=== PATIENT | male | born 1930 | race African-American/Black ===

== ENCOUNTER → 2017-07-30 | Outpatient (CLI) | payer MEDICARE ==
[2017-07-30 09:00] LABS: Basophils % (A) 0 %; Eosinophils # (A) 0.3 k/uL (0-0.7); Eosinophils % (A) 7 %; HCT 31.4 % (39.0-53.0); Lymphocytes # (A) 0.9 k/uL (1.0-4.8); Lymphocytes % (A) 24 %; MCHC 31.8 g/dL (31.0-37.0); MCV 84.8 fL (80.0-100.0); Mean Platelet Volume 7.8; Monocytes # (A) 0.4 k/uL (0-1.0); Monocytes % (A) 9 %; Neutrophils # (A) 2.1 k/uL (1.3-7.7); Neutrophils % (A) 56 %; Platelet Count 214 k/uL (150-450); RBC 3.71 m/uL (4.30-5.90); RDW 14.3 % (11.5-15.5); WBC 3.8 k/uL (3.8-10.6)
== END | disposition home or self-care (01) ==
LOC: LABWHC1 08:39
PROVIDERS: ATTEND Internal Medicine Gastroenterology
DX: D64.9 Anemia, unspecified (principal)
CPT/HCPCS: 36415; 82728; 83540; 83550; 85025

== ENCOUNTER → 2017-09-07 | Day surgery (SDC) | payer MEDICARE ==
[2017-09-06 12:42] VITALS: BMI 33.3
[~2017-09-07] MED LIST: SIMETHICONE 40 MG/0.6 ML DROPS 2,000 MG/30 ML BOTTLE PO ONE
== END ==
LOC: ORWHC2ENDO 06:49
PROVIDERS: ATTEND Internal Medicine Gastroenterology
DX: K63.5 Polyp of colon (principal); K29.70 Gastritis, unspecified, without bleeding; K31.7 Polyp of stomach and duodenum; D50.9 Iron deficiency anemia, unspecified; K92.1 Melena
CPT/HCPCS: 91110

== ENCOUNTER 2017-12-13 20:08 | Emergency (ER) | payer MEDICARE ==
--- NOTE | 2017-12-13 20:42 | ED ---
General Adult HPI - General Chief complaint: Urogenital Stated complaint: blood in urine Time Seen by Provider: 12/13/17 20:41 Source: patient Mode of arrival: wheelchair Limitations: no limitations - History of Present Illness Initial comments: Mr. Mcrae is an 87-year-old gentleman with a past medical history of prostate cancer prostate surgery few years ago. He presents to the emergency department today for evaluation of hematuria and inability urinate since this morning. Patient reports that he urinated this morning without difficulty. Since that time he notices had grossly bloody urine when he attempts to urinate and has not had the ability to void his bladder since this morning. - Related Data Home Medications Medication Instructions Recorded Confirmed Cholecalciferol [Vitamin D3] 2,000 units PO DAILY 08/28/15 12/13/17 Enalapril [Vasotec] 2.5 mg PO DAILY 08/28/15 12/13/17 Ferrous Sulfate [Feosol] 325 mg PO DAILY 08/28/15 12/13/17 Furosemide [Lasix] 20 mg PO DAILY 08/28/15 12/13/17 Glimepiride [Amaryl] 2 mg PO AC-BID 08/28/15 12/13/17 Potassium Chloride [Klor-Con 10] 10 meq PO DAILY 08/28/15 12/13/17 Aspirin 325 mg PO DAILY 09/06/17 12/13/17 Timolol 0.5% Ophth Soln [Timoptic 1 drop BOTH EYES DAILY 12/13/17 12/13/17 0.5% Ophth Soln] glipiZIDE [Glucotrol] 5 mg PO AC-TID 12/13/17 12/13/17 metFORMIN HCL [Glucophage] 500 mg PO BID 12/13/17 12/13/17 Previous Rx's Medication Instructions Recorded Cephalexin [Keflex] 500 mg PO Q6HR #28 cap 12/14/17 Allergies Allergy/AdvReac Type Severity Reaction Status Date / Time No Known Allergies Allergy Verified 12/13/17 20:13 Review of Systems ROS Statement: Those systems with pertinent positive or pertinent negative responses have been documented in the HPI. ROS Other: All systems not noted in ROS Statement are negative. 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 NIDDM type II. PVD. Anemia. BPH History of Any Multi-Drug Resistant Organisms: MRSA Date of last positivie culture/infection: 08/28/15 MDRO Source:: Left Leg Past Surgical History: Bowel Resection, Heart Catheterization Additional Past Surgical History / Comment(s): 2007 last colonoscopy with polypectomy/bx, craniotomy for unknown reason at [facility], R hemicolectomy 2004, cardiac cath tx medically 2013, bilateral cataract removal with lens, LASER MAGDA EYES. Past Anesthesia/Blood Transfusion Reactions: No Reported Reaction Additional Past Anesthesia/Blood Transfusion Reaction / Comment(s): Pt received blood in past without known reaction. Past Psychological History: No Psychological Hx Reported Smoking Status: Never smoker - Past Family History Father Family Medical History: No Reported History Additional Family Medical History / Comment(s): Pt believes his father was healthy. He at age 93 yrs. Mother Family Medical History: No Reported History Additional Family Medical History / Comment(s): Pt doesn't know of mother's medical hx but she did live to be 95 yrs old. General Exam - General Exam Comments Initial Comments: GENERAL: Patient is well-developed and well-nourished. Patient is nontoxic and well- hydrated and is in no distress. HENT: Normocephalic, Atraumatic. EYES: PERRL PULMONARY: Unlabored respirations. CARDIOVASCULAR: There is a regular rate and rhythm without any murmurs gallops or rubs. ABDOMEN: Soft and nontender with normal bowel sounds. Mild tenderness to palpation of suprapubic region SKIN: Skin is clear with no lesions or rashes and otherwise unremarkable. NEUROLOGIC: Patient is alert and oriented x3. Cranial nerves II through XII are grossly intact. Motor and sensory are also intact. Normal speech, volume and content. Symmetrical smile. MUSCULOSKELETAL: Normal extremities with adequate strength and full range of motion. No lower extremity swelling or edema. No calf tenderness. LYMPHATICS: No significant lymphadenopathy is noted PSYCHIATRIC: Normal psychiatric evaluation. Limitations: no limitations Limitations: no limitations Course Vital Signs 12/13/17 12/14/17 20:09 01:49 Temperature 98 F 99.1 F Pulse Rate 85 71 Respiratory 16 18 Rate Blood Pressure 177/90 156/68 O2 Sat by Pulse 98 100 Oximetry Medical Decision Making - Medical Decision Making Patient was seen and evaluated, history is obtained from the patient and review of medical record Patient attempted to provide urine sample for over one hour, but her skin revealed approximately 200 mL in the bladder however patient continued only produced dark blood, decision was made to place a Kapoor catheter Multiple output with Kapoor catheter placement, irrigation ordered Kapoor was irrigated, urine was sent for urinalysis. Was noted to be grossly hematuric with greater than 182 red and white blood cells. Culture was ordered and patient will be empirically treated for UTI. Patient is familiar with Kapoor catheter care as he has had one in the past. Patient discharged home with Kapoor catheter in place and plan to follow up with urology. - Lab Data Lab Results 12/14/17 Range/Units 00:48 Urine Color Red Urine Appearance [employer] Urine RBC >182 H (0-5) /hpf Urine WBC >182 H (0-5) /hpf Urine Bacteria Rare H (None) /hpf Disposition Clinical Impression: Hematuria Disposition: HOME SELF-CARE Instructions: Urinary Tract Infection in Men (ED) Prescriptions: Cephalexin [Keflex] 500 mg PO Q6HR #28 cap Is patient prescribed a controlled substance at d/c from ED?: No Referrals: Edmond Crespo MD [Primary Care Provider] - 1-2 days Lopez Murry MD [STAFF PHYSICIAN] - 1-2 days
[2017-12-13] MEDS ORDERED: SODIUM CHLORIDE 0.9% 1,000 ML IV STA (22:44)
[2017-12-14 01:13] LABS: Bacteria,Urine Rare /hpf
[2017-12-14] MEDS ORDERED: CEPHALEXIN 500MG STARTER PACK 4 CAP BTL PO STA (01:21)
[2017-12-14 01:31] LABS: Color,Urine Red
[2017-12-14 01:32] LABS: WBC,Urine >182 /hpf (0-5)
[2017-12-14 01:33] LABS: RBC,Urine >182 /hpf (0-5)
[2017-12-14 01:51] VITALS: BP 156/68; PULSE 71; RESP 18; TEMP 99.1
== END 2017-12-14 01:49 | disposition home or self-care (01) ==
LOC: EC 20:08
DX: R31.0 Gross hematuria (principal); R32 Unspecified urinary incontinence; I10 Essential (primary) hypertension; I25.10 Atherosclerotic heart disease of native coronary artery without angina pectoris; E11.51 Type 2 diabetes mellitus with diabetic peripheral angiopathy without gangrene; D64.9 Anemia, unspecified; Z79.82 Long term (current) use of aspirin; Z79.84 Long term (current) use of oral hypoglycemic drugs; Z79.899 Other long term (current) drug therapy; Z86.14 Personal history of Methicillin resistant Staphylococcus aureus infection; Z85.038 Personal history of other malignant neoplasm of large intestine; Z85.46 Personal history of malignant neoplasm of prostate; Z92.21 Personal history of antineoplastic chemotherapy; Z92.3 Personal history of irradiation; Z90.49 Acquired absence of other specified parts of digestive tract; Z95.9 Presence of cardiac and vascular implant and graft, unspecified; Z53.8 Procedure and treatment not carried out for other reasons
CPT/HCPCS: 51702; 81001; 87086; 99283

== ENCOUNTER 2017-12-15 11:16 | Emergency (ER) | payer MEDICARE ==
--- NOTE | 2017-12-15 11:42 | ED ---
General Adult HPI - General Chief complaint: Urogenital Stated complaint: catheter problem Source: patient Mode of arrival: wheelchair Limitations: no limitations - History of Present Illness Initial comments: Dictation was produced using [employer] dictation software. please excuse any grammatical, word or spelling errors. Chief Complaint: 87-year-old -[place]os[place] male with past medical history of colon carcinoma, anemia, chronic kidney disease, coronary artery disease, diabetes presents with Kapoor site pain. History of Present Illness: She was seen here in emergency department 2 days ago for urinary retention. Patient's past medical history of prostate cancer status post surgery a few years ago. Patient was seen yesterday for chief complaint of hematuria and urinary retention. Patient had gross hematuria. Patient was found to have urinary retention approximately 200 mL in the bladder. His found to be dark blood. Kapoor catheter was placed and he was instructed to follow-up with urology. Patient states that he presents today because of testicular pain that started after the Kapoor catheter placement. Patient denies any constitutional symptoms. The ROS documented in this emergency department record has been reviewed and confirmed by me. Those systems with pertinent positive or negative responses have been documented in the HPI. All other systems are other negative and/or noncontributory. - Related Data Home Medications Medication Instructions Recorded Confirmed Enalapril [Vasotec] 2.5 mg PO DAILY 08/28/15 12/15/17 Ferrous Sulfate [Feosol] 325 mg PO DAILY 08/28/15 12/15/17 Furosemide [Lasix] 20 mg PO DAILY 08/28/15 12/15/17 Potassium Chloride [Klor-Con 10] 10 meq PO DAILY 08/28/15 12/15/17 Aspirin 325 mg PO DAILY 09/06/17 12/15/17 Timolol 0.5% Ophth Soln [Timoptic 1 drop BOTH EYES DAILY 12/13/17 12/15/17 0.5% Ophth Soln] glipiZIDE [Glucotrol] 5 mg PO AC-TID 12/13/17 12/15/17 Artificial Tears-Hypromellose 1 drops BOTH EYES TID 12/15/17 12/15/17 [Artificial Tear Drops] Previous Rx's Medication Instructions Recorded Levofloxacin [Levaquin] 500 mg PO DAILY 10 Days #10 tab 12/15/17 Allergies Allergy/AdvReac Type Severity Reaction Status Date / Time No Known Allergies Allergy Verified 12/15/17 12:00 Review of Systems ROS Statement: Those systems with pertinent positive or pertinent negative responses have been documented in the HPI. ROS Other: All systems not noted in ROS Statement are negative. 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 NIDDM type II. PVD. Anemia. BPH History of Any Multi-Drug Resistant Organisms: MRSA Date of last positivie culture/infection: 08/28/15 MDRO Source:: Left Leg Past Surgical History: Bowel Resection, Heart Catheterization Additional Past Surgical History / Comment(s): 2007 last colonoscopy with polypectomy/bx, craniotomy for unknown reason at [facility], R hemicolectomy 2004, cardiac cath tx medically 2013, bilateral cataract removal with lens, LASER MAGDA EYES. Past Anesthesia/Blood Transfusion Reactions: No Reported Reaction Additional Past Anesthesia/Blood Transfusion Reaction / Comment(s): Pt received blood in past without known reaction. Past Psychological History: No Psychological Hx Reported Smoking Status: Never smoker Past Alcohol Use History: None Reported Past Drug Use History: None Reported - Past Family History Father Family Medical History: No Reported History Additional Family Medical History / Comment(s): Pt believes his father was healthy. He at age 93 yrs. Mother Family Medical History: No Reported History Additional Family Medical History / Comment(s): Pt doesn't know of mother's medical hx but she did live to be 95 yrs old. General Exam - General Exam Comments Initial Comments: PHYSICAL EXAM: General Impression: Alert and oriented x3, not in acute distress HEENT: Normocephalic atraumatic, extra-ocular movements intact, pupils equal and reactive to light bilaterally, mucous membranes moist. Cardiovascular: Heart regular rate and rhythm, S1&S2 audible, no murmurs, rubs or gallops Chest: Lungs clear to auscultation bilaterally, no rhonchi, no wheeze, no rales Abdomen: Bowel sounds present, abdomen soft, non-tender, non-distended, no organomegaly Musculoskeletal: Pulses present and equal in all extremities, no peripheral edema Motor: Power 5/5 bilaterally, no focal deficits noted Neurological: CN II-XII grossly intact, no focal motor or sensory deficits noted Skin: Intact with no visualized rashes Psych: Normal affect and mood Limitations: no limitations Course Vital Signs 12/15/17 11:19 Temperature 98.7 F Pulse Rate 60 Respiratory 20 Rate Blood Pressure 151/63 O2 Sat by Pulse 100 Oximetry Medical Decision Making - Medical Decision Making ED course: Patient is a 87-year-old -[place]os[place] male with multiple comorbidities presents with testicular pain. Patient has a history of orchiectomy. Vital signs upon arrival are within acceptable limits.Bladder scan was performed with 850 mL of retained urine. Patient is having some scrotal pain ultrasound of the scrotum was obtained showing findings to suggest right hydrocele with findings of epididymal normal orchitis. Patient told to discontinue Keflex. He was given Levaquin 10 days. Kapoor catheter was irrigated with saline by the nurse with approximately 100 mL removed. Patient be discharged. To follow-up with neurology. Disposition Clinical Impression: Epididymitis Disposition: HOME SELF-CARE Condition: Good Instructions: Urinary Tract Infection in Men (ED) Prescriptions: Levofloxacin [Levaquin] 500 mg PO DAILY 10 Days #10 tab Is patient prescribed a controlled substance at d/c from ED?: No Referrals: Edmond Crespo MD [Primary Care Provider] - 1-2 days Time of Disposition: 13:29
--- NOTE | 2017-12-15 13:08 | US ---
EXAMINATION TYPE: US scrotum with doppler. Grayscale and color Doppler Duplex imaging performed of obed scott scrotum. DATE OF EXAM: 12/15/2017 COMPARISON: NONE CLINICAL HISTORY: Pain. 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 There is no evidence of testicular torsion. Presence of hydroceles: large hydrocele = 6.8 x 5.1 x 4.1cm with few thin internal septations superi loida and low level mobile echoes seen inferiorly. Small right epididymal head cyst noted = 0.5 x 0.5 x 0.5cm; small epididymal appendix with internal c yst is noted on images #[id number], [id number]. Mildly heterogenous appearance noted to right testicle may be ten ma channels noted within gland. Mild hyperemia is seen to the testicle and epididymis. Bladder seen Transabdominal US with hyperechoic catheter wall echoes noted within and bladder volume measured = 887.9ml. IMPRESSION: 1. Minimally complex large right hydrocele. 2. Mildly hyperemic testicle and epididymis suggestive of epididymoorchitis. 3. Surgical absence of the left testicle. 4. Gross distention of the urinary bladder containing 887.9 cc.
[2017-12-15 13:39] VITALS: RESP 16
[2017-12-15 13:54] VITALS: BP 126/52; PULSE 88; TEMP 98
== END 2017-12-15 13:52 | disposition home or self-care (01) ==
LOC: EC 11:16
DX: N45.1 Epididymitis (principal); I12.9 Hypertensive chronic kidney disease with stage 1 through stage 4 chronic kidney disease, or unspecified chronic kidney disease; I10 Essential (primary) hypertension; I25.10 Atherosclerotic heart disease of native coronary artery without angina pectoris; E11.22 Type 2 diabetes mellitus with diabetic chronic kidney disease; E11.51 Type 2 diabetes mellitus with diabetic peripheral angiopathy without gangrene; D64.9 Anemia, unspecified; Z79.82 Long term (current) use of aspirin; Z79.84 Long term (current) use of oral hypoglycemic drugs; Z79.899 Other long term (current) drug therapy; Z86.14 Personal history of Methicillin resistant Staphylococcus aureus infection; Z85.46 Personal history of malignant neoplasm of prostate; Z85.038 Personal history of other malignant neoplasm of large intestine; Z92.21 Personal history of antineoplastic chemotherapy; Z92.3 Personal history of irradiation; Z90.49 Acquired absence of other specified parts of digestive tract; Z90.79 Acquired absence of other genital organ(s); Z95.9 Presence of cardiac and vascular implant and graft, unspecified
CPT/HCPCS: 76870; 93975; 99283

== ENCOUNTER 2017-12-16 17:32 | Emergency (ER) | payer MEDICARE ==
[2017-12-16 17:41] VITALS: BP 118/60; PULSE 65; RESP 18; TEMP 98.5
--- NOTE | 2017-12-16 18:37 | ED ---
General Adult HPI - General Chief complaint: Urogenital Stated complaint: unable to urinate Time Seen by Provider: 12/16/17 18:25 Source: patient, RN notes reviewed Mode of arrival: ambulatory Limitations: no limitations - History of Present Illness Initial comments: Patient 87-year-old male presenting to the emergency room today with a chief complaint of urinary retention. Patient does admit that he was seen here in emergency room a week ago had a full catheter placed. He states he was seen yesterday because full catheter was plugged. He states that since 1 PM he does not believe that the full catheter is been working again. She states there is some blood in the back. Patient does admit to some tenderness to lower abdomen and feeling need to void. Patient denies any other complaints or symptoms. Patient denies any recent fever, chills, shortness of breath, chest pain, back pain, nausea or vomiting, headaches or visual changes, or any other complaints. - Related Data Home Medications Medication Instructions Recorded Confirmed Enalapril [Vasotec] 2.5 mg PO DAILY 08/28/15 12/16/17 Ferrous Sulfate [Feosol] 325 mg PO DAILY 08/28/15 12/16/17 Furosemide [Lasix] 20 mg PO DAILY 08/28/15 12/16/17 Potassium Chloride [Klor-Con 10] 10 meq PO DAILY 08/28/15 12/16/17 Aspirin 325 mg PO DAILY 09/06/17 12/16/17 Timolol 0.5% Ophth Soln [Timoptic 1 drop BOTH EYES DAILY 12/13/17 12/16/17 0.5% Ophth Soln] glipiZIDE [Glucotrol] 5 mg PO AC-TID 12/13/17 12/16/17 Artificial Tears-Hypromellose 1 drops BOTH EYES TID 12/15/17 12/16/17 [Artificial Tear Drops] Ciprofloxacin HCl [Cipro] 500 mg PO BID 12/16/17 12/16/17 Previous Rx's Medication Instructions Recorded Levofloxacin [Levaquin] 500 mg PO DAILY 10 Days #10 tab 12/15/17 Allergies Allergy/AdvReac Type Severity Reaction Status Date / Time No Known Allergies Allergy Verified 12/16/17 17:57 Review of Systems ROS Statement: Those systems with pertinent positive or pertinent negative responses have been documented in the HPI. ROS Other: All systems not noted in ROS Statement are negative. 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 NIDDM type II. PVD. Anemia. BPH History of Any Multi-Drug Resistant Organisms: MRSA Date of last positivie culture/infection: 08/28/15 MDRO Source:: Left Leg Past Surgical History: Bowel Resection, Heart Catheterization Additional Past Surgical History / Comment(s): 2007 last colonoscopy with polypectomy/bx, craniotomy for unknown reason at [facility], R hemicolectomy 2004, cardiac cath tx medically 2013, bilateral cataract removal with lens, LASER MAGDA EYES. Past Anesthesia/Blood Transfusion Reactions: No Reported Reaction Additional Past Anesthesia/Blood Transfusion Reaction / Comment(s): Pt received blood in past without known reaction. Past Psychological History: No Psychological Hx Reported Smoking Status: Never smoker Past Alcohol Use History: None Reported Past Drug Use History: None Reported - Past Family History Father Family Medical History: No Reported History Additional Family Medical History / Comment(s): Pt believes his father was healthy. He at age 93 yrs. Mother Family Medical History: No Reported History Additional Family Medical History / Comment(s): Pt doesn't know of mother's medical hx but she did live to be 95 yrs old. General Exam - General Exam Comments Initial Comments: General: The patient is awake and alert, in no distress, and does not appear acutely ill. Eye: There is normal conjunctiva bilaterally. No signs of icterus. Ears, nose, mouth and throat: There are moist mucous membranes and no oral lesions. Neck: The neck is supple, there is no tenderness or JVD. Cardiovascular: There is a regular rate and rhythm. No murmur, rub or gallop is appreciated. Respiratory: Lungs are clear to auscultation, respirations are non-labored, breath sounds are equal. No wheezes, stridor, rales, or rhonchi. Gastrointestinal: Mild discomfort lower abdomen. No rebound, guarding or CVA tenderness. Musculoskeletal: Normal ROM, no tenderness. Sensation intact. Strength 5/5. Pulses equal bilaterally 2+. Neurological: A&O x 3. CN II-XII intact, There are no obvious motor or sensory deficits. Coordination appears grossly intact. Speech is normal. Skin: Skin is warm and dry and no rashes or lesions are noted. Psychiatric: Cooperative, appropriate mood & affect, normal judgment. Limitations: no limitations Course Vital Signs 12/16/17 17:40 Temperature 98.5 F Pulse Rate 65 Respiratory 18 Rate Blood Pressure 118/60 O2 Sat by Pulse 100 Oximetry Medical Decision Making - Medical Decision Making Patient reexamined at this time shows no signs of distress. Nursing staff did irrigate the Kapoor and it was unplugged. Patient fully has been draining well here. Patient will be discharged home. Urinalysis looking good no sign of infection at this time he will be continued on the antibiotic that was previously described. - Lab Data Lab Results 12/16/17 Range/Units 19:10 Urine Color Light Red Urine Appearance Cloudy (Clear) Urine pH 5.5 (5.0-8.0) Ur Specific [place] 1.008 (1.001-1.035) Urine Protein 1+ H (Negative) Urine Glucose (UA) 3+ H (Negative) Urine Ketones Negative (Negative) Urine Blood Large H (Negative) Urine Nitrite Negative (Negative) Urine Bilirubin Negative (Negative) Urine Urobilinogen <2.0 (<2.0) mg/dL Ur Leukocyte Esterase Negative (Negative) Urine RBC >182 H (0-5) /hpf Urine WBC 3 (0-5) /hpf Ur Squamous Epith Cells <1 (0-4) /hpf Urine Bacteria Rare H (None) /hpf Urine Mucus Rare H (None) /hpf Urine Yeast (Budding) Occasional H (None) /hpf Disposition Clinical Impression: Hematuria Disposition: HOME SELF-CARE Condition: Good Instructions: Urinary Tract Infection in Men (ED) Additional Instructions: Please follow-up with urologist over the next 2 days return here to the emergency room for any other concerns. Is patient prescribed a controlled substance at d/c from ED?: No Referrals: Edmond Crespo MD [Primary Care Provider] - 1-2 days Vasyl Santos MD [STAFF PHYSICIAN] - 1-2 days Time of Disposition: 19:44
[2017-12-16 19:20] LABS: Mucus,Urine Rare /hpf; RBC,Urine >182 /hpf (0-5)
[2017-12-16 19:27] LABS: Appearance,Urine Cloudy (Clear); Bacteria,Urine Rare /hpf; Bilirubin,Urine Negative (Negative); Blood,Urine Large (Negative); Budding Yeast,Urine Occasional /hpf; Color,Urine Light Red; Glucose,Urine (UA) 3+ (Negative); Ketones,Urine Negative (Negative); Leukocyte Esterase,Urine Negative (Negative); Nitrite,Urine Negative (Negative); PH, Urine 5.5 (5.0-8.0); Protein,Urine 1+ (Negative); Specific Gravity,Urine 1.008 (1.001-1.035); Squamous Epithelial Cell,Urine <1 /hpf (0-4); Urobilinogen,Urine <2.0 mg/dL (<2.0)
== END 2017-12-16 20:13 | disposition home or self-care (01) ==
LOC: EC 17:32
DX: R31.9 Hematuria, unspecified (principal); R33.9 Retention of urine, unspecified; I10 Essential (primary) hypertension; E11.51 Type 2 diabetes mellitus with diabetic peripheral angiopathy without gangrene; D64.9 Anemia, unspecified; Z79.82 Long term (current) use of aspirin; Z79.84 Long term (current) use of oral hypoglycemic drugs; Z79.899 Other long term (current) drug therapy; Z86.14 Personal history of Methicillin resistant Staphylococcus aureus infection; Z85.038 Personal history of other malignant neoplasm of large intestine; Z85.46 Personal history of malignant neoplasm of prostate; Z92.21 Personal history of antineoplastic chemotherapy; Z92.3 Personal history of irradiation; Z90.49 Acquired absence of other specified parts of digestive tract
CPT/HCPCS: 81001; 99283

== ENCOUNTER 2017-12-17 06:27 | Emergency (ER) | payer MEDICARE ==
[2017-12-17 06:35] VITALS: RESP 18
--- NOTE | 2017-12-17 07:42 | ED ---
General Adult HPI - General Chief complaint: Urogenital Stated complaint: Male Time Seen by Provider: 12/17/17 07:00 Source: patient, RN notes reviewed Mode of arrival: ambulatory Limitations: no limitations - History of Present Illness Initial comments: This is an 87-year-old male who presents emergency Department complaining of urinary retention. Patient states it started in the middle night some time. Patient states since then he's been unable to go. Patient states he has prostate problems and he has an appointment with urology next week. Patient's complaints of supra pubic fullness. Patient denies any dysuria hematuria. Patient states he thinks she might have urinary tract infection because as was happened in the past. Patient denies any fever chills. Patient denies any back pain. Patient denies any nausea vomiting diarrhea. - Related Data Home Medications Medication Instructions Recorded Confirmed Enalapril [Vasotec] 2.5 mg PO DAILY 08/28/15 12/17/17 Ferrous Sulfate [Feosol] 325 mg PO DAILY 08/28/15 12/17/17 Furosemide [Lasix] 20 mg PO DAILY 08/28/15 12/17/17 Potassium Chloride [Klor-Con 10] 10 meq PO DAILY 08/28/15 12/17/17 Aspirin 325 mg PO DAILY 09/06/17 12/17/17 Timolol 0.5% Ophth Soln [Timoptic 1 drop BOTH EYES DAILY 12/13/17 12/17/17 0.5% Ophth Soln] glipiZIDE [Glucotrol] 5 mg PO AC-TID 12/13/17 12/17/17 Artificial Tears-Hypromellose 1 drops BOTH EYES TID 12/15/17 12/17/17 [Artificial Tear Drops] Ciprofloxacin HCl [Cipro] 500 mg PO BID 12/16/17 12/17/17 Previous Rx's Medication Instructions Recorded Levofloxacin [Levaquin] 500 mg PO DAILY 10 Days #10 tab 12/15/17 Allergies Allergy/AdvReac Type Severity Reaction Status Date / Time No Known Allergies Allergy Verified 12/17/17 08:02 Review of Systems ROS Statement: Those systems with pertinent positive or pertinent negative responses have been documented in the HPI. ROS Other: All systems not noted in ROS Statement are negative. 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 NIDDM type II. PVD. Anemia. BPH History of Any Multi-Drug Resistant Organisms: MRSA Date of last positivie culture/infection: 08/28/15 MDRO Source:: Left Leg Past Surgical History: Bowel Resection, Heart Catheterization Additional Past Surgical History / Comment(s): 2007 last colonoscopy with polypectomy/bx, craniotomy for unknown reason at , R hemicolectomy 2004, cardiac cath tx medically 2013, bilateral cataract removal with lens, LASER MAGDA EYES. Past Anesthesia/Blood Transfusion Reactions: No Reported Reaction Additional Past Anesthesia/Blood Transfusion Reaction / Comment(s): Pt received blood in past without known reaction. Past Psychological History: No Psychological Hx Reported Smoking Status: Never smoker Past Alcohol Use History: None Reported Past Drug Use History: None Reported - Past Family History Father Family Medical History: No Reported History Additional Family Medical History / Comment(s): Pt believes his father was healthy. He at age 93 yrs. Mother Family Medical History: No Reported History Additional Family Medical History / Comment(s): Pt doesn't know of mother's medical hx but she did live to be 95 yrs old. General Exam - General Exam Comments Initial Comments: GENERAL: Patient is well-developed and well-nourished. Patient is nontoxic and well- hydrated and is in mild distress. ENT: Neck is soft and supple. No significant lymphadenopathy is noted. Oropharynx is clear. Moist mucous membranes. Neck has full range of motion without eliciting any pain. EYES: The sclera were anicteric and conjunctiva were pink and moist. Extraocular movements were intact and pupils were equal round and reactive to light. Eyelids were unremarkable. PULMONARY: Unlabored respirations. Good breath sounds bilaterally. No audible rales rhonchi or wheezing was noted. CARDIOVASCULAR: There is a regular rate and rhythm without any murmurs gallops or rubs. ABDOMEN: Patient is mildly distended abdomen SKIN: Skin is clear with no lesions or rashes and otherwise unremarkable. NEUROLOGIC: Patient is alert and oriented x3. Cranial nerves II through XII are grossly intact. Motor and sensory are also intact. Normal speech, volume and content. Symmetrical smile. MUSCULOSKELETAL: Normal extremities with adequate strength and full range of motion. No lower extremity swelling or edema. No calf tenderness. LYMPHATICS: No significant lymphadenopathy is noted PSYCHIATRIC: Normal psychiatric evaluation. Limitations: no limitations Course Vital Signs 12/17/17 06:32 Temperature 98.2 F Pulse Rate 64 Respiratory 18 Rate Blood Pressure 155/76 O2 Sat by Pulse 98 Oximetry Medical Decision Making - Lab Data Lab Results 12/17/17 Range/Units 07:35 Urine Color Light Red Urine Appearance Cloudy (Clear) Urine pH 6.0 (5.0-8.0) Ur Specific [place] 1.010 (1.001-1.035) Urine Protein 1+ H (Negative) Urine Glucose (UA) 2+ H (Negative) Urine Ketones Negative (Negative) Urine Blood Moderate H (Negative) Urine Nitrite Negative (Negative) Urine Bilirubin Negative (Negative) Urine Urobilinogen <2.0 (<2.0) mg/dL Ur Leukocyte Esterase Small H (Negative) Urine RBC >182 H (0-5) /hpf Urine WBC 24 H (0-5) /hpf Urine Bacteria Rare H (None) /hpf Urine Mucus Rare H (None) /hpf Disposition Clinical Impression: Urinary retention Disposition: HOME SELF-CARE Condition: Good Instructions: Urinary Retention in Men (ED) Referrals: Edmond Crespo MD [Primary Care Provider] - 1-2 days Vasyl Santos MD [STAFF PHYSICIAN] - 1-2 days Time of Disposition: 08:23
[2017-12-17 07:59] LABS: Appearance,Urine Cloudy (Clear); Bacteria,Urine Rare /hpf; Bilirubin,Urine Negative (Negative); Blood,Urine Moderate (Negative); Color,Urine Light Red; Glucose,Urine (UA) 2+ (Negative); Ketones,Urine Negative (Negative); Leukocyte Esterase,Urine Small (Negative); Mucus,Urine Rare /hpf; Nitrite,Urine Negative (Negative); Protein,Urine 1+ (Negative); RBC,Urine >182 /hpf (0-5); Urobilinogen,Urine <2.0 mg/dL (<2.0); WBC,Urine 24 /hpf (0-5)
[2017-12-17 08:46] VITALS: BP 145/79; PULSE 60; TEMP 97.8
== END 2017-12-17 08:46 | disposition home or self-care (01) ==
LOC: EC 06:27
DX: R33.9 Retention of urine, unspecified (principal); I25.119 Atherosclerotic heart disease of native coronary artery with unspecified angina pectoris; I10 Essential (primary) hypertension; E11.51 Type 2 diabetes mellitus with diabetic peripheral angiopathy without gangrene; Z79.82 Long term (current) use of aspirin; Z79.84 Long term (current) use of oral hypoglycemic drugs; Z79.899 Other long term (current) drug therapy; Z85.46 Personal history of malignant neoplasm of prostate; Z85.038 Personal history of other malignant neoplasm of large intestine; Z95.5 Presence of coronary angioplasty implant and graft
CPT/HCPCS: 81001; 99283

== ENCOUNTER 2017-12-17 19:21 | Emergency (ER) | payer MEDICARE ==
--- NOTE | 2017-12-17 20:17 | ED ---
General Adult HPI - General Chief complaint: Urogenital Stated complaint: Male Time Seen by Provider: 12/17/17 19:30 Source: patient, RN notes reviewed, old records reviewed Mode of arrival: ambulatory Limitations: no limitations - History of Present Illness Initial comments: 87-year-old male presents with decreased urine output in his indwelling Kapoor catheter. Patient has had urinary retention over the past one week. He's had multiple issues with catheter malfunction. He is presenting after being seen in the emergency department earlier today with an obstructed catheter. He is currently on antibiotics for urinary tract infection. No fever or chills. No significant abdominal pain just some lower abdominal discomfort. - Related Data Home Medications Medication Instructions Recorded Confirmed Enalapril [Vasotec] 2.5 mg PO DAILY 08/28/15 12/17/17 Ferrous Sulfate [Feosol] 325 mg PO DAILY 08/28/15 12/17/17 Furosemide [Lasix] 20 mg PO DAILY 08/28/15 12/17/17 Potassium Chloride [Klor-Con 10] 10 meq PO DAILY 08/28/15 12/17/17 Aspirin 325 mg PO DAILY 09/06/17 12/17/17 Timolol 0.5% Ophth Soln [Timoptic 1 drop BOTH EYES DAILY 12/13/17 12/17/17 0.5% Ophth Soln] glipiZIDE [Glucotrol] 5 mg PO AC-TID 12/13/17 12/17/17 Artificial Tears-Hypromellose 1 drops BOTH EYES TID 12/15/17 12/17/17 [Artificial Tear Drops] Ciprofloxacin HCl [Cipro] 500 mg PO BID 12/16/17 12/17/17 Previous Rx's Medication Instructions Recorded Levofloxacin [Levaquin] 500 mg PO DAILY 10 Days #10 tab 12/15/17 Allergies Allergy/AdvReac Type Severity Reaction Status Date / Time No Known Allergies Allergy Verified 12/17/17 19:43 Review of Systems ROS Statement: Those systems with pertinent positive or pertinent negative responses have been documented in the HPI. ROS Other: All systems not noted in ROS Statement are negative. 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 NIDDM type II. PVD. Anemia. BPH History of Any Multi-Drug Resistant Organisms: MRSA Date of last positivie culture/infection: 08/28/15 MDRO Source:: Left Leg Past Surgical History: Bowel Resection, Heart Catheterization Additional Past Surgical History / Comment(s): 2007 last colonoscopy with polypectomy/bx, craniotomy for unknown reason at [facility], R hemicolectomy 2004, cardiac cath tx medically 2013, bilateral cataract removal with lens, LASER MAGDA EYES. Past Anesthesia/Blood Transfusion Reactions: No Reported Reaction Additional Past Anesthesia/Blood Transfusion Reaction / Comment(s): Pt received blood in past without known reaction. Past Psychological History: No Psychological Hx Reported Smoking Status: Never smoker Past Alcohol Use History: None Reported Past Drug Use History: None Reported - Past Family History Father Family Medical History: No Reported History Additional Family Medical History / Comment(s): Pt believes his father was healthy. He at age 93 yrs. Mother Family Medical History: No Reported History Additional Family Medical History / Comment(s): Pt doesn't know of mother's medical hx but she did live to be 95 yrs old. General Exam Limitations: no limitations General appearance: alert, in no apparent distress Head exam: Present: atraumatic, normocephalic Eye exam: Present: normal appearance, PERRL ENT exam: Present: normal exam Neck exam: Present: normal inspection. Absent: tenderness, meningismus Respiratory exam: Present: normal lung sounds bilaterally. Absent: respiratory distress, wheezes Cardiovascular Exam: Present: regular rate, normal rhythm GI/Abdominal exam: Present: soft, tenderness (Mild suprapubic tenderness). Absent: distended exam: Present: other (Indwelling Kapoor catheter). Absent: urethral discharge , scrotal swelling Extremities exam: Present: normal inspection, normal capillary refill Course Vital Signs 12/17/17 19:24 Temperature 98.5 F Pulse Rate 96 Respiratory 16 Rate Blood Pressure 180/66 O2 Sat by Pulse 92 L Oximetry Medical Decision Making - Medical Decision Making 87-year-old male with urinary retention and suspected obstruction of indwelling Kapoor catheter, Kapoor catheter is exchanged in the emergency department after bedside ultrasound reveals large amount of urinary retention. There is a clot in the distal portion of the catheter. After reinsertion of new Kapoor catheter under sterile technique, patient has significant urinary output. Symptoms are resolved. Urine is flowing clear yellow. No additional clots obtained. Patient will be discharged home, he does have outpatient neurology follow-up. Disposition Clinical Impression: Urinary retention Disposition: HOME SELF-CARE Condition: Good Instructions: Urinary Retention in Men (ED), Kapoor Catheter Placement and Care (ED) Is patient prescribed a controlled substance at d/c from ED?: No Referrals: Edmond Crespo MD [Primary Care Provider] - 1-2 days Time of Disposition: 20:17
[2017-12-17 20:44] VITALS: BP 169/79; PULSE 88; RESP 20; TEMP 98.1
== END 2017-12-17 20:37 | disposition home or self-care (01) ==
LOC: EC 19:21
DX: R33.9 Retention of urine, unspecified (principal); R10.30 Lower abdominal pain, unspecified; I25.119 Atherosclerotic heart disease of native coronary artery with unspecified angina pectoris; I10 Essential (primary) hypertension; N40.0 Benign prostatic hyperplasia without lower urinary tract symptoms; D64.9 Anemia, unspecified; E11.9 Type 2 diabetes mellitus without complications; Z86.14 Personal history of Methicillin resistant Staphylococcus aureus infection; Z85.46 Personal history of malignant neoplasm of prostate; Z85.038 Personal history of other malignant neoplasm of large intestine; Z79.82 Long term (current) use of aspirin; Z79.84 Long term (current) use of oral hypoglycemic drugs; Z79.899 Other long term (current) drug therapy; Z95.818 Presence of other cardiac implants and grafts
CPT/HCPCS: 51702; 81001; 99283

== ENCOUNTER 2017-12-19 16:08 | Emergency (ER) | payer MEDICARE ==
[2017-12-19 16:49] VITALS: TEMP 98.6
--- NOTE | 2017-12-19 17:05 | ED ---
Male Urogenital HPI - General Chief complaint: Urogenital Stated complaint: unable to urinate Time Seen by Provider: 12/19/17 16:47 Source: patient Mode of arrival: wheelchair Limitations: no limitations - History of Present Illness Initial comments: Patient is a 87-year-old male presenting for Kapoor catheter malfunction. The patient states that he was seen her multiple occasions because he was retaining urine. Earlier today, he stated that the catheter stop flowing urine. He denies any abdominal pain as well as testicular pain or nausea/vomiting/ diarrhea or fevers/chills. - Related Data Home Medications Medication Instructions Recorded Confirmed Enalapril [Vasotec] 2.5 mg PO DAILY 08/28/15 12/19/17 Ferrous Sulfate [Feosol] 325 mg PO DAILY 08/28/15 12/19/17 Furosemide [Lasix] 20 mg PO DAILY 08/28/15 12/19/17 Potassium Chloride [Klor-Con 10] 10 meq PO DAILY 08/28/15 12/19/17 Aspirin 325 mg PO DAILY 09/06/17 12/19/17 Timolol 0.5% Ophth Soln [Timoptic 1 drop BOTH EYES DAILY 12/13/17 12/19/17 0.5% Ophth Soln] glipiZIDE [Glucotrol] 5 mg PO AC-TID 12/13/17 12/19/17 Artificial Tears-Hypromellose 1 drops BOTH EYES TID 12/15/17 12/19/17 [Artificial Tear Drops] Ciprofloxacin HCl [Cipro] 500 mg PO BID 12/16/17 12/19/17 Previous Rx's Medication Instructions Recorded Levofloxacin [Levaquin] 500 mg PO DAILY 10 Days #10 tab 12/15/17 Allergies Allergy/AdvReac Type Severity Reaction Status Date / Time No Known Allergies Allergy Verified 12/19/17 16:50 Review of Systems ROS Statement: Those systems with pertinent positive or pertinent negative responses have been documented in the HPI. Constitutional: Negative for chills, fatigue and fever. HENT: Negative for congestion. Respiratory: Negative for chest tightness, shortness of breath and wheezing. Negative for cough Cardiovascular: Negative for chest pain and palpitations. Gastrointestinal: Negative for abdominal pain. Negative for abdominal distention , diarrhea, nausea and vomiting. Genitourinary: Negative for dysuria. Positive for Kapoor catheter malfunction Musculoskeletal: Negative for back pain, neck pain and neck stiffness. Skin: Negative for color change. Neurological: Negative for dizziness, speech difficulty, weakness and light- headedness. Psychiatric/Behavioral: Negative for agitation and confusion. Negative for anxiety ROS Other: All systems not noted in ROS Statement are negative. 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 NIDDM type II. PVD. Anemia. BPH History of Any Multi-Drug Resistant Organisms: MRSA Date of last positivie culture/infection: 08/28/15 MDRO Source:: Left Leg Past Surgical History: Bowel Resection, Heart Catheterization Additional Past Surgical History / Comment(s): 2007 last colonoscopy with polypectomy/bx, craniotomy for unknown reason at [facility], R hemicolectomy 2004, cardiac cath tx medically 2013, bilateral cataract removal with lens, LASER MAGDA EYES. Past Anesthesia/Blood Transfusion Reactions: No Reported Reaction Additional Past Anesthesia/Blood Transfusion Reaction / Comment(s): Pt received blood in past without known reaction. Past Psychological History: No Psychological Hx Reported Smoking Status: Never smoker Past Alcohol Use History: None Reported Past Drug Use History: None Reported - Past Family History Father Family Medical History: No Reported History Additional Family Medical History / Comment(s): Pt believes his father was healthy. He at age 93 yrs. Mother Family Medical History: No Reported History Additional Family Medical History / Comment(s): Pt doesn't know of mother's medical hx but she did live to be 95 yrs old. General Exam - General Exam Comments Initial Comments: Constitutional: Pt is oriented to person, place, and time. Pt appears well- developed and well-nourished. No distress. HENT: Head: Normocephalic and atraumatic. Eyes: EOM are normal. Neck: Normal range of motion. Neck supple. Cardiovascular: Normal rate, regular rhythm, S1 normal, S2 normal and normal heart sounds. Exam reveals no gallop and no friction rub. No murmur heard. Pulmonary/Chest: Effort normal and breath sounds normal. No tachypnea and no bradypnea. No respiratory distress. No wheezes or rales noted. Abdominal: Soft. Bowel sounds are normal. Pt exhibits no shifting dullness, no distension, no pulsatile liver, no fluid wave, no abdominal bruit and no ascites. There is no tenderness. There is no rigidity, no rebound, no guarding, no tenderness at McBurney's point and negative Valentin's sign. Musculoskeletal: Normal range of motion. Neurological: Pt is alert and oriented to person, place, and time. No cranial nerve deficit. Skin: Skin is warm and dry. No rash noted. Pt is not diaphoretic. No erythema. No pallor. Psychiatric: Pt has a normal mood and affect. Pt behavior is normal. Thought content normal. Limitations: no limitations Course Vital Signs 12/19/17 12/19/17 16:46 20:27 Temperature 98.6 F Pulse Rate 59 L 62 Respiratory 18 16 Rate Blood Pressure 143/80 137/78 O2 Sat by Pulse 97 98 Oximetry Medical Decision Making - Medical Decision Making Laboratory studies showed that hemoglobin was stable at 10.9 and electrolytes were relatively within normal limits. There is also no evidence of acute kidney injury and urinalysis showed no evidence of bacterial infection. The Kapoor catheter was changed out and bladder scan revealed that the patient was retaining 600 mL of urine. Kapoor change occurred without any significant issues and patient was advised to follow-up with urology which he already had instructions for. Patient was agreeable to plan. - Lab Data Result diagrams: 12/19/17 17:20 12/19/17 17:20 Lab Results 12/19/17 12/19/17 12/19/17 Range/Units 17:20 17:20 18:30 WBC 7.6 (3.8-10.6) k/uL RBC 4.27 L (4.30-5.90) m/uL Hgb 10.9 L (13.0-17.5) gm/dL Hct 34.1 L (39.0-53.0) % MCV 80.0 D (80.0-100.0) fL MCH 25.6 (25.0-35.0) pg MCHC 32.0 (31.0-37.0) g/dL RDW 12.9 (11.5-15.5) % Plt Count 303 (150-450) k/uL Neutrophils % 75 % Lymphocytes % 13 % Monocytes % 6 % Eosinophils % 4 % Basophils % 1 % Neutrophils # 5.7 (1.3-7.7) k/uL Lymphocytes # 1.0 (1.0-4.8) k/uL Monocytes # 0.5 (0-1.0) k/uL Eosinophils # 0.3 (0-0.7) k/uL Basophils # 0.0 (0-0.2) k/uL Sodium 138 (137-145) mmol/L Potassium 4.6 (3.5-5.1) mmol/L Chloride 108 H (98-107) mmol/L Carbon Dioxide 23 (22-30) mmol/L Anion Gap 7 mmol/L BUN 26 H (9-20) mg/dL Creatinine 1.56 H (0.66-1.25) mg/dL Est GFR (CKD-EPI)AfAm 46 (>60 ml/min/1.73 sqM) Est GFR (CKD-EPI)NonAf 40 (>60 ml/min/1.73 sqM) Glucose 164 H (74-99) mg/dL Calcium 8.7 (8.4-10.2) mg/dL Urine Color Light Yellow Urine Appearance Clear (Clear) Urine pH 5.0 (5.0-8.0) Ur Specific [place] 1.008 (1.001-1.035) Urine Protein Trace H (Negative) Urine Glucose (UA) 4+ H (Negative) Urine Ketones Negative (Negative) Urine Blood Moderate H (Negative) Urine Nitrite Negative (Negative) Urine Bilirubin Negative (Negative) Urine Urobilinogen <2.0 (<2.0) mg/dL Ur Leukocyte Esterase Trace H (Negative) Urine RBC 95 H (0-5) /hpf Urine WBC 5 (0-5) /hpf Urine Mucus Rare H (None) /hpf Urine Yeast (Budding) Many H (None) /hpf Disposition Clinical Impression: Urinary retention Disposition: HOME SELF-CARE Condition: Good Instructions: Urinary Retention in Men (ED) Is patient prescribed a controlled substance at d/c from ED?: No Referrals: Edmond Crespo MD [Primary Care Provider] - 1-2 days Time of Disposition: 19:49
[2017-12-19 18:06] LABS: Basophils % (A) 1 %; Eosinophils # (A) 0.3 k/uL (0-0.7); Eosinophils % (A) 4 %; HCT 34.1 % (39.0-53.0); HGB 10.9 gm/dL (13.0-17.5); Lymphocytes % (A) 13 %; MCH 25.6 pg (25.0-35.0); Mean Platelet Volume 7.1; Monocytes # (A) 0.5 k/uL (0-1.0); Monocytes % (A) 6 %; Neutrophils # (A) 5.7 k/uL (1.3-7.7); Neutrophils % (A) 75 %; Platelet Count 303 k/uL (150-450); RBC 4.27 m/uL (4.30-5.90); RDW 12.9 % (11.5-15.5); WBC 7.6 k/uL (3.8-10.6)
[2017-12-19 18:08] LABS: Calcium 8.7 mg/dL (8.4-10.2); Potassium 4.6 mmol/L (3.5-5.1)
[2017-12-19 19:13] LABS: Appearance,Urine Clear (Clear); Bilirubin,Urine Negative (Negative); Blood,Urine Moderate (Negative); Budding Yeast,Urine Many /hpf; Color,Urine Light Yellow; Glucose,Urine (UA) 4+ (Negative); Ketones,Urine Negative (Negative); Leukocyte Esterase,Urine Trace (Negative); Mucus,Urine Rare /hpf; Nitrite,Urine Negative (Negative); Protein,Urine Trace (Negative); RBC,Urine 95 /hpf (0-5); Specific Gravity,Urine 1.008 (1.001-1.035); Urobilinogen,Urine <2.0 mg/dL (<2.0)
[2017-12-19 20:28] VITALS: BP 137/78; PULSE 62; RESP 16
== END 2017-12-19 20:15 | disposition home or self-care (01) ==
LOC: EC 16:08
DX: R33.9 Retention of urine, unspecified (principal); I25.10 Atherosclerotic heart disease of native coronary artery without angina pectoris; E11.9 Type 2 diabetes mellitus without complications; I10 Essential (primary) hypertension; I73.9 Peripheral vascular disease, unspecified; Z85.46 Personal history of malignant neoplasm of prostate; Z85.038 Personal history of other malignant neoplasm of large intestine; Z98.890 Other specified postprocedural states; Z86.14 Personal history of Methicillin resistant Staphylococcus aureus infection; Z79.82 Long term (current) use of aspirin; Z79.84 Long term (current) use of oral hypoglycemic drugs; Z79.899 Other long term (current) drug therapy
CPT/HCPCS: 36415; 51702; 80048; 81001; 85025; 87086; 99284

== ENCOUNTER 2017-12-20 20:25 | Emergency (ER) | payer MEDICARE ==
--- NOTE | 2017-12-20 21:40 | ED ---
Male Urogenital HPI - General Chief complaint: Urogenital Stated complaint: catheter problems-revisit Time Seen by Provider: 12/20/17 21:13 Source: patient, RN notes reviewed Mode of arrival: wheelchair Limitations: physical limitation - History of Present Illness Initial comments: This is an 87-year-old male who presents to the emergency department with chief complaint of Kapoor catheter issue. Patient states that on December 09 he saw his family physician, Dr. Crespo and was diagnosed with a urinary tract infection. He states that he was placed on antibiotics. The following Wednesday, patient began having urinary retention. He came to the emergency department and a Kapoor catheter was placed. Patient states that since that time his catheter has been draining successfully for approximately 12 hours each day and then stop straining. He states that he has been seen here 7 times since the catheter was placed to have the catheter either flushed or changed to a new one. He has been unable to follow up with urology but does have an upcoming appointment this . Patient denies any fevers or chills, chest pain or shortness of breath, nausea or vomiting. He does report abdominal pressure when the catheter stops draining. - Related Data Home Medications Medication Instructions Recorded Confirmed Enalapril [Vasotec] 2.5 mg PO DAILY 08/28/15 12/20/17 Ferrous Sulfate [Feosol] 325 mg PO DAILY 08/28/15 12/20/17 Furosemide [Lasix] 20 mg PO DAILY 08/28/15 12/20/17 Potassium Chloride [Klor-Con 10] 10 meq PO DAILY 08/28/15 12/20/17 Aspirin 325 mg PO DAILY 09/06/17 12/20/17 Timolol 0.5% Ophth Soln [Timoptic 1 drop BOTH EYES DAILY 12/13/17 12/20/17 0.5% Ophth Soln] glipiZIDE [Glucotrol] 5 mg PO AC-TID 12/13/17 12/20/17 Artificial Tears-Hypromellose 1 drops BOTH EYES TID 12/15/17 12/20/17 [Artificial Tear Drops] Allergies Allergy/AdvReac Type Severity Reaction Status Date / Time No Known Allergies Allergy Verified 12/20/17 21:06 Review of Systems ROS Statement: Those systems with pertinent positive or pertinent negative responses have been documented in the HPI. ROS Other: All systems not noted in ROS Statement are negative. 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 NIDDM type II. PVD. Anemia. BPH- retention, History of Any Multi-Drug Resistant Organisms: MRSA Date of last positivie culture/infection: 08/28/15 MDRO Source:: Left Leg Past Surgical History: Bowel Resection, Heart Catheterization Additional Past Surgical History / Comment(s): 2007 last colonoscopy with polypectomy/bx, craniotomy for unknown reason at [facility], R hemicolectomy 2004, cardiac cath tx medically 2013, bilateral cataract removal with lens, LASER MAGDA EYES, Past Anesthesia/Blood Transfusion Reactions: No Reported Reaction Additional Past Anesthesia/Blood Transfusion Reaction / Comment(s): Pt received blood in past without known reaction. Past Psychological History: No Psychological Hx Reported Smoking Status: Never smoker Past Alcohol Use History: None Reported Past Drug Use History: None Reported - Past Family History Father Family Medical History: No Reported History Additional Family Medical History / Comment(s): Pt believes his father was healthy. He at age 93 yrs. Mother Family Medical History: No Reported History Additional Family Medical History / Comment(s): Pt doesn't know of mother's medical hx but she did live to be 95 yrs old. General Exam - General Exam Comments Initial Comments: General: Awake and alert, well-developed; in no apparent distress. Patient is lying completely on ED stretcher. HEENT: Head atraumatic, normocephalic. Pupils are equal, round and reactive to light. Extraocular movements intact. Oropharynx moist without erythema or exudate. Neck: Supple. Normal ROM. Cardiovascular: Regular rate and rhythm. No murmurs, rubs or gallops. Chest symmetrical. Respiratory: Lungs clear to auscultation bilaterally. No wheezes, rales or rhonchi. Normal respiratory effort with no use of accessory muscles. Abdomen: Soft, non-tender, non-distended. No rigidity, rebound or guarding. Normal bowel sounds in all 4 quadrants. Skin: [place], warm and dry. Bilateral lower extremity edema. Neurological: Alert and oriented x3. CN II-XII grossly intact. Speech is fluent and answers are appropriate. No focal neuro deficits. Psychiatric: Normal mood and affect. No overt signs of depression or anxiety noted. Limitations: physical limitation Course Vital Signs 12/20/17 20:29 Temperature 99.0 F Pulse Rate 67 Respiratory 17 Rate Blood Pressure 112/58 O2 Sat by Pulse 95 Oximetry Medical Decision Making - Medical Decision Making This is an 87-year-old male who presents to the emergency department with chief complaint of Kapoor catheter issue. Patient's indwelling Kapoor catheter is not actively draining. Patient has been having problems since initiation last week. He has been seen here 7 times since initial Kapoor placement. On examination, patient's Kapoor catheter is not actively draining. A new catheter was initiated. It is actively draining reddish urine with small blood clots noted. UA was sent which does reveal evidence for blood and red blood cells. No evidence for infection. Patient does have an upcoming appointment on with a urologist. Patient is in no acute distress and will be discharged home at this time. He is in agreement with plan and voices understanding. All questions were answered. - Lab Data Lab Results 12/20/17 Range/Units 23:47 Urine Color Red Urine Appearance Cloudy (Clear) Urine pH 5.5 (5.0-8.0) Ur Specific [place] 1.012 (1.001-1.035) Urine Protein 2+ H (Negative) Urine Glucose (UA) Trace H (Negative) Urine Ketones Negative (Negative) Urine Blood Moderate H (Negative) Urine Nitrite Negative (Negative) Urine Bilirubin Negative (Negative) Urine Urobilinogen <2.0 (<2.0) mg/dL Ur Leukocyte Esterase Negative (Negative) Urine RBC >182 H (0-5) /hpf Urine WBC 27 H (0-5) /hpf Disposition Clinical Impression: Kapoor catheter problem, Urinary retention, Hematuria Disposition: HOME SELF-CARE Condition: Good Instructions: Kapoor Catheter Placement and Care (ED) Additional Instructions: As discussed, please follow up with urologist as scheduled. Please follow up with primary care provider within 1-2 days. Return to emergency department if symptoms should worsen or any concerns arise. Is patient prescribed a controlled substance at d/c from ED?: No Referrals: Edmond Crespo MD [Primary Care Provider] - 1-2 days Time of Disposition: 00:21
[2017-12-21 00:13] LABS: Appearance,Urine Cloudy (Clear); Bilirubin,Urine Negative (Negative); Blood,Urine Moderate (Negative); Color,Urine Red; Glucose,Urine (UA) Trace (Negative); Ketones,Urine Negative (Negative); Leukocyte Esterase,Urine Negative (Negative); Nitrite,Urine Negative (Negative); PH, Urine 5.5 (5.0-8.0); Protein,Urine 2+ (Negative); RBC,Urine >182 /hpf (0-5); Specific Gravity,Urine 1.012 (1.001-1.035); Urobilinogen,Urine <2.0 mg/dL (<2.0); WBC,Urine 27 /hpf (0-5)
[2017-12-21 00:56] VITALS: BP 118/65; PULSE 65; RESP 18; TEMP 98.7
== END 2017-12-21 00:55 | disposition home or self-care (01) ==
LOC: EC 20:25
DX: T83.83XA Hemorrhage due to genitourinary prosthetic devices, implants and grafts, initial encounter (principal); R33.9 Retention of urine, unspecified; E11.9 Type 2 diabetes mellitus without complications; I25.10 Atherosclerotic heart disease of native coronary artery without angina pectoris; I10 Essential (primary) hypertension; Z87.438 Personal history of other diseases of male genital organs; Z85.038 Personal history of other malignant neoplasm of large intestine; Z92.21 Personal history of antineoplastic chemotherapy; Z85.46 Personal history of malignant neoplasm of prostate; Z95.818 Presence of other cardiac implants and grafts; Z86.14 Personal history of Methicillin resistant Staphylococcus aureus infection; Z79.82 Long term (current) use of aspirin; Z79.84 Long term (current) use of oral hypoglycemic drugs; Z79.899 Other long term (current) drug therapy; Y84.6 Urinary catheterization as the cause of abnormal reaction of the patient, or of later complication, without mention of misadventure at the time of the procedure
CPT/HCPCS: 51702; 81001; 99283

== ENCOUNTER 2017-12-22 23:00 | Emergency (ER) | payer MEDICARE ==
[2017-12-22 23:26] VITALS: BP 127/65; PULSE 85; TEMP 99.1
--- NOTE | 2017-12-22 23:40 | ED ---
General Adult HPI - General Chief complaint: Urogenital Stated complaint: Urine Retention Time Seen by Provider: 12/22/17 23:20 Source: patient, RN notes reviewed Mode of arrival: wheelchair Limitations: no limitations - History of Present Illness Initial comments: This is an 87-year-old male who is been to the emergency department multiple times for urinary retention. Patient has had a Kapoor catheter placed with a leg bag. Patient's been in multiple times since that was placed for clotting off of the Kapoor catheter. Patient states she has an appointment at 8 AM in the morning to see urology. Patient states she's been trying to get in for over a week. Patient denies any fever chills. Patient denies any back pain. - Related Data Home Medications Medication Instructions Recorded Confirmed Enalapril [Vasotec] 2.5 mg PO DAILY 08/28/15 12/22/17 Ferrous Sulfate [Feosol] 325 mg PO DAILY 08/28/15 12/22/17 Furosemide [Lasix] 20 mg PO DAILY 08/28/15 12/22/17 Potassium Chloride [Klor-Con 10] 10 meq PO DAILY 08/28/15 12/22/17 Aspirin 325 mg PO DAILY 09/06/17 12/22/17 Timolol 0.5% Ophth Soln [Timoptic 1 drop BOTH EYES DAILY 12/13/17 12/22/17 0.5% Ophth Soln] glipiZIDE [Glucotrol] 5 mg PO AC-TID 12/13/17 12/22/17 Artificial Tears-Hypromellose 1 drops BOTH EYES TID 12/15/17 12/22/17 [Artificial Tear Drops] Allergies Allergy/AdvReac Type Severity Reaction Status Date / Time No Known Allergies Allergy Verified 12/22/17 23:38 Review of Systems ROS Statement: Those systems with pertinent positive or pertinent negative responses have been documented in the HPI. ROS Other: All systems not noted in ROS Statement are negative. 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 NIDDM type II. PVD. Anemia. BPH- retention, History of Any Multi-Drug Resistant Organisms: MRSA Date of last positivie culture/infection: 6/22/16 MDRO Source:: Left Leg Past Surgical History: Bowel Resection, Heart Catheterization Additional Past Surgical History / Comment(s): 2007 last colonoscopy with polypectomy/bx, craniotomy for unknown reason at [facility], R hemicolectomy 2004, cardiac cath tx medically 2014, bilateral cataract removal with lens, LASER MAGDA EYES, Past Anesthesia/Blood Transfusion Reactions: No Reported Reaction Additional Past Anesthesia/Blood Transfusion Reaction / Comment(s): Pt received blood in past without known reaction. Past Psychological History: No Psychological Hx Reported Smoking Status: Never smoker Past Alcohol Use History: None Reported Past Drug Use History: None Reported - Past Family History Father Family Medical History: No Reported History Additional Family Medical History / Comment(s): Pt believes his father was healthy. He at age 93 yrs. Mother Family Medical History: No Reported History Additional Family Medical History / Comment(s): Pt doesn't know of mother's medical hx but she did live to be 95 yrs old. General Exam - General Exam Comments Initial Comments: GENERAL: Patient is well-developed and well-nourished. Patient is nontoxic and well- hydrated and is in mild distress. ENT: Neck is soft and supple. No significant lymphadenopathy is noted. Oropharynx is clear. Moist mucous membranes. EYES: The sclera were anicteric and conjunctiva were pink and moist. Extraocular movements were intact and pupils were equal round and reactive to light. Eyelids were unremarkable. PULMONARY: Unlabored respirations. Good breath sounds bilaterally. No audible rales rhonchi or wheezing was noted. CARDIOVASCULAR: There is a regular rate and rhythm without any murmurs gallops or rubs. ABDOMEN: Distended suprapubic region. SKIN: Skin is clear with no lesions or rashes and otherwise unremarkable. NEUROLOGIC: Patient is alert and oriented x3. Cranial nerves II through XII are grossly intact. Motor and sensory are also intact. Normal speech, volume and content. Symmetrical smile. MUSCULOSKELETAL: Normal extremities with adequate strength and full range of motion. LYMPHATICS: No significant lymphadenopathy is noted PSYCHIATRIC: Normal psychiatric evaluation. Limitations: no limitations Course Vital Signs 12/22/17 23:22 Temperature 99.1 F Pulse Rate 85 Respiratory 16 Rate Blood Pressure 127/65 O2 Sat by Pulse 100 Oximetry Medical Decision Making - Medical Decision Making the catheter was irrigated by nursing and had good flow so the patient was discharged home to be followed up in the morning with urology Disposition Clinical Impression: Urinary retention, Kapoor catheter problem Disposition: HOME SELF-CARE Is patient prescribed a controlled substance at d/c from ED?: No Referrals: Edmond Crespo MD [Primary Care Provider] - 1-2 days Time of Disposition: 00:09
[2017-12-23 00:29] VITALS: RESP 19
== END 2017-12-23 00:19 | disposition home or self-care (01) ==
LOC: EC 23:00
DX: R33.9 Retention of urine, unspecified (principal); T83.9XXA Unspecified complication of genitourinary prosthetic device, implant and graft, initial encounter; I25.119 Atherosclerotic heart disease of native coronary artery with unspecified angina pectoris; I10 Essential (primary) hypertension; E11.9 Type 2 diabetes mellitus without complications; Z85.46 Personal history of malignant neoplasm of prostate; Z85.038 Personal history of other malignant neoplasm of large intestine; Z79.82 Long term (current) use of aspirin; Z79.899 Other long term (current) drug therapy; Z95.5 Presence of coronary angioplasty implant and graft
CPT/HCPCS: 99283

== ENCOUNTER 2017-12-25 04:49 | Emergency (ER) | payer MEDICARE ==
[2017-12-25 05:02] VITALS: BP 144/65; PULSE 85; RESP 18; TEMP 97.3
--- NOTE | 2017-12-25 05:22 | ED ---
General Adult HPI - General Chief complaint: Urogenital Stated complaint: Male Time Seen by Provider: 12/25/17 04:50 Source: patient Mode of arrival: wheelchair Limitations: no limitations - History of Present Illness Initial comments: Mr. Mcrae is a 87-year-old male well known to the emergency department for frequent evaluations of Kapoor catheter obstruction. Patient was seen by urology on , had his catheter irrigated and changed for a larger catheter, he reports that he produce urine throughout the day on and Wednesday but has been unable to produce any urine since Wednesday afternoon. Notes dark clots in his Kapoor catheter tube. The patient denies any pain or discomfort but states that he has not made any urine in over 12 hours so he decided to come the ER before he became uncomfortable. - Related Data Home Medications Medication Instructions Recorded Confirmed Enalapril [Vasotec] 2.5 mg PO DAILY 08/28/15 12/22/17 Ferrous Sulfate [Feosol] 325 mg PO DAILY 08/28/15 12/22/17 Furosemide [Lasix] 20 mg PO DAILY 08/28/15 12/22/17 Potassium Chloride [Klor-Con 10] 10 meq PO DAILY 08/28/15 12/22/17 Aspirin 325 mg PO DAILY 09/06/17 12/22/17 Timolol 0.5% Ophth Soln [Timoptic 1 drop BOTH EYES DAILY 12/13/17 12/22/17 0.5% Ophth Soln] glipiZIDE [Glucotrol] 5 mg PO AC-TID 12/13/17 12/22/17 Artificial Tears-Hypromellose 1 drops BOTH EYES TID 12/15/17 12/22/17 [Artificial Tear Drops] Allergies Allergy/AdvReac Type Severity Reaction Status Date / Time No Known Allergies Allergy Verified 12/22/17 23:38 Review of Systems ROS Statement: Those systems with pertinent positive or pertinent negative responses have been documented in the HPI. ROS Other: All systems not noted in ROS Statement are negative. 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 NIDDM type II. PVD. Anemia. BPH- retention, History of Any Multi-Drug Resistant Organisms: MRSA Date of last positivie culture/infection: 08/28/15 MDRO Source:: Left Leg Past Surgical History: Bowel Resection, Heart Catheterization Additional Past Surgical History / Comment(s): 2007 last colonoscopy with polypectomy/bx, craniotomy for unknown reason at [facility], R hemicolectomy 2004, cardiac cath tx medically 2014, bilateral cataract removal with lens, LASER MAGDA EYES, Past Anesthesia/Blood Transfusion Reactions: No Reported Reaction Additional Past Anesthesia/Blood Transfusion Reaction / Comment(s): Pt received blood in past without known reaction. Past Psychological History: No Psychological Hx Reported Smoking Status: Never smoker Past Alcohol Use History: None Reported Past Drug Use History: None Reported - Past Family History Father Family Medical History: No Reported History Additional Family Medical History / Comment(s): Pt believes his father was healthy. He at age 93 yrs. Mother Family Medical History: No Reported History Additional Family Medical History / Comment(s): Pt doesn't know of mother's medical hx but she did live to be 95 yrs old. General Exam Limitations: no limitations Course Vital Signs 12/25/17 04:58 Temperature 97.3 F L Pulse Rate 85 Respiratory 18 Rate Blood Pressure 144/65 O2 Sat by Pulse 97 Oximetry Medical Decision Making - Medical Decision Making Bladder scan reveals greater than 1 L in the bladder fully catheter was successfully irrigated, multiple clots were removed and the catheter began to drain slightly blood-tinged urine Patient remained comfortable throughout procedure Patient discharged home in stable condition. Disposition Clinical Impression: Hematuria, Kapoor catheter problem Disposition: HOME SELF-CARE Instructions: Kapoor Catheter Placement and Care (ED) Is patient prescribed a controlled substance at d/c from ED?: No Referrals: Edmond Crespo MD [Primary Care Provider] - 1-2 days
== END 2017-12-25 06:10 | disposition home or self-care (01) ==
LOC: EC 04:49
DX: T83.098A Other mechanical complication of other urinary catheter, initial encounter (principal); R31.9 Hematuria, unspecified; I25.119 Atherosclerotic heart disease of native coronary artery with unspecified angina pectoris; E11.51 Type 2 diabetes mellitus with diabetic peripheral angiopathy without gangrene; I10 Essential (primary) hypertension; Z79.82 Long term (current) use of aspirin; Z79.899 Other long term (current) drug therapy; Z79.84 Long term (current) use of oral hypoglycemic drugs; Z85.038 Personal history of other malignant neoplasm of large intestine; Z85.46 Personal history of malignant neoplasm of prostate
CPT/HCPCS: 99283

== ENCOUNTER 2018-09-16 08:41 | Inpatient (IN) | payer MEDICARE ==
--- NOTE | 2018-09-16 09:01 | ED ---
General Adult HPI - General Source: patient, RN notes reviewed Mode of arrival: ambulatory Limitations: no limitations <Barrington Michaels - Last Filed: 09/16/18 10:27> <Aren Silva - Last Filed: 09/16/18 10:33> - General Chief complaint: Wound/Laceration Stated complaint: foot infection Time Seen by Provider: 09/16/18 08:50 - History of Present Illness Initial comments: 88-year-old male with a past medical history of NIDDM, PVD, coronary artery disease, hypertension presents to the emergency department for a chief complaint of infection of right foot 3 days. Patient states he noticed his foot was read 3 days ago. States it has spread up to his lower leg. Patient states that his right third toe appears somewhat blackened. He is denying any fevers or chills. States he otherwise feels fine. 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 Patient has no other complaints at this time including shortness of breath, chest pain, abdominal pain, nausea or vomiting, headache, or visual changes. (Barrington Michaels) - Related Data Home Medications Medication Instructions Recorded Confirmed Enalapril [Vasotec] 2.5 mg PO DAILY 08/28/15 09/16/18 Ferrous Sulfate [Feosol] 325 mg PO DAILY 08/28/15 09/16/18 Furosemide [Lasix] 20 mg PO DAILY 08/28/15 09/16/18 Potassium Chloride [Klor-Con 10] 10 meq PO DAILY 08/28/15 09/16/18 Aspirin 325 mg PO DAILY 09/06/17 09/16/18 Timolol 0.5% Ophth Soln [Timoptic 1 drop BOTH EYES DAILY 12/13/17 09/16/18 0.5% Ophth Soln] glipiZIDE [Glucotrol] 5 mg PO AC-TID 12/13/17 09/16/18 Artificial Tears-Hypromellose 1 drops BOTH EYES TID 12/15/17 09/16/18 [Artificial Tear Drops] Cholecalciferol (Vitamin D3) 2,000 unit PO DAILY 09/16/18 09/16/18 [Vitamin D3] Tamsulosin [Flomax] 0.4 mg PO DAILY 09/16/18 09/16/18 Allergies Allergy/AdvReac Type Severity Reaction Status Date / Time No Known Allergies Allergy Verified 09/16/18 09:10 Review of Systems ROS Other: All systems not noted in ROS Statement are negative. <Barrington Michaels - Last Filed: 09/16/18 10:27> ROS Other: All systems not noted in ROS Statement are negative. <Aren Silva - Last Filed: 09/16/18 10:33> ROS Statement: Those systems with pertinent positive or pertinent negative responses have been documented in the HPI. 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 NIDDM type II. PVD. Anemia. BPH- retention, History of Any Multi-Drug Resistant Organisms: MRSA Date of last positivie culture/infection: 08/28/15 MDRO Source:: Left Leg Past Surgical History: Bowel Resection, Heart Catheterization Additional Past Surgical History / Comment(s): 2007 last colonoscopy with polypectomy/bx, craniotomy for unknown reason at , R hemicolectomy 2004, cardiac cath tx medically 2014, bilateral cataract removal with lens, LASER MAGDA EYES, Past Anesthesia/Blood Transfusion Reactions: No Reported Reaction Additional Past Anesthesia/Blood Transfusion Reaction / Comment(s): Pt received blood in past without known reaction. Past Psychological History: No Psychological Hx Reported Smoking Status: Never smoker Past Alcohol Use History: None Reported Past Drug Use History: None Reported - Past Family History Father Family Medical History: No Reported History Additional Family Medical History / Comment(s): Pt believes his father was healthy. He at age 93 yrs. Mother Family Medical History: No Reported History Additional Family Medical History / Comment(s): Pt doesn't know of mother's medical hx but she did live to be 95 yrs old. <Barrington Michaels - Last Filed: 09/16/18 10:27> General Exam Limitations: no limitations General appearance: alert, in no apparent distress Head exam: Present: atraumatic, normocephalic, normal inspection Eye exam: Present: normal appearance, PERRL, EOMI. Absent: scleral icterus, conjunctival injection, periorbital swelling ENT exam: Present: normal exam, mucous membranes moist Neck exam: Present: normal inspection, full ROM. Absent: tenderness, meningismus, lymphadenopathy Respiratory exam: Present: normal lung sounds bilaterally. Absent: respiratory distress, wheezes, rales, rhonchi, stridor Cardiovascular Exam: Present: regular rate, normal rhythm, normal heart sounds. Absent: systolic murmur, diastolic murmur, rubs, gallop, clicks Extremities exam: Present: full ROM (Full range of motion of the right lower extremity.), normal capillary refill (Capillary refill less than 2 seconds noted of the right lower extremity and equal bilaterally.), other (There is erythema noted of the right foot as well as the distal right lower extremity extending up to the mid tib-fib. There is also slight edema noted. It is warm to touch and consistent with cellulitis. The third toe on the right foot appears necrotic distally.) Neurological exam: Present: alert, oriented X3, CN II-XII intact Psychiatric exam: Present: normal affect, normal mood <Barrington Michaels - Last Filed: 09/16/18 10:27> Course <Aren Silva - Last Filed: 09/16/18 10:33> Vital Signs 09/16/18 09/16/18 09/16/18 08:46 09:30 10:00 Temperature 98.6 F Pulse Rate 60 55 L 58 L Respiratory 16 16 Rate Blood Pressure 137/72 127/61 129/68 O2 Sat by Pulse 98 100 100 Oximetry - Reevaluation(s) Reevaluation #1: 09/16/18 10:32 Patient supervision: I proceeded [id number] evaluation the patient and did evaluate his right lower extremity which is demonstrated evidence of infectious process. There is drainage. Eschar is noted. No soft tissue gas however seen on x-ray with no definitive evidence of osteomyelitis. The extremity is warm. The exam is consistent with a cellulitis. I did discuss case with Dr. Crespo. I do agree with assessment and plan. Dr. Morales will be consulted. (Aren Silva) Medical Decision Making - Lab Data Result diagrams: 09/16/18 09:03 09/16/18 09:03 <Barrington Michaels - Last Filed: 09/16/18 10:27> - Lab Data Result diagrams: 09/16/18 09:03 09/16/18 09:03 <Aren Silva - Last Filed: 09/16/18 10:33> - Medical Decision Making 88-year-old male with a past medical history of NIDDM, PVD, CAD, hypertension for a chief complaint of right foot infection. States he is only seen this for a few days. On exam patient has erythema and edema noted of the right foot and lower leg and right third toe appears to have a wound on distal 3rd toe with necrotic distally. DP Pulses evident on Doppler, capillary refill less than 2 seconds. Patient was started on Rocephin and blood cultures pending. White count 8.5. Hemoglobin 10.7 which is chronic. CMP shows a creatinine of 1.67 which also appears chronic. X-ray of the right foot shows diffuse soft tissue swelling neck can be related to infection. Underlying osteomyelitis is not radiographically apparent. Patient reevaluated, feeling well at this time. Patient will be admitted for IV antibiotics. Patient also started on vanco given history of MRSA in right leg. (Barrington Michaels) - Lab Data Lab Results 09/16/18 09/16/18 09/16/18 Range/Units 09:03 09:03 09:03 WBC 8.5 (3.8-10.6) k/uL RBC 4.11 L (4.30-5.90) m/uL Hgb 10.7 L (13.0-17.5) gm/dL Hct 33.8 L (39.0-53.0) % MCV 82.2 (80.0-100.0) fL MCH 26.0 (25.0-35.0) pg MCHC 31.7 (31.0-37.0) g/dL RDW 13.2 (11.5-15.5) % Plt Count 292 (150-450) k/uL Neutrophils % 80 % Lymphocytes % 8 % Monocytes % 8 % Eosinophils % 1 % Basophils % 0 % Neutrophils # 6.8 (1.3-7.7) k/uL Lymphocytes # 0.7 L (1.0-4.8) k/uL Monocytes # 0.7 (0-1.0) k/uL Eosinophils # 0.1 (0-0.7) k/uL Basophils # 0.0 (0-0.2) k/uL PT (9.0-12.0) sec INR (<1.2) APTT (22.0-30.0) sec Sodium 142 (137-145) mmol/L Potassium 4.1 (3.5-5.1) mmol/L Chloride 110 H (98-107) mmol/L Carbon Dioxide 24 (22-30) mmol/L Anion Gap 8 mmol/L BUN 21 H (9-20) mg/dL Creatinine 1.67 H (0.66-1.25) mg/dL Est GFR (CKD-EPI)AfAm 42 (>60 ml/min/1.73 sqM) Est GFR (CKD-EPI)NonAf 37 (>60 ml/min/1.73 sqM) Glucose 163 H (74-99) mg/dL Plasma Lactic Acid Jose 0.9 (0.7-2.0) mmol/L Calcium 8.5 (8.4-10.2) mg/dL Total Bilirubin 1.0 (0.2-1.3) mg/dL AST 34 (17-59) U/L ALT 49 (21-72) U/L Alkaline Phosphatase 122 (38-126) U/L Total Protein 6.0 L (6.3-8.2) g/dL Albumin 2.8 L (3.5-5.0) g/dL 09/16/18 Range/Units 09:03 WBC (3.8-10.6) k/uL RBC (4.30-5.90) m/uL Hgb (13.0-17.5) gm/dL Hct (39.0-53.0) % MCV (80.0-100.0) fL MCH (25.0-35.0) pg MCHC (31.0-37.0) g/dL RDW (11.5-15.5) % Plt Count (150-450) k/uL Neutrophils % % Lymphocytes % % Monocytes % % Eosinophils % % Basophils % % Neutrophils # (1.3-7.7) k/uL Lymphocytes # (1.0-4.8) k/uL Monocytes # (0-1.0) k/uL Eosinophils # (0-0.7) k/uL Basophils # (0-0.2) k/uL PT 11.6 (9.0-12.0) sec INR 1.1 (<1.2) APTT 27.1 (22.0-30.0) sec Sodium (137-145) mmol/L Potassium (3.5-5.1) mmol/L Chloride (98-107) mmol/L Carbon Dioxide (22-30) mmol/L Anion Gap mmol/L BUN (9-20) mg/dL Creatinine (0.66-1.25) mg/dL Est GFR (CKD-EPI)AfAm (>60 ml/min/1.73 sqM) Est GFR (CKD-EPI)NonAf (>60 ml/min/1.73 sqM) Glucose (74-99) mg/dL Plasma Lactic Acid Jose (0.7-2.0) mmol/L Calcium (8.4-10.2) mg/dL Total Bilirubin (0.2-1.3) mg/dL AST (17-59) U/L ALT (21-72) U/L Alkaline Phosphatase (38-126) U/L Total Protein (6.3-8.2) g/dL Albumin (3.5-5.0) g/dL Disposition Is patient prescribed a controlled substance at d/c from ED?: No Time of Disposition: 10:28 <Barrington Michaels - Last Filed: 09/16/18 10:27> <Aren Silva - Last Filed: 09/16/18 10:33> Clinical Impression: Cellulitis, PVD (peripheral vascular disease) Disposition: HOME SELF-CARE Condition: Good Referrals: Edmond Crespo MD [Primary Care Provider] - 1-2 days
[2018-09-16] MEDS: SODIUM CHLORIDE 0.9% 500 ML 500 ML IV SCH ×2 (09:12→09:13)
[2018-09-16 09:23] LABS: Basophils % (A) 0 %; Eosinophils # (A) 0.1 k/uL (0-0.7); Eosinophils % (A) 1 %; HCT 33.8 % (39.0-53.0); HGB 10.7 gm/dL (13.0-17.5); Lymphocytes # (A) 0.7 k/uL (1.0-4.8); Lymphocytes % (A) 8 %; MCHC 31.7 g/dL (31.0-37.0); MCV 82.2 fL (80.0-100.0); Mean Platelet Volume 6.8; Monocytes # (A) 0.7 k/uL (0-1.0); Monocytes % (A) 8 %; Neutrophils # (A) 6.8 k/uL (1.3-7.7); Neutrophils % (A) 80 %; Platelet Count 292 k/uL (150-450); RBC 4.11 m/uL (4.30-5.90); RDW 13.2 % (11.5-15.5); WBC 8.5 k/uL (3.8-10.6)
[2018-09-16 09:29] LABS: INR 1.1 (<1.2); Partial Thromboplastin Time 27.1 sec (22.0-30.0); Prothrombin Time 11.6 sec (9.0-12.0)
[2018-09-16 09:31] LABS: Albumin 2.8 g/dL (3.5-5.0); Calcium 8.5 mg/dL (8.4-10.2); Potassium 4.1 mmol/L (3.5-5.1)
--- NOTE | 2018-09-16 09:41 | XR ---
EXAMINATION TYPE: XR foot complete RT DATE OF EXAM: 09/16/2018 COMPARISON: None HISTORY: Pain, swelling right toe TECHNIQUE: Three-view right foot FINDINGS: There is some soft tissue swelling over the great toe. Soft tissue swelling of the second t hrough fourth digits is also present. Underlying osseous structures appear intact. No acute fractures are evident. No cortical erosion is i dentified. Plantar calcaneal heel spur is present. Hammertoes are evident. There is soft tissue swell ing over the dorsum of the foot. IMPRESSION: 1. Diffuse soft tissue swelling can be related to reported infection. 2. Underlying osteomyelitis is not radiographically apparent.
[2018-09-16] MEDS ORDERED: NALOXONE 0.4 MG/ML 1 ML VIAL IV PRN (10:24)
[2018-09-16] MEDS ORDERED: traMADol 50 MG TAB PO PRN (10:24)
[2018-09-16] MEDS ORDERED: VANCOMYCIN IV PER PHARMACY 1 EACH MISC MISCELLANE PRN (10:29)
[2018-09-16] MEDS: SODIUM CHLORIDE 0.9% 1,000 ML IV SCH ×2 (10:56→23:38)
[2018-09-16] MEDS ORDERED: VANCOMYCIN 1,750 MG in SODIUM CHLORIDE 0.9% 500 ML 500 ML IVPB ONE (11:15)
--- NOTE | 2018-09-16 13:33 | P.HPIM ---
History of Present Illness H&P Date: 09/16/18 Chief Complaint: Right foot swelling and infection This is a 88-year-old -[place] male with a known past medical history of diabetes, peripheral vascular disease, hypertension, chronic kidney disease, and iron deficiency anemia and anemia of chronic kidney disease, colon cancer with radiation and chemo treatment and surgical resection, prostate cancer status post radiation treatment. Per chart patient has previous MRSA infection in the left leg. Patient presents to the hospital due to a right foot infection that started about 3 days ago. He denies any injury or any sores on the foot. The right foot third toe is black foul odor and there is skin that is sloughing off. There is no pain with palpation of the toe. His foot is also swollen and red and increasing up into the leg. Patient denies any fevers, chills or sweats. Denies a nausea vomiting, bowel movement changes or urinary symptoms. Denies any chest pain or shortness of breath. He has been afebrile white count is normal at 8.5. Admitting vitals 98.6 temp pulse 60 respiratory rate 16 blood pressure 137/72 on room air at 98%. X-ray of the foot shows soft tissue swelling can be related to reported infection. Underlying osteomyelitis is not evident on x-ray. Consult has been placed for infectious disease and vascular surgery. Patient started on Rocephin and vancomycin. Hemoglobin 10.7 no active signs of bleeding creatinine 1.67 albumin 2.8. Review of Systems Please refer to HPI otherwise unremarkable Past Medical History Past Medical History: Blood Disorder, Coronary Artery Disease (CAD), Cancer, Chest Pain / Angina, Diabetes Mellitus, Eye Disorder, GI Bleed, Hypertension, Prostate Disorder, Renal Disease, Vascular Disorder Additional Past Medical History / Comment(s): NIDDM type II, CKD stage III, PVD, past lower extremity cellulitis, past L lower leg ulcer, 2004 colon cancer with surgery/chemo and radiation, prostate cancer with radiation tx, anemia, lower GI bleed, gastric/colon polyps/melanosis coli, bilateral glaucoma History of Any Multi-Drug Resistant Organisms: MRSA Date of last positivie culture/infection: 08/28/15 MDRO Source:: Left Leg Past Surgical History: Bowel Resection, Heart Catheterization Additional Past Surgical History / Comment(s): EGD, colonoscopies with polypectomy/bx, benign brain tumor removed at [facility], R hemicolectomy 2005, cardiac cath tx medically 2014, bilateral cataract removal with lens, LASER MAGDA EYES, Past Anesthesia/Blood Transfusion Reactions: No Reported Reaction Additional Past Anesthesia/Blood Transfusion Reaction / Comment(s): Pt received blood in past without known reaction. Past Psychological History: No Psychological Hx Reported Additional Psychological History / Comment(s): Pt resides by himself. He is independent. He drives. He sometimes goes to the [facility] on [facility] for meals. He uses a cane if walking a distance. Smoking Status: Never smoker Past Alcohol Use History: None Reported Past Drug Use History: None Reported - Past Family History Father Family Medical History: No Reported History Additional Family Medical History / Comment(s): Pt believes his father was healthy. He at age 93 yrs. Mother Family Medical History: No Reported History Additional Family Medical History / Comment(s): Pt doesn't know of mother's medical hx but she did live to be 95 yrs old. Medications and Allergies Home Medications Medication Instructions Recorded Confirmed Type Enalapril [Vasotec] 2.5 mg PO DAILY 08/28/15 09/16/18 History Ferrous Sulfate [Feosol] 325 mg PO DAILY 08/28/15 09/16/18 History Furosemide [Lasix] 20 mg PO DAILY 08/28/15 09/16/18 History Potassium Chloride [Klor-Con 10] 10 meq PO DAILY 08/28/15 09/16/18 History Aspirin 325 mg PO DAILY 09/06/17 09/16/18 History Timolol 0.5% Ophth Soln [Timoptic 1 drop BOTH EYES DAILY 12/13/17 09/16/18 History 0.5% Ophth Soln] glipiZIDE [Glucotrol] 5 mg PO AC-TID 12/13/17 09/16/18 History Artificial Tears-Hypromellose 1 drops BOTH EYES TID 12/15/17 09/16/18 History [Artificial Tear Drops] Cholecalciferol (Vitamin D3) 2,000 unit PO DAILY 09/16/18 09/16/18 History [Vitamin D3] Tamsulosin [Flomax] 0.4 mg PO DAILY 09/16/18 09/16/18 History Allergies Allergy/AdvReac Type Severity Reaction Status Date / Time No Known Allergies Allergy Verified 09/16/18 09:10 Physical Exam Vitals: Vital Signs Temp Pulse Pulse Resp BP BP Pulse Ox 09/16/18 12:56 99.0 F 76 16 174/87 100 09/16/18 11:30 58 L 136/73 100 09/16/18 11:00 56 L 133/62 100 09/16/18 10:00 58 L 16 129/68 100 09/16/18 09:30 55 L 127/61 100 09/16/18 08:46 98.6 F 60 16 137/72 98 Intake and Output 09/15/18 09/16/18 09/16/18 22:59 06:59 14:59 Other: Weight 110.223 kg Head normocephalic Neck supple Lungs clear to auscultation bilaterally no wheezing or crackles Heart regular rate and rhythm S1-S2, no rub or gallop Abdomen is soft nontender nondistended positive bowel sounds no hepatosplenomegaly Extremities right foot is swollen and red. Swelling and erythema increases up into the tibial area below the knee. The third toe distal portion is black n ontender with foul odor. Neuro alert and orientated to 3 Results CBC & Chem 7: 09/16/18 09:03 09/16/18 09:03 Labs: Abnormal Lab Results - Last 24 Hours (Table) 09/16/18 09/16/18 Range/Units 09:03 09:03 RBC 4.11 L (4.30-5.90) m/uL Hgb 10.7 L (13.0-17.5) gm/dL Hct 33.8 L (39.0-53.0) % Lymphocytes # 0.7 L (1.0-4.8) k/uL Chloride 110 H (98-107) mmol/L BUN 21 H (9-20) mg/dL Creatinine 1.67 H (0.66-1.25) mg/dL Glucose 163 H (74-99) mg/dL Total Protein 6.0 L (6.3-8.2) g/dL Albumin 2.8 L (3.5-5.0) g/dL Thrombosis Risk Factor Assmnt - Choose All That Apply Any of the Below Risk Factors Present?: Yes Each Factor Represents 1 point: Obesity (BMI >25), Swollen legs (current) Other Risk Factors: Yes Each Risk Factor Represents 2 Points: Malignancy Each Risk Factor Represents 3 Points: Age 75 years or older Other congenital or acquired thrombophilia - If yes, enter type in comment: No Thrombosis Risk Factor Assessment Total Risk Factor Score: 7 Thrombosis Risk Factor Assessment Level: High Risk Assessment and Plan Assessment: 1. Right foot third toe with gangrene and cellulitis changes of the right foot and right lower leg.: Patient has history of MRSA. Patient start on IV vancomycin and Rocephin in the emergency room. X-ray shows soft tissue swelling of the infected area. And no evidence of osteomyelitis. Consulted been placed for ID and vascular surgery. Check venous Doppler to rule out DVT of the right leg 2. Chronic kidney disease stage III: Creatinine near baseline. Continue to monitor closely. We'll continue with his home dose of Lasix. 3. Anemia of iron deficiency and chronic kidney disease. Hemoglobin 10.7. No active signs of bleeding. Continue iron supplement. Check iron studies. 4. Severe protein calorie malnutrition: Add glucerna shakes 5. Diabetes mellitus type 2: Resume glipizide. Add sliding scale coverage. Check hemoglobin A1c 6. History of peripheral vascular disease 7. Essential hypertension 8. History of colon cancer in 2004 status post radiation, chemo and surgery 9. History of coronary artery disease 10. History of prostate cancer in 2011 status post radiation GI prophylaxis Pepcid and DVT prophylaxis subcu heparin Time with Patient: Greater than 30 (Greater than 50% of the total time spent in counseling and coordination of care.I performed an examination of the patient and discussed their management with the physician Director Of Speech Pathology. I have reviewed the Physician Director Of Speech Pathology's notes and agree with the documented findings and plan of care)
--- NOTE | 2018-09-16 15:24 | US ---
EXAMINATION TYPE: US venous doppler duplex LE RT DATE OF EXAM: 09/16/2018 3:07 PM COMPARISON: 08/28/2015 CLINICAL HISTORY: right leg swelling. SIDE PERFORMED: Right TECHNIQUE: The lower extremity deep venous system is examined utilizing real time linear array sonog beth with graded compression, doppler sonography and color-flow sonography. VESSELS IMAGED: External Iliac Vein (EIV) Common Femoral Vein Deep Femoral Vein Greater Saphenous Vein * Femoral Vein Popliteal Vein Small Saphenous Vein * Proximal Calf Veins (* superficial vessels) Right Leg: Negative for DVT Incidental note is made of 4.9 x 1.9 cm node in groin, fluid collection in pop fossa measures 4.9 x 1 .5 x 1.2 cm. Extensive edema noted in lower leg. IMPRESSION: 1. Right lower extremity ultrasound negative for deep venous process. 2. Markedly enlarged lymph node in the right groin measuring 5 x 2 cm. 3. Popliteal cyst
[2018-09-16 16:05] VITALS: BMI 32.9
--- NOTE | 2018-09-16 16:50 | P.GSCN ---
History of Present Illness History of present illness: 88-year-old -[place] male patient came with the infected gangrene right foot third toe foul order smell noted with some M a she's a and some pus drainage noted from the right foot third toe and and gangrene changes patient hasof trauma or insect bite. Patient has a history of diabetes, hypertension, history of colon cancer post radiation, history of prostate cancer, history of c oronary artery disease, Neck examination neck is supple no bruit appreciated Chest clear first and second sound normal Abdomen soft nontender vascular examination femorals are 1+ posterior tibial d orsal pedis by the Doppler patient has a right foot third toe wet gangrene with foul order smell Plan is ray amputation of the right foot third toe continue with IV antibiotic risk and complication discussed thank you Past Medical History Past Medical History: Blood Disorder, Coronary Artery Disease (CAD), Cancer, Chest Pain / Angina, Diabetes Mellitus, Eye Disorder, GI Bleed, Hypertension, Prostate Disorder, Renal Disease, Vascular Disorder Additional Past Medical History / Comment(s): NIDDM type II, CKD stage III, PVD, past lower extremity cellulitis, past L lower leg ulcer, 2004 colon cancer with surgery/chemo and radiation, prostate cancer with radiation tx, anemia, lower GI bleed, gastric/colon polyps/melanosis coli, 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 Past Psychological History: No Psychological Hx Reported Additional Psychological History / Comment(s): Pt resides by himself. He is independent. He drives. He sometimes goes to the [employer] [place] [address] for meals. He uses a cane if walking a distance. Smoking Status: Never smoker Past Alcohol Use History: None Reported Past Drug Use History: None Reported - Past Family History Father Family Medical History: No Reported History Additional Family Medical History / Comment(s): Pt believes his father was healthy. He at age 93 yrs. Mother Family Medical History: No Reported History Additional Family Medical History / Comment(s): Pt doesn't know of mother's medical hx but she did live to be 95 yrs old. Medications and Allergies Home Medications Medication Instructions Recorded Confirmed Type Enalapril [Vasotec] 2.5 mg PO DAILY 08/28/15 09/16/18 History Ferrous Sulfate [Feosol] 325 mg PO DAILY 08/28/15 09/16/18 History Furosemide [Lasix] 20 mg PO DAILY 08/28/15 09/16/18 History Potassium Chloride [Klor-Con 10] 10 meq PO DAILY 08/28/15 09/16/18 History Aspirin 325 mg PO DAILY 09/06/17 09/16/18 History Timolol 0.5% Ophth Soln [Timoptic 1 drop BOTH EYES DAILY 12/13/17 09/16/18 History 0.5% Ophth Soln] glipiZIDE [Glucotrol] 5 mg PO AC-TID 12/13/17 09/16/18 History Artificial Tears-Hypromellose 1 drops BOTH EYES TID 12/15/17 09/16/18 History [Artificial Tear Drops] Cholecalciferol (Vitamin D3) 2,000 unit PO DAILY 09/16/18 09/16/18 History [Vitamin D3] Tamsulosin [Flomax] 0.4 mg PO DAILY 09/16/18 09/16/18 History Allergies Allergy/AdvReac Type Severity Reaction Status Date / Time No Known Allergies Allergy Verified 09/16/18 09:10 Surgical - Exam Vital Signs Temp Pulse Resp BP Pulse Ox 98.6 F 60 16 137/72 98 09/16/18 08:46 09/16/18 08:46 09/16/18 08:46 09/16/18 08:46 09/16/18 08:46 Results - Labs 09/16/18 09:03 09/16/18 09:03 Abnormal Lab Results - Last 24 Hours (Table) 09/16/18 09/16/18 Range/Units 09:03 09:03 RBC 4.11 L (4.30-5.90) m/uL Hgb 10.7 L (13.0-17.5) gm/dL Hct 33.8 L (39.0-53.0) % Lymphocytes # 0.7 L (1.0-4.8) k/uL Chloride 110 H (98-107) mmol/L BUN 21 H (9-20) mg/dL Creatinine 1.67 H (0.66-1.25) mg/dL Glucose 163 H (74-99) mg/dL Total Protein 6.0 L (6.3-8.2) g/dL Albumin 2.8 L (3.5-5.0) g/dL Diabetes panel 09/16/18 Range/Units 09:03 Sodium 142 (137-145) mmol/L Potassium 4.1 (3.5-5.1) mmol/L Chloride 110 H (98-107) mmol/L Carbon Dioxide 24 (22-30) mmol/L BUN 21 H (9-20) mg/dL Creatinine 1.67 H (0.66-1.25) mg/dL Glucose 163 H (74-99) mg/dL Calcium 8.5 (8.4-10.2) mg/dL AST 34 (17-59) U/L ALT 49 (21-72) U/L Alkaline Phosphatase 122 (38-126) U/L Total Protein 6.0 L (6.3-8.2) g/dL Albumin 2.8 L (3.5-5.0) g/dL Calcium panel 09/16/18 Range/Units 09:03 Calcium 8.5 (8.4-10.2) mg/dL Albumin 2.8 L (3.5-5.0) g/dL Pituitary panel 09/16/18 Range/Units 09:03 Sodium 142 (137-145) mmol/L Potassium 4.1 (3.5-5.1) mmol/L Chloride 110 H (98-107) mmol/L Carbon Dioxide 24 (22-30) mmol/L BUN 21 H (9-20) mg/dL Creatinine 1.67 H (0.66-1.25) mg/dL Glucose 163 H (74-99) mg/dL Calcium 8.5 (8.4-10.2) mg/dL Adrenal panel 09/16/18 Range/Units 09:03 Sodium 142 (137-145) mmol/L Potassium 4.1 (3.5-5.1) mmol/L Chloride 110 H (98-107) mmol/L Carbon Dioxide 24 (22-30) mmol/L BUN 21 H (9-20) mg/dL Creatinine 1.67 H (0.66-1.25) mg/dL Glucose 163 H (74-99) mg/dL Calcium 8.5 (8.4-10.2) mg/dL Total Bilirubin 1.0 (0.2-1.3) mg/dL AST 34 (17-59) U/L ALT 49 (21-72) U/L Alkaline Phosphatase 122 (38-126) U/L Total Protein 6.0 L (6.3-8.2) g/dL Albumin 2.8 L (3.5-5.0) g/dL
[2018-09-16 16:51] LABS: Glucose,Whole Blood 206 mg/dL (75-99)
[2018-09-16] MEDS: INSULIN ASPART (NovoLOG) 100 UNIT/ML VIAL SQ SCH ×2 (17:45→20:37)
[2018-09-16] MEDS: glipiZIDE 5 MG TAB PO SCH (17:46)
[2018-09-16 19:20] LABS: Iron Saturation 7.93 (15.00-50.00)
[2018-09-16] MEDS: ARTIFICIAL TEARS-HYPROMELLOSE DROPS 15 ML BTL BOTH EYES SCH ×2 (19:21→20:38)
[2018-09-16 20:24] LABS: Hemoglobin A1C 8.3 % (4.0-6.0)
[2018-09-16 20:34] LABS: Glucose,Whole Blood 479 mg/dL (75-99)
[2018-09-16] MEDS: HEPARIN SODIUM,PORCINE 5,000 UNIT/ML 1 ML VIAL SQ SCH (20:38)
[2018-09-16 22:00] LABS: Glucose,Whole Blood 183 mg/dL (75-99)
--- NOTE | 2018-09-16 23:14 | P.CONS ---
History of Present Illness - Reason for Consult Consult date: 09/16/18 - Chief Complaint Gangrene of foot - History of Present Illness Pleasant 88-year-old male with a long-standing history of multiple medical troubles that includes peripheral vascular disease chronic kidney disease and diabetes mellitus type 2 has developed the significant change to his right foot with a gangrenous changes of his third toe. It is foul in nature with copious purulent foul drainage. The patient relates that he was having troubles him because it is markedly worsened and became malodorous he sought care at her facility. He has been seen by vascular surgery with plans for a surgical debridement. He at this time does not have high-grade fevers chills rigors or sweats but does feel poorly. Review of Systems Patient relates that he has some fatigue and has developed extensive drainage to the right foot third toe HEENT:Denies headache or acute visual change. Denies sinus or mouth discomforts. Denies neck stiffness or pain. Denies significant oral cavity pain. Denies difficulty on swallowing. Lungs: Denies significant shortness of breath, cough, sputum production, or hemoptysis. Cardiovascular: Denies significant shortness of breath, chest pain, chest wall pain, orthopnea, dyspnea on exertion, syncope Gastrointestinal:Denies nausea, vomiting, diarrhea, constipation, hematemesis, melena, hematochezia. No no significant change of bowel habit noticed. Musculoskeletal: denies significant myalgias or arthralgias. No new joint swel ling. Denies new back pain. Skin: Ulceration with drainage right foot third toe. Neuro: Denies headache or visual change. Denies any new onset weakness or difficulty with ambulation. Denies falls or seizures. Psychiatric:Denies anxiety or depression. Endocrine: Denies significant fatigue, denies significant weight loss or weight gain. 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 Past Psychological History: No Psychological Hx Reported Additional Psychological History / Comment(s): Pt resides by himself. He is independent. He drives. He sometimes goes to the [employer] [facility] [address] for meals. He uses a cane if walking a distance. Retired from [employer] in 1953 never remarried but had many lady friends throughout the years. No animals in the home. No recent travels Smoking Status: Never smoker Past Alcohol Use History: None Reported Past Drug Use History: None Reported - Past Family History Father Family Medical History: No Reported History Additional Family Medical History / Comment(s): Pt believes his father was healthy. He at age 93 yrs. Mother Family Medical History: No Reported History Additional Family Medical History / Comment(s): Pt doesn't know of mother's medical hx but she did live to be 95 yrs old. Medications and Allergies Home Medications and Allergies Comment(s): Current Medications Acetaminophen (Tylenol Tab) 650 mg PO Q6HR PRN PRN Reason: Mild Pain or Fever > 100.5 Artificial Tears (Artificial Tear Drops) 1 drops BOTH EYES TID [facility] Last Admin: 09/16/18 20:38 Dose: 1 drops Documented by: Aspirin (Aspirin) 325 mg PO DAILY [facility] Cholecalciferol (Vitamin D3 (25 Mcg = 1000 Iu)) 2,000 unit PO DAILY [facility] Famotidine (Pepcid) 20 mg PO DAILY [facility] Ferrous Sulfate (Feosol) 325 mg PO DAILY [facility] Furosemide (Lasix) 20 mg PO DAILY [facility] Glipizide (Glucotrol) 5 mg PO AC-TID [facility] Last Admin: 09/16/18 17:46 Dose: 5 mg Documented by: Heparin Sodium (Porcine) (Heparin) 5,000 unit SQ Q12HR [facility] Last Admin: 09/16/18 20:38 Dose: 5,000 unit Documented by: Sodium Chloride (Saline 0.9%) 1,000 mls @ 75 mls/hr IV .[id number] [facility] Last Admin: 09/16/18 10:56 Dose: 75 mls/hr Documented by: Vancomycin HCl 1,750 mg/ (Sodium Chloride) 500 mls @ 167 mls/hr IVPB Q36H [facility] Ceftriaxone Sodium 1 gm/ (Sodium Chloride) 50 mls @ 100 mls/hr IVPB Q24HR [facility] Insulin Aspart (Novolog) 0 unit SQ ACHS [facility]; Protocol Last Admin: 09/16/18 20:37 Dose: 12 unit Documented by: Lisinopril (Zestril) 5 mg PO DAILY [facility] Naloxone HCl (Narcan) 0.2 mg IV Q2M PRN PRN Reason: Opioid Reversal Potassium Chloride (K-Dur 10) 10 meq PO DAILY [facility] Tamsulosin HCl (Flomax) 0.4 mg PO DAILY [facility] Timolol Maleate (Timoptic) 1 drops BOTH EYES DAILY [facility] Tramadol HCl (Ultram) 50 mg PO Q6H PRN PRN Reason: Moderate Pain Home Medications Medication Instructions Recorded Confirmed Type Enalapril [Vasotec] 2.5 mg PO DAILY 08/28/15 09/16/18 History Ferrous Sulfate [Feosol] 325 mg PO DAILY 08/28/15 09/16/18 History Furosemide [Lasix] 20 mg PO DAILY 08/28/15 09/16/18 History Potassium Chloride [Klor-Con 10] 10 meq PO DAILY 08/28/15 09/16/18 History Aspirin 325 mg PO DAILY 09/06/17 09/16/18 History Timolol 0.5% Ophth Soln [Timoptic 1 drop BOTH EYES DAILY 12/13/17 09/16/18 History 0.5% Ophth Soln] glipiZIDE [Glucotrol] 5 mg PO AC-TID 12/13/17 09/16/18 History Artificial Tears-Hypromellose 1 drops BOTH EYES TID 12/15/17 09/16/18 History [Artificial Tear Drops] Cholecalciferol (Vitamin D3) 2,000 unit PO DAILY 09/16/18 09/16/18 History [Vitamin D3] Tamsulosin [Flomax] 0.4 mg PO DAILY 09/16/18 09/16/18 History Allergies Allergy/AdvReac Type Severity Reaction Status Date / Time No Known Allergies Allergy Verified 09/16/18 09:10 Physical Exam Vitals: Vital Signs Temp Pulse Pulse Resp BP BP Pulse Ox 09/16/18 19:05 98.4 F 68 18 149/64 100 09/16/18 12:56 99.0 F 76 16 174/87 100 09/16/18 11:30 58 L 136/73 100 09/16/18 11:00 56 L 133/62 100 09/16/18 10:00 58 L 16 129/68 100 09/16/18 09:30 55 L 127/61 100 09/16/18 08:46 98.6 F 60 16 137/72 98 Intake and Output 09/16/18 09/16/18 09/16/18 06:59 14:59 22:59 Other: Weight 110.223 kg 110.223 kg 88-year-old -[place] male in no acute distress HEENT: Anicteric conjunctiva are pink and moist nasal mucosa grossly intact without significant lesions, there is no thrush. Is hard of hearing Neck: The neck is supple without significant lymphadenopathy or thyromegaly. Lungs: Good bilateral air entry without significant crackles or wheezing. There is no significant bronchial sounds. There is no egophony or dullness. Heart: Regular rate and rhythm with an audible S1-S2, no S3 no S4. There is no significant murmur click or rub, PMI was nondisplaced. Abdomen: Positive bowel sounds soft and nontender without palpable masses or organomegaly. There was no guarding or rebound. Extremities: The upper extremities have excellent pulses they are symmetric, no significant petechiae or telangiectasia. No splinter hemorrhages were noted. Left leg and foot without acute difficulties except for some edema. Right leg showing some edema and swelling to the foot it is warm and is erythematous is not very tender presented to the davy gangrenous changes to the second toe there is also ulcerations on the fourth and fifth toes. Neuro: Awake alert oriented to person place and time. There are no acute new gross focal sensory motor deficits. Results CBC & Chem 7: 09/16/18 09:03 09/16/18 09:03 Labs: Abnormal Lab Results - Last 24 Hours (Table) 09/16/18 09/16/18 09/16/18 Range/Units 09:03 09:03 09:03 RBC 4.11 L (4.30-5.90) m/uL Hgb 10.7 L (13.0-17.5) gm/dL Hct 33.8 L (39.0-53.0) % Lymphocytes # 0.7 L (1.0-4.8) k/uL Chloride 110 H (98-107) mmol/L BUN 21 H (9-20) mg/dL Creatinine 1.67 H (0.66-1.25) mg/dL Glucose 163 H (74-99) mg/dL POC Glucose (mg/dL) (75-99) mg/dL Hemoglobin A1c (4.0-6.0) % Iron 18 L (65-175) ug/dL TIBC 227 L (228-460) ug/dL Iron Saturation 7.93 L (15.00-50.00) Ferritin 481.4 H (22.0-322.0) ng/mL Total Protein 6.0 L (6.3-8.2) g/dL Albumin 2.8 L (3.5-5.0) g/dL 09/16/18 09/16/18 09/16/18 Range/Units 09:03 16:49 20:33 RBC (4.30-5.90) m/uL Hgb (13.0-17.5) gm/dL Hct (39.0-53.0) % Lymphocytes # (1.0-4.8) k/uL Chloride (98-107) mmol/L BUN (9-20) mg/dL Creatinine (0.66-1.25) mg/dL Glucose (74-99) mg/dL POC Glucose (mg/dL) 206 H 479 H (75-99) mg/dL Hemoglobin A1c 8.3 H (4.0-6.0) % Iron (65-175) ug/dL TIBC (228-460) ug/dL Iron Saturation (15.00-50.00) Ferritin (22.0-322.0) ng/mL Total Protein (6.3-8.2) g/dL Albumin (3.5-5.0) g/dL 09/16/18 Range/Units 21:59 RBC (4.30-5.90) m/uL Hgb (13.0-17.5) gm/dL Hct (39.0-53.0) % Lymphocytes # (1.0-4.8) k/uL Chloride (98-107) mmol/L BUN (9-20) mg/dL Creatinine (0.66-1.25) mg/dL Glucose (74-99) mg/dL POC Glucose (mg/dL) 183 H (75-99) mg/dL Hemoglobin A1c (4.0-6.0) % Iron (65-175) ug/dL TIBC (228-460) ug/dL Iron Saturation (15.00-50.00) Ferritin (22.0-322.0) ng/mL Total Protein (6.3-8.2) g/dL Albumin (3.5-5.0) g/dL Laboratory Results WBC 8.5 k/uL (3.8-10.6) 09/16/18 09:03 RBC 4.11 m/uL (4.30-5.90) L 09/16/18 09:03 Hgb 10.7 gm/dL (13.0-17.5) L 09/16/18 09:03 Hct 33.8 % (39.0-53.0) L 09/16/18 09:03 MCV 82.2 fL (80.0-100.0) 09/16/18 09:03 MCH 26.0 pg (25.0-35.0) 09/16/18 09:03 MCHC 31.7 g/dL (31.0-37.0) 09/16/18 09:03 RDW 13.2 % (11.5-15.5) 09/16/18 09:03 Plt Count 292 k/uL (150-450) 09/16/18 09:03 Neutrophils % 80 % 09/16/18 09:03 Lymphocytes % 8 % 09/16/18 09:03 Monocytes % 8 % 09/16/18 09:03 Eosinophils % 1 % 09/16/18 09:03 Basophils % 0 % 09/16/18 09:03 Neutrophils # 6.8 k/uL (1.3-7.7) 09/16/18 09:03 Lymphocytes # 0.7 k/uL (1.0-4.8) L 09/16/18 09:03 Monocytes # 0.7 k/uL (0-1.0) 09/16/18 09:03 Eosinophils # 0.1 k/uL (0-0.7) 09/16/18 09:03 Basophils # 0.0 k/uL (0-0.2) 09/16/18 09:03 PT 11.6 sec (9.0-12.0) 09/16/18 09:03 INR 1.1 (<1.2) 09/16/18 09:03 APTT 27.1 sec (22.0-30.0) 09/16/18 09:03 Sodium 142 mmol/L (137-145) 09/16/18 09:03 Potassium 4.1 mmol/L (3.5-5.1) 09/16/18 09:03 Chloride 110 mmol/L (98-107) H 09/16/18 09:03 Carbon Dioxide 24 mmol/L (22-30) 09/16/18 09:03 Anion Gap 8 mmol/L 09/16/18 09:03 BUN 21 mg/dL (9-20) H 09/16/18 09:03 Creatinine 1.67 mg/dL (0.66-1.25) H 09/16/18 09:03 Est GFR (CKD-EPI)AfAm 42 (>60 ml/min/1.73 sqM) 09/16/18 09:03 Est GFR (CKD-EPI)NonAf 37 (>60 ml/min/1.73 sqM) 09/16/18 09:03 Glucose 163 mg/dL (74-99) H 09/16/18 09:03 POC Glucose (mg/dL) 183 mg/dL (75-99) H 09/16/18 21:59 POC Glu Electrical Superintendent ID Abbie Romero 09/16/18 21:[address] Glu mg/dL 192 09/16/18 09:03 Hemoglobin A1c 8.3 % (4.0-6.0) H 09/16/18 09:03 Plasma Lactic Acid Jose 0.9 mmol/L (0.7-2.0) 09/16/18 09:03 Calcium 8.5 mg/dL (8.4-10.2) 09/16/18 09:03 Iron 18 ug/dL (65-175) L 09/16/18 09:03 TIBC 227 ug/dL (228-460) L 09/16/18 09:03 Iron Saturation 7.93 (15.00-50.00) L 09/16/18 09:03 Ferritin 481.4 ng/mL (22.0-322.0) H 09/16/18 09:03 Total Bilirubin 1.0 mg/dL (0.2-1.3) 09/16/18 09:03 AST 34 U/L (17-59) 09/16/18 09:03 ALT 49 U/L (21-72) 09/16/18 09:03 Alkaline Phosphatase 122 U/L (38-126) 09/16/18 09:03 Total Protein 6.0 g/dL (6.3-8.2) L 09/16/18 09:03 Albumin 2.8 g/dL (3.5-5.0) L 09/16/18 09:03 Assessment and Plan (1) PVD (peripheral vascular disease) Current Visit: Yes Status: Acute Code(s): I73.9 - PERIPHERAL VASCULAR DISEASE, UNSPECIFIED SNOMED Code(s): 606530362 (2) Type 2 diabetes mellitus with foot ulcer and gangrene Narrative/Plan: 88-year-old male who has a long-standing history of multiple medical troubles including prior colon cancer as well as prostate cancer status post chemotherapy and radiation the past has known peripheral vascular disease and diabetes mellitus type 2 somewhat poorly controlled with hemoglobin A1c of 8.3. Patient now presents with the progressive changes to the right foot at the third toe where there is evidence of the gangrenous change. The patient has been seen by vascular surgery and there are plans for being taken to the operating room for the ray amputation of the third toe and further evaluation will be done intraoperatively. Apparently evaluation of his vascular status I believe is in process. Prior wound cultures are reviewed showing evidence of MRSA and Enterobacter that is quite resistant and constantly antibiotic therapy is transitioned to vancomycin with Zosyn pending further results. Dry dressing for now. Nothing by mouth after midnight for surgery in the morning. Current Visit: Yes Status: Acute Code(s): E11.621 - TYPE 2 DIABETES MELLITUS WITH FOOT ULCER; E11.52 - TYPE 2 DIABETES W DIABETIC PERIPHERAL ANGIOPATHY W GANGRENE; L97.509 - NON-PRESSURE CHRONIC ULCER OTH PRT UNSP FOOT W UNSP SEVERITY SNOMED Code(s): 846966547
[2018-09-16] MEDS: PIPERACILLIN-TAZOBACTAM 3.375 GM in SODIUM CHLORIDE 0.9% 100 ML IVPB SCH (23:38)
[2018-09-17] MEDS: ACETAMINOPHEN TAB 325 MG TAB PO PRN ×2 (01:23→17:17)
[2018-09-17 06:53] LABS: Glucose,Whole Blood 90 mg/dL (75-99)
[2018-09-17] MEDS: INSULIN ASPART (NovoLOG) 100 UNIT/ML VIAL SQ SCH ×4 (07:04→20:12)
[2018-09-17] MEDS ORDERED: PROPOFOL 10 MG/ML 20 ML VIAL IV ONE (07:13)
[2018-09-17 07:19] LABS: Basophils % (A) 0 %; Eosinophils # (A) 0.2 k/uL (0-0.7); Eosinophils % (A) 2 %; HCT 31.7 % (39.0-53.0); HGB 9.8 gm/dL (13.0-17.5); Lymphocytes # (A) 0.9 k/uL (1.0-4.8); Lymphocytes % (A) 10 %; MCH 25.6 pg (25.0-35.0); MCHC 30.8 g/dL (31.0-37.0); Mean Platelet Volume 6.8; Monocytes # (A) 0.7 k/uL (0-1.0); Monocytes % (A) 7 %; Neutrophils # (A) 7.1 k/uL (1.3-7.7); Neutrophils % (A) 79 %; Platelet Count 279 k/uL (150-450); RBC 3.82 m/uL (4.30-5.90); RDW 13.3 % (11.5-15.5); WBC 9.1 k/uL (3.8-10.6)
[2018-09-17] MEDS ORDERED: SODIUM CHLORIDE 0.9% 500 ML 500 ML IV ONE (07:26)
[2018-09-17] MEDS ORDERED: LIDOCAINE 1% INJ 10MG/ML (20 ML MDV) SQ ONE ×2 (07:26)
[2018-09-17 07:42] LABS: Albumin 2.2 g/dL (3.5-5.0); Calcium 8.1 mg/dL (8.4-10.2); Potassium 3.9 mmol/L (3.5-5.1); Total Bilirubin 0.6 mg/dL (0.2-1.3); Total Protein 5.1 g/dL (6.3-8.2)
[2018-09-17 08:20] LABS: Glucose,Whole Blood 89 mg/dL (75-99)
[2018-09-17] MEDS: PIPERACILLIN-TAZOBACTAM 3.375 GM in SODIUM CHLORIDE 0.9% 100 ML IVPB SCH ×2 (09:18→17:03)
[2018-09-17] MEDS: glipiZIDE 5 MG TAB PO SCH ×3 (09:19→17:03)
[2018-09-17] MEDS: HEPARIN SODIUM,PORCINE 5,000 UNIT/ML 1 ML VIAL SQ SCH ×2 (09:19→20:12)
[2018-09-17] MEDS: CHOLECALCIFEROL 1,000 UNIT TAB PO SCH (09:20)
[2018-09-17] MEDS: FUROSEMIDE 20 MG TAB PO SCH (09:20)
[2018-09-17] MEDS: LISINOPRIL 5 MG TAB PO SCH (09:20)
[2018-09-17] MEDS: POTASSIUM CHLORIDE ER 10 MEQ TAB.ER.PRT PO SCH (09:20)
[2018-09-17] MEDS: TAMSULOSIN 0.4 MG CAP.ER.24H PO SCH (09:20)
[2018-09-17] MEDS: FERROUS SULFATE 325 MG TAB PO SCH (09:20)
[2018-09-17] MEDS: ASPIRIN 325 MG TAB PO SCH (09:20)
[2018-09-17] MEDS: FAMOTIDINE 20 MG TAB PO SCH (09:20)
[2018-09-17] MEDS: ARTIFICIAL TEARS-HYPROMELLOSE DROPS 15 ML BTL BOTH EYES SCH ×3 (09:31→20:15)
[2018-09-17] MEDS: TIMOLOL 0.5% OPHTH DROPS 5 ML BTL BOTH EYES SCH (09:31)
[2018-09-17 11:53] LABS: Glucose,Whole Blood 156 mg/dL (75-99)
[2018-09-17] MEDS: hydrALAZINE HCL 25 MG TAB PO SCH ×2 (12:13→20:12)
--- NOTE | 2018-09-17 12:28 | P.PN ---
Subjective Progress Note Date: 09/17/18 This is a 88-year-old -[place] male with a known past medical history of diabetes, peripheral vascular disease, hypertension, chronic kidney disease, and iron deficiency anemia and anemia of chronic kidney disease, colon cancer with radiation and chemo treatment and surgical resection, prostate cancer status post radiation treatment. Per chart patient has previous MRSA infection in the left leg. Patient presents to the hospital due to a right foot infection that started about 3 days ago. He denies any injury or any sores on the foot. The right foot third toe is black foul odor and there is skin that is sloughing off. There is no pain with palpation of the toe. His foot is also swollen and red and increasing up into the leg. Patient denies any fevers, chills or sweats. Denies a nausea vomiting, bowel movement changes or urinary symptoms. Denies any chest pain or shortness of breath. He has been afebrile white count is normal at 8.5. Admitting vitals 98.6 temp pulse 60 respiratory rate 16 blood pressure 137/72 on room air at 98%. X-ray of the foot shows soft tissue swelli ng can be related to reported infection. Underlying osteomyelitis is not evident on x-ray. Consult has been placed for infectious disease and vascular surgery. Patient started on Rocephin and vancomycin. Hemoglobin 10.7 no active signs of bleeding creatinine 1.67 albumin 2.8. On 09/17/2018 patient's alert and oriented 3. Patient is currently status post amputation of right toe. Patient remains on IV antibiotics per ID. Wound cultures obtained. Patient having elevated blood pressure hydralazine added. At this time patient denies chest pain or shortness of breath. Patient denies nausea vomiting or diarrhea. Patient denies any urinary burning or frequency. Objective - Vital Signs Vital signs: Vital Signs Temp 98.2 F 09/17/18 08:24 Pulse 64 09/17/18 10:09 Resp 15 09/17/18 08:24 BP 182/82 09/17/18 10:09 Pulse Ox 100 09/17/18 08:24 Intake & Output 09/16/18 09/17/18 09/17/18 18:59 06:59 18:59 Intake Total 1250 250 Output Total 210 Balance 1250 40 Weight 110.223 kg Intake: IV 250 Intake, IV Titration 750 Amount Sodium Chloride 0.9% 1, 750 000 ml @ 75 mls/hr IV . [id number] [facility] Rx#:[id number] Oral 500 Output: Urine 200 Estimated Blood Loss 10 Other: Voiding Method Toilet Urinal # Voids 3 - Exam Head normocephalic Neck supple Lungs clear to auscultation bilaterally no wheezing or crackles Heart regular rate and rhythm S1-S2, no rub or gallop Abdomen is soft nontender nondistended positive bowel sounds no hepatosplenome nohemy Extremities right foot is swollen and red. Swelling and erythema increases up into the tibial area below the knee. Amputation of third toe on right foot. Dressing is clean dry and intact Neuro alert and orientated to 3 - Labs CBC & Chem 7: 09/17/18 06:28 09/17/18 06:28 Labs: Abnormal Lab Results - Last 24 Hours (Table) 09/16/18 09/16/18 09/16/18 Range/Units 09:03 09:03 16:49 RBC (4.30-5.90) m/uL Hgb (13.0-17.5) gm/dL Hct (39.0-53.0) % MCHC (31.0-37.0) g/dL Lymphocytes # (1.0-4.8) k/uL Chloride (98-107) mmol/L Creatinine (0.66-1.25) mg/dL POC Glucose (mg/dL) 206 H (75-99) mg/dL Hemoglobin A1c 8.3 H (4.0-6.0) % Calcium (8.4-10.2) mg/dL Iron 18 L (65-175) ug/dL TIBC 227 L (228-460) ug/dL Iron Saturation 7.93 L (15.00-50.00) Ferritin 481.4 H (22.0-322.0) ng/mL Total Protein (6.3-8.2) g/dL Albumin (3.5-5.0) g/dL 09/16/18 09/16/18 09/17/18 Range/Units 20:33 21:59 06:28 RBC 3.82 L (4.30-5.90) m/uL Hgb 9.8 L (13.0-17.5) gm/dL Hct 31.7 L (39.0-53.0) % MCHC 30.8 L (31.0-37.0) g/dL Lymphocytes # 0.9 L (1.0-4.8) k/uL Chloride (98-107) mmol/L Creatinine (0.66-1.25) mg/dL POC Glucose (mg/dL) 479 H 183 H (75-99) mg/dL Hemoglobin A1c (4.0-6.0) % Calcium (8.4-10.2) mg/dL Iron (65-175) ug/dL TIBC (228-460) ug/dL Iron Saturation (15.00-50.00) Ferritin (22.0-322.0) ng/mL Total Protein (6.3-8.2) g/dL Albumin (3.5-5.0) g/dL 09/17/18 09/17/18 Range/Units 06:28 11:51 RBC (4.30-5.90) m/uL Hgb (13.0-17.5) gm/dL Hct (39.0-53.0) % MCHC (31.0-37.0) g/dL Lymphocytes # (1.0-4.8) k/uL Chloride 112 H (98-107) mmol/L Creatinine 1.55 H (0.66-1.25) mg/dL POC Glucose (mg/dL) 156 H (75-99) mg/dL Hemoglobin A1c (4.0-6.0) % Calcium 8.1 L (8.4-10.2) mg/dL Iron (65-175) ug/dL TIBC (228-460) ug/dL Iron Saturation (15.00-50.00) Ferritin (22.0-322.0) ng/mL Total Protein 5.1 L (6.3-8.2) g/dL Albumin 2.2 L (3.5-5.0) g/dL Microbiology - Last 24 Hours (Table) 09/16/18 09:03 Blood Culture - Preliminary Blood No Growth after 24 hours Assessment and Plan Assessment: 1. 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 Patient start on IV vancomycin and Rocephin in the emergency room. X- ray shows soft tissue swelling of the infected area. And no evidence of osteomyelitis. Consulted been placed for ID and vascular surgery. Venous Doppler completed showing right lower extremity ultrasound negative for deep vein process. Marked enlarged lymph node in the right groin measuring 5 x 2 cm popliteal cyst. Patient remains on Zosyn and vancomycin per infectious disease cultures pending 2. Chronic kidney disease stage III: Creatinine near baseline. Continue to monitor closely. We'll continue with his home dose of Lasix. 3. Anemia of iron deficiency and chronic kidney disease. Hemoglobin 10.7. No active signs of bleeding. Continue iron supplement. Check iron studies. 4. Severe protein calorie malnutrition: Add glucerna shakes 5. Diabetes mellitus type 2: Resume glipizide. Add sliding scale coverage. Check hemoglobin A1c 6. History of peripheral vascular disease 7. Essential hypertension. Blood pressures remain elevated hydralazine has been added 8. History of colon cancer in 2004 status post radiation, chemo and surgery 9. History of coronary artery disease 10. History of prostate cancer in 2011 status post radiation DVT prophylaxis heparin. GI prophylaxis Pepcid I performed an examination of the patient and discussed their management with the Nurse Practitioner. I have reviewed the Nurse Practitioner's notes and agree with the documented findings and plan of care
--- NOTE | 2018-09-17 13:15 | OP ---
OPERATIVE REPORT PREOP DIAGNOSIS: Wet gangrene of the right foot 3rd toe. OPERATION PERFORMED: Ray amputation of the right foot 3rd toe at metatarsophalangeal joint. This patient had infected gangrene of the right foot. DESCRIPTION OF PROCEDURE: The patient was brought to the operating room under local IV sedation. Right foot was prepped and drapes applied in a sterile manner. Incision was made on the dorsal aspect of the foot, went circumferentially around the 3rd toe until we reached the plantar aspect deepened through skin fat and fascia. Tendons on the plantar and dorsal aspect were divided. The patient has some devitalized tissue which was excised with sharp knife. After that, we reached the metatarsal pharyngeal joint and the 3rd toe was removed. There was some bleeding which was controlled and the wound was copiously irrigated with Hydrogen peroxide and saline. We took some deep culture and subcu tissue was approximated with 3-0 Vicryl. We kept the skin open because of infection. We will continue with Aquacel silver and IV antibiotic. MMODL / IJN: [id number] /
[2018-09-17] MEDS: VANCOMYCIN 1,750 MG in SODIUM CHLORIDE 0.9% 500 ML 500 ML IVPB SCH (13:40)
[2018-09-17 16:48] LABS: Glucose,Whole Blood 189 mg/dL (75-99)
[2018-09-17] MEDS: SODIUM CHLORIDE 0.9% 1,000 ML IV SCH (18:48)
[2018-09-17 20:09] LABS: Glucose,Whole Blood 229 mg/dL (75-99)
[2018-09-18] MEDS: PIPERACILLIN-TAZOBACTAM 3.375 GM in SODIUM CHLORIDE 0.9% 100 ML IVPB SCH ×3 (00:29→16:39)
[2018-09-18] MEDS: SODIUM CHLORIDE 0.9% 1,000 ML IV SCH ×2 (00:29→18:59)
[2018-09-18 06:56] LABS: Glucose,Whole Blood 104 mg/dL (75-99)
[2018-09-18] MEDS: INSULIN ASPART (NovoLOG) 100 UNIT/ML VIAL SQ SCH ×4 (07:12→20:22)
[2018-09-18 07:57] LABS: Albumin 2.3 g/dL (3.5-5.0); Calcium 8.1 mg/dL (8.4-10.2); Potassium 4.2 mmol/L (3.5-5.1); Total Bilirubin 0.5 mg/dL (0.2-1.3); Total Protein 5.1 g/dL (6.3-8.2)
[2018-09-18 07:58] LABS: Basophils % (A) 0 %; Eosinophils # (A) 0.2 k/uL (0-0.7); Eosinophils % (A) 2 %; HCT 31.8 % (39.0-53.0); HGB 9.9 gm/dL (13.0-17.5); Hypochromasia Slight; Lymphocytes # (A) 0.9 k/uL (1.0-4.8); Lymphocytes % (A) 10 %; MCH 25.5 pg (25.0-35.0); MCHC 31.2 g/dL (31.0-37.0); MCV 81.8 fL (80.0-100.0); Mean Platelet Volume 7.3; Monocytes # (A) 0.5 k/uL (0-1.0); Monocytes % (A) 6 %; Neutrophils # (A) 7.1 k/uL (1.3-7.7); Neutrophils % (A) 80 %; Platelet Count 289 k/uL (150-450); RBC 3.88 m/uL (4.30-5.90); RDW 13.1 % (11.5-15.5)
[2018-09-18] MEDS: ARTIFICIAL TEARS-HYPROMELLOSE DROPS 15 ML BTL BOTH EYES SCH ×3 (08:20→20:22)
[2018-09-18] MEDS: TIMOLOL 0.5% OPHTH DROPS 5 ML BTL BOTH EYES SCH (08:20)
[2018-09-18] MEDS: HEPARIN SODIUM,PORCINE 5,000 UNIT/ML 1 ML VIAL SQ SCH ×2 (08:21→20:22)
[2018-09-18] MEDS: glipiZIDE 5 MG TAB PO SCH ×3 (08:21→17:27)
[2018-09-18] MEDS: CHOLECALCIFEROL 1,000 UNIT TAB PO SCH (08:21)
[2018-09-18] MEDS: POTASSIUM CHLORIDE ER 10 MEQ TAB.ER.PRT PO SCH (08:21)
[2018-09-18] MEDS: hydrALAZINE HCL 25 MG TAB PO SCH ×2 (08:21→20:22)
[2018-09-18] MEDS: FERROUS SULFATE 325 MG TAB PO SCH (08:21)
[2018-09-18] MEDS: TAMSULOSIN 0.4 MG CAP.ER.24H PO SCH (08:21)
[2018-09-18] MEDS: LISINOPRIL 5 MG TAB PO SCH (08:21)
[2018-09-18] MEDS: FAMOTIDINE 20 MG TAB PO SCH (08:21)
[2018-09-18] MEDS: ASPIRIN 325 MG TAB PO SCH (08:22)
[2018-09-18] MEDS: FUROSEMIDE 20 MG TAB PO SCH (08:25)
--- NOTE | 2018-09-18 11:28 | P.PN ---
Subjective Progress Note Date: 09/18/18 This is a 88-year-old -[place] male with a known past medical history of diabetes, peripheral vascular disease, hypertension, chronic kidney disease, and iron deficiency anemia and anemia of chronic kidney disease, colon cancer with radiation and chemo treatment and surgical resection, prostate cancer status post radiation treatment. Per chart patient has previous MRSA infection in the left leg. Patient presents to the hospital due to a right foot infection that started about 3 days ago. He denies any injury or any sores on the foot. The right foot third toe is black foul odor and there is skin that is sloughing off. There is no pain with palpation of the toe. His foot is also swollen and red and increasing up into the leg. Patient denies any fevers, chills or sweats. Denies a nausea vomiting, bowel movement changes or urinary symptoms. Denies any chest pain or shortness of breath. He has been afebrile white count is normal at 8.5. Admitting vitals 98.6 temp pulse 60 respiratory rate 16 blood pressure 137/72 on room air at 98%. X-ray of the foot shows soft tissue swelli ng can be related to reported infection. Underlying osteomyelitis is not evident on x-ray. Consult has been placed for infectious disease and vascular surgery. Patient started on Rocephin and vancomycin. Hemoglobin 10.7 no active signs of bleeding creatinine 1.67 albumin 2.8. On 09/17/2018 patient's alert and oriented 3. Patient is currently status post amputation of right toe. Patient remains on IV antibiotics per ID. Wound cultures obtained. Patient having elevated blood pressure hydralazine added. At this time patient denies chest pain or shortness of breath. Patient denies nausea vomiting or diarrhea. Patient denies any urinary burning or frequency. On 09/18/2016 patient is alert and oriented in no distress he denies any symptoms at this time there is no fever or chills no headache or dizziness no chest pain no shortness of breath no cough no nausea or vomiting no abdominal pain no diarrhea no burning was urination no frequency or urgency no hematuria Objective - Vital Signs Vital signs: Vital Signs Temp 99.1 F 09/18/18 06:51 Pulse 57 L 09/18/18 08:25 Resp 16 09/18/18 08:25 BP 122/66 09/18/18 06:51 Pulse Ox 98 09/18/18 06:51 Intake & Output 09/17/18 09/18/18 09/18/18 18:59 06:59 18:59 Intake Total 770 1250 180 Output Total 310 Balance 460 1250 180 Intake: IV 250 Intake, IV Titration 100 750 Amount Piperacillin-Tazobactam 3 100 .375 gm In Sodium Chloride 0.9% 100 ml @ 25 mls/hr IVPB Q8HR [facility] Rx# :[id number] Sodium Chloride 0.9% 1, 750 000 ml @ 75 mls/hr IV . [id number] [facility] Rx#:[id number] Oral 420 500 180 Output: Urine 300 Estimated Blood Loss 10 Other: Voiding Method Toilet Toilet Urinal Urinal # Voids 2 - Exam Head normocephalic and atraumatic Neck supple, no JVD Lungs clear to auscultation bilaterally no wheezing or crackles Heart regular rate and rhythm S1-S2, no rub or gallop Abdomen is soft nontender nondistended positive bowel sounds no hepatosplenomegaly Extremities right foot is swollen and red. Swelling and erythema increases up into the tibial area below the knee. Amputation of third toe on right foot. Dressing is clean dry and intact Neuro alert and orientated to 3 - Labs CBC & Chem 7: 09/18/18 06:43 09/18/18 06:43 Labs: Abnormal Lab Results - Last 24 Hours (Table) 09/17/18 09/17/18 09/17/18 Range/Units 11:51 16:47 20:08 RBC (4.30-5.90) m/uL Hgb (13.0-17.5) gm/dL Hct (39.0-53.0) % Lymphocytes # (1.0-4.8) k/uL Chloride (98-107) mmol/L BUN (9-20) mg/dL Creatinine (0.66-1.25) mg/dL POC Glucose (mg/dL) 156 H 189 H 229 H (75-99) mg/dL Calcium (8.4-10.2) mg/dL Total Protein (6.3-8.2) g/dL Albumin (3.5-5.0) g/dL 09/18/18 09/18/18 09/18/18 Range/Units 06:43 06:43 06:53 RBC 3.88 L (4.30-5.90) m/uL Hgb 9.9 L (13.0-17.5) gm/dL Hct 31.8 L (39.0-53.0) % Lymphocytes # 0.9 L (1.0-4.8) k/uL Chloride 112 H (98-107) mmol/L BUN 23 H (9-20) mg/dL Creatinine 1.59 H (0.66-1.25) mg/dL POC Glucose (mg/dL) 104 H (75-99) mg/dL Calcium 8.1 L (8.4-10.2) mg/dL Total Protein 5.1 L (6.3-8.2) g/dL Albumin 2.3 L (3.5-5.0) g/dL Microbiology - Last 24 Hours (Table) 09/17/18 07:49 Gram Stain - Preliminary Toe - Right Third Wound Culture - Preliminary Gram Neg Bacilli Group D Enterococcus 09/17/18 07:49 Anaerobic Culture - Preliminary Toe - Right Third 09/16/18 09:03 Blood Culture - Preliminary Blood No Growth after 24 hours Assessment and Plan Plan: 1. 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 Patient start on IV vancomycin and Rocephin in the emergency room. X- ray shows soft tissue swelling of the infected area. And no evidence of osteomyelitis. Consulted been placed for ID and vascular surgery. Venous Doppl er completed showing right lower extremity ultrasound negative for deep vein process. Marked enlarged lymph node in the right groin measuring 5 x 2 cm popliteal cyst. Patient remains on Zosyn and vancomycin per infectious disease cultures pending 2. Chronic kidney disease stage III: Creatinine near baseline. Continue to monitor closely. We'll continue with his home dose of Lasix. 3. Anemia of iron deficiency and chronic kidney disease. Hemoglobin 10.7. No active signs of bleeding. Continue iron supplement. Check iron studies. 4. Severe protein calorie malnutrition: Add glucerna shakes 5. Diabetes mellitus type 2: Resume glipizide. Add sliding scale coverage. Check hemoglobin A1c 6. History of peripheral vascular disease 7. Essential hypertension. Blood pressures remain elevated hydralazine has been added 8. History of colon cancer in 2004 status post radiation, chemo and surgery 9. History of coronary artery disease 10. History of prostate cancer in 2011 status post radiation DVT prophylaxis heparin. GI prophylaxis Pepcid
[2018-09-18 11:50] LABS: Glucose,Whole Blood 202 mg/dL (75-99)
[2018-09-18] MEDS ORDERED: ONDANSETRON 4 MG/2 ML VIAL IVP PRN (16:31)
[2018-09-18 17:06] LABS: Glucose,Whole Blood 173 mg/dL (75-99)
[2018-09-18 20:16] LABS: Glucose,Whole Blood 182 mg/dL (75-99)
[2018-09-19] MEDS: PIPERACILLIN-TAZOBACTAM 3.375 GM in SODIUM CHLORIDE 0.9% 100 ML IVPB SCH ×4 (01:21→23:11)
[2018-09-19] MEDS: VANCOMYCIN 1,750 MG in SODIUM CHLORIDE 0.9% 500 ML 500 ML IVPB SCH (01:21)
[2018-09-19] MEDS: SODIUM CHLORIDE 0.9% 1,000 ML IV SCH ×2 (05:04→21:01)
[2018-09-19 07:09] LABS: Glucose,Whole Blood 121 mg/dL (75-99)
[2018-09-19] MEDS: INSULIN ASPART (NovoLOG) 100 UNIT/ML VIAL SQ SCH ×4 (07:55→21:06)
[2018-09-19] MEDS: ASPIRIN 325 MG TAB PO SCH (07:57)
[2018-09-19] MEDS: POTASSIUM CHLORIDE ER 10 MEQ TAB.ER.PRT PO SCH (07:57)
[2018-09-19] MEDS: FERROUS SULFATE 325 MG TAB PO SCH (07:57)
[2018-09-19] MEDS: CHOLECALCIFEROL 1,000 UNIT TAB PO SCH (07:57)
[2018-09-19] MEDS: TAMSULOSIN 0.4 MG CAP.ER.24H PO SCH (07:58)
[2018-09-19] MEDS: LISINOPRIL 5 MG TAB PO SCH (07:58)
[2018-09-19] MEDS: FAMOTIDINE 20 MG TAB PO SCH (07:58)
[2018-09-19] MEDS: FUROSEMIDE 20 MG TAB PO SCH (07:58)
[2018-09-19] MEDS: ARTIFICIAL TEARS-HYPROMELLOSE DROPS 15 ML BTL BOTH EYES SCH ×3 (07:59→21:06)
[2018-09-19] MEDS: glipiZIDE 5 MG TAB PO SCH ×3 (07:59→17:05)
[2018-09-19] MEDS: TIMOLOL 0.5% OPHTH DROPS 5 ML BTL BOTH EYES SCH (07:59)
[2018-09-19] MEDS: HEPARIN SODIUM,PORCINE 5,000 UNIT/ML 1 ML VIAL SQ SCH ×2 (08:18→21:03)
[2018-09-19] MEDS: hydrALAZINE HCL 25 MG TAB PO SCH ×2 (08:18→21:29)
[2018-09-19 08:22] LABS: Basophils % (A) 0 %; Eosinophils # (A) 0.3 k/uL (0-0.7); Eosinophils % (A) 3 %; HCT 33.9 % (39.0-53.0); HGB 10.3 gm/dL (13.0-17.5); Hypochromasia Slight; Lymphocytes # (A) 1.1 k/uL (1.0-4.8); Lymphocytes % (A) 12 %; MCH 25.7 pg (25.0-35.0); MCHC 30.4 g/dL (31.0-37.0); MCV 84.6 fL (80.0-100.0); Monocytes # (A) 0.5 k/uL (0-1.0); Monocytes % (A) 6 %; Neutrophils # (A) 7.1 k/uL (1.3-7.7); Neutrophils % (A) 76 %; Platelet Count 326 k/uL (150-450); RBC 4.01 m/uL (4.30-5.90); RDW 13.5 % (11.5-15.5); WBC 9.4 k/uL (3.8-10.6)
[2018-09-19 08:40] LABS: Albumin 2.6 g/dL (3.5-5.0); Calcium 8.5 mg/dL (8.4-10.2); Potassium 4.5 mmol/L (3.5-5.1); Total Bilirubin 0.6 mg/dL (0.2-1.3); Total Protein 5.7 g/dL (6.3-8.2)
--- NOTE | 2018-09-19 09:32 | PN ---
PROGRESS NOTE This is an 88-year-old gentleman for the third toe ray amputation for wet gangrene of the toe. Patient's culture came back Enterococcus. Patient is on Zosyn. PLAN: We will use Aqua Silver to the wound and will discuss with the Infectious Disease if the patient can go home on p.o. antibiotic and I will follow in the [facility] on Wednesday. The patient will need home care for change of dressing a few times a week. MMODL / IJN: [id number] /
--- NOTE | 2018-09-19 11:25 | P.PN ---
Subjective Progress Note Date: 09/19/18 This is a 88-year-old -[place] male with a known past medical history of diabetes, peripheral vascular disease, hypertension, chronic kidney disease, and iron deficiency anemia and anemia of chronic kidney disease, colon cancer with radiation and chemo treatment and surgical resection, prostate cancer status post radiation treatment. Per chart patient has previous MRSA infection in the left leg. Patient presents to the hospital due to a right foot infection that started about 3 days ago. He denies any injury or any sores on the foot. The right foot third toe is black foul odor and there is skin that is sloughing off. There is no pain with palpation of the toe. His foot is also swollen and red and increasing up into the leg. Patient denies any fevers, chills or sweats. Denies a nausea vomiting, bowel movement changes or urinary symptoms. Denies any chest pain or shortness of breath. He has been afebrile white count is normal at 8.5. Admitting vitals 98.6 temp pulse 60 respiratory rate 16 blood pressure 137/72 on room air at 98%. X-ray of the foot shows soft tissue swelli ng can be related to reported infection. Underlying osteomyelitis is not evident on x-ray. Consult has been placed for infectious disease and vascular surgery. Patient started on Rocephin and vancomycin. Hemoglobin 10.7 no active signs of bleeding creatinine 1.67 albumin 2.8. On 09/17/2018 patient's alert and oriented 3. Patient is currently status post amputation of right toe. Patient remains on IV antibiotics per ID. Wound cultures obtained. Patient having elevated blood pressure hydralazine added. At this time patient denies chest pain or shortness of breath. Patient denies nausea vomiting or diarrhea. Patient denies any urinary burning or frequency. On 09/18/2018 patient is alert and oriented in no distress he denies any symptoms at this time there is no fever or chills no headache or dizziness no chest pain no shortness of breath no cough no nausea or vomiting no abdominal pain no diarrhea no burning was urination no frequency or urgency no hematuria 09/19/2018 patient sitting at bedside chair. He does still some swelling in the right leg. Per nursing Dr. Borden did change the dressing on patient's right foot. Patient denies any chest pain or shortness of breath. Denies any nausea or vomiting. Denies any bowel movement changes or urinary symptoms. Blood pressure is 170/71 prior to medications. Will have nursing staff repeat blood pressure. Wound cultures preliminary growing gram-negative bacilli and group D enterococcus. Patient is currently on Zosyn and vancomycin. Vascular surgery has cleared patient for discharge oh follow-up with him in the wound care center. Objective - Vital Signs Vital signs: Vital Signs Temp 98.1 F 09/19/18 07:30 Pulse 77 09/19/18 07:30 Resp 16 09/19/18 07:30 BP 170/71 09/19/18 07:30 Pulse Ox 100 09/19/18 07:30 Intake & Output 09/18/18 09/19/18 09/19/18 18:59 06:59 18:59 Intake Total 1165 1250 660 Output Total 400 Balance 765 1250 660 Intake: Intake, IV Titration 625 750 Amount Piperacillin-Tazobactam 3 100 .375 gm In Sodium Chloride 0.9% 100 ml @ 25 mls/hr IVPB Q8HR [facility] Rx# :[id number] Sodium Chloride 0.9% 1, 525 750 000 ml @ 75 mls/hr IV . [id number] [facility] Rx#:[id number] Oral 540 500 660 Output: Urine 400 Other: Voiding Method Toilet Urinal # Voids 2 # Bowel Movements 1 - Exam Head normocephalic Neck supple Lungs clear to auscultation bilaterally no wheezing or crackles Heart regular rate and rhythm S1-S2, no rub or gallop Abdomen is soft nontender nondistended positive bowel sounds no hepatosplenomegaly Extremities swelling noted in the right leg. Decrease in erythema. Dressings on right foot Neuro alert and orientated to 3 - Labs CBC & Chem 7: 09/19/18 07:13 09/19/18 07:13 Labs: Abnormal Lab Results - Last 24 Hours (Table) 09/18/18 09/18/18 09/18/18 Range/Units 11:49 16:55 20:15 RBC (4.30-5.90) m/uL Hgb (13.0-17.5) gm/dL Hct (39.0-53.0) % MCHC (31.0-37.0) g/dL Chloride (98-107) mmol/L Creatinine (0.66-1.25) mg/dL Glucose (74-99) mg/dL POC Glucose (mg/dL) 202 H 173 H 182 H (75-99) mg/dL Total Protein (6.3-8.2) g/dL Albumin (3.5-5.0) g/dL 09/19/18 09/19/18 09/19/18 Range/Units 06:57 07:13 07:13 RBC 4.01 L (4.30-5.90) m/uL Hgb 10.3 L (13.0-17.5) gm/dL Hct 33.9 L (39.0-53.0) % MCHC 30.4 L (31.0-37.0) g/dL Chloride 113 H (98-107) mmol/L Creatinine 1.52 H (0.66-1.25) mg/dL Glucose 112 H (74-99) mg/dL POC Glucose (mg/dL) 121 H (75-99) mg/dL Total Protein 5.7 L (6.3-8.2) g/dL Albumin 2.6 L (3.5-5.0) g/dL Microbiology - Last 24 Hours (Table) 09/16/18 09:03 Blood Culture - Preliminary Blood No Growth after 72 hours 09/17/18 07:49 Gram Stain - Preliminary Toe - Right Third Wound Culture - Preliminary Gram Neg Bacilli Group D Enterococcus Assessment and Plan Assessment: 1. 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 Surgery completed on 09/17/[address] Borden. Patient currently on vancomycin and Zosyn. Awaiting further antibiotic recommendations per ID. Wound culture growing gram-negative bacilli and group D enterococcus. Venous Doppler completed showing right lower extremity ultrasound negative for deep vein process. Marked enlarged lymph node in the right groin measuring 5 x 2 cm popliteal cyst. Patient follow-up with Dr. Borden at wound care center on Wednesday 2. Chronic kidney disease stage III: Creatinine near baseline. Continue to monitor closely. We'll continue with his home dose of Lasix. 3. Anemia of iron deficiency and chronic kidney disease. Hemoglobin 10.7. No active signs of bleeding. Continue iron supplement. Iron low at 18 4. Severe protein calorie malnutrition: Add glucerna shakes 5. Diabetes mellitus type 2: Resume glipizide. Add sliding scale coverage. Check hemoglobin A1c 6. History of peripheral vascular disease 7. Essential hypertension: Blood pressure elevated this morning 170/[address] affed repeat blood pressure 8. History of colon cancer in 2004 status post radiation, chemo and surgery 9. History of coronary artery disease 10. History of prostate cancer in 2011 status post radiation GI prophylaxis Pepcid and DVT prophylaxis subcu heparin Anticipate discharge tomorrow or this afternoon if cleared by infectious disease I performed an examination of the patient and discussed their management with the physician Bindery Assistant. I have reviewed the Physician Bindery Assistant's notes and agree with the documented findings and plan of care
[2018-09-19 11:42] LABS: Glucose,Whole Blood 169 mg/dL (75-99)
[2018-09-19 16:56] LABS: Glucose,Whole Blood 238 mg/dL (75-99)
[2018-09-19 21:05] LABS: Glucose,Whole Blood 238 mg/dL (75-99)
--- NOTE | 2018-09-19 23:45 | P.PN ---
Subjective Progress Note Date: 09/19/18 Pleasant 88-year-old male with a long-standing history of multiple medical troubles that includes peripheral vascular disease chronic kidney disease and diabetes mellitus type 2 has developed the significant change to his right foot with a gangrenous changes of his third toe. It is foul in nature with copious purulent foul drainage. The patient relates that he was having troubles him because it is markedly worsened and became malodorous he sought care at her facility. He has been seen by vascular surgery with plans for a surgical debridement. He at this time does not have high-grade fevers chills rigors or sweats but does feel poorly. 09/19/2018 status post debridement but hasn't as of the extensive foot infection requiring further antibiotic therapy. IV access has been requested Objective - Vital Signs Vital signs: Vital Signs Temp 98.2 F 09/19/18 19:15 Pulse 56 L 09/19/18 21:27 Resp 18 09/19/18 19:15 BP 148/64 09/19/18 21:27 Pulse Ox 99 09/19/18 19:15 Intake & Output 09/19/18 09/19/18 09/20/18 06:59 18:59 06:59 Intake Total 1250 1140 125 Output Total 375 Balance 1250 765 125 Intake: Intake, IV Titration 750 75 Amount Sodium Chloride 0.9% 1, 750 75 000 ml @ 75 mls/hr IV . [id number] [facility] Rx#:[id number] Oral 500 1140 50 Output: Urine 375 Other: Voiding Method Urinal # Voids 2 1 # Bowel Movements 1 - Exam 88-year-old -Emirati male in no acute distress HEENT: Anicteric conjunctiva are pink and moist nasal mucosa grossly intact without significant lesions, there is no thrush. Is hard of hearing Neck: The neck is supple without significant lymphadenopathy or thyromegaly. Lungs: Good bilateral air entry without significant crackles or wheezing. There is no significant bronchial sounds. There is no egophony or dullness. Heart: Regular rate and rhythm with an audible S1-S2, no S3 no S4. There is no significant murmur click or rub, PMI was nondisplaced. Abdomen: Positive bowel sounds soft and nontender without palpable masses or organomegaly. There was no guarding or rebound. Extremities: The upper extremities have excellent pulses they are symmetric, no significant petechiae or telangiectasia. No splinter hemorrhages were noted. Left leg and foot without acute difficulties except for some edema. Right leg showing some edema and swelling to the foot it is warm and is erythematous is not very tender now has the toe amputaiton and site is open Neuro: Awake alert oriented to person place and time. - Labs CBC & Chem 7: 09/19/18 07:13 09/19/18 07:13 Labs: Abnormal Lab Results - Last 24 Hours (Table) 09/19/18 09/19/18 09/19/18 Range/Units 06:57 07:13 07:13 RBC 4.01 L (4.30-5.90) m/uL Hgb 10.3 L (13.0-17.5) gm/dL Hct 33.9 L (39.0-53.0) % MCHC 30.4 L (31.0-37.0) g/dL Chloride 113 H (98-107) mmol/L Creatinine 1.52 H (0.66-1.25) mg/dL Glucose 112 H (74-99) mg/dL POC Glucose (mg/dL) 121 H (75-99) mg/dL Total Protein 5.7 L (6.3-8.2) g/dL Albumin 2.6 L (3.5-5.0) g/dL 09/19/18 09/19/18 09/19/18 Range/Units 11:41 16:54 21:04 RBC (4.30-5.90) m/uL Hgb (13.0-17.5) gm/dL Hct (39.0-53.0) % MCHC (31.0-37.0) g/dL Chloride (98-107) mmol/L Creatinine (0.66-1.25) mg/dL Glucose (74-99) mg/dL POC Glucose (mg/dL) 169 H 238 H 238 H (75-99) mg/dL Total Protein (6.3-8.2) g/dL Albumin (3.5-5.0) g/dL Microbiology - Last 24 Hours (Table) 09/17/18 07:49 Gram Stain - Final Toe - Right Third Wound Culture - Final Klebsiella oxytoca Enterococcus faecalis 09/16/18 09:03 Blood Culture - Preliminary Blood No Growth after 72 hours Laboratory Results WBC 9.4 k/uL (3.8-10.6) 09/19/18 07:13 RBC 4.01 m/uL (4.30-5.90) L 09/19/18 07:13 Hgb 10.3 gm/dL (13.0-17.5) L 09/19/18 07:13 Hct 33.9 % (39.0-53.0) L 09/19/18 07:13 MCV 84.6 fL (80.0-100.0) 09/19/18 07:13 MCH 25.7 pg (25.0-35.0) 09/19/18 07:13 MCHC 30.4 g/dL (31.0-37.0) L 09/19/18 07:13 RDW 13.5 % (11.5-15.5) 09/19/18 07:13 Plt Count 326 k/uL (150-450) 09/19/18 07:13 Neutrophils % 76 % 09/19/18 07:13 Lymphocytes % 12 % 09/19/18 07:13 Monocytes % 6 % 09/19/18 07:13 Eosinophils % 3 % 09/19/18 07:13 Basophils % 0 % 09/19/18 07:13 Neutrophils # 7.1 k/uL (1.3-7.7) 09/19/18 07:13 Lymphocytes # 1.1 k/uL (1.0-4.8) 09/19/18 07:13 Monocytes # 0.5 k/uL (0-1.0) 09/19/18 07:13 Eosinophils # 0.3 k/uL (0-0.7) 09/19/18 07:13 Basophils # 0.0 k/uL (0-0.2) 09/19/18 07:13 Hypochromasia Slight 09/19/18 07:13 PT 11.6 sec (9.0-12.0) 09/16/18 09:03 INR 1.1 (<1.2) 09/16/18 09:03 APTT 27.1 sec (22.0-30.0) 09/16/18 09:03 Sodium 143 mmol/L (137-145) 09/19/18 07:13 Potassium 4.5 mmol/L (3.5-5.1) 09/19/18 07:13 Chloride 113 mmol/L (98-107) H 09/19/18 07:13 Carbon Dioxide 22 mmol/L (22-30) 09/19/18 07:13 Anion Gap 8 mmol/L 09/19/18 07:13 BUN 20 mg/dL (9-20) 09/19/18 07:13 Creatinine 1.52 mg/dL (0.66-1.25) H 09/19/18 07:13 Est GFR (CKD-EPI)AfAm 48 (>60 ml/min/1.73 sqM) 09/19/18 07:13 Est GFR (CKD-EPI)NonAf 41 (>60 ml/min/1.73 sqM) 09/19/18 07:13 Glucose 112 mg/dL (74-99) H 09/19/18 07:13 POC Glucose (mg/dL) 238 mg/dL (75-99) H 09/19/18 21:04 POC Glu Business Operations Analyst ID Nette Holder 09/19/18 21:[address] Glu mg/dL 192 09/16/18 09:03 Hemoglobin A1c 8.3 % (4.0-6.0) H 09/16/18 09:03 Plasma Lactic Acid Jose 0.9 mmol/L (0.7-2.0) 09/16/18 09:03 Calcium 8.5 mg/dL (8.4-10.2) 09/19/18 07:13 Iron 18 ug/dL (65-175) L 09/16/18 09:03 TIBC 227 ug/dL (228-460) L 09/16/18 09:03 Iron Saturation 7.93 (15.00-50.00) L 09/16/18 09:03 Ferritin 481.4 ng/mL (22.0-322.0) H 09/16/18 09:03 Total Bilirubin 0.6 mg/dL (0.2-1.3) 09/19/18 07:13 AST 36 U/L (17-59) 09/19/18 07:13 ALT 42 U/L (21-72) 09/19/18 07:13 Alkaline Phosphatase 115 U/L (38-126) 09/19/18 07:13 Total Protein 5.7 g/dL (6.3-8.2) L 09/19/18 07:13 Albumin 2.6 g/dL (3.5-5.0) L 09/19/18 07:13 Microbiology 09/17/18 07:49 Toe - Right Third Gram Stain - Final 09/17/18 07:49 Toe - Right Third Wound Culture - Final Klebsiella oxytoca Enterococcus faecalis 09/16/18 09:03 Blood Blood Culture - Preliminary No Growth after 72 hours 09/17/18 07:49 Toe - Right Third Anaerobic Culture - Preliminary Assessment and Plan (1) PVD (peripheral vascular disease) Current Visit: Yes Status: Acute Code(s): I73.9 - PERIPHERAL VASCULAR DISEASE, UNSPECIFIED SNOMED Code(s): 650395027 (2) Type 2 diabetes mellitus with foot ulcer and gangrene Narrative/Plan: 88-year-old male who has a long-standing history of multiple medical troubles including prior colon cancer as well as prostate cancer status post chemotherapy and radiation the past has known peripheral vascular disease and diabetes mellitus type 2 somewhat poorly controlled with hemoglobin A1c of 8.3. Patient now presents with the progressive changes to the right foot at the third toe where there is evidence of the gangrenous change. The patient has been seen by vascular surgery and there are plans for being taken to the operating room for the ray amputation of the third toe and further evaluation will be done intraoperatively. Apparently evaluation of his vascular status I believe is in process. Prior wound cultures are reviewed showing evidence of MRSA and Enterobacter that is quite resistant and constantly antibiotic therapy is transitioned to vancomycin with Zosyn pending further results. Dry dressing for now. Nothing by mouth after midnight for surgery in the morning. 09/19/2018 the patient has noted amputation to the gangrenous toe, the site has been left open is being packed with the silver alginate. We'll continue with local wound care at discharge. The patient wants to go home indurations are being made for outpatient intravenous antibiotic therapy. Invanz 1 g daily would be the choice at this point in time. He was, as right-sided pathogens on a diabetic foot infection. He will need improved glucose control and some type of foot care to help offload this diabetic foot wound. Should follow in the [facility].pICC line has been requested Current Visit: Yes Status: Acute Code(s): E11.621 - TYPE 2 DIABETES MELLITUS WITH FOOT ULCER; E11.52 - TYPE 2 DIABETES W DIABETIC PERIPHERAL ANGIOPATHY W GANGRENE; L97.509 - NON-PRESSURE CHRONIC ULCER OTH PRT UNSP FOOT W UNSP SEVERITY SNOMED Code(s): 336198103
[2018-09-20 07:37] LABS: Glucose,Whole Blood 139 mg/dL (75-99)
[2018-09-20] MEDS: ASPIRIN 325 MG TAB PO SCH (07:40)
[2018-09-20] MEDS: glipiZIDE 5 MG TAB PO SCH ×2 (07:40→12:23)
[2018-09-20] MEDS: FERROUS SULFATE 325 MG TAB PO SCH (07:40)
[2018-09-20] MEDS: INSULIN ASPART (NovoLOG) 100 UNIT/ML VIAL SQ SCH ×2 (07:40→12:22)
[2018-09-20] MEDS: TIMOLOL 0.5% OPHTH DROPS 5 ML BTL BOTH EYES SCH (07:41)
[2018-09-20] MEDS: POTASSIUM CHLORIDE ER 10 MEQ TAB.ER.PRT PO SCH (07:41)
[2018-09-20] MEDS: FUROSEMIDE 20 MG TAB PO SCH (07:41)
[2018-09-20] MEDS: ARTIFICIAL TEARS-HYPROMELLOSE DROPS 15 ML BTL BOTH EYES SCH (07:41)
[2018-09-20] MEDS: FAMOTIDINE 20 MG TAB PO SCH (07:41)
[2018-09-20] MEDS: CHOLECALCIFEROL 1,000 UNIT TAB PO SCH (07:42)
[2018-09-20] MEDS: LISINOPRIL 5 MG TAB PO SCH (07:42)
[2018-09-20] MEDS: TAMSULOSIN 0.4 MG CAP.ER.24H PO SCH (07:42)
[2018-09-20] MEDS: hydrALAZINE HCL 25 MG TAB PO SCH (07:42)
[2018-09-20] MEDS: HEPARIN SODIUM,PORCINE 5,000 UNIT/ML 1 ML VIAL SQ SCH (07:43)
[2018-09-20 07:48] VITALS: PULSE 62; RESP 16
[2018-09-20] MEDS ORDERED: LIDOCAINE 1% INJ 10MG/ML (20 ML MDV) ONE (09:12)
[2018-09-20] MEDS ORDERED: LIDOCAINE 1% INJ 10MG/ML (20 ML MDV) SQ ONE (09:23)
[2018-09-20] MEDS: PIPERACILLIN-TAZOBACTAM 3.375 GM in SODIUM CHLORIDE 0.9% 100 ML IVPB SCH (10:47)
--- NOTE | 2018-09-20 10:55 | P.DS ---
Providers Date of admission: 09/17/18 10:33 Expected date of discharge: 09/20/18 Attending physician: Edmond Crespo Consults: 09/16/18 10:31 Consult Physician Routine Consulting Provider: Pranav Morales Consult Reason/Comments: Cellulitis, third toe wound with necrosis Do you want consulting provider notified?: Yes 09/16/18 13:11 Consult Physician Routine Consulting Provider: Silvestre Borden Consult Reason/Comments: black 3rd toe on right foot Do you want consulting provider notified?: Yes 09/19/18 13:46 Consult Physician Routine Consulting Provider: Gene Sanches Consult Reason/Comments: nephrology clearance for piccline placement Do you want consulting provider notified?: Yes Primary care physician: Edmond Crespo [facility] Course: Discharge diagnosis 1. 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 Surgery completed on 09/17/[address] Borden. Per infectious disease patient will be discharged with Invanz 1 g daily for 42 days. Venous Doppler completed showing right lower extremity ultrasound negative for deep vein process. Marked enlarged lymph node in the right groin measuring 5 x 2 cm popliteal cyst. Patient follow-up with Dr. Borden at wound care center on Wednesday. Patient to follow-up with Dr. Morales in the office daily for IV an tibiotic administration 2. Chronic kidney disease stage III: Creatinine near baseline. 3. Anemia of iron deficiency and chronic kidney disease. Hemoglobin 10.7. No active signs of bleeding. Continue iron supplement. Iron low at 18 4. Severe protein calorie malnutrition: Add glucerna shakes 5. Diabetes mellitus type 2: Resume glipizide. Add sliding scale coverage. A1c 8.3 6. History of peripheral vascular disease 7. Essential hypertension: Blood pressures were elevated during this admission hydralazine was added. Blood pressures have shown improvement. 8. History of colon cancer in 2004 status post radiation, chemo and surgery 9. History of coronary artery disease 10. History of prostate cancer in 2011 status post radiation Hospital course This is a 88-year-old -[place] male with a known past medical history of diabetes, peripheral vascular disease, hypertension, chronic kidney disease, and iron deficiency anemia and anemia of chronic kidney disease, colon cancer with radiation and chemo treatment and surgical resection, prostate cancer status post radiation treatment. Per chart patient has previous MRSA infection in the left leg. Patient presents to the hospital due to a right foot infection that started about 3 days ago. He denies any injury or any sores on the foot. The right foot third toe is black foul odor and there is skin that is sloughing off. There is no pain with palpation of the toe. His foot is also swollen and red and increasing up into the leg. Patient denies any fevers, chills or sweats. Denies a nausea vomiting, bowel movement changes or urinary symptoms. Denies any chest pain or shortness of breath. He has been afebrile white count is normal at 8.5. Admitting vitals 98.6 temp pulse 60 respiratory rate 16 blood pressure 137/72 on room air at 98%. X-ray of the foot shows soft tissue swelling can be related to reported infection. Underlying osteomyelitis is not evident on x-ray. Consult has been placed for infectious disease and vascular surgery. Patient started on Rocephin and vancomycin. Hemoglobin 10.7 no active signs of bleeding creatinine 1.67 albumin 2.8. On 09/17/2018 patient's alert and oriented 3. Patient is currently status post amputation of right toe. Patient remains on IV antibiotics per ID. Wound cultures obtained. Patient having elevated blood pressure hydralazine added. At this time patient denies chest pain or shortness of breath. Patient denies nausea vomiting or diarrhea. Patient denies any urinary burning or frequency. On 09/18/2018 patient is alert and oriented in no distress he denies any symptoms at this time there is no fever or chills no headache or dizziness no chest pain no shortness of breath no cough no nausea or vomiting no abdominal pain no diarrhea no burning was urination no frequency or urgency no hematuria 09/19/2018 patient sitting at bedside chair. He does still some swelling in the right leg. Per nursing Dr. Borden did change the dressing on patient's right foot. Patient denies any chest pain or shortness of breath. Denies any nausea or vomiting. Denies any bowel movement changes or urinary symptoms. Blood pressure is 170/71 prior to medications. Will have nursing staff repeat blood pressure. Wound cultures preliminary growing gram-negative bacilli and group D enterococcus. Patient is currently on Zosyn and vancomycin. Vascular surgery has cleared patient for discharge oh follow-up with him in the wound care center. 09/20/2018 patient is medically stable for discharge. During this hospitalization he had a patient of the right third toe due to wet gangrene. He will be following up with a Dr. Borden on Wednesday. Patient is to continue with wound care as instructed per Dr. Borden. Also infectious diseases recommending Invanz 1 g daily for discharge. Patient will be fungal up with Dr. Morales in the hospital for IV antibiotic administration. Culture results had shown Klebsiella oxytoca and enterococcus faecalis. Patient denies any pain or discomfort. We'll have him follow up with Dr. Crespo in 1 week. I performed an examination of the patient and discussed their management with the physician [employer] Inspector. I have reviewed the Physician [employer] Inspector's notes and agree with the documented findings and plan of care Patient Condition at Discharge: Stable Plan - Discharge Summary Discharge Rx Participant: No New Discharge Prescriptions: New Ertapenem [INVanz] 1 gm IVPB Q24H #42 bag hydrALAZINE HCL [Apresoline] 25 mg PO BID #60 tab Continue Furosemide [Lasix] 20 mg PO DAILY Ferrous Sulfate [Feosol] 325 mg PO DAILY Enalapril [Vasotec] 2.5 mg PO DAILY Potassium Chloride [Klor-Con 10] 10 meq PO DAILY Aspirin 325 mg PO DAILY glipiZIDE [Glucotrol] 5 mg PO AC-TID Timolol 0.5% Ophth Soln [Timoptic 0.5% Ophth Soln] 1 drop BOTH EYES DAILY Artificial Tears-Hypromellose [Artificial Tear Drops] 1 drops BOTH EYES TID Tamsulosin [Flomax] 0.4 mg PO DAILY Cholecalciferol (Vitamin D3) [Vitamin D3] 2,000 unit PO DAILY Discharge Medication List Enalapril [Vasotec] 2.5 mg PO DAILY 08/28/15 [History] Ferrous Sulfate [Feosol] 325 mg PO DAILY 08/28/15 [History] Furosemide [Lasix] 20 mg PO DAILY 08/28/15 [History] Potassium Chloride [Klor-Con 10] 10 meq PO DAILY 08/28/15 [History] Aspirin 325 mg PO DAILY 09/06/17 [History] Timolol 0.5% Ophth Soln [Timoptic 0.5% Ophth Soln] 1 drop BOTH EYES DAILY 12/13/17 [History] glipiZIDE [Glucotrol] 5 mg PO AC-TID 12/13/17 [History] Artificial Tears-Hypromellose [Artificial Tear Drops] 1 drops BOTH EYES TID 12/15/17 [History] Cholecalciferol (Vitamin D3) [Vitamin D3] 2,000 unit PO DAILY 09/16/18 [History] Tamsulosin [Flomax] 0.4 mg PO DAILY 09/16/18 [History] Ertapenem [INVanz] 1 gm IVPB Q24H #42 bag 09/19/18 [Rx] hydrALAZINE HCL [Apresoline] 25 mg PO BID #60 tab 09/20/18 [Rx] Follow up Appointment(s)/Referral(s): [facility], [NON-STAFF] - Edmond Crespo MD [Primary Care Provider] - 1 Week Silvestre Borden MD [STAFF PHYSICIAN] - 09/26/18 Activity/Diet/Wound Care/Special Instructions: wound care; bandage change daily. Opticell silver to surgical area,covered by a 4x4 gauze, and curlex wrap. Follow up at Dr. Morales office daily for IV antibiotics Diet: cardiac, diabetic Activity: as tolerated Discharge Disposition: HOME WITH HOME HEALTH SERVICES
[2018-09-20] MEDS ORDERED: VANCOMYCIN TROUGH DUE 1 EACH MISC MISCELLANE ONE (11:00)
[2018-09-20 11:45] LABS: Glucose,Whole Blood 192 mg/dL (75-99)
[2018-09-20 11:46] LABS: Basophils % (A) 1 %; Eosinophils # (A) 0.3 k/uL (0-0.7); Eosinophils % (A) 4 %; HCT 31.4 % (39.0-53.0); HGB 9.8 gm/dL (13.0-17.5); Hypochromasia Moderate; Lymphocytes # (A) 0.7 k/uL (1.0-4.8); Lymphocytes % (A) 8 %; MCH 25.9 pg (25.0-35.0); MCHC 31.2 g/dL (31.0-37.0); Mean Platelet Volume 7.2; Monocytes # (A) 0.4 k/uL (0-1.0); Monocytes % (A) 5 %; Neutrophils # (A) 6.3 k/uL (1.3-7.7); Neutrophils % (A) 80 %; Platelet Count 314 k/uL (150-450); RBC 3.78 m/uL (4.30-5.90); RDW 13.2 % (11.5-15.5); WBC 7.9 k/uL (3.8-10.6)
[2018-09-20 12:03] LABS: Albumin 2.4 g/dL (3.5-5.0); Calcium 8.1 mg/dL (8.4-10.2); Potassium 4.7 mmol/L (3.5-5.1); Total Bilirubin 0.3 mg/dL (0.2-1.3); Total Protein 5.4 g/dL (6.3-8.2)
[2018-09-20] MEDS: SODIUM CHLORIDE 0.9% 1,000 ML IV SCH (12:04)
--- NOTE | 2018-09-20 12:35 | IR ---
PICC LINE PLACEMENT: HISTORY: Infection requiring long-term antibiotic therapy PROCEDURE: Ultrasound and fluoroscopic guidance of PICC line placement. COMPLICATIONS: None ANESTHESIA: 1. 1% Lidocaine locally. FINDINGS/TECHNIQUE: The procedure was explained to the patient. The risks, complications, benefits and alternatives were discussed and any questions were answered. Informed consent was obtained. The patient was placed supine on the fluoroscopic table and prepped and draped in the usual sterile fash ion. Utilizing a 21 gauge needle and sonographic and fluoroscopic guidance, access in the right bra chial vein was achieved and there is placement of a 0.018 guidewire. The vein is patent. A 4-F perez th was placed over the guidewire. The guidewire and dilator were removed and a 4-F. PICC line was pl aced through the sheath with the tip at the level of the SVC. The sheath was removed, the catheter w as flushed and sutured into position. The patient was stable throughout the procedure and remained s table upon discharge from the Department of Radiology. The vein puncture was patent under ultrasound. A koo scale image was obtained to document patency of the vein punctured. All elements of the maximal barrier technique were utilized. FLUOROSCOPY TIME: 0.2 minutes and one image submitted IMPRESSION: Successful PICC line placement under ultrasound and fluoroscopic guidance.
[2018-09-20] MEDS ORDERED: VANCOMYCIN 1,750 MG in SODIUM CHLORIDE 0.9% 500 ML 500 ML IVPB SCH (13:00)
--- NOTE | 2018-09-20 13:44 | P.NPCON ---
History of Present Illness - Reason for Consult acute renal failure, chronic renal failure - History of Present Illness Reason for consultation: Acute kidney injury on chronic kidney disease History of present illness: Patient is a 88-year-old male seen in renal consultation for acute kidney injury on chronic kidney disease. Patient has chronic kidney disease stage III likely secondary to underlying diabetic kidney disease. Patient states he's been a diabetic for several years. Patient presented to the hospital with right foot infection and underwent right third toe amputation. Wound cultures positive for Klebsiella and enterococcus. He is maintained on IV antibiotics. Patient had a PICC line placed yesterday. He admits to good urine output. No hematuria or dysuria. No vomiting or diarrhea. Oral intake is good. Hemodynamically stable. Renal function has also improved. Creatinine was 1.67 on admission and is down to 1.43 today. Vital signs are stable. General: The patient appeared well nourished and normally developed. HEENT: Head exam is unremarkable. Neck is without jugular venous distension. LUNGS: Lungs are clear to auscultation and percussion. Breath sounds decreased. HEART: Rate and Rhythm are regular. First and second heart sounds normal. No murmurs, rubs or gallops. ABDOMEN: Abdominal exam reveals normal bowel sounds. Non-tender and non- distended. No evidence of peritonitis. EXTREMITITES: 1+ edema. Past Medical History Past Medical History: Blood Disorder, Coronary Artery Disease (CAD), Cancer, Chest Pain / Angina, Diabetes Mellitus, Eye Disorder, GI Bleed, Hypertension, Prostate Disorder, Renal Disease, Vascular Disorder Additional Past Medical History / Comment(s): NIDDM type II, CKD stage III, PVD, past lower extremity cellulitis, past L lower leg ulcer, 2004 colon cancer with surgery/chemo and radiation, prostate cancer with radiation tx, anemia, lower GI bleed, gastric/colon polyps/melanosis coli, bilateral glaucoma History of Any Multi-Drug Resistant Organisms: MRSA Date of last positivie culture/infection: 08/28/15 MDRO Source:: Left Leg Past Surgical History: Bowel Resection, Heart Catheterization Additional Past Surgical History / Comment(s): EGD, colonoscopies with polypectomy/bx, benign brain tumor removed at [facility], R hemicolectomy 2004, cardiac cath tx medically 2013, bilateral cataract removal with lens, LASER MAGDA EYES, Past Anesthesia/Blood Transfusion Reactions: No Reported Reaction Additional Past Anesthesia/Blood Transfusion Reaction / Comment(s): Pt received blood in past without known reaction. Past Psychological History: No Psychological Hx Reported Additional Psychological History / Comment(s): Pt resides by himself. He is independent. He drives. He sometimes goes to the [employer] on [address] for meals. He uses a cane if walking a distance. Retired from [employer]. in 4 never remarried but had many lady friends throughout the years. No animals in the home. No recent travels Smoking Status: Never smoker Past Alcohol Use History: None Reported Past Drug Use History: None Reported - Past Family History Father Family Medical History: No Reported History Additional Family Medical History / Comment(s): Pt believes his father was healthy. He at age 93 yrs. Mother Family Medical History: No Reported History Additional Family Medical History / Comment(s): Pt doesn't know of mother's medical hx but she did live to be 95 yrs old. Medications and Allergies Home Medications Medication Instructions Recorded Confirmed Type Enalapril [Vasotec] 2.5 mg PO DAILY 08/28/15 09/16/18 History Ferrous Sulfate [Feosol] 325 mg PO DAILY 08/28/15 09/16/18 History Furosemide [Lasix] 20 mg PO DAILY 08/28/15 09/16/18 History Potassium Chloride [Klor-Con 10] 10 meq PO DAILY 08/28/15 09/16/18 History Aspirin 325 mg PO DAILY 09/06/17 09/16/18 History Timolol 0.5% Ophth Soln [Timoptic 1 drop BOTH EYES DAILY 12/13/17 09/16/18 His tory 0.5% Ophth Soln] glipiZIDE [Glucotrol] 5 mg PO AC-TID 12/13/17 09/16/18 History Artificial Tears-Hypromellose 1 drops BOTH EYES TID 12/15/17 09/16/18 History [Artificial Tear Drops] Cholecalciferol (Vitamin D3) 2,000 unit PO DAILY 09/16/18 09/16/18 History [Vitamin D3] Tamsulosin [Flomax] 0.4 mg PO DAILY 09/16/18 09/16/18 History Ertapenem [INVanz] 1 gm IVPB Q24H #42 bag 09/19/18 Rx hydrALAZINE HCL [Apresoline] 25 mg PO BID #60 tab 09/20/18 Rx Allergies Allergy/AdvReac Type Severity Reaction Status Date / Time No Known Allergies Allergy Verified 09/16/18 09:10 Physical Exam Vitals: Vital Signs Temp Pulse Resp BP BP Pulse Ox 09/20/18 07:05 99.5 F 62 16 131/70 97 09/20/18 03:20 17 09/20/18 01:13 98.2 F 61 18 144/73 98 09/20/18 00:10 16 09/19/18 21:27 56 L 148/64 09/19/18 19:15 98.2 F 56 L 18 148/64 99 09/19/18 16:00 16 09/19/18 14:25 98.5 F 62 16 160/64 99 Intake and Output 09/19/18 09/20/18 09/20/18 22:59 06:59 14:59 Intake Total 365 675 840 Output Total 950 Balance 365 -275 840 Intake: Intake, IV Titration 75 675 Amount Sodium Chloride 0.9% 1, 75 675 000 ml @ 75 mls/hr IV . [id number] [facility] Rx#:[id number] Oral 290 840 Output: Urine 950 Other: Voiding Method Urinal # Voids 1 # Bowel Movements 1 Results - Lab Results Most recent lab results Calcium 8.1 mg/dL (8.4-10.2) L 09/20/18 11:26 09/20/18 11:26 09/20/18 11:26 Assessment and Plan Plan: Assessment: 1. Acute kidney injury mostly prerenal secondary to infection. Improved. Creatinine peaked at 1.67 this admission and is 1.43 today. 2. Chronic kidney disease stage III. Baseline creatinine near 1.5 secondary to diabetic kidney disease. 3. Right foot infection status post third toe amputation. Wound culture positive for Klebsiella and enterococcus maintained on IV antibiotics. 4. Hypertension with chronic kidney disease. Controlled. 5. Volume overload. 6. Diabetes mellitus. Plan: Hep-Lock IV fluids. Maintain Lasix 20 mg orally once daily. Check urinalysis and renal ultrasound. Avoid nephrotoxins. Repeat electrolytes in the morning. Anticipate discharge soon. Follow up outpatient in the next 1-2 weeks. Thank you for the consultation. I will continue to follow the patient with you during his hospital stay.
[2018-09-20 15:09] VITALS: BP 165/71; TEMP 98.8
--- NOTE | 2018-09-20 15:42 | US ---
EXAMINATION TYPE: US kidneys/renal and bladder DATE OF EXAM: 09/20/2018 COMPARISON: US CLINICAL HISTORY: noe. NOE EXAM MEASUREMENTS: Right Kidney: 10.3 x 5.6 x 5.0 cm Left Kidney: 11.6 x 6.1 x 5.1 cm Right Kidney: No evidence of hydro, fluid visualized mid/inferior ?within Jones's pouch Left Kidney: Cyst upper pole= 2.3 x 1.7 x 1.7 cm appear simple/ Possible scant amount of fluid at low er pole Bladder: wnl Bilateral Jets seen: No Incidental finding gallstones and sludge There is no evidence for hydronephrosis at this point in time. No nephrolithiasis is seen. No yevgeniy s are identified. The urinary bladder is anechoic. Bilateral ureteral jets are seen. Cortical medullary differentiation maintained within the kidneys. Question some increased cortical ec hogenicity. IMPRESSION: Renal sizes as described. Increased cortical echogenicity is questioned and may be due to medical brendon al disease.
--- NOTE | 2018-09-20 22:27 | P.PN ---
Subjective Progress Note Date: 09/20/18 Pleasant 88-year-old male with a long-standing history of multiple medical troubles that includes peripheral vascular disease chronic kidney disease and diabetes mellitus type 2 has developed the significant change to his right foot with a gangrenous changes of his third toe. It is foul in nature with copious purulent foul drainage. The patient relates that he was having troubles him because it is markedly worsened and became malodorous he sought care at her facility. He has been seen by vascular surgery with plans for a surgical debridement. He at this time does not have high-grade fevers chills rigors or sweats but does feel poorly. 09/19/2018 status post debridement but hasn't as of the extensive foot infection requiring further antibiotic therapy. IV access has been requested 09/20/2018 patient is doing well after the toe amputation, site is being packed with silver alginate. He is not complaining of pain. Doing well with current antibiotic therapy. Arrangements are being made for his IV access and discharged home. Objective - Vital Signs Vital signs: Vital Signs Temp 98.8 F 09/20/18 14:43 Pulse 62 09/20/18 14:43 Resp 16 09/20/18 14:43 BP 165/71 09/20/18 14:43 Pulse Ox 100 09/20/18 14:43 Intake & Output 09/20/18 09/20/18 09/21/18 06:59 18:59 06:59 Intake Total 800 840 Output Total 950 Balance -150 840 Intake: Intake, IV Titration 750 Amount Sodium Chloride 0.9% 1, 750 000 ml @ 75 mls/hr IV . [id number] [facility] Rx#:[id number] Oral 50 840 Output: Urine 950 Other: Voiding Method Urinal # Voids 1 # Bowel Movements 1 - Exam 88-year-old -[place] male in no acute distress HEENT: Anicteric conjunctiva are pink and moist nasal mucosa grossly intact wi thout significant lesions, there is no thrush. Is hard of hearing Neck: The neck is supple without significant lymphadenopathy or thyromegaly. Lungs: Good bilateral air entry without significant crackles or wheezing. There is no significant bronchial sounds. There is no egophony or dullness. Heart: Regular rate and rhythm with an audible S1-S2, no S3 no S4. There is no significant murmur click or rub, PMI was nondisplaced. Abdomen: Positive bowel sounds soft and nontender without palpable masses or organomegaly. There was no guarding or rebound. Extremities: The upper extremities have excellent pulses they are symmetric, no significant petechiae or telangiectasia. No splinter hemorrhages were noted. Left leg and foot without acute difficulties except for some edema. Right leg showing some edema and swelling to the foot it is warm and is erythematous is not very tender now has the toe amputaiton and site is open Neuro: Awake alert oriented to person place and time. - Labs CBC & Chem 7: 09/20/18 11:26 09/20/18 11:26 Labs: Abnormal Lab Results - Last 24 Hours (Table) 09/20/18 09/20/18 09/20/18 Range/Units 07:25 11:26 11:26 RBC 3.78 L (4.30-5.90) m/uL Hgb 9.8 L (13.0-17.5) gm/dL Hct 31.4 L (39.0-53.0) % Lymphocytes # 0.7 L (1.0-4.8) k/uL Chloride 110 H (98-107) mmol/L BUN 21 H (9-20) mg/dL Creatinine 1.43 H (0.66-1.25) mg/dL Glucose 205 H (74-99) mg/dL POC Glucose (mg/dL) 139 H (75-99) mg/dL Calcium 8.1 L (8.4-10.2) mg/dL Total Protein 5.4 L (6.3-8.2) g/dL Albumin 2.4 L (3.5-5.0) g/dL 09/20/18 Range/Units 11:33 RBC (4.30-5.90) m/uL Hgb (13.0-17.5) gm/dL Hct (39.0-53.0) % Lymphocytes # (1.0-4.8) k/uL Chloride (98-107) mmol/L BUN (9-20) mg/dL Creatinine (0.66-1.25) mg/dL Glucose (74-99) mg/dL POC Glucose (mg/dL) 192 H (75-99) mg/dL Calcium (8.4-10.2) mg/dL Total Protein (6.3-8.2) g/dL Albumin (3.5-5.0) g/dL Microbiology - Last 24 Hours (Table) 09/17/18 07:49 Anaerobic Culture - Preliminary Toe - Right Third Anaerobic Gm Negative Bacilli Anaerobic Gm Positive Bacill 09/16/18 09:03 Blood Culture - Preliminary Blood No Growth after 96 hours Laboratory Results WBC 7.9 k/uL (3.8-10.6) 09/20/18 11:26 RBC 3.78 m/uL (4.30-5.90) L 09/20/18 11:26 Hgb 9.8 gm/dL (13.0-17.5) L 09/20/18 11:26 Hct 31.4 % (39.0-53.0) L 09/20/18 11:26 MCV 83.0 fL (80.0-100.0) 09/20/18 11:26 MCH 25.9 pg (25.0-35.0) 09/20/18 11:26 MCHC 31.2 g/dL (31.0-37.0) 09/20/18 11:26 RDW 13.2 % (11.5-15.5) 09/20/18 11:26 Plt Count 314 k/uL (150-450) 09/20/18 11:26 Neutrophils % 80 % 09/20/18 11:26 Lymphocytes % 8 % 09/20/18 11:26 Monocytes % 5 % 09/20/18 11:26 Eosinophils % 4 % 09/20/18 11:26 Basophils % 1 % 09/20/18 11:26 Neutrophils # 6.3 k/uL (1.3-7.7) 09/20/18 11:26 Lymphocytes # 0.7 k/uL (1.0-4.8) L 09/20/18 11:26 Monocytes # 0.4 k/uL (0-1.0) 09/20/18 11:26 Eosinophils # 0.3 k/uL (0-0.7) 09/20/18 11:26 Basophils # 0.0 k/uL (0-0.2) 09/20/18 11:26 Hypochromasia Moderate 09/20/18 11:26 PT 11.6 sec (9.0-12.0) 09/16/18 09:03 INR 1.1 (<1.2) 09/16/18 09:03 APTT 27.1 sec (22.0-30.0) 09/16/18 09:03 Sodium 140 mmol/L (137-145) 09/20/18 11:26 Potassium 4.7 mmol/L (3.5-5.1) 09/20/18 11:26 Chloride 110 mmol/L (98-107) H 09/20/18 11:26 Carbon Dioxide 24 mmol/L (22-30) 09/20/18 11:26 Anion Gap 6 mmol/L 09/20/18 11:26 BUN 21 mg/dL (9-20) H 09/20/18 11:26 Creatinine 1.43 mg/dL (0.66-1.25) H 09/20/18 11:26 Est GFR (CKD-EPI)AfAm 51 (>60 ml/min/1.73 sqM) 09/20/18 11:26 Est GFR (CKD-EPI)NonAf 44 (>60 ml/min/1.73 sqM) 09/20/18 11:26 Glucose 205 mg/dL (74-99) H 09/20/18 11:26 POC Glucose (mg/dL) 192 mg/dL (75-99) H 09/20/18 11:33 POC Glu Health Service Coordinator ID Swathi Miller 09/20/18 11:[address] Glu mg/dL 192 09/16/18 09:03 Hemoglobin A1c 8.3 % (4.0-6.0) H 09/16/18 09:03 Plasma Lactic Acid Jose 0.9 mmol/L (0.7-2.0) 09/16/18 09:03 Calcium 8.1 mg/dL (8.4-10.2) L 09/20/18 11:26 Iron 18 ug/dL (65-175) L 09/16/18 09:03 TIBC 227 ug/dL (228-460) L 09/16/18 09:03 Iron Saturation 7.93 (15.00-50.00) L 09/16/18 09:03 Ferritin 481.4 ng/mL (22.0-322.0) H 09/16/18 09:03 Total Bilirubin 0.3 mg/dL (0.2-1.3) 09/20/18 11:26 AST 31 U/L (17-59) 09/20/18 11:26 ALT 41 U/L (21-72) 09/20/18 11:26 Alkaline Phosphatase 113 U/L (38-126) 09/20/18 11:26 Total Protein 5.4 g/dL (6.3-8.2) L 09/20/18 11:26 Albumin 2.4 g/dL (3.5-5.0) L 09/20/18 11:26 Vancomycin Trough 7.8 ug/mL 09/20/18 11:26 Microbiology 09/17/18 07:49 Toe - Right Third Anaerobic Culture - Preliminary Anaerobic Gm Negative Bacilli Anaerobic Gm Positive Bacill 09/16/18 09:03 Blood Blood Culture - Preliminary No Growth after 96 hours 09/17/18 07:49 Toe - Right Third Gram Stain - Final 09/17/18 07:49 Toe - Right Third Wound Culture - Final Klebsiella oxytoca Enterococcus faecalis Assessment and Plan (1) PVD (peripheral vascular disease) Status: Acute Code(s): I73.9 - PERIPHERAL VASCULAR DISEASE, UNSPECIFIED SNOMED Code(s): 664084849 (2) Type 2 diabetes mellitus with foot ulcer and gangrene Narrative/Plan: 88-year-old male who has a long-standing history of multiple medical troubles including prior colon cancer as well as prostate cancer status post chemotherapy and radiation the past has known peripheral vascular disease and diabetes mellitus type 2 somewhat poorly controlled with hemoglobin A1c of 8.3. Patient now presents with the progressive changes to the right foot at the third toe where there is evidence of the gangrenous change. The patient has been seen by vascular surgery and there are plans for being taken to the operating room for the ray amputation of the third toe and further evaluation will be done intraoperatively. Apparently evaluation of his vascular status I believe is in process. Prior wound cultures are reviewed showing evidence of MRSA and Enterobacter that is quite resistant and constantly antibiotic therapy is transitioned to vancomycin with Zosyn pending further results. Dry dressing for now. Nothing by mouth after midnight for surgery in the morning. 09/19/2018 the patient has noted amputation to the gangrenous toe, the site has been left open is being packed with the silver alginate. We'll continue with local wound care at discharge. The patient wants to go home indurations are being made for outpatient intravenous antibiotic therapy. Invanz 1 g daily would be the choice at this point in time. He was, as right-sided pathogens on a diabetic foot infection. He will need improved glucose control and some type of foot care to help offload this diabetic foot wound. Should follow in the wound healing Center. pICC line has been requested 09/20/2018 patient is feeling better. PICC line has been placed. Arrangements are made for him to be discharged home. He will follow-up in the outpatient clinic for his outpatient intravenous antibiotic therapy. Culture does show evidence of the polymicrobial infection and consequently ertapenem 1 g IV piggyback daily as requested Status: Acute Code(s): E11.621 - TYPE 2 DIABETES MELLITUS WITH FOOT ULCER; E11.52 - TYPE 2 DIABETES W DIABETIC PERIPHERAL ANGIOPATHY W GANGRENE; L97.509 - NON-PRESSURE CHRONIC ULCER OTH PRT UNSP FOOT W UNSP SEVERITY SNOMED Code(s): 208952822
== END 2018-09-20 15:30 | disposition home health service (06) | DRG 239 ==
LOC: EC 08:41 → 4SSUR 10:32 → OBSVTOIN 09-17 10:33
PROVIDERS: ADMIT Internal Medicine; ATTEND Internal Medicine
PROC: 0Y6M0Z6 Detachment at Right Foot, Complete 3rd Ray, Open Approach (ICD-10-PCS; principal; 2018-09-17 07:00)
PROC: 02HV33Z Insertion of Infusion Device into Superior Vena Cava, Percutaneous Approach (ICD-10-PCS; 2018-09-20)
DX: E11.52 Type 2 diabetes mellitus with diabetic peripheral angiopathy with gangrene (principal); E43 Unspecified severe protein-calorie malnutrition; L03.115 Cellulitis of right lower limb; N17.9 Acute kidney failure, unspecified; E11.22 Type 2 diabetes mellitus with diabetic chronic kidney disease; E11.621 Type 2 diabetes mellitus with foot ulcer; E11.628 Type 2 diabetes mellitus with other skin complications; E87.70 Fluid overload, unspecified; H40.9 Unspecified glaucoma; I12.9 Hypertensive chronic kidney disease with stage 1 through stage 4 chronic kidney disease, or unspecified chronic kidney disease; B95.2 Enterococcus as the cause of diseases classified elsewhere; B96.1 Klebsiella pneumoniae [K. pneumoniae] as the cause of diseases classified elsewhere; D50.9 Iron deficiency anemia, unspecified; D63.1 Anemia in chronic kidney disease; I25.10 Atherosclerotic heart disease of native coronary artery without angina pectoris; R59.0 Localized enlarged lymph nodes; N18.3 Chronic kidney disease, stage 3 (moderate); N40.0 Benign prostatic hyperplasia without lower urinary tract symptoms; Z79.82 Long term (current) use of aspirin; Z79.84 Long term (current) use of oral hypoglycemic drugs; Z79.899 Other long term (current) drug therapy; Z85.038 Personal history of other malignant neoplasm of large intestine; Z85.46 Personal history of malignant neoplasm of prostate; Z86.010 Personal history of colon polyps; Z86.011 Personal history of benign neoplasm of the brain; Z86.14 Personal history of Methicillin resistant Staphylococcus aureus infection; Z90.49 Acquired absence of other specified parts of digestive tract; Z92.21 Personal history of antineoplastic chemotherapy; Z92.3 Personal history of irradiation; Z98.42 Cataract extraction status, left eye; Z98.41 Cataract extraction status, right eye; Z96.1 Presence of intraocular lens; Z60.2 Problems related to living alone; Z87.19 Personal history of other diseases of the digestive system; Z68.33 Body mass index [BMI] 33.0-33.9, adult
CPT/HCPCS: 36415; 36573; 76770; 80053; 80202; 82728; 83036; 83540; 83550; 83605; 85025; 85610; 85730; 87040; 87070; 87075; 87077; 87186; 87205; 88305; 88311; 96361; 96365; 96366; 96367; 99284

== ENCOUNTER 2018-11-22 11:27 | Inpatient (IN) | payer MEDICARE ==
[2018-11-22] MEDS ORDERED: ONDANSETRON 4 MG/2 ML VIAL IVP PRN (14:54)
[2018-11-22] MEDS ORDERED: ACETAMINOPHEN TAB 325 MG TAB PO PRN (14:54)
--- NOTE | 2018-11-22 15:06 | P.HPIM ---
History of Present Illness H&P Date: 11/22/18 Chief Complaint: Increased right lower extremity edema This is an 88-year-old male patient presented as a direct admit from his PCP. Patient presented with complaints of increased swelling to right lower extremity. Patient has a past medical history of gangrenous infection of the right foot third toe with recent amputation in September [address] Borden. Patient has been following and wound care clinic in which she has wound VAC in place and follows with Dr. Morales patient was discharged on IV antibiotics at that time. Patient reports he noticed increased swelling to right lower extremity on Wednesday. Patient denies any pain. Patient denies fevers. Additional medical history includes coronary artery disease, chest pain, diabetes mellitus, GI bleed, hypertension, prostate disorder, chronic disease stage III, peripheral vascular disease, recurrent lower leg cellulitis, colon cancer in 2004 with surgery and chemo and MRSA in left leg in 2015. At this time will consult infectious disease and vascular surgery. Venous Doppler will be ordered to rule out DVT. Routine labs ordered. Patient denies any chest pain or shortness of breath. Patient denies nausea vomiting or diarrhea. Patient denies any urinary burning or frequency. Review of Systems Please refer to HPI otherwise unremarkable Past Medical History Past Medical History: Blood Disorder, Coronary Artery Disease (CAD), Cancer, Chest Pain / Angina, Diabetes Mellitus, Eye Disorder, GI Bleed, Hypertension, Prostate Disorder, Vascular Disorder Additional Past Medical History / Comment(s): uti, NIDDM type II, CKD stage III, PVD, past lower extremity cellulitis, past L lower leg ulcer, 2004 colon cancer with surgery/chemo and radiation, prostate cancer with radiation tx, anemia, lower GI bleed, gastric/colon polyps/melanosis coli, bilateral glaucoma History of Any Multi-Drug Resistant Organisms: MRSA Date of last positivie culture/infection: 08/28/15 MDRO Source:: Left Leg Past Surgical History: Bowel Resection, Heart Catheterization Additional Past Surgical History / Comment(s): EGD, colonoscopies with polypectomy/bx, benign brain tumor removed at [facility], R hemicolectomy 2004, cardiac cath tx medically 2013, bilateral cataract removal with lens, LASER MAGDA EYES, Past Anesthesia/Blood Transfusion Reactions: No Reported Reaction Additional Past Anesthesia/Blood Transfusion Reaction / Comment(s): Pt received blood in past without known reaction. Past Psychological History: No Psychological Hx Reported Additional Psychological History / Comment(s): Pt resides by himself. He is independent. He drives. He sometimes goes to the [employer] on [address] for meals. He uses a walker if walking a distance. Retired from [employer] in 1953 never remarried but had many lady friends throughout the years. No animals in the home. No recent travels Smoking Status: Never smoker Past Alcohol Use History: None Reported Past Drug Use History: None Reported - Past Family History Father Family Medical History: No Reported History Additional Family Medical History / Comment(s): Pt believes his father was healthy. He at age 93 yrs. Mother Family Medical History: No Reported History Additional Family Medical History / Comment(s): Pt doesn't know of mother's medical hx but she did live to be 95 yrs old. Medications and Allergies Home Medications Medication Instructions Recorded Confirmed Type Enalapril [Vasotec] 2.5 mg PO DAILY 08/28/15 11/22/18 History Ferrous Sulfate [Feosol] 325 mg PO DAILY 08/28/15 11/22/18 History Furosemide [Lasix] 20 mg PO DAILY 08/28/15 11/22/18 History Potassium Chloride [Klor-Con 10] 10 meq PO DAILY 08/28/15 11/22/18 History Timolol 0.5% Ophth Soln [Timoptic 1 drop BOTH EYES DAILY 12/13/17 11/22/18 History 0.5% Ophth Soln] glipiZIDE [Glucotrol] 5 mg PO AC-TID 12/13/17 11/22/18 History Artificial Tears-Hypromellose 1 drops BOTH EYES TID 12/15/17 11/22/18 History [Artificial Tear Drops] Cholecalciferol (Vitamin D3) 2,000 unit PO DAILY 09/16/18 11/22/18 History [Vitamin D3] Tamsulosin [Flomax] 0.4 mg PO DAILY 09/16/18 11/22/18 History Allergies Allergy/AdvReac Type Severity Reaction Status Date / Time No Known Allergies Allergy Verified 11/22/18 14:03 Physical Exam Vitals: Vital Signs Temp Pulse Resp BP Pulse Ox 11/22/18 13:53 98.4 F 66 16 161/74 92 L Intake and Output 11/21/18 11/22/1811/22/19 22:59 06:59 14:59 Other: # Voids 0 Weight 108.182 kg Head normocephalic Neck supple Lungs clear to auscultation bilaterally no wheezing or crackles Heart regular rate and rhythm S1-S2, no rub or gallop Abdomen is soft nontender nondistended positive bowel sounds no hepatosplenomegaly Extremities +3 right lower extremity nonpitting edema right third greater toe amputation with drainage noted from site. Neuro alert and orientated to 3 Thrombosis Risk Factor Assmnt - Choose All That Apply Each Factor Represents 1 point: Swollen legs (current) Each Risk Factor Represents 3 Points: Age 75 years or older Thrombosis Risk Factor Assessment Total Risk Factor Score: 4 Thrombosis Risk Factor Assessment Level: Moderate Risk Assessment and Plan Assessment: 1. Increased right lower extremity edema. Will order venous Doppler to rule out DVT. Vascular and infectious disease has been consulted 2. 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 Patient currently follows a wound care clinic has wound VAC at bedside. Patient completed IV antibiotics per ID recommendation. At this time ID and vascular surgery has been consulted. 3. Chronic kidney disease stage III 4. Anemia iron deficiency and chronic kidney disease 5. Diabetes mellitus type 2. Patient maintained on glipizide will add sliding scale coverage 6. Essential hypertension 7. History of colon cancer in 2004 status post radiation chemo and surgery 8. History of coronary artery disease 9. History of prostate cancer in 2011 status post radiation DVT prophylaxis Lovenox. GI prophylaxis Protonix Time with Patient: Greater than 30 (Greater than 60% of the total time spent in counseling and coordination of care. I performed an examination of the patient and discussed their management with the Nurse Practitioner. I have reviewed the Nurse Practitioner's notes and agree with the documented findings and plan of care)
--- NOTE | 2018-11-22 16:04 | US ---
EXAMINATION TYPE: US venous doppler duplex LE RT DATE OF EXAM: 11/22/2018 3:56 PM COMPARISON: Prior right lower extremity venous ultrasound September 16, 2018 CLINICAL HISTORY: increased lower extremity edema. SIDE PERFORMED: Right TECHNIQUE: The lower extremity deep venous system is examined utilizing real time linear array sonog beth with graded compression, doppler sonography and color-flow sonography. VESSELS IMAGED: External Iliac Vein (EIV) Common Femoral Vein Deep Femoral Vein Greater Saphenous Vein * Femoral Vein Popliteal Vein Small Saphenous Vein * Proximal Calf Veins (* superficial vessels) Right Leg: Negative for DVT Probable Bonilla's cyst measuring 5.3 x 1.6 x 3.0cm Grayscale, color doppler, spectral doppler imaging performed of the deep veins of the right lower e xtremity. There is normal flow, compressibility, vascular waveforms. IMPRESSION: Persistent mild subcutaneous edema is slightly improved from prior. No ultrasound evidenc e for acute DVT on the current study. Redemonstration of popliteal cyst.
[2018-11-22 17:05] LABS: Basophils # (A) 0.1 k/uL (0-0.2); Basophils % (A) 2 %; Eosinophils # (A) 0.3 k/uL (0-0.7); Eosinophils % (A) 5 %; HCT 33.9 % (39.0-53.0); HGB 10.1 gm/dL (13.0-17.5); Lymphocytes % (A) 19 %; MCH 23.8 pg (25.0-35.0); MCHC 29.9 g/dL (31.0-37.0); MCV 79.8 fL (80.0-100.0); Mean Platelet Volume 6.9; Monocytes # (A) 0.4 k/uL (0-1.0); Monocytes % (A) 7 %; Neutrophils # (A) 3.4 k/uL (1.3-7.7); Neutrophils % (A) 65 %; Platelet Count 206 k/uL (150-450); RBC 4.25 m/uL (4.30-5.90); RDW 14.1 % (11.5-15.5); WBC 5.3 k/uL (3.8-10.6)
[2018-11-22 17:08] LABS: Albumin 2.8 g/dL (3.5-5.0); Calcium 8.2 mg/dL (8.4-10.2); Potassium 4.5 mmol/L (3.5-5.1); Total Bilirubin 0.8 mg/dL (0.2-1.3); Total Protein 6.3 g/dL (6.3-8.2)
[2018-11-22 17:17] LABS: Glucose,Whole Blood 180 mg/dL (75-99)
[2018-11-22 17:31] LABS: Rouleaux Present
[2018-11-22] MEDS ORDERED: ceFAZolin 1,000 MG VIAL (IM USE) IM STA (17:38)
[2018-11-22] MEDS: INSULIN ASPART (NovoLOG) 100 UNIT/ML VIAL SQ SCH ×2 (17:58→22:39)
[2018-11-22] MEDS: glipiZIDE 5 MG TAB PO SCH (17:58)
[2018-11-22] MEDS: ARTIFICIAL TEARS-HYPROMELLOSE DROPS 15 ML BTL BOTH EYES SCH ×2 (18:09→22:41)
--- NOTE | 2018-11-22 20:42 | CONS ---
DATE OF CONSULTATION: 11/22/2018 Mr. Mcrae is well known to me. The patient had a 3rd toe amputation by me and he has been in the wound care center for local wound care. The patient came to see Dr. Crespo today. He has some swelling of the right lower extremity. We are planning to do the venous ultrasound to rule out DVT. MEDICAL HISTORY: History of diabetes, obesity, peripheral vascular disease. PAST SURGERY HISTORY: Patient had a 3rd toe amputation done in the past. PHYSICAL EXAMINATION: Patient was seen in his room. His vital signs are stable. NECK: Supple. Trachea central. CHEST: Clear. ABDOMEN: Soft. Femorals are 1+. The patient had a 3rd toe amputation. Stump site is granulating. Because it was infected green, we did not close the wound. We will continue with the Aquacel silver. Patient is scheduled to have ultrasound. If it is negative, then the patient will follow in the wound clinic on Wednesday. We will use Aquacel Silver for the wound. MMODL / IJN: [id number] / HANH
[2018-11-22 20:59] LABS: Glucose,Whole Blood 184 mg/dL (75-99)
[2018-11-23] MEDS ORDERED: ceFAZolin 1,000 MG VIAL (IM USE) IM ONE (01:00)
[2018-11-23 07:01] LABS: Glucose,Whole Blood 121 mg/dL (75-99)
[2018-11-23 08:37] LABS: Basophils # (A) 0.1 k/uL (0-0.2); Basophils % (A) 1 %; Eosinophils # (A) 0.2 k/uL (0-0.7); Eosinophils % (A) 5 %; HCT 32.5 % (39.0-53.0); HGB 10.3 gm/dL (13.0-17.5); Hypochromasia Slight; Lymphocytes # (A) 0.9 k/uL (1.0-4.8); Lymphocytes % (A) 19 %; MCH 25.8 pg (25.0-35.0); MCHC 31.8 g/dL (31.0-37.0); MCV 81.2 fL (80.0-100.0); Monocytes # (A) 0.3 k/uL (0-1.0); Monocytes % (A) 7 %; Neutrophils # (A) 3.1 k/uL (1.3-7.7); Neutrophils % (A) 65 %; Platelet Count 246 k/uL (150-450); RDW 14.9 % (11.5-15.5); WBC 4.7 k/uL (3.8-10.6)
[2018-11-23] MEDS: INSULIN ASPART (NovoLOG) 100 UNIT/ML VIAL SQ SCH ×4 (08:47→22:28)
[2018-11-23] MEDS: PANTOPRAZOLE 40 MG TABLET PO SCH (08:50)
[2018-11-23] MEDS: FERROUS SULFATE 325 MG TAB PO SCH (08:50)
[2018-11-23] MEDS: glipiZIDE 5 MG TAB PO SCH ×3 (08:50→17:29)
[2018-11-23] MEDS: FUROSEMIDE 20 MG TAB PO SCH (08:50)
[2018-11-23] MEDS: TAMSULOSIN 0.4 MG CAP.ER.24H PO SCH (08:50)
[2018-11-23] MEDS: ENOXAPARIN 40 MG/0.4 ML SYRINGE SQ SCH (08:51)
[2018-11-23] MEDS: ARTIFICIAL TEARS-HYPROMELLOSE DROPS 15 ML BTL BOTH EYES SCH ×3 (08:51→23:55)
[2018-11-23] MEDS: CHOLECALCIFEROL 1,000 UNIT TAB PO SCH (08:51)
[2018-11-23 08:59] LABS: Albumin 2.7 g/dL (3.5-5.0); Calcium 8.5 mg/dL (8.4-10.2); Potassium 4.3 mmol/L (3.5-5.1); Total Bilirubin 0.6 mg/dL (0.2-1.3); Total Protein 6.1 g/dL (6.3-8.2)
[2018-11-23] MEDS: LISINOPRIL 5 MG TAB PO SCH (09:12)
--- NOTE | 2018-11-23 09:48 | P.CONS ---
History of Present Illness - Reason for Consult Consult date: 11/23/18 Cellulitis - History of Present Illness This is an 88-year-old F, [place]er male with past medical history significant for peripheral vascular disease, chronic kidney disease, diabetes mellitus type 2. Patient was recently hospitalized September 16 through September 20 for gangrene of the right foot third toe and underwent ray amputation by Dr. Borden. Patient was discharged on Invanz for 42 day course. Patient states he completed all his antibiotics and his PICC line was removed. Patient is following in the wound healing center with Dr. Borden and his last visit there was on November 14, wound vac in place with plan for follow up on November 28. Patient states that his home care nurse was concerned about his wound and he went in to see Dr. Quinonez incessantly instructed to come into the hospital for evaluation. Patient has been seen by Dr. Borden and the wound care nurse. Right lower extremity ultrasound negative for DVT. White count 5.3, BUN 21, creatinine 1.38, albumin 2.8. Patient states his blood sugars have been improved at home. His last hemoglobin A1c in September was 8.3. Patient has been started on Kefzol which he has been receiving I am and midline is to be placed this morning. He was not on an tibiotics prior to admission. Patient denies having any fever or chills. Patient denies any new injury to his right leg. No recent falls. Review of Systems Constitutional: Denies chills, Denies fatigue, Denies fever, Denies poor appetite, Denies weight loss Ears, nose, mouth and throat: Denies dental pain, Denies mouth pain, Denies nasal congestion, Denies nasal discharge, Denies vertigo Cardiovascular: Denies chest pain, Denies decreased exercise tolerance, Denies dyspnea on exertion, Denies lightheadedness, Denies syncope Respiratory: Denies congestion, Denies cough, Denies cough with sputum, Denies dyspnea, Denies hemoptysis, Denies home oxygen, Denies wheezing Gastrointestinal: Denies abdominal pain, Denies diarrhea, Denies loss of appetite, Denies nausea, Denies vomiting Genitourinary: Denies dysuria, Denies urinary retention Musculoskeletal: Reports muscle weakness, Denies frequent falls, Denies myalgias Integumentary: Reports wounds, Denies pruritus, Denies rash Neurological: Denies change in mentation, Denies confusion, Denies numbness, Denies weakness Psychiatric: Denies anxiety, Denies depression Endocrine: Denies fatigue, Denies weight change Past Medical History Past Medical History: Blood Disorder, Coronary Artery Disease (CAD), Cancer, Chest Pain / Angina, Diabetes Mellitus, Eye Disorder, GI Bleed, Hypertension, Prostate Disorder, Vascular Disorder Additional Past Medical History / Comment(s): uti, NIDDM type II, CKD stage III, PVD, past lower extremity cellulitis, past L lower leg ulcer, 2004 colon cancer with surgery/chemo and radiation, prostate cancer with radiation tx, anemia, lower GI bleed, gastric/colon polyps/melanosis coli, 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 Past Psychological History: No Psychological Hx Reported Additional Psychological History / Comment(s): Pt resides by himself. He is ind ependent. He drives. He sometimes goes to the [facility] for meals. He uses a walker if walking a distance. Retired from [employer] in 1953 never remarried but had many lady friends throughout the years. No animals in the home. No recent travels Smoking Status: Never smoker Past Alcohol Use History: None Reported Past Drug Use History: None Reported - Past Family History Father Family Medical History: No Reported History Additional Family Medical History / Comment(s): Pt believes his father was healthy. He at age 93 yrs. Mother Family Medical History: No Reported History Additional Family Medical History / Comment(s): Pt doesn't know of mother's me dical hx but she did live to be 95 yrs old. Medications and Allergies Home Medications Medication Instructions Recorded Confirmed Type Enalapril [Vasotec] 2.5 mg PO DAILY 08/28/15 11/22/18 History Ferrous Sulfate [Feosol] 325 mg PO DAILY 08/28/15 11/22/18 History Furosemide [Lasix] 20 mg PO DAILY 08/28/15 11/22/18 History Potassium Chloride [Klor-Con 10] 10 meq PO DAILY 08/28/15 11/22/18 History Timolol 0.5% Ophth Soln [Timoptic 1 drop BOTH EYES DAILY 12/13/17 11/22/18 History 0.5% Ophth Soln] glipiZIDE [Glucotrol] 5 mg PO AC-TID 12/13/17 11/22/18 History Artificial Tears-Hypromellose 1 drops BOTH EYES TID 12/15/17 11/22/18 History [Artificial Tear Drops] Cholecalciferol (Vitamin D3) 2,000 unit PO DAILY 09/16/18 11/22/18 History [Vitamin D3] Tamsulosin [Flomax] 0.4 mg PO DAILY 09/16/18 11/22/18 History Allergies Allergy/AdvReac Type Severity Reaction Status Date / Time No Known Allergies Allergy Verified 11/22/18 14:03 Physical Exam Vitals: Vital Signs Temp Pulse Pulse Resp BP Pulse Ox 11/23/18 06:56 98.5 F 56 L 18 129/58 99 11/22/18 23:18 98.8 F 48 L 16 134/63 98 11/22/18 13:53 98.4 F 66 16 161/74 92 L Intake and Output 11/22/18 11/23/18 11/23/18 22:59 06:59 14:59 Intake Total 250 Output Total 200 Balance 50 Intake: Oral 250 Output: Urine 200 Other: Voiding Method Toilet Toilet Urinal Urinal Urinal # Voids 0 350 Gen: This is an 88-year-old F can [place] male. He is sitting up in bed and appears to be comfortable. No acute distress noted. HEENT: Head is atraumatic, normocephalic. Pupils equal, round. Sclerae is anicteric. Conjunctiva pink. Mucous members of the mouth are moist. Patient is edentulous. Patient is hard of hearing. NECK: Supple. No JVD. No lymphadenopathy. No thyromegaly. LUNGS: Clear to auscultation. No wheezes or rhonchi. No intercostal retractions. HEART: Regular rate and rhythm. No murmur. ABDOMEN: Soft. Bowel sounds are present. No masses. No tenderness. EXTREMITIES: Third toe amputation wound. Serosanguineous drainage at the site. No foul order. NEUROLOGICAL: Patient is awake, alert and oriented x3. Cranial nerves 2 through 12 are grossly intact. Results Results: Laboratory Results WBC 4.7 k/uL (3.8-10.6) 11/23/18 08:25 RBC 4.00 m/uL (4.30-5.90) L 11/23/18 08:25 Hgb 10.3 gm/dL (13.0-17.5) L 11/23/18 08:25 Hct 32.5 % (39.0-53.0) L 11/23/18 08:25 MCV 81.2 fL (80.0-100.0) 11/23/18 08:25 MCH 25.8 pg (25.0-35.0) 11/23/18 08:25 MCHC 31.8 g/dL (31.0-37.0) 11/23/18 08:25 RDW 14.9 % (11.5-15.5) 11/23/18 08:25 Plt Count 246 k/uL (150-450) 11/23/18 08:25 Neutrophils % 65 % 11/23/18 08:25 Lymphocytes % 19 % 11/23/18 08:25 Monocytes % 7 % 11/23/18 08:25 Eosinophils % 5 % 11/23/18 08:25 Basophils % 1 % 11/23/18 08:25 Neutrophils # 3.1 k/uL (1.3-7.7) 11/23/18 08:25 Lymphocytes # 0.9 k/uL (1.0-4.8) L 11/23/18 08:25 Monocytes # 0.3 k/uL (0-1.0) 11/23/18 08:25 Eosinophils # 0.2 k/uL (0-0.7) 11/23/18 08:25 Basophils # 0.1 k/uL (0-0.2) 11/23/18 08:25 Manual Slide Review Performed 11/22/18 16:41 Hypochromasia Slight 11/23/18 08:25 Rouleaux Present 11/22/18 16:41 Sodium 144 mmol/L (137-145) 11/23/18 08:25 Potassium 4.3 mmol/L (3.5-5.1) 11/23/18 08:25 Chloride 112 mmol/L (98-107) H 11/23/18 08:25 Carbon Dioxide 24 mmol/L (22-30) 11/23/18 08:25 Anion Gap 8 mmol/L 11/23/18 08:25 BUN 21 mg/dL (9-20) H 11/23/18 08:25 Creatinine 1.51 mg/dL (0.66-1.25) H 11/23/18 08:25 Est GFR (CKD-EPI)AfAm 48 (>60 ml/min/1.73 sqM) 11/23/18 08:25 Est GFR (CKD-EPI)NonAf 41 (>60 ml/min/1.73 sqM) 11/23/18 08:25 Glucose 139 mg/dL (74-99) H 11/23/18 08:25 POC Glucose (mg/dL) 121 mg/dL (75-99) H 11/23/18 06:54 POC Glu [employer] ID Marimar Soriano 11/23/18 06:54 Calcium 8.5 mg/dL (8.4-10.2) 11/23/18 08:25 Total Bilirubin 0.6 mg/dL (0.2-1.3) 11/23/18 08:25 AST 17 U/L (17-59) 11/23/18 08:25 ALT 17 U/L (21-72) L 11/23/18 08:25 Alkaline Phosphatase 84 U/L (38-126) 11/23/18 08:25 Total Protein 6.1 g/dL (6.3-8.2) L 11/23/18 08:25 Albumin 2.7 g/dL (3.5-5.0) L 11/23/18 08:25 CBC & Chem 7: 11/23/18 08:25 11/23/18 08:25 Labs: Abnormal Lab Results - Last 24 Hours (Table) 11/22/18 11/22/18 11/22/18 Range/Units 16:41 16:41 17:11 RBC 4.25 L (4.30-5.90) m/uL Hgb 10.1 L (13.0-17.5) gm/dL Hct 33.9 L (39.0-53.0) % MCV 79.8 L (80.0-100.0) fL MCH 23.8 L (25.0-35.0) pg MCHC 29.9 L (31.0-37.0) g/dL Lymphocytes # (1.0-4.8) k/uL Chloride 112 H (98-107) mmol/L Carbon Dioxide 21 L (22-30) mmol/L BUN 21 H (9-20) mg/dL Creatinine 1.38 H (0.66-1.25) mg/dL Glucose 157 H (74-99) mg/dL POC Glucose (mg/dL) 180 H (75-99) mg/dL Calcium 8.2 L (8.4-10.2) mg/dL ALT 14 L (21-72) U/L Total Protein (6.3-8.2) g/dL Albumin 2.8 L (3.5-5.0) g/dL 11/22/18 11/23/18 11/23/18 Range/Units 20:55 06:54 08:25 RBC 4.00 L (4.30-5.90) m/uL Hgb 10.3 L (13.0-17.5) gm/dL Hct 32.5 L (39.0-53.0) % MCV (80.0-100.0) fL MCH (25.0-35.0) pg MCHC (31.0-37.0) g/dL Lymphocytes # 0.9 L (1.0-4.8) k/uL Chloride (98-107) mmol/L Carbon Dioxide (22-30) mmol/L BUN (9-20) mg/dL Creatinine (0.66-1.25) mg/dL Glucose (74-99) mg/dL POC Glucose (mg/dL) 184 H 121 H (75-99) mg/dL Calcium (8.4-10.2) mg/dL ALT (21-72) U/L Total Protein (6.3-8.2) g/dL Albumin (3.5-5.0) g/dL 11/23/18 Range/Units 08:25 RBC (4.30-5.90) m/uL Hgb (13.0-17.5) gm/dL Hct (39.0-53.0) % MCV (80.0-100.0) fL MCH (25.0-35.0) pg MCHC (31.0-37.0) g/dL Lymphocytes # (1.0-4.8) k/uL Chloride 112 H (98-107) mmol/L Carbon Dioxide (22-30) mmol/L BUN 21 H (9-20) mg/dL Creatinine 1.51 H (0.66-1.25) mg/dL Glucose 139 H (74-99) mg/dL POC Glucose (mg/dL) (75-99) mg/dL Calcium (8.4-10.2) mg/dL ALT 17 L (21-72) U/L Total Protein 6.1 L (6.3-8.2) g/dL Albumin 2.7 L (3.5-5.0) g/dL Assessment and Plan Plan: This is an 88-year-old male patient well known to ID service as he was recently seen for gangrene status post amputation done by Dr. Borden. Patient completed a six-week course of IV Invanz. He now presents with a wound at the amputation site. Ultrasound of the right lower extremity was negative for DVT. He is currently on Kefzol and IV access will be obtained today. Hemoglobin A1c will be checked. Patient will need tight glucose control for healing. Multivitamin will be added. Local wound care has been addressed. Continue supportive care. Further recommendations as patient progresses. The above dictated assessment and findings were discussed with Dr. Morales. The impression and plan of care have been directed as dictated. Sandra Zhu nurse practitioner acting as scribe for Dr. Morales.
[2018-11-23] MEDS: TIMOLOL 0.5% OPHTH DROPS 5 ML BTL BOTH EYES SCH (10:29)
--- NOTE | 2018-11-23 11:52 | P.PN ---
Subjective Progress Note Date: 11/23/18 This is an 88-year-old male patient presented as a direct admit from his PCP. Patient presented with complaints of increased swelling to right lower extremity. Patient has a past medical history of gangrenous infection of the right foot third toe with recent amputation in September [address] Borden. Ragini garza has been following and wound care clinic in which she has wound VAC in place and follows with Dr. Morales patient was discharged on IV antibiotics at that time. Patient reports he noticed increased swelling to right lower extremity on Wednesday. Patient denies any pain. Patient denies fevers. A dditional medical history includes coronary artery disease, chest pain, diabetes mellitus, GI bleed, hypertension, prostate disorder, chronic disease stage III, peripheral vascular disease, recurrent lower leg cellulitis, colon cancer in 2004 with surgery and chemo and MRSA in left leg in 2015. At this time will consult infectious disease and vascular surgery. Venous Doppler will be ordered to rule out DVT. Routine labs ordered. Patient denies any chest pain or shortness of breath. Patient denies nausea vomiting or diarrhea. Patient denies any urinary burning or frequency. On 11/23/2018 patient is alert and going 3. Venous Doppler completed showing no evidence for DVT. Patient remains on IV kefzol. Pain patient follow-up in wound care clinic. ID following. At this time patient denies chest pain or shortness of breath. Patient denies nausea vomiting or diarrhea. Patient de nies any urinary burning or frequency Objective - Vital Signs Vital signs: Vital Signs Temp 98.5 F 11/23/18 06:56 Pulse 56 L 11/23/18 06:56 Resp 18 11/23/18 06:56 BP 129/58 11/23/18 06:56 Pulse Ox 99 11/23/18 06:56 Intake & Output 11/22/18 11/23/18 11/23/18 18:59 06:59 18:59 Intake Total 250 Output Total 200 Balance 250 -200 Weight 108.182 kg Intake: Oral 250 Output: Urine 200 Other: Voiding Method Toilet Toilet Urinal Urinal Urinal # Voids 0 350 - Exam Head normocephalic Neck supple Lungs clear to auscultation bilaterally no wheezing or crackles Heart regular rate and rhythm S1-S2, no rub or gallop Abdomen is soft nontender nondistended positive bowel sounds no hepatosplenomegaly Extremities +3 right lower extremity nonpitting edema right third greater toe amputation with drainage noted from site. Neuro alert and orientated to 3 - Labs CBC & Chem 7: 11/23/18 08:25 11/23/18 08:25 Labs: Abnormal Lab Results - Last 24 Hours (Table) 11/22/18 11/22/18 11/22/18 Range/Units 16:41 16:41 17:11 RBC 4.25 L (4.30-5.90) m/uL Hgb 10.1 L (13.0-17.5) gm/dL Hct 33.9 L (39.0-53.0) % MCV 79.8 L (80.0-100.0) fL MCH 23.8 L (25.0-35.0) pg MCHC 29.9 L (31.0-37.0) g/dL Lymphocytes # (1.0-4.8) k/uL Chloride 112 H (98-107) mmol/L Carbon Dioxide 21 L (22-30) mmol/L BUN 21 H (9-20) mg/dL Creatinine 1.38 H (0.66-1.25) mg/dL Glucose 157 H (74-99) mg/dL POC Glucose (mg/dL) 180 H (75-99) mg/dL Calcium 8.2 L (8.4-10.2) mg/dL ALT 14 L (21-72) U/L Total Protein (6.3-8.2) g/dL Albumin 2.8 L (3.5-5.0) g/dL 11/22/18 11/23/18 11/23/18 Range/Units 20:55 06:54 08:25 RBC 4.00 L (4.30-5.90) m/uL Hgb 10.3 L (13.0-17.5) gm/dL Hct 32.5 L (39.0-53.0) % MCV (80.0-100.0) fL MCH (25.0-35.0) pg MCHC (31.0-37.0) g/dL Lymphocytes # 0.9 L (1.0-4.8) k/uL Chloride (98-107) mmol/L Carbon Dioxide (22-30) mmol/L BUN (9-20) mg/dL Creatinine (0.66-1.25) mg/dL Glucose (74-99) mg/dL POC Glucose (mg/dL) 184 H 121 H (75-99) mg/dL Calcium (8.4-10.2) mg/dL ALT (21-72) U/L Total Protein (6.3-8.2) g/dL Albumin (3.5-5.0) g/dL 11/23/18 Range/Units 08:25 RBC (4.30-5.90) m/uL Hgb (13.0-17.5) gm/dL Hct (39.0-53.0) % MCV (80.0-100.0) fL MCH (25.0-35.0) pg MCHC (31.0-37.0) g/dL Lymphocytes # (1.0-4.8) k/uL Chloride 112 H (98-107) mmol/L Carbon Dioxide (22-30) mmol/L BUN 21 H (9-20) mg/dL Creatinine 1.51 H (0.66-1.25) mg/dL Glucose 139 H (74-99) mg/dL POC Glucose (mg/dL) (75-99) mg/dL Calcium (8.4-10.2) mg/dL ALT 17 L (21-72) U/L Total Protein 6.1 L (6.3-8.2) g/dL Albumin 2.7 L (3.5-5.0) g/dL Assessment and Plan Assessment: 1. Increased right lower extremity edema. Venous Doppler completed showing no evidence for DVT. Vascular and infectious disease has been consulted. Per Dr. Borden patient to follow-up outpatient in wound care clinic 2. 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 Patient currently follows a wound care clinic has wound VAC at bedside. Patient completed IV antibiotics per ID recommendation. At this time ID and vascular surgery has been consulted. 3. Chronic kidney disease stage III. Creatinine slightly increased to 1.51 this does appear near patient's baseline. We'll continue to monitor 4. Anemia iron deficiency and chronic kidney disease 5. Diabetes mellitus type 2. Patient maintained on glipizide will add sliding scale coverage 6. Essential hypertension 7. History of colon cancer in 2005 status post radiation chemo and surgery 8. History of coronary artery disease 9. History of prostate cancer in 2012 status post radiation 10. Severe calorie malnutrition. Albumin low at 2.7 ensure shakes will be ordered DVT prophylaxis Lovenox. GI prophylaxis Protonix I performed an examination of the patient and discussed their management with the Nurse Practitioner. I have reviewed the Nurse Practitioner's notes and agree with the documented findings and plan of care
[2018-11-23 12:09] LABS: Glucose,Whole Blood 159 mg/dL (75-99)
[2018-11-23] MEDS: MULTIVITAMINS, THERA 1 EACH TAB PO SCH (12:32)
[2018-11-23 17:03] LABS: Glucose,Whole Blood 81 mg/dL (75-99)
[2018-11-23 19:20] LABS: Hemoglobin A1C 6.4 % (4.0-6.0)
[2018-11-23 20:17] VITALS: PULSE 51
[2018-11-23 20:57] LABS: Glucose,Whole Blood 238 mg/dL (75-99)
--- NOTE | 2018-11-23 21:20 | P.CON ---
Consult Note - . Consult date: 11/23/18 Assessment/Plan:: This is an 88-year-old male with past medical history significant for peripheral vascular disease, chronic kidney disease, diabetes mellitus type 2. Patient was recently hospitalized September 16 through September 20 for gangrene of the right foot third toe and underwent ray amputation by Dr. Borden. Patient was discharged on Invanz for 42 day course. Patient states he completed all his antibiotics and his PICC line was removed. Patient is following in the wound healing center with Dr. Borden and his last visit there was on November 14, wound vac in place with plan for follow up on November 28. Patient states that his home care nu rse was concerned about his wound and he went in to see Dr. Quinonez incessantly instructed to come into the hospital for evaluation. Patient has been seen by Dr. Borden and the wound care nurse. Right lower extremity ultrasound negative for DVT. White count 5.3, BUN 21, creatinine 1.38, albumin 2.8. Patient states his blood sugars have been improved at home. His last hemoglobin A1c in September s 8.3. Patient has been started on Kefzol which he has been receiving I am and midline is to be placed this morning. He was not on antibiotics prior to admission. Patient denies having any fever or chills. Patient denies any new injury to his right leg. No recent falls. Please see the consult note as dictated by nurse practitioner Sandra Langesourav. This pleasant gentleman has a known history of the toe amputation and has a nonhealing ulceration related to that amputation. He was evaluated in the wound healing Center. There was concerns that had worsened and consequently he is admitted and is now receiving further local wound care and antibiotic therapy. We'll continue with the Aquacel Silver. Most recent wound cultures had evidence of Klebsiella, enterococcus in some gram-negative anaerobic bacteria and consequently the ceftezole and will be transitioned to Unasyn until further culture results are available. The foot should be elevated. Unclear if there will be further surgical interventions. There was evidence of significant swelling and discomfort in the leg and consequently he was brought into hospital and duplex was requested. It does not appear there is an acute deep venous thrombosis at this time. Once he is more stable he will be discharged following the wound healing Center and likely will be on oral antibiotic therapy with some Augmentin with further follow-up in the wound healing Center. I agree with evaluation, assessment and plan as dictated by nurse practitioner Mrs. Sandra Zhu.
[2018-11-24] MEDS: AMPICILLIN-SULBACTAM 3 GM in SODIUM CHLORIDE 0.9% 100 ML IVPB SCH ×3 (01:30→11:07)
[2018-11-24 07:00] VITALS: BP 132/73; RESP 14; TEMP 97.9
[2018-11-24 07:16] LABS: Glucose,Whole Blood 101 mg/dL (75-99)
[2018-11-24] MEDS: TAMSULOSIN 0.4 MG CAP.ER.24H PO SCH (08:30)
[2018-11-24] MEDS: glipiZIDE 5 MG TAB PO SCH ×2 (08:30→13:02)
[2018-11-24] MEDS: FUROSEMIDE 20 MG TAB PO SCH (08:30)
[2018-11-24] MEDS: FERROUS SULFATE 325 MG TAB PO SCH (08:31)
[2018-11-24] MEDS: PANTOPRAZOLE 40 MG TABLET PO SCH (08:31)
[2018-11-24] MEDS: ENOXAPARIN 40 MG/0.4 ML SYRINGE SQ SCH (08:31)
[2018-11-24] MEDS: MULTIVITAMINS, THERA 1 EACH TAB PO SCH (08:31)
[2018-11-24] MEDS: LISINOPRIL 5 MG TAB PO SCH (08:31)
[2018-11-24] MEDS: CHOLECALCIFEROL 1,000 UNIT TAB PO SCH (08:31)
[2018-11-24] MEDS: ARTIFICIAL TEARS-HYPROMELLOSE DROPS 15 ML BTL BOTH EYES SCH (08:32)
[2018-11-24] MEDS: TIMOLOL 0.5% OPHTH DROPS 5 ML BTL BOTH EYES SCH (08:32)
[2018-11-24] MEDS: INSULIN ASPART (NovoLOG) 100 UNIT/ML VIAL SQ SCH ×2 (08:32→13:02)
[2018-11-24 09:02] LABS: Basophils % (A) 1 %; Eosinophils # (A) 0.3 k/uL (0-0.7); Eosinophils % (A) 5 %; HCT 31.7 % (39.0-53.0); HGB 10.2 gm/dL (13.0-17.5); Lymphocytes # (A) 1.1 k/uL (1.0-4.8); Lymphocytes % (A) 21 %; MCH 25.8 pg (25.0-35.0); MCHC 32.1 g/dL (31.0-37.0); MCV 80.2 fL (80.0-100.0); Mean Platelet Volume 7.3; Monocytes # (A) 0.3 k/uL (0-1.0); Monocytes % (A) 6 %; Neutrophils # (A) 3.2 k/uL (1.3-7.7); Neutrophils % (A) 65 %; Platelet Count 230 k/uL (150-450); RBC 3.95 m/uL (4.30-5.90)
[2018-11-24 09:09] LABS: Albumin 2.5 g/dL (3.5-5.0); Calcium 8.3 mg/dL (8.4-10.2); Potassium 4.3 mmol/L (3.5-5.1); Total Bilirubin 0.4 mg/dL (0.2-1.3); Total Protein 5.9 g/dL (6.3-8.2)
[2018-11-24 11:57] LABS: Glucose,Whole Blood 168 mg/dL (75-99)
[2018-11-24 13:12] VITALS: BMI 32.3
--- NOTE | 2018-11-24 13:50 | P.DS ---
Providers Date of admission: 11/22/18 13:21 Expected date of discharge: 11/24/18 Attending physician: Edmond Crespo Consults: 11/22/18 14:17 Consult Physician Routine Consulting Provider: Pranav Morales Consult Reason/Comments: cellulitis Do you want consulting provider notified?: Yes Consult Physician Routine Consulting Provider: Silvestre Borden Consult Reason/Comments: cellulitis previous patient, recent amputation Do you want consulting provider notified?: Yes Primary care physician: Edmond Crespo [facility] Course: Discharge diagnosis 1. Increased right lower extremity edema. Venous Doppler completed showing no evidence for DVT. Vascular and infectious disease has been consulted. Per Dr. Borden patient to follow-up outpatient in wound care clinic. Discussed case with infectious disease patient may be discharged home on Augmentin. No need for IV antibiotics at this time patient to follow-up with Dr. Morales outpatient 2. 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 Patient currently follows a wound care clinic has wound VAC at bedside. Patient completed IV antibiotics per ID recommendation. At this time ID and vascular surgery has been consulted. 3. Chronic kidney disease stage III. Creatinine slightly increased to 1.51 this does appear near patient's baseline. We'll continue to monitor 4. Anemia iron deficiency and chronic kidney disease 5. Diabetes mellitus type 2. Patient maintained on glipizide will add sliding scale coverage 6. Essential hypertension 7. History of colon cancer in 2004 status post radiation chemo and surgery 8. History of coronary artery disease 9. History of prostate cancer in 2011 status post radiation 10. Severe calorie malnutrition. Albumin low at 2.7 ensure shakes will be ordered Hospital course This is an 88-year-old male patient presented as a direct admit from his PCP. Patient presented with complaints of increased swelling to right lower extremity. Patient has a past medical history of gangrenous infection of the right foot third toe with recent amputation in September [address] Borden. Patient has been following and wound care clinic in which she has wound VAC in place and follows with Dr. Morales patient was discharged on IV antibiotics at that time. Patient reports he noticed increased swelling to right lower extremity on Wednesday. Patient denies any pain. Patient denies fevers. Additional medical history includes coronary artery disease, chest pain, diabetes mellitus, GI bleed, hypertension, prostate disorder, chronic disease stage III, peripheral vascular disease, recurrent lower leg cellulitis, colon cancer in 2005 with surgery and chemo and MRSA in left leg in 2016. At this time will consult infectious disease and vascular surgery. Venous Doppler will be ordered to rule out DVT. Routine labs ordered. Patient denies any chest pain or shortness of breath. Patient denies nausea vomiting or diarrhea. Patient denies any urinary burning or frequency. On 11/23/2018 patient is alert and going 3. Venous Doppler completed showing no evidence for DVT. Patient remains on IV kefzol. Pain patient follow-up in wound care clinic. ID following. At this time patient denies chest pain or shortness of breath. Patient denies nausea vomiting or diarrhea. Patient denies any urinary burning or frequency On 11/24/2018 patient's alert and oriented 3. Patient is eager to go home. Discussed case with infectious disease nurse practitioner patient has been cleared for discharge patient to go home on Augmentin prescription sent per ID. At this time patient denies chest pain or shortness of breath. Patient denies nausea vomiting or diarrhea. Patient denies any urinary burning or frequency. Patient has limited mobility. Prescription for cane signed I performed an examination of the patient and discussed their management with the Nurse Practitioner. I have reviewed the Nurse Practitioner's notes and agree with the documented findings and plan of care Patient Condition at Discharge: Stable Plan - Discharge Summary Discharge Rx Participant: No New Discharge Prescriptions: New Amoxicillin/Potassium Clav [Augmentin 875-125 Tablet] 1 tab PO BID 14 Days #28 tab Continue Furosemide [Lasix] 20 mg PO DAILY Ferrous Sulfate [Feosol] 325 mg PO DAILY Enalapril [Vasotec] 2.5 mg PO DAILY Potassium Chloride [Klor-Con 10] 10 meq PO DAILY glipiZIDE [Glucotrol] 5 mg PO AC-TID Timolol 0.5% Ophth Soln [Timoptic 0.5% Ophth Soln] 1 drop BOTH EYES DAILY Artificial Tears-Hypromellose [Artificial Tear Drops] 1 drops BOTH EYES TID Tamsulosin [Flomax] 0.4 mg PO DAILY Cholecalciferol (Vitamin D3) [Vitamin D3] 2,000 unit PO DAILY Discharge Medication List Enalapril [Vasotec] 2.5 mg PO DAILY 08/28/15 [History] Ferrous Sulfate [Feosol] 325 mg PO DAILY 08/28/15 [History] Furosemide [Lasix] 20 mg PO DAILY 08/28/15 [History] Potassium Chloride [Klor-Con 10] 10 meq PO DAILY 08/28/15 [History] Timolol 0.5% Ophth Soln [Timoptic 0.5% Ophth Soln] 1 drop BOTH EYES DAILY 12/13/17 [History] glipiZIDE [Glucotrol] 5 mg PO AC-TID 12/13/17 [History] Artificial Tears-Hypromellose [Artificial Tear Drops] 1 drops BOTH EYES TID 12/15/17 [History] Cholecalciferol (Vitamin D3) [Vitamin D3] 2,000 unit PO DAILY 09/16/18 [History] Tamsulosin [Flomax] 0.4 mg PO DAILY 09/16/18 [History] Amoxicillin/Potassium Clav [Augmentin 875-125 Tablet] 1 tab PO BID 14 Days #28 tab 11/24/18 [Rx] Follow up Appointment(s)/Referral(s): [facility], [NON-STAFF] - Edmond Crespo MD [Primary Care Provider] - 1 Week Silvestre Borden MD [STAFF PHYSICIAN] - 1 Week (in [facility]aling [facility]) Patient Instructions/Handouts: Wound Infection (DC) Activity/Diet/Wound Care/Special Instructions: activity as tolerated consistent carb diet as tolerated aquacel AG to right toe wound, MWF, last changed 11/24/18 follow up in Wound Center Discharge Disposition: HOME WITH HOME HEALTH SERVICES
--- NOTE | 2018-11-28 09:42 | CDI ---
Documentation Clarification Form Date: 11/28/18 From: Carisa Monique Phone: If you have a question regarding this query, please contact Mackenzie Carver at [phone] between 8am and 5pm. Admit Date: 11/22/2018 1:21:00 PM Patient Name: Dylan Mcrae Visit Number: [id number] Discharge Date: 11/24/2018 3:04:00 PM ATTENTION: The Clinical Documentation Specialists (CDI) and [facility] Coding Staff appreciate your assistance in clarifying documentation. Please respond to the clarification below the line at the bottom and electronically sign. The CDI & [facility] Coding staff will review the response and follow-up if needed. Please note: Queries are made part of the Legal Health Record. If you have any questions, please contact the author of this message via ITS. Dr. Edmond Crespo The patients principal diagnosis has not been clearly identified and requires clarification. He/She presented with increased right lower extremity edema. Dr. Morales documented that the patient has a nonhealing ulceration related to the amputation and the reason for consult is cellulitis. Cellulitis is documented in the admit order. History/Risk factors: History of gangrenous cellulitis of the 3rd toe on the right foot requiring amputation in September 2018 and diabetes. Has wound vac and follows at wound care clinic. Clinical Indicators: Increased right lower extremity edema. Lab findings: Glucose 157, Chloride 112, BUN21, creatinine 1.38, calcium 8.2, ALT 14 Albumin 2.8, hgb 10.1, hct 33.9 rbc 4.25 Radiology findings: Venous doppler: persistent mild subcutaneous edema is slightly improved from prior. No ultrasound evidence for acute DVT on the current study. Redemonstration of popliteal cyst. Vital Signs: T. 98.4, P. 66, R. 16, BP 161/74 Treatment: IV and IM Cefazolin In your professional opinion, can you please clarify which diagnosis, after study, accounted for the patients presenting symptoms and was the reason chiefly responsible for the admission? Ulcer of right foot Associated with Diabetes No associated with Diabetes Cellulitis of right foot Associated with Diabetes Not associated with Diabetes Other (Please specify) Unable to Determine celllultis of right foot not associated with diabetes MTDD
== END 2018-11-24 15:04 | disposition home health service (06) | DRG 602 ==
LOC: 4MS4W 13:21
PROVIDERS: ADMIT Internal Medicine; ATTEND Internal Medicine
DX: L03.115 Cellulitis of right lower limb (principal); E43 Unspecified severe protein-calorie malnutrition; R60.0 Localized edema; E11.22 Type 2 diabetes mellitus with diabetic chronic kidney disease; E11.51 Type 2 diabetes mellitus with diabetic peripheral angiopathy without gangrene; E11.621 Type 2 diabetes mellitus with foot ulcer; L97.519 Non-pressure chronic ulcer of other part of right foot with unspecified severity; D63.1 Anemia in chronic kidney disease; N18.3 Chronic kidney disease, stage 3 (moderate); H40.9 Unspecified glaucoma; I12.9 Hypertensive chronic kidney disease with stage 1 through stage 4 chronic kidney disease, or unspecified chronic kidney disease; I25.10 Atherosclerotic heart disease of native coronary artery without angina pectoris; E66.9 Obesity, unspecified; Z79.84 Long term (current) use of oral hypoglycemic drugs; Z79.899 Other long term (current) drug therapy; Z85.038 Personal history of other malignant neoplasm of large intestine; Z85.46 Personal history of malignant neoplasm of prostate; Z86.010 Personal history of colon polyps; Z86.011 Personal history of benign neoplasm of the brain; Z90.49 Acquired absence of other specified parts of digestive tract; Z86.14 Personal history of Methicillin resistant Staphylococcus aureus infection; Z89.421 Acquired absence of other right toe(s); Z98.42 Cataract extraction status, left eye; Z98.41 Cataract extraction status, right eye; Z96.1 Presence of intraocular lens; Z92.21 Personal history of antineoplastic chemotherapy; Z92.3 Personal history of irradiation; Z68.32 Body mass index [BMI] 32.0-32.9, adult
CPT/HCPCS: 80053; 83036; 85025

== ENCOUNTER 2019-05-05 10:52 | Inpatient (IN) | payer MEDICARE ==
[2019-05-05] MEDS ORDERED: VANCOMYCIN IV PER PHARMACY 1 EACH MISC MISCELLANE PRN (11:09)
[2019-05-05] MEDS ORDERED: PIPERACILLIN-TAZOBACTAM 3.375 GM in SODIUM CHLORIDE 0.9% 100 ML IVPB STA (11:09)
[2019-05-05] MEDS ORDERED: VANCOMYCIN 1,750 MG in SODIUM CHLORIDE 0.9% 500 ML 500 ML IVPB STA (11:13)
[2019-05-05] MEDS ORDERED: ACETAMINOPHEN TAB 325 MG TAB PO STA (11:24)
[2019-05-05] MEDS: SODIUM CHLORIDE 0.9% 500 ML 500 ML IV SCH ×2 (11:36→11:37)
[2019-05-05 11:46] LABS: Basophils % (A) 0 %; Eosinophils # (A) 0.2 k/uL (0-0.7); Eosinophils % (A) 2 %; HCT 36.9 % (39.0-53.0); HGB 11.7 gm/dL (13.0-17.5); Lymphocytes # (A) 0.6 k/uL (1.0-4.8); Lymphocytes % (A) 9 %; MCH 26.6 pg (25.0-35.0); MCHC 31.7 g/dL (31.0-37.0); MCV 83.7 fL (80.0-100.0); Mean Platelet Volume 7.8; Monocytes # (A) 0.5 k/uL (0-1.0); Monocytes % (A) 8 %; Neutrophils # (A) 5.1 k/uL (1.3-7.7); Neutrophils % (A) 78 %; Platelet Count 198 k/uL (150-450); RDW 12.8 % (11.5-15.5); WBC 6.5 k/uL (3.8-10.6)
[2019-05-05 11:55] LABS: Albumin 2.8 g/dL (3.5-5.0); Calcium 8.3 mg/dL (8.4-10.2); INR 1.1 (<1.2); Partial Thromboplastin Time 28.6 sec (22.0-30.0); Potassium 4.5 mmol/L (3.5-5.1); Prothrombin Time 11.7 sec (9.0-12.0); Total Bilirubin 1.4 mg/dL (0.2-1.3)
--- NOTE | 2019-05-05 12:09 | XR ---
EXAMINATION TYPE: XR foot complete RT DATE OF EXAM: 05/05/2019 CLINICAL HISTORY: Gangrenous right great toe with extensive cellulitis TECHNIQUE: Frontal, lateral, and oblique images of the right foot are obtained. COMPARISON: 09/16/2018 FINDINGS: There is amputation of the third phalanx and erosion of the distal third metatarsal head. S ome subtle erosion of the distal tuft of the first phalanx. There is diffuse soft tissue swelling of the right foot. New osseous erosion of the lateral aspect of the base of the second proximal phalanx is seen in comparison the prior. No subcutaneous emphysema identified. Small plantar spur. IMPRESSION: Radiographic sequela of osteomyelitis of the third distal metatarsal head, second proxima l phalanx, and distal tuft of the first distal phalanx with diffuse subcutaneous edema.
[2019-05-05] MEDS ORDERED: NALOXONE 0.4 MG/ML 1 ML VIAL IV PRN (12:38)
[2019-05-05] MEDS ORDERED: SODIUM CHLORIDE 0.9% 1,000 ML IV ONE (12:40)
--- NOTE | 2019-05-05 12:41 | ED ---
Extremity Problem HPI - General Chief complaint: Extremity Problem,Nontraumatic Stated complaint: rt foot diabetic wound Time Seen by Provider: 05/05/19 11:09 Source: patient Mode of arrival: ambulatory Limitations: no limitations - History of Present Illness Initial comments: 89-year-old male with history of significant vascular disease, diabetic Locati ons including amputation of the right third digit presenting to the emergency department today for chief complaint of right great toe ulcer. Patient states he believes his infection the right great toe 2 days ago he noticed it was straining and discolored. He states that he did not have pain as he is peripheral neuropathy. Patient states he has had chills. He states that he is also noted that his right leg is swelling and is red. Patient states has been warm to touch. Patient was unable to shot himself out of his home and presented to the ER therefore waited to presents for evaluation. Upon arrival patient is febrile he is in no acute distress he was ambulatory, patient had placed a b andage on the right great toe. Patient denied any other complaints he denied any coolness or pallor of the extremity he denies any chest pain shortness of breath abdominal pain nausea, vomiting or other areas of redness. - Related Data Home Medications Medication Instructions Recorded Confirmed Enalapril [Vasotec] 2.5 mg PO DAILY 08/28/15 05/05/19 Ferrous Sulfate [Feosol] 325 mg PO DAILY 08/28/15 05/05/19 Furosemide [Lasix] 20 mg PO DAILY 08/28/15 05/05/19 Potassium Chloride [Klor-Con 10] 10 meq PO DAILY 08/28/15 05/05/19 Timolol 0.5% Ophth Soln [Timoptic 1 drop BOTH EYES BID 12/13/17 05/05/19 0.5% Ophth Soln] glipiZIDE [Glucotrol] 5 mg PO AC-BID 12/13/17 05/05/19 Cholecalciferol (Vitamin D3) 2,000 unit PO DAILY 09/16/18 05/05/19 [Vitamin D3] Tamsulosin [Flomax] 0.4 mg PO BID 09/16/18 05/05/19 Allergies Allergy/AdvReac Type Severity Reaction Status Date / Time No Known Allergies Allergy Verified 05/05/19 13:06 Review of Systems ROS Statement: Those systems with pertinent positive or pertinent negative responses have been documented in the HPI. ROS Other: All systems not noted in ROS Statement are negative. Past Medical History Past Medical History: Blood Disorder, Coronary Artery Disease (CAD), Cancer, Chest Pain / Angina, Diabetes Mellitus, Eye Disorder, GI Bleed, Hypertension, Prostate Disorder, Vascular Disorder, Vascular Disorder Additional Past Medical History / Comment(s): uti, NIDDM type II, CKD stage III, PVD, past lower extremity cellulitis, past L lower leg ulcer, 2004 colon cancer with surgery/chemo and radiation, prostate cancer with radiation tx, anemia, lower GI bleed, gastric/colon polyps/melanosis coli, bilateral glaucoma History of Any Multi-Drug Resistant Organisms: MRSA Date of last positivie culture/infection: 08/28/15 MDRO Source:: Left Leg Past Surgical History: Bowel Resection, Heart Catheterization Additional Past Surgical History / Comment(s): EGD, colonoscopies with polypectomy/bx, benign brain tumor removed at [facility], R hemicolectomy 2004, cardiac cath tx medically 2013, bilateral cataract removal with lens, LASER MAGDA EYES, Past Anesthesia/Blood Transfusion Reactions: No Reported Reaction Additional Past Anesthesia/Blood Transfusion Reaction / Comment(s): Pt received blood in past without known reaction. Past Psychological History: No Psychological Hx Reported Smoking Status: Never smoker Past Alcohol Use History: None Reported Past Drug Use History: None Reported - Past Family History Father Family Medical History: No Reported History Additional Family Medical History / Comment(s): Pt believes his father was healthy. He at age 93 yrs. Mother Family Medical History: No Reported History Additional Family Medical History / Comment(s): Pt doesn't know of mother's medical hx but she did live to be 95 yrs old. General Exam - General Exam Comments Initial Comments: General: The patient is awake and alert, in no distress Eye: Pupils are equal, round and reactive to light, extra-ocular movements are intact. No nystagmus. There is normal conjunctiva bilaterally. No signs of icterus. Ears, nose, mouth and throat: There are moist mucous membranes and no oral lesions. Neck: The neck is supple, there is no tenderness or JVD. Cardiovascular: There is a regular rate and rhythm. No murmur, rub or gallop is appreciated. Respiratory: Lungs are clear to auscultation, respirations are non-labored, breath sounds are equal. No wheezes, stridor, rales, or rhonchi. Gastrointestinal: Soft, non-distended, non-tender abdomen without masses or o rganomegaly noted. There is no rebound or guarding present. Musculoskeletal: Normal ROM, no tenderness. Strength 5/5. Sensation intact. Radial pulses equal bilaterally 2+. Neurological: A&O x 3. CN II-XII intact grossly, There are no obvious motor or sensory deficits. Coordination appears grossly intact. Speech is normal. Skin: Skin is warm and dry and no rashes, yellow, foul odorous right great toe, there is some eschar noted, no pain to touch, foot erythematous as well as circumferential right leg, no blistering or crepitus. Psychiatric: Cooperative, appropriate mood & affect, normal judgment. Limitations: no limitations Course Vital Signs 05/05/19 05/05/19 10:58 12:00 Temperature 100.7 F H Pulse Rate 61 60 Respiratory 20 18 Rate Blood Pressure 157/64 118/59 O2 Sat by Pulse 99 98 Oximetry Medical Decision Making - Medical Decision Making 89-year-old diabetic male presenting for foot ulcer. Previous amputation of the right third toe evidence of congestive of possible gangrene on physical examination. There is evidence of osteomyelitis on x-ray. Patient was started on Zosyn as well as vancomycin. Patient blood culture pending. Patient has no gas in the tissue there is edema. Patient Has no leukocytosis, no lactic aci dosis, no tachycardia or hypotension. Does not appears acutely septic at this time. patient will be admitted for IV abx and ID consultation. Patient is agreeable to admission and was evaluated by Dr. Álvarez who is agreeable to care plan and admission at this time. - Lab Data Result diagrams: 05/05/19 11:25 05/05/19 11:25 Lab Results 05/05/19 05/05/19 05/05/19 Range/Units 11:25 11:25 11:25 WBC 6.5 (3.8-10.6) k/uL RBC 4.40 (4.30-5.90) m/uL Hgb 11.7 L (13.0-17.5) gm/dL Hct 36.9 L (39.0-53.0) % MCV 83.7 (80.0-100.0) fL MCH 26.6 (25.0-35.0) pg MCHC 31.7 (31.0-37.0) g/dL RDW 12.8 (11.5-15.5) % Plt Count 198 (150-450) k/uL Neutrophils % 78 % Lymphocytes % 9 % Monocytes % 8 % Eosinophils % 2 % Basophils % 0 % Neutrophils # 5.1 (1.3-7.7) k/uL Lymphocytes # 0.6 L (1.0-4.8) k/uL Monocytes # 0.5 (0-1.0) k/uL Eosinophils # 0.2 (0-0.7) k/uL Basophils # 0.0 (0-0.2) k/uL PT 11.7 (9.0-12.0) sec INR 1.1 (<1.2) APTT 28.6 (22.0-30.0) sec Sodium 137 (137-145) mmol/L Potassium 4.5 (3.5-5.1) mmol/L Chloride 107 (98-107) mmol/L Carbon Dioxide 23 (22-30) mmol/L Anion Gap 7 mmol/L BUN 31 H (9-20) mg/dL Creatinine 1.73 H (0.66-1.25) mg/dL Est GFR (CKD-EPI)AfAm 40 (>60 ml/min/1.73 sqM) Est GFR (CKD-EPI)NonAf 35 (>60 ml/min/1.73 sqM) Glucose 218 H (74-99) mg/dL Plasma Lactic Acid Jose (0.7-2.0) mmol/L Calcium 8.3 L (8.4-10.2) mg/dL Total Bilirubin 1.4 H (0.2-1.3) mg/dL AST 42 (17-59) U/L ALT 33 (4-49) U/L Alkaline Phosphatase 92 (38-126) U/L Total Protein 6.0 L (6.3-8.2) g/dL Albumin 2.8 L (3.5-5.0) g/dL 05/05/19 Range/Units 11:25 WBC (3.8-10.6) k/uL RBC (4.30-5.90) m/uL Hgb (13.0-17.5) gm/dL Hct (39.0-53.0) % MCV (80.0-100.0) fL MCH (25.0-35.0) pg MCHC (31.0-37.0) g/dL RDW (11.5-15.5) % Plt Count (150-450) k/uL Neutrophils % % Lymphocytes % % Monocytes % % Eosinophils % % Basophils % % Neutrophils # (1.3-7.7) k/uL Lymphocytes # (1.0-4.8) k/uL Monocytes # (0-1.0) k/uL Eosinophils # (0-0.7) k/uL Basophils # (0-0.2) k/uL PT (9.0-12.0) sec INR (<1.2) APTT (22.0-30.0) sec Sodium (137-145) mmol/L Potassium (3.5-5.1) mmol/L Chloride (98-107) mmol/L Carbon Dioxide (22-30) mmol/L Anion Gap mmol/L BUN (9-20) mg/dL Creatinine (0.66-1.25) mg/dL Est GFR (CKD-EPI)AfAm (>60 ml/min/1.73 sqM) Est GFR (CKD-EPI)NonAf (>60 ml/min/1.73 sqM) Glucose (74-99) mg/dL Plasma Lactic Acid Jose 0.9 (0.7-2.0) mmol/L Calcium (8.4-10.2) mg/dL Total Bilirubin (0.2-1.3) mg/dL AST (17-59) U/L ALT (4-49) U/L Alkaline Phosphatase (38-126) U/L Total Protein (6.3-8.2) g/dL Albumin (3.5-5.0) g/dL - EKG Data EKG Comments: Ventricular rate 62 bpm, MT interval 232 ms, QRS ration 80 ms, QT/QTC 428/434 ms. This is sinus rhythm with a sinus arrhythmia there is noted a first-degree AV block and occasional PVC. Otherwise there is no ST elevation or depression no acute ischemic process noted at this time. Disposition Clinical Impression: Osteomyelitis of right foot, Fever, Cellulitis of right leg Disposition: ADMITTED IP TO THIS HOSP Condition: Serious Is patient prescribed a controlled substance at d/c from ED?: No Time of Disposition: 12:41 Decision to Admit Reason: Admit from EC Decision Date: 05/05/19 Decision Time: 12:41
[2019-05-05] MEDS: SODIUM CHLORIDE 0.9% 1,000 ML IV SCH (12:49)
--- NOTE | 2019-05-05 13:19 | P.HPIM ---
History of Present Illness H&P Date: 05/05/19 This is an 89-year-old male patient who presented to ER with complaints of nonhealing right foot ulcer. Patient has past medical history of diabetes with recurring right foot diabetic wounds. Patient reports that over the past few days he's had increased swelling to right foot with redness. Patient denies any pain. Patient did have elevated temperature arrival 100.7. Lactic acid 0.9. Foot x-ray completed showing radiographic sequela of osteomyelitis of the third distal metatarsal head, second proximal phalanx and distal tuft of the first distal phalanx with diffuse subcutaneous edema. patient does have a past medical history of previous gangrenous cellulitis of the third toe on the right foot requiring amputation in September 2018. Patient does follow in wound care clinic. Additional medical history includes chronic kidney disease with baseline creatinine around 1.51. Patient does have slightly increased creatinine 1.73. Diabetes mellitus type 2, anemia, essential hypertension, colon cancer in 2004 status post radiation chemo and surgery, coronary artery diseas and prostate cancer in 2011. Venous Doppler will be ordered to rule out DVT. Wound and blood cultures ordered. Infectious disease consulted. Patient given vancomycin and Zosyn per ER. Patient started on normal saline at 100 for acute kidney injury. At this time patient is resting comfortably in bed. Patient denies any significant pain. Patient denies chest pain or shortness of breath. Patient denies nausea vomiting or diarrhea. Patient denies any urinary burning or frequency. Review of Systems Please refer to HPI otherwise unremarkable Past Medical History Past Medical History: Blood Disorder, Coronary Artery Disease (CAD), Cancer, Chest Pain / Angina, Diabetes Mellitus, Eye Disorder, GI Bleed, Hypertension, Prostate Disorder, Vascular Disorder, Vascular Disorder Additional Past Medical History / Comment(s): uti, NIDDM type II, CKD stage III, PVD, past lower extremity cellulitis, past L lower leg ulcer, 2004 colon cancer with surgery/chemo and radiation, prostate cancer with radiation tx, anemia, lo wer GI bleed, gastric/colon polyps/melanosis coli, bilateral glaucoma History of Any Multi-Drug Resistant Organisms: MRSA Date of last positivie culture/infection: 08/28/15 MDRO Source:: Left Leg Past Surgical History: Bowel Resection, Heart Catheterization Additional Past Surgical History / Comment(s): EGD, colonoscopies with polypectomy/bx, benign brain tumor removed at [facility], R hemicolectomy 2004, cardiac cath tx medically 2014, bilateral cataract removal with lens, LASER MAGDA EYES, Past Anesthesia/Blood Transfusion Reactions: No Reported Reaction Additional Past Anesthesia/Blood Transfusion Reaction / Comment(s): Pt received blood in past without known reaction. Past Psychological History: No Psychological Hx Reported Smoking Status: Never smoker Past Alcohol Use History: None Reported Past Drug Use History: None Reported - Past Family History Father Family Medical History: No Reported History Additional Family Medical History / Comment(s): Pt believes his father was healthy. He at age 93 yrs. Mother Family Medical History: No Reported History Additional Family Medical History / Comment(s): Pt doesn't know of mother's medical hx but she did live to be 95 yrs old. Medications and Allergies Home Medications Medication Instructions Recorded Confirmed Type Enalapril [Vasotec] 2.5 mg PO DAILY 08/28/15 11/22/18 History Ferrous Sulfate [Feosol] 325 mg PO DAILY 08/28/15 11/22/18 History Furosemide [Lasix] 20 mg PO DAILY 08/28/15 11/22/18 History Potassium Chloride [Klor-Con 10] 10 meq PO DAILY 08/28/15 11/22/18 History Timolol 0.5% Ophth Soln [Timoptic 1 drop BOTH EYES DAILY 12/13/17 11/22/18 History 0.5% Ophth Soln] glipiZIDE [Glucotrol] 5 mg PO AC-TID 12/13/17 11/22/18 History Artificial Tears-Hypromellose 1 drops BOTH EYES TID 12/15/17 11/22/18 History [Artificial Tear Drops] Cholecalciferol (Vitamin D3) 2,000 unit PO DAILY 09/16/18 11/22/18 History [Vitamin D3] Tamsulosin [Flomax] 0.4 mg PO DAILY 09/16/18 11/22/18 History Amoxicillin/Potassium Clav 1 tab PO BID 14 Days #28 tab 11/24/18 Rx [Augmentin 875-125 Tablet] Allergies Allergy/AdvReac Type Severity Reaction Status Date / Time No Known Allergies Allergy Verified 05/05/19 11:02 Physical Exam Vitals: Vital Signs Temp Pulse Resp BP Pulse Ox 05/05/19 12:00 60 18 118/59 98 05/05/19 10:58 100.7 F H 61 20 157/64 99 Intake and Output 05/04/19 05/05/19 05/05/19 22:59 06:59 14:59 Other: Weight 108.862 kg Head normocephalic Neck supple Lungs clear to auscultation bilaterally no wheezing or crackles Heart regular rate and rhythm S1-S2, no rub or gallop Abdomen is soft nontender nondistended positive bowel sounds no hepatosplenomegaly Extremities right lower extremity +3 edema erythema noted. right greater toe ulcer. Left lower extremity +1 edema Neuro alert and orientated to 3 Results CBC & Chem 7: 05/05/19 11:25 05/05/19 11:25 Labs: Abnormal Lab Results - Last 24 Hours (Table) 05/05/19 05/05/19 Range/Units 11:25 11:25 Hgb 11.7 L (13.0-17.5) gm/dL Hct 36.9 L (39.0-53.0) % Lymphocytes # 0.6 L (1.0-4.8) k/uL BUN 31 H (9-20) mg/dL Creatinine 1.73 H (0.66-1.25) mg/dL Glucose 218 H (74-99) mg/dL Calcium 8.3 L (8.4-10.2) mg/dL Total Bilirubin 1.4 H (0.2-1.3) mg/dL Total Protein 6.0 L (6.3-8.2) g/dL Albumin 2.8 L (3.5-5.0) g/dL Assessment and Plan Assessment: 1. Osteomyelitis and cellulitis of right lower extremity. Right foot x-ray completed showing radiographic sequela of osteomyelitis of the third distal metatarsal head, second proximal phalanx, and distal tuft of the first distal phalanx with diffuse subcutaneous edema. Lactic acid 0.9. Patient did have elevated temperature 100.7. Infectious disease has been consulted. Patient has been given vancomycin and Zosyn . Blood and wound cultures were ordered. 2. Acute on chronic kidney disease stage III. Baseline creatinine around 1.51. Patient does have elevated creatinine 1.73 bun 31. Continue normal saline at 100. Patient's home medication of Vasotec currently on hold 3. History of gangrenous cellulitis of the third toe on the right foot in September 2018 requiring amputation. 4. Anemia deficiency chronic kidney disease 5. Diabetes mellitus type 2. Metastases to be resumed sliding scale coverage will be added. Hemoglobin A1c ordered 6. History of Essential hypertension 7. History of coronary artery disease 8. History of prostate cancer 2012 status post radiation DVT prophylaxis heparin. GI prophylaxis Pepcid Venous Doppler will be ordered to rule out DVT Infectious disease consulted Blood cultures ordered Continue IV antibiotics Time with Patient: Greater than 30 (Greater than 60% of the total time spent in counseling and coordination of care. I performed an examination of the patient and discussed their management with the Nurse Practitioner. I have reviewed the Nurse Practitioner's notes and agree with the documented findings and plan of care)
[2019-05-05 15:57] LABS: Appearance,Urine Clear (Clear); Bacteria,Urine Rare /hpf; Bilirubin,Urine Negative (Negative); Blood,Urine Moderate (Negative); Color,Urine Yellow; Glucose,Urine (UA) 3+ (Negative); Ketones,Urine Negative (Negative); Leukocyte Esterase,Urine Negative (Negative); Mucus,Urine Rare /hpf; Nitrite,Urine Negative (Negative); Protein,Urine Trace (Negative); RBC,Urine 8 /hpf (0-5); Specific Gravity,Urine 1.013 (1.001-1.035); Urobilinogen,Urine <2.0 mg/dL (<2.0); WBC,Urine 2 /hpf (0-5)
--- NOTE | 2019-05-05 16:32 | US ---
EXAMINATION TYPE: US venous doppler duplex LE BI DATE OF EXAM: 05/05/2019 4:05 PM COMPARISON: Prior right lower extremity venous ultrasound November 22, 2018 CLINICAL HISTORY: lower extremity edema, r/o DVT. Poor historian SIDE PERFORMED: Bilateral TECHNIQUE: The lower extremity deep venous system is examined utilizing real time linear array sonog beth with graded compression, doppler sonography and color-flow sonography. VESSELS IMAGED: External Iliac Vein (EIV) Common Femoral Vein Deep Femoral Vein Greater Saphenous Vein * Femoral Vein Popliteal Vein Small Saphenous Vein * Proximal Calf Veins (* superficial vessels) Right Leg: Negative for DVT. Multiple lymph node appearing lesions seen in right groin, largest = 4 .3 x 2.0 x 1.2 cm. Posterior knee complex fluid collection visualized= 6.0 x 3.4 x 1.4 cm. Left Leg: Negative for DVT Grayscale, color doppler, spectral doppler imaging performed of the deep veins of the bilateral lower extremities. There is normal flow, compressibility, vascular waveforms. IMPRESSION: No acute DVT in either lower extremity. Abnormal appearing enlarged right groin lymph node may warrant further clinical workup eccentric cortical thickening.
[2019-05-05 17:10] LABS: Glucose,Whole Blood 218 mg/dL (75-99)
[2019-05-05] MEDS: INSULIN ASPART (NovoLOG) 100 UNIT/ML VIAL SQ SCH ×2 (17:19→20:37)
[2019-05-05] MEDS: glipiZIDE 5 MG TAB PO SCH (17:19)
--- NOTE | 2019-05-05 17:54 | OP ---
OPERATIVE REPORT This is an 89-year-old gentleman, well known to me from the past. The patient came with fever and right foot big toe wet gangrene changes involving the dorsal and plantar aspect of the big toe. The patient also noticed some redness going toward the right lower extremity compared to the left leg. The patient has had these gangrene changes for the last few days. MEDICAL HISTORY: History of diabetes mellitus, history of hypertension, history of cancer in 2004, status post radiation and chemotherapy. The patient also has a history of prostate cancer in 2011. Venous ultrasound showed no DVT. PHYSICAL EXAMINATION: Patient was seen in his room. NECK: Supple. Trachea central. CHEST: Clear. Femorals are 2+. Right foot: Big toe has wet gangrene with drainage of the fluid and there is there is blister formation noted on the lateral aspect of the big toe and also there are gangrene changes of the skin on the plantar aspect with marked tenderness. The patient was seen by Infectious Disease. Patient was started on IV antibiotic. IMPRESSION: Right foot big toe wet gangrene. PLAN: I have discussed this with the patient. Patient will be needing right big toe amputation with deep culture. The right big toe is not salvageable at this point. Patient understands and we will proceed tomorrow. MMODL / IJN: [id number] /
[2019-05-05 20:16] LABS: Hemoglobin A1C 6.8 % (4.0-6.0)
[2019-05-05 20:32] LABS: Glucose,Whole Blood 187 mg/dL (75-99)
[2019-05-05] MEDS: TIMOLOL 0.5% OPHTH DROPS 5 ML BTL BOTH EYES SCH (20:36)
[2019-05-05] MEDS: TAMSULOSIN 0.4 MG CAP.ER.24H PO SCH (20:37)
[2019-05-05] MEDS: HEPARIN SODIUM,PORCINE 5,000 UNIT/ML 1 ML VIAL SQ SCH (20:37)
--- NOTE | 2019-05-05 23:19 | P.CONS ---
History of Present Illness - Reason for Consult Consult date: 05/05/19 right big toe infection Requesting physician: Edmond Crespo - Chief Complaint right big toe swelling and discoloration x 2 days - History of Present Illness Patient is a 89-year-old -[place] male presenting to the ER at [facility] for evaluation of his right great toe patient to have underlying diabetes mellitus and diabetic neuropathy with no sensation in his feet noticed swelling and discoloration of his right big toe about 2 days ago that has progressively get worse over the last 2 days becoming more swollen right and did have some purulent drainage drainage the patient denies pain because of underlying neuropathy he did have some chills but denies high-grade fever with the symptoms the patient was evaluated by the ER physician on arrival to the ER patient did have a fever 100.7 patient white count was normal creatinine was slightly elevated to 1.73 urine has been negative and the patient did have a x-rays of the foot which shows osteomyelitis of the third distal metatarsal head and the distal tuft of the first digit with diffuse subcutaneous edema patient received a dose of vancomycin and Zosyn has been admitted to hospital infectious disease was consulted for further recommendation regarding antibiotic therapy. Review of Systems Positive point has been mentioned in HPI rest of the systems are negative. Past Medical History Past Medical History: Coronary Artery Disease (CAD), Cancer, Chest Pain / Angina, Diabetes Mellitus, Eye Disorder, GI Bleed, Hypertension, Prostate Disorder, Renal Disease, Skin Disorder, Vascular Disorder, Vascular Disorder Additional Past Medical History / Comment(s): 2004 Colon cancer with surgery/ chemo/radiation, 2011 prostate cancer with radiation, BPH, NIDDM type II, PVD, past cellulitis/wounds bilateral lower legs/feet/current R foot wounds, CKD stage III, anemia, bilateral glaucoma, lower GI bleed, gastric/colon polyps, UTIs. History of Any Multi-Drug Resistant Organisms: MRSA Year Discovered:: 08/28/15 MDRO Source:: Left Leg Past Surgical History: Bowel Resection, Heart Catheterization Additional Past Surgical History / Comment(s): EGD, colonoscopies with canelo ypectomy/bx, benign brain tumor removed at [facility], R hemicolectomy 2004, cardiac cath tx medically 2013, R foot 3rd toe amputation d/t wound/ wound vac, bilateral cataract removal with lens, LASER AMGDA EYES, Past Anesthesia/Blood Transfusion Reactions: No Reported Reaction Additional Past Anesthesia/Blood Transfusion Reaction / Comm: Pt received blood in past without known reaction. Smoking Status: Never smoker - Past Family History Father Family Medical History: No Reported History Additional Family Medical History / Comment(s): Pt believes his father was healthy. He at age 93 yrs. Mother Family Medical History: No Reported History Additional Family Medical History / Comment(s): Pt doesn't know of mother's medical hx but she did live to be 95 yrs old. Medications and Allergies Home Medications Medication Instructions Recorded Confirmed Type Enalapril [Vasotec] 2.5 mg PO DAILY 08/28/15 05/05/19 History Ferrous Sulfate [Feosol] 325 mg PO DAILY 08/28/15 05/05/19 History Furosemide [Lasix] 20 mg PO DAILY 08/28/15 05/05/19 History Potassium Chloride [Klor-Con 10] 10 meq PO DAILY 08/28/15 05/05/19 History Timolol 0.5% Ophth Soln [Timoptic 1 drop BOTH EYES BID 12/13/17 05/05/19 History 0.5% Ophth Soln] glipiZIDE [Glucotrol] 5 mg PO AC-BID 12/13/17 05/05/19 History Cholecalciferol (Vitamin D3) 2,000 unit PO DAILY 09/16/18 05/05/19 History [Vitamin D3] Tamsulosin [Flomax] 0.4 mg PO BID 09/16/18 05/05/19 History Allergies Allergy/AdvReac Type Severity Reaction Status Date / Time No Known Allergies Allergy Verified 05/05/19 13:06 Physical Exam Vitals: Vital Signs Temp Pulse Resp BP Pulse Ox 05/05/19 13:50 18 05/05/19 13:07 57 L 18 122/67 98 05/05/19 12:00 60 18 118/59 98 05/05/19 10:58 100.7 F H 61 20 157/64 99 Intake and Output 05/04/19 05/05/19 05/05/19 22:59 06:59 14:59 Other: Weight 108.862 kg GENERAL DESCRIPTION: Elderly ddle-aged male lying in bed, no distress. No tachypnea or accessory muscle of respiration use. HEENT: Shows Pallor , no scleral icterus. Oral mucous membrane is dry. NECK: Trachea central, no thyromegaly. LUNGS: Unlabored breathing. Clear to auscultation anteriorly. No wheeze or crac kle. HEART: S1, S2, regular rate and rhythm. ABDOMEN: Soft, no tenderness , guarding or rigidity EXTREMITIES: Right big toe significantly swollen red macerated with secondary cellulitis spreading to the right leg. SKIN: No rash, no masses palpable. NEUROLOGICAL: The patient is awake, alert, oriented x3, mood and affect normal. Results CBC & Chem 7: 05/05/19 11:25 05/05/19 11:25 Labs: Abnormal Lab Results - Last 24 Hours (Table) 05/05/19 05/05/19 Range/Units 11:25 11:25 Hgb 11.7 L (13.0-17.5) gm/dL Hct 36.9 L (39.0-53.0) % Lymphocytes # 0.6 L (1.0-4.8) k/uL BUN 31 H (9-20) mg/dL Creatinine 1.73 H (0.66-1.25) mg/dL Glucose 218 H (74-99) mg/dL Calcium 8.3 L (8.4-10.2) mg/dL Total Bilirubin 1.4 H (0.2-1.3) mg/dL Total Protein 6.0 L (6.3-8.2) g/dL Albumin 2.8 L (3.5-5.0) g/dL Assessment and Plan Assessment: Patient presented to the hospital with swelling redness and discoloration of his right1-big toe in this patient who did have underlying diabetes mellitus and now with evidence of wet gangrene will need to cover for both resistant gram- positive as well as gram-negative pathogen responsible for this infection. 2-patient with borderline kidney function and high risk of nephrotoxicity that will need to be monitored closely (1) Wet gangrene Current Visit: Yes Status: Acute Code(s): I96 - GANGRENE, NOT ELSEWHERE CLASSIFIED SNOMED Code(s): 999991178 (2) Diabetic foot infection Current Visit: Yes Status: Acute Code(s): E11.628 - TYPE 2 DIABETES MELLITUS WITH OTHER SKIN COMPLICATIONS; L08.9 - LOCAL INFECTION OF THE SKIN AND SUBCUTANEOUS TISSUE, UNSP SNOMED Code(s): 473731788 (3) Cellulitis of right lower extremity Current Visit: Yes Status: Acute Code(s): L03.115 - CELLULITIS OF RIGHT LOWER LIMB SNOMED Code(s): 114177394 Plan: 1-We will obtain vascular surgery evaluation for surgical debridement of this right big toe and deep cultures, case was discussed with the surgeon on the phone who will be evaluating the patient soon 2-vancomycin pharmacy to dose her with a target trough of 15 while watching her kidney function and Vanco trough closely. 3-Unasyn 3 g every 8 hour We will follow on clinical condition and cultures to further adjust medication if needed Thank you for this consultation we will follow the patient along with you Time with Patient: Greater than 30
[2019-05-06] MEDS: SODIUM CHLORIDE 0.9% 1,000 ML IV SCH ×3 (00:05→20:48)
[2019-05-06] MEDS: AMPICILLIN-SULBACTAM 3 GM in SODIUM CHLORIDE 0.9% 100 ML IVPB SCH ×3 (00:10→17:24)
[2019-05-06 06:40] LABS: Albumin 2.3 g/dL (3.5-5.0); Calcium 7.8 mg/dL (8.4-10.2); Potassium 4.5 mmol/L (3.5-5.1); Total Bilirubin 0.4 mg/dL (0.2-1.3); Total Protein 5.1 g/dL (6.3-8.2)
[2019-05-06 06:44] LABS: Basophils % (A) 0 %; Eosinophils # (A) 0.2 k/uL (0-0.7); Eosinophils % (A) 3 %; HCT 32.6 % (39.0-53.0); HGB 10.2 gm/dL (13.0-17.5); Lymphocytes # (A) 0.8 k/uL (1.0-4.8); Lymphocytes % (A) 14 %; MCH 26.1 pg (25.0-35.0); MCHC 31.2 g/dL (31.0-37.0); MCV 83.6 fL (80.0-100.0); Mean Platelet Volume 8.1; Monocytes # (A) 0.6 k/uL (0-1.0); Monocytes % (A) 11 %; Neutrophils # (A) 3.8 k/uL (1.3-7.7); Neutrophils % (A) 68 %; Platelet Count 196 k/uL (150-450); RDW 13.3 % (11.5-15.5); WBC 5.6 k/uL (3.8-10.6)
[2019-05-06 06:56] LABS: Glucose,Whole Blood 129 mg/dL (75-99)
[2019-05-06] MEDS: INSULIN ASPART (NovoLOG) 100 UNIT/ML VIAL SQ SCH ×4 (08:41→20:49)
[2019-05-06] MEDS: glipiZIDE 5 MG TAB PO SCH ×3 (08:41→17:24)
[2019-05-06] MEDS ORDERED: SODIUM CHLORIDE 0.9% 1,000 ML IV ONE (09:48)
[2019-05-06] MEDS ORDERED: fentaNYL (PF) 50 MCG/ML 2 ML AMP ONE (09:48)
[2019-05-06] MEDS ORDERED: PROPOFOL 10 MG/ML 20 ML VIAL IV ONE (09:48)
[2019-05-06] MEDS ORDERED: LIDOCAINE 1% INJ 10MG/ML (20 ML MDV) SQ ONE (10:02)
[2019-05-06 11:06] LABS: Glucose,Whole Blood 132 mg/dL (75-99)
--- NOTE | 2019-05-06 11:19 | OP ---
OPERATIVE REPORT PREOPERATIVE DIAGNOSIS: Wet gangrene right foot. POSTOPERATIVE DIAGNOSIS: OPERATION: Amputation of right foot, big toe. DESCRIPTION OF PROCEDURE: This patient has history of diabetes. He had 3-day history of draining pus from the right foot big toe with marked redness and swelling and excoriation of the skin and gangrene changes. The patient was brought to the operating room under local IV sedation. Incision was made on the dorsal aspect of the foot, elliptical incision, which was deepened through skin, fat, and fascia. Then this incision was extended circumferentially around the plantar aspect of the foot. Deepened through skin, fat and fascia, tendons were divided. There was some small excoriation noted of the second toe. After that, we used periosteum elevator from the head of the metatarsal bone and using hand saw we divided the head of the metatarsal bone and specimen was removed. We took the deep culture and sent the big toe for culture and sensitivity of the deep tissue. Hemostasis was well controlled. Wound was copiously irrigated with hydrogen peroxide and saline. The subcutaneous tissue and fascia were approximated with 4-0 Vicryl with interrupted suture and skin was closed with 5-0 nylon interrupted suture. Dressing applied. Patient tolerated the procedure well. Blood loss was 10 mL. MMODL / IJN: [id number] /
[2019-05-06 11:42] LABS: Glucose,Whole Blood 136 mg/dL (75-99)
[2019-05-06] MEDS: FUROSEMIDE 20 MG TAB PO SCH (12:09)
[2019-05-06] MEDS: CHOLECALCIFEROL 1,000 UNIT TAB PO SCH (12:09)
[2019-05-06] MEDS: POTASSIUM CHLORIDE ER 10 MEQ TAB.ER.PRT PO SCH (12:10)
[2019-05-06] MEDS: FERROUS SULFATE 325 MG TAB PO SCH (12:10)
[2019-05-06] MEDS: TAMSULOSIN 0.4 MG CAP.ER.24H PO SCH ×2 (12:10→20:49)
[2019-05-06] MEDS: FAMOTIDINE 20 MG TAB PO SCH (12:10)
[2019-05-06] MEDS: HEPARIN SODIUM,PORCINE 5,000 UNIT/ML 1 ML VIAL SQ SCH ×2 (12:10→20:17)
[2019-05-06] MEDS: VANCOMYCIN 1,750 MG in SODIUM CHLORIDE 0.9% 500 ML 500 ML IVPB SCH (12:11)
[2019-05-06] MEDS: TIMOLOL 0.5% OPHTH DROPS 5 ML BTL BOTH EYES SCH ×2 (13:52→20:49)
--- NOTE | 2019-05-06 14:48 | P.PN ---
Subjective Progress Note Date: 05/06/19 This is an 89-year-old male patient who presented to ER with complaints of nonhealing right foot ulcer. Patient has past medical history of diabetes with recurring right foot diabetic wounds. Patient reports that over the past few days he's had increased swelling to right foot with redness. Patient denies any pain. Patient did have elevated temperature arrival 100.7. Lactic acid 0.9. Foot x-ray completed showing radiographic sequela of osteomyelitis of the third distal metatarsal head, second proximal phalanx and distal tuft of the first distal phalanx with diffuse subcutaneous edema. patient does have a past medical history of previous gangrenous cellulitis of the third toe on the right foot requiring amputation in September 2018. Patient does follow in wound care clinic. Additional medical history includes chronic kidney disease with baseline creatinine around 1.51. Patient does have slightly increased creatinine 1.73. Diabetes mellitus type 2, anemia, essential hypertension, colon cancer in 2004 status post radiation chemo and surgery, coronary artery diseas and prostate cancer in 2011. Venous Doppler will be ordered to rule out DVT. Wound and blood cultures ordered. Infectious disease consulted. Patient given vancomycin and Zosyn per ER. Patient started on normal saline at 100 for acute kidney injury. At this time patient is resting comfortably in bed. Patient denies any significant pain. Patient denies chest pain or shortness of breath. Patient denies nausea vomiting or diarrhea. Patient denies any urinary burning or frequency. On 05/06/2019 patient was seen and examined on the medical floor he is alert and oriented 3 in no apparent distress there is no fever or chills no headache or dizziness no chest pain no shortness of breath no cough no nausea or vomiting no abdominal pain no diarrhea no burning with urination no frequency or urgency no hematuria, wound culture is positive for presumptive MRSA blood culture was positive for Staphylococcus aureus currently patient is maintained on IV vancomycin Objective - Vital Signs Vital signs: Vital Signs Temp 98.6 F 05/06/19 11:40 Pulse 53 L 05/06/19 14:21 Resp 18 05/06/19 11:40 BP 127/71 05/06/19 14:21 Pulse Ox 99 05/06/19 14:21 Intake & Output 05/05/19 05/06/19 05/06/19 18:59 06:59 18:59 Intake Total 850 300 425 Output Total 1020 1225 10 Balance -170 -925 415 Weight 108.862 kg 108.862 kg Intake: IV 425 Intake, IV Titration 500 300 Amount Sodium Chloride 0.9% 1, 300 000 ml @ 100 mls/hr IV . Q10H CLAUDIA Rx#:[id number] Vancomycin 1,750 mg In 500 Sodium Chloride 0.9% 500 ml 500 ml @ 167 mls/hr IVPB DAILY CLAUDIA Rx#: [id number] Oral 350 Output: Urine 1020 1225 Estimated Blood Loss 10 Other: Voiding Method Urinal Urinal Urinal # Voids 1 1 - Exam Head normocephalic Neck supple Lungs clear to auscultation bilaterally no wheezing or crackles Heart regular rate and rhythm S1-S2, no rub or gallop Abdomen is soft nontender nondistended positive bowel sounds no hepatosplenomegaly Extremities right lower extremity +3 edema erythema noted. right greater toe ulcer. Left lower extremity +1 edema Neuro alert and orientated to 3 - Labs CBC & Chem 7: 05/06/19 05:42 05/06/19 05:42 Labs: Abnormal Lab Results - Last 24 Hours (Table) 05/05/19 05/05/19 05/05/19 Range/Units 11:25 17:06 20:30 RBC (4.30-5.90) m/uL Hgb (13.0-17.5) gm/dL Hct (39.0-53.0) % Lymphocytes # (1.0-4.8) k/uL Chloride (98-107) mmol/L BUN (9-20) mg/dL Creatinine (0.66-1.25) mg/dL Glucose (74-99) mg/dL POC Glucose (mg/dL) 218 H 187 H (75-99) mg/dL Hemoglobin A1c 6.8 H (4.0-6.0) % Calcium (8.4-10.2) mg/dL Total Protein (6.3-8.2) g/dL Albumin (3.5-5.0) g/dL Urine Protein (Negative) Urine Glucose (UA) (Negative) Urine Blood (Negative) Urine RBC (0-5) /hpf Urine Bacteria (None) /hpf Urine Mucus (None) /hpf 05/05/19 05/06/19 05/06/19 Range/Units Unknown 05:42 05:42 RBC 3.90 L (4.30-5.90) m/uL Hgb 10.2 L (13.0-17.5) gm/dL Hct 32.6 L (39.0-53.0) % Lymphocytes # 0.8 L (1.0-4.8) k/uL Chloride 110 H (98-107) mmol/L BUN 26 H (9-20) mg/dL Creatinine 1.58 H (0.66-1.25) mg/dL Glucose 114 H (74-99) mg/dL POC Glucose (mg/dL) (75-99) mg/dL Hemoglobin A1c (4.0-6.0) % Calcium 7.8 L (8.4-10.2) mg/dL Total Protein 5.1 L (6.3-8.2) g/dL Albumin 2.3 L (3.5-5.0) g/dL Urine Protein Trace H (Negative) Urine Glucose (UA) 3+ H (Negative) Urine Blood Moderate H (Negative) Urine RBC 8 H (0-5) /hpf Urine Bacteria Rare H (None) /hpf Urine Mucus Rare H (None) /hpf 05/06/19 05/06/19 05/06/19 Range/Units 06:54 11:04 11:40 RBC (4.30-5.90) m/uL Hgb (13.0-17.5) gm/dL Hct (39.0-53.0) % Lymphocytes # (1.0-4.8) k/uL Chloride (98-107) mmol/L BUN (9-20) mg/dL Creatinine (0.66-1.25) mg/dL Glucose (74-99) mg/dL POC Glucose (mg/dL) 129 H 132 H 136 H (75-99) mg/dL Hemoglobin A1c (4.0-6.0) % Calcium (8.4-10.2) mg/dL Total Protein (6.3-8.2) g/dL Albumin (3.5-5.0) g/dL Urine Protein (Negative) Urine Glucose (UA) (Negative) Urine Blood (Negative) Urine RBC (0-5) /hpf Urine Bacteria (None) /hpf Urine Mucus (None) /hpf Microbiology - Last 24 Hours (Table) 05/05/19 11:25 Blood Culture Gram Stain - Preliminary Blood Blood Culture - Preliminary Staphylococcus aureus 05/05/19 11:25 Gram Stain - Preliminary Toe - Right First Wound Culture - Preliminary Presumptive MRSA Gram Neg Bacilli 05/05/19 11:25 Blood Culture - Final Blood Assessment and Plan Plan: 1. Osteomyelitis and cellulitis of right lower extremity. Right foot x-ray completed showing radiographic sequela of osteomyelitis of the third distal metatarsal head, second proximal phalanx, and distal tuft of the first distal phalanx with diffuse subcutaneous edema. Lactic acid 0.9. Patient did have elevated temperature 100.7. Infectious disease has been consulted. Patient has been given vancomycin and Zosyn . Blood and wound cultures were ordered. 2. Acute on chronic kidney disease stage III. Baseline creatinine around 1.51. Patient does have elevated creatinine 1.73 bun 31. Continue normal saline at 100. Patient's home medication of Vasotec currently on hold 3. History of gangrenous cellulitis of the third toe on the right foot in September 2018 requiring amputation. 4. Anemia deficiency chronic kidney disease 5. Diabetes mellitus type 2. Metastases to be resumed sliding scale coverage will be added. Hemoglobin A1c ordered 6. History of Essential hypertension 7. History of coronary artery disease 8. History of prostate cancer 2012 status post radiation DVT prophylaxis heparin. GI prophylaxis Pepcid Venous Doppler will be ordered to rule out DVT Infectious disease consulted Blood cultures ordered Continue IV antibiotics
--- NOTE | 2019-05-06 14:49 | PN ---
PROGRESS NOTE DATE OF SERVICE: 05/06/2019 REASON FOR FOLLOWUP: Right big toe wet gangrene. INTERVAL HISTORY: The patient is currently afebrile, has been breathing comfortably. The patient was taken to the OR this morning. This patient who is status post amputation right big toe because of the wet gangrene. The patient blood cultures remain positive with Staph aureus. Local wound culture showing positive Staph aureus and Gram-negative bacilli. The patient denies having any chest pain, shortness of breath or cough. No abdominal pain or diarrhea. PHYSICAL EXAMINATION: Blood pressure 135/63 with a pulse of 57, temperature 98.9. He is 94% on room air. General description is an elderly male in bed in no distress. RESPIRATORY SYSTEM: Unlabored breathing, clear to auscultation anteriorly. HEART: S1, S2. Regular rate and rhythm. ABDOMEN: Soft, no tenderness. Right foot is currently dressed up. No obvious drainage on the dressing. LABS: Hemoglobin is 10.2, white count 5.6, BUN of 26, creatinine 1.58. DIAGNOSTIC IMPRESSION AND PLAN: Patient with right big toe gangrene, diabetic foot infection. This patient did have evidence of Staphylococcus aureus bacteremia with culture presumptive methicillin- resistant Staphylococcus aureus in the local wound. The patient is covered with Unasyn and vancomycin to continue. Blood culture will be repeated to document clearance of bacteremia. Monitor clinical course closely. MMODL / IJN: [id number] /
[2019-05-06 16:54] LABS: Glucose,Whole Blood 169 mg/dL (75-99)
[2019-05-06 20:19] LABS: Glucose,Whole Blood 151 mg/dL (75-99)
[2019-05-07] MEDS: AMPICILLIN-SULBACTAM 3 GM in SODIUM CHLORIDE 0.9% 100 ML IVPB SCH ×3 (00:11→17:32)
[2019-05-07] MEDS: SODIUM CHLORIDE 0.9% 1,000 ML IV SCH ×2 (05:55→17:28)
[2019-05-07 06:13] LABS: Basophils % (A) 0 %; Eosinophils # (A) 0.2 k/uL (0-0.7); Eosinophils % (A) 4 %; HCT 32.2 % (39.0-53.0); HGB 10.3 gm/dL (13.0-17.5); Hypochromasia Slight; Lymphocytes # (A) 0.9 k/uL (1.0-4.8); Lymphocytes % (A) 15 %; MCH 27.1 pg (25.0-35.0); MCV 84.6 fL (80.0-100.0); Mean Platelet Volume 7.4; Monocytes # (A) 0.6 k/uL (0-1.0); Monocytes % (A) 10 %; Neutrophils # (A) 3.8 k/uL (1.3-7.7); Neutrophils % (A) 67 %; Platelet Count 249 k/uL (150-450); RBC 3.81 m/uL (4.30-5.90); WBC 5.8 k/uL (3.8-10.6)
[2019-05-07 06:28] LABS: Albumin 2.2 g/dL (3.5-5.0); Calcium 7.8 mg/dL (8.4-10.2); Potassium 4.3 mmol/L (3.5-5.1); Total Bilirubin 0.4 mg/dL (0.2-1.3); Total Protein 5.1 g/dL (6.3-8.2)
[2019-05-07 07:05] LABS: Glucose,Whole Blood 110 mg/dL (75-99)
[2019-05-07] MEDS: TAMSULOSIN 0.4 MG CAP.ER.24H PO SCH ×2 (07:54→20:50)
[2019-05-07] MEDS: FERROUS SULFATE 325 MG TAB PO SCH (07:54)
[2019-05-07] MEDS: CHOLECALCIFEROL 1,000 UNIT TAB PO SCH (07:54)
[2019-05-07] MEDS: glipiZIDE 5 MG TAB PO SCH ×2 (07:54→17:32)
[2019-05-07] MEDS: POTASSIUM CHLORIDE ER 10 MEQ TAB.ER.PRT PO SCH (07:54)
[2019-05-07] MEDS: FUROSEMIDE 20 MG TAB PO SCH (07:54)
[2019-05-07] MEDS: FAMOTIDINE 20 MG TAB PO SCH (07:54)
[2019-05-07] MEDS: INSULIN ASPART (NovoLOG) 100 UNIT/ML VIAL SQ SCH ×4 (07:55→20:50)
[2019-05-07] MEDS: HEPARIN SODIUM,PORCINE 5,000 UNIT/ML 1 ML VIAL SQ SCH ×2 (07:55→20:49)
[2019-05-07] MEDS: VANCOMYCIN 1,750 MG in SODIUM CHLORIDE 0.9% 500 ML 500 ML IVPB SCH (07:55)
[2019-05-07] MEDS: TIMOLOL 0.5% OPHTH DROPS 5 ML BTL BOTH EYES SCH ×2 (08:16→20:50)
[2019-05-07 11:46] LABS: Glucose,Whole Blood 150 mg/dL (75-99)
--- NOTE | 2019-05-07 15:33 | P.PN ---
Subjective Progress Note Date: 05/07/19 This is an 89-year-old male patient who presented to ER with complaints of nonhealing right foot ulcer. Patient has past medical history of diabetes with recurring right foot diabetic wounds. Patient reports that over the past few days he's had increased swelling to right foot with redness. Patient denies any pain. Patient did have elevated temperature arrival 100.7. Lactic acid 0.9. Foot x-ray completed showing radiographic sequela of osteomyelitis of the third distal metatarsal head, second proximal phalanx and distal tuft of the first distal phalanx with diffuse subcutaneous edema. patient does have a past medical history of previous gangrenous cellulitis of the third toe on the right foot requiring amputation in September 2018. Patient does follow in wound care clinic. Additional medical history includes chronic kidney disease with baseline creatinine around 1.51. Patient does have slightly increased creatinine 1.73. Diabetes mellitus type 2, anemia, essential hypertension, colon cancer in 2004 status post radiation chemo and surgery, coronary artery diseas and prostate cancer in 2011. Venous Doppler will be ordered to rule out DVT. Wound and blood cultures ordered. Infectious disease consulted. Patient given vancomycin and Zosyn per ER. Patient started on normal saline at 100 for acute kidney injury. At this time patient is resting comfortably in bed. Patient denies any significant pain. Patient denies chest pain or shortness of breath. Patient denies nausea vomiting or diarrhea. Patient denies any urinary burning or frequency. On 05/06/2019 patient was seen and examined on the medical floor he is alert and oriented 3 in no apparent distress there is no fever or chills no headache or dizziness no chest pain no shortness of breath no cough no nausea or vomiting no abdominal pain no diarrhea no burning with urination no frequency or urgency no hematuria, wound culture is positive for presumptive MRSA blood culture was positive for Staphylococcus aureus currently patient is maintained on IV vancomycin On 05/07/2019 patient was seen and examined on the medical floor he is doing well he denies any pain in his lower extremity there is no fever or chills no headache or dizziness no chest pain no shortness of breath no cough no nausea or vomiting no abdominal pain no diarrhea and no urinary symptoms Objective - Vital Signs Vital signs: Vital Signs Temp 98.5 F 05/07/19 07:00 Pulse 57 L 05/07/19 08:00 Resp 16 05/07/19 07:00 BP 146/70 05/07/19 07:00 Pulse Ox 97 05/07/19 07:00 Intake & Output 05/06/19 05/07/19 05/07/19 18:59 06:59 18:59 Intake Total 425 Output Total 10 500 500 Balance 415 -500 -500 Weight 108.862 kg Intake: IV 425 Output: Urine 500 500 Estimated Blood Loss 10 Other: Voiding Method Urinal Urinal Urinal # Voids 1 400 # Bowel Movements 1 - Exam Head normocephalic and atraumatic Neck supple no JVD no goiter Lungs clear to auscultation bilaterally no wheezing or crackles Heart regular rate and rhythm S1-S2, no rub or gallop Abdomen is soft nontender nondistended positive bowel sounds no hepatosplenomegaly Extremities right lower extremity +3 edema erythema noted. right greater toe ulcer. Left lower extremity +1 edema Neuro alert and orientated to 3 no gross focal neurological deficits - Labs CBC & Chem 7: 05/07/19 05:46 05/07/19 05:46 Labs: Abnormal Lab Results - Last 24 Hours (Table) 05/06/19 05/06/19 05/07/19 Range/Units 16:52 20:18 05:46 RBC 3.81 L (4.30-5.90) m/uL Hgb 10.3 L (13.0-17.5) gm/dL Hct 32.2 L (39.0-53.0) % Lymphocytes # 0.9 L (1.0-4.8) k/uL Chloride (98-107) mmol/L Carbon Dioxide (22-30) mmol/L BUN (9-20) mg/dL Creatinine (0.66-1.25) mg/dL POC Glucose (mg/dL) 169 H 151 H (75-99) mg/dL Calcium (8.4-10.2) mg/dL Total Protein (6.3-8.2) g/dL Albumin (3.5-5.0) g/dL 05/07/19 05/07/19 05/07/19 Range/Units 05:46 07:04 11:45 RBC (4.30-5.90) m/uL Hgb (13.0-17.5) gm/dL Hct (39.0-53.0) % Lymphocytes # (1.0-4.8) k/uL Chloride 113 H (98-107) mmol/L Carbon Dioxide 21 L (22-30) mmol/L BUN 25 H (9-20) mg/dL Creatinine 1.59 H (0.66-1.25) mg/dL POC Glucose (mg/dL) 110 H 150 H (75-99) mg/dL Calcium 7.8 L (8.4-10.2) mg/dL Total Protein 5.1 L (6.3-8.2) g/dL Albumin 2.2 L (3.5-5.0) g/dL Microbiology - Last 24 Hours (Table) 05/06/19 10:08 Gram Stain - Preliminary Toe - Right First Wound Culture - Preliminary Presumptive Staph aureus Gram Neg Bacilli Group D Enterococcus 05/06/19 10:08 Gram Stain - Final Toe - Right First Tissue Culture - Final 05/05/19 11:25 Blood Culture Gram Stain - Preliminary Blood Blood Culture - Preliminary Presumptive MRSA 05/06/19 10:08 Anaerobic Culture - Preliminary Toe - Right First 05/06/19 10:08 Anaerobic Culture - Preliminary Toe - Right First 05/05/19 11:25 Gram Stain - Preliminary Toe - Right First Wound Culture - Preliminary Presumptive MRSA Gram Neg Bacilli Assessment and Plan Plan: 1. Osteomyelitis and cellulitis of right lower extremity. Right foot x-ray completed showing radiographic sequela of osteomyelitis of the third distal metatarsal head, second proximal phalanx, and distal tuft of the first distal phalanx with diffuse subcutaneous edema. Lactic acid 0.9. Patient did have elevated temperature 100.7. Infectious disease has been consulted. Patient has been given vancomycin and Zosyn . Blood and wound cultures were ordered. 2. Acute on chronic kidney disease stage III. Baseline creatinine around 1.51. Patient does have elevated creatinine 1.73 bun 31. Continue normal saline at 100. Patient's home medication of Vasotec currently on hold 3. History of gangrenous cellulitis of the third toe on the right foot in September 2018 requiring amputation. 4. Anemia deficiency chronic kidney disease 5. Diabetes mellitus type 2. Metastases to be resumed sliding scale coverage will be added. Hemoglobin A1c ordered 6. History of Essential hypertension 7. History of coronary artery disease 8. History of prostate cancer 2012 status post radiation DVT prophylaxis heparin. GI prophylaxis Pepcid Venous Doppler will be ordered to rule out DVT Infectious disease consulted Blood cultures ordered Continue IV antibiotics
[2019-05-07 16:53] LABS: Glucose,Whole Blood 152 mg/dL (75-99)
--- NOTE | 2019-05-07 18:19 | PN ---
PROGRESS NOTE DATE OF SERVICE: 05/07/2019. REASON FOR FOLLOWUP: Right big toe wet gangrene. INTERVAL HISTORY: The patient is currently afebrile, has been breathing comfortably. Patient denies any chest pain or cough. No nausea. No vomiting. No abdominal pain. No worsening pain in the right big toe. PHYSICAL EXAMINATION: Blood pressure 146/70 with a pulse of 54, temperature 98.5. He is 97% on room air. General description is an elderly male up in the chair in no distress. Respiratory system: Unlabored breathing. Clear to auscultation anteriorly. Heart is S1, S2. Regular rate and rhythm. ABDOMEN: Soft. No tenderness. Right foot is currently dressed up. No obvious drainage on the dressing. LABS: Wound cultures showing Klebsiella MRSA group D Enterococcus. DIAGNOSTIC IMPRESSION AND PLAN: Patient with right big toe gangrene with secondary cellulitis in this patient who did have evidence of MRSA bacteremia. Wound cultures have been multiple pathogen. The patient is covered with vancomycin and Unasyn. Blood cultures repeat to document clearance of bacteremia. He will likely need IV antibiotic on discharge. Continue supportive care. MMODL / IJN: [id number] /
[2019-05-07 20:14] LABS: Glucose,Whole Blood 196 mg/dL (75-99)
[2019-05-08] MEDS: AMPICILLIN-SULBACTAM 3 GM in SODIUM CHLORIDE 0.9% 100 ML IVPB SCH ×4 (00:13→23:32)
[2019-05-08 07:12] LABS: Glucose,Whole Blood 123 mg/dL (75-99)
[2019-05-08 07:28] LABS: Albumin 2.2 g/dL (3.5-5.0); Calcium 7.8 mg/dL (8.4-10.2); Potassium 4.3 mmol/L (3.5-5.1); Total Bilirubin 0.4 mg/dL (0.2-1.3); Total Protein 5.1 g/dL (6.3-8.2)
[2019-05-08] MEDS: INSULIN ASPART (NovoLOG) 100 UNIT/ML VIAL SQ SCH ×4 (07:43→21:16)
[2019-05-08 07:50] LABS: Basophils % (A) 1 %; Eosinophils # (A) 0.3 k/uL (0-0.7); Eosinophils % (A) 6 %; Lymphocytes # (A) 0.7 k/uL (1.0-4.8); Lymphocytes % (A) 18 %; MCH 26.1 pg (25.0-35.0); MCHC 31.1 g/dL (31.0-37.0); MCV 83.7 fL (80.0-100.0); Mean Platelet Volume 7.8; Monocytes # (A) 0.3 k/uL (0-1.0); Monocytes % (A) 7 %; Neutrophils # (A) 2.6 k/uL (1.3-7.7); Neutrophils % (A) 64 %; Platelet Count 243 k/uL (150-450); RBC 3.82 m/uL (4.30-5.90); WBC 4.1 k/uL (3.8-10.6)
--- NOTE | 2019-05-08 09:30 | CDI ---
Documentation Clarification Form Date: 05/08/2019 08:43:19 AM From: Nya Neal RN CCDS Admit Date: 05/05/2019 12:34:00 PM Patient Name: Dylan Mcrae Visit Number: [id number] Discharge Date: ATTENTION: The Clinical Documentation Specialists (CDI) and [facility] Coding Staff appreciate your assistance in clarifying documentation. Please respond to the clarification below the line at the bottom and electronically sign. The CDI & [facility] Coding staff will review the response and follow-up if needed. Please note: Queries are made part of the Legal Health Record. If you have any questions, please contact the author of this message via ITS. Dr. Edmond Crespo Osteomyelitis and cellulitis of right lower extremity H & P History/Risk Factors: 89-year-old male presents to the ED with a right great toe ulcer. The patients right leg is swollen, red and warm to touch. Medical History Type 2 DM, CKD 3, Clinical Indicators: VSS 05/05 157/64 61 100.7 20 99% ra Labs 05/05 Wbc 6.5; Hgb 11.7, Lymphocytes 0.6; Cr 1.73, Bun 31, Albumin 2.8, Total protein 6.0 Per the H & P 05/05 Extremities right lower extremity +3 edema erythema noted. Right greater toe ulcer. Treatment: 05/05 Vancomycin Ivpb x1; Zoysn Ivpb x1; 0.9n2 1.5L Bolus followed by 100cc/Hr Ampicillin Ivpb Q 8Hrs; Vancomycin Ivpb Daily Please document any body system complications or specific manifestations related to the diabetes: Right Lower extremity Cellulitis * Associated with Diabetes * No association with Diabetes * Other condition * Unable to Determine (Last Revision: December 2016) right lower extremity cellulitis associated with diabetes MTDD
[2019-05-08] MEDS: HEPARIN SODIUM,PORCINE 5,000 UNIT/ML 1 ML VIAL SQ SCH ×2 (09:53→21:15)
[2019-05-08] MEDS: FAMOTIDINE 20 MG TAB PO SCH (09:53)
[2019-05-08] MEDS: glipiZIDE 5 MG TAB PO SCH ×2 (09:53→17:07)
[2019-05-08] MEDS: FERROUS SULFATE 325 MG TAB PO SCH (09:53)
[2019-05-08] MEDS: TAMSULOSIN 0.4 MG CAP.ER.24H PO SCH ×2 (09:53→21:16)
[2019-05-08] MEDS: CHOLECALCIFEROL 1,000 UNIT TAB PO SCH (09:54)
[2019-05-08] MEDS: TIMOLOL 0.5% OPHTH DROPS 5 ML BTL BOTH EYES SCH ×2 (10:37→21:15)
[2019-05-08] MEDS: VANCOMYCIN 1,750 MG in SODIUM CHLORIDE 0.9% 500 ML 500 ML IVPB SCH (10:39)
[2019-05-08] MEDS: SODIUM CHLORIDE 0.9% 1,000 ML IV SCH ×2 (10:43→19:14)
--- NOTE | 2019-05-08 11:15 | P.PN ---
Subjective Progress Note Date: 05/08/19 This is an 89-year-old male patient who presented to ER with complaints of nonhealing right foot ulcer. Patient has past medical history of diabetes with recurring right foot diabetic wounds. Patient reports that over the past few days he's had increased swelling to right foot with redness. Patient denies any pain. Patient did have elevated temperature arrival 100.7. Lactic acid 0.9. Foot x-ray completed showing radiographic sequela of osteomyelitis of the third distal metatarsal head, second proximal phalanx and distal tuft of the first distal phalanx with diffuse subcutaneous edema. patient does have a past medical history of previous gangrenous cellulitis of the third toe on the right foot requiring amputation in September 2018. Patient does follow in wound care clinic. Additional medical history includes chronic kidney disease with baseline creatinine around 1.51. Patient does have slightly increased creatinine 1.73. Diabetes mellitus type 2, anemia, essential hypertension, colon cancer in 2004 status post radiation chemo and surgery, coronary artery diseas and prostate cancer in 2011. Venous Doppler will be ordered to rule out DVT. Wound and blood cultures ordered. Infectious disease consulted. Patient given vancomycin and Zosyn per ER. Patient started on normal saline at 100 for acute kidney injury. At this time patient is resting comfortably in bed. Patient denies any significant pain. Patient denies chest pain or shortness of breath. Patient denies nausea vomiting or diarrhea. Patient denies any urinary burning or frequency. On 05/06/2019 patient was seen and examined on the medical floor he is alert and oriented 3 in no apparent distress there is no fever or chills no headache or dizziness no chest pain no shortness of breath no cough no nausea or vomiting no abdominal pain no diarrhea no burning with urination no frequency or urgency no hematuria, wound culture is positive for presumptive MRSA blood culture was positive for Staphylococcus aureus currently patient is maintained on IV vancomycin On 05/07/2019 patient was seen and examined on the medical floor he is doing well he denies any pain in his lower extremity there is no fever or chills no headache or dizziness no chest pain no shortness of breath no cough no nausea or vomiting no abdominal pain no diarrhea and no urinary symptoms On 05/08/2019 patient is alert and oriented 3. Patient is status post right greater toe amputation. Culture positive for MRSA. Patient will likely need IV antibiotics pending discharge. tiller worker consulted for possible rehab placement. Patient denies any pain to surgical site. Patient denies chest pain or shortness of breath. Patient denies nausea vomiting or diarrhea. Patient denies any urinary burning or frequency Objective - Vital Signs Vital signs: Vital Signs Temp 99.2 F 05/08/19 09:45 Pulse 48 L 05/08/19 09:45 Resp 18 05/08/19 07:42 BP 144/66 05/08/19 07:42 Pulse Ox 98 05/08/19 09:45 Intake & Output 05/07/19 05/08/19 05/08/19 18:59 06:59 18:59 Intake Total 1600 Output Total 1750 401 140 Balance -1750 1199 -140 Intake: Intake, IV Titration 1600 Amount Sodium Chloride 0.9% 1, 1600 000 ml @ 100 mls/hr IV . Q10H CLAUDIA Rx#:[id number] Output: Urine 1750 401 140 Other: Voiding Method Urinal Urinal Urinal # Voids 1 2 # Bowel Movements 1 - Exam Head normocephalic and atraumatic Neck supple no JVD no goiter Lungs clear to auscultation bilaterally no wheezing or crackles Heart regular rate and rhythm S1-S2, no rub or gallop Abdomen is soft nontender nondistended positive bowel sounds no hepatosplenomegaly Extremities right lower extremity dressing clean dry and intact Neuro alert and orientated to 3 no gross focal neurological deficits - Labs CBC & Chem 7: 05/08/19 06:44 05/08/19 06:44 Labs: Abnormal Lab Results - Last 24 Hours (Table) 05/07/19 05/07/19 05/07/19 Range/Units 11:45 16:52 20:13 RBC (4.30-5.90) m/uL Hgb (13.0-17.5) gm/dL Hct (39.0-53.0) % Lymphocytes # (1.0-4.8) k/uL Chloride (98-107) mmol/L BUN (9-20) mg/dL Creatinine (0.66-1.25) mg/dL Glucose (74-99) mg/dL POC Glucose (mg/dL) 150 H 152 H 196 H (75-99) mg/dL Calcium (8.4-10.2) mg/dL Total Protein (6.3-8.2) g/dL Albumin (3.5-5.0) g/dL 05/08/19 05/08/19 05/08/19 Range/Units 06:44 06:44 07:10 RBC 3.82 L (4.30-5.90) m/uL Hgb 10.0 L (13.0-17.5) gm/dL Hct 32.0 L (39.0-53.0) % Lymphocytes # 0.7 L (1.0-4.8) k/uL Chloride 112 H (98-107) mmol/L BUN 22 H (9-20) mg/dL Creatinine 1.65 H (0.66-1.25) mg/dL Glucose 120 H (74-99) mg/dL POC Glucose (mg/dL) 123 H (75-99) mg/dL Calcium 7.8 L (8.4-10.2) mg/dL Total Protein 5.1 L (6.3-8.2) g/dL Albumin 2.2 L (3.5-5.0) g/dL Microbiology - Last 24 Hours (Table) 05/05/19 11:25 Blood Culture Gram Stain - Final Blood Blood Culture - Final Methicillin resist S. aureus 05/05/19 11:25 Gram Stain - Final Toe - Right First Wound Culture - Preliminary Methicillin resist S. aureus Klebsiella pneumoniae 05/06/19 10:08 Gram Stain - Preliminary Toe - Right First Wound Culture - Preliminary Presumptive Staph aureus Gram Neg Bacilli Group D Enterococcus 05/06/19 10:08 Gram Stain - Final Toe - Right First Tissue Culture - Final Assessment and Plan Assessment: 1. Osteomyelitis and cellulitis of right lower extremity. Right foot x-ray completed showing radiographic sequela of osteomyelitis of the third distal metatarsal head, second proximal phalanx, and distal tuft of the first distal phalanx with diffuse subcutaneous edema. Lactic acid 0.9. Patient did have elevated temperature 100.7. Venous Doppler negative for DVT. Status post right greater toe amputation per vascular surgery. Wound culture positive for MRSA. Patient will likely need IV antibiotics at discharge. Patient currently on vancomycin and Unasyn 2. Acute on chronic kidney disease stage III. Baseline creatinine around 1.51. Patient does have elevated creatinine 1.73 bun 31. Continue normal saline at 100. Patient's home medication of Vasotec currently on hold 3. History of gangrenous cellulitis of the third toe on the right foot in September 2018 requiring amputation. 4. Anemia deficiency chronic kidney disease 5. Diabetes mellitus type 2. Glipizide to be resumed sliding scale coverage will be added. Hemoglobin A1c 6.8 6. History of Essential hypertension 7. History of coronary artery disease 8. History of prostate cancer 2012 status post radiation DVT prophylaxis heparin. GI prophylaxis Pepcid Social consulted for possible ECF placement I performed an examination of the patient and discussed their management with the Nurse Practitioner. I have reviewed the Nurse Practitioner's notes and agree with the documented findings and plan of care
[2019-05-08] MEDS: POTASSIUM CHLORIDE ER 10 MEQ TAB.ER.PRT PO SCH (11:21)
[2019-05-08 11:35] LABS: Glucose,Whole Blood 194 mg/dL (75-99)
[2019-05-08] MEDS: FUROSEMIDE 20 MG TAB PO SCH (12:02)
[2019-05-08 16:38] LABS: Glucose,Whole Blood 184 mg/dL (75-99)
--- NOTE | 2019-05-08 19:43 | PN ---
PROGRESS NOTE This is an 89-year-old gentleman who came in with right foot big toe wet gangrene. Patient went for amputation. We did the primary closure and the patient is on IV antibiotic under care of Infectious Disease. Today we have changed the dressing. The rest of the incision looks good. In the middle incision there is some dehiscence. No discharge noted. Base of the wound was granulating. PLAN: We will use Aquacel Silver, change the dressing every other day. [id number]. Continue with IV antibiotic. If the patient goes home, then I will follow him in the wound clinic at [facility]. MMODL / IJN: [id number] /
[2019-05-08 20:35] LABS: Glucose,Whole Blood 204 mg/dL (75-99)
--- NOTE | 2019-05-08 23:24 | PN ---
PROGRESS NOTE DATE OF SERVICE: 05/08/2019. REASON FOR FOLLOWUP: Right big toe wet gangrene with MRSA bacteremia. INTERVAL HISTORY: The patient is currently afebrile, has been breathing comfortably. Denies having any chest pain, shortness of breath or cough. No abdominal pain. No diarrhea. PHYSICAL EXAMINATION: Blood pressure 154/66, pulse of 52, temperature 98.8. He is 98% on room air. General description is an elderly male lying in bed in no distress. Respiratory system: Unlabored breathing. Clear to auscultation anteriorly. Heart S1, S2. Regular rate and rhythm. Abdomen soft, no tenderness. Right foot is currently dressed up. No obvious drainage on the dressing. LABS: Followup blood culture has been negative. White count 4.1, creatinine 1.65. DIAGNOSTIC IMPRESSION AND PLAN: Patient with right big toe wet gangrene status post a right big toe amputation in this patient who also did have MRSA bacteremia. Patient is covered with vancomycin and Unasyn in view of the resistant Morganella, Unasyn will be switched to Zosyn. He will need a PICC line for continuation of IV antibiotic because of his bacteremia and monitor his clinical course closely. MMODL / IJN: [id number] /
[2019-05-09] MEDS: PIPERACILLIN-TAZOBACTAM 3.375 GM in SODIUM CHLORIDE 0.9% 100 ML IVPB SCH ×2 (01:42→07:50)
[2019-05-09 06:58] LABS: Glucose,Whole Blood 139 mg/dL (75-99)
[2019-05-09] MEDS: INSULIN ASPART (NovoLOG) 100 UNIT/ML VIAL SQ SCH ×2 (07:12→12:05)
[2019-05-09] MEDS: glipiZIDE 5 MG TAB PO SCH (07:50)
[2019-05-09] MEDS: SODIUM CHLORIDE 0.9% 1,000 ML IV SCH ×2 (07:51→07:54)
[2019-05-09 07:55] VITALS: TEMP 98.9
[2019-05-09] MEDS ORDERED: VANCOMYCIN TROUGH DUE 1 EACH MISC MISCELLANE ONE (08:00)
[2019-05-09 08:09] LABS: Basophils % (A) 1 %; Eosinophils # (A) 0.3 k/uL (0-0.7); Eosinophils % (A) 6 %; HCT 33.6 % (39.0-53.0); HGB 10.5 gm/dL (13.0-17.5); Hypochromasia Slight; Lymphocytes # (A) 0.9 k/uL (1.0-4.8); Lymphocytes % (A) 19 %; MCH 26.5 pg (25.0-35.0); MCHC 31.1 g/dL (31.0-37.0); MCV 85.3 fL (80.0-100.0); Mean Platelet Volume 7.6; Monocytes # (A) 0.3 k/uL (0-1.0); Monocytes % (A) 7 %; Neutrophils % (A) 65 %; Platelet Count 289 k/uL (150-450); RBC 3.94 m/uL (4.30-5.90); RDW 12.8 % (11.5-15.5); WBC 4.7 k/uL (3.8-10.6)
[2019-05-09 08:25] LABS: Albumin 2.5 g/dL (3.5-5.0); Calcium 8.1 mg/dL (8.4-10.2); Potassium 4.7 mmol/L (3.5-5.1); Total Bilirubin 0.4 mg/dL (0.2-1.3); Total Protein 5.6 g/dL (6.3-8.2)
[2019-05-09] MEDS: CHOLECALCIFEROL 1,000 UNIT TAB PO SCH (08:46)
[2019-05-09] MEDS: HEPARIN SODIUM,PORCINE 5,000 UNIT/ML 1 ML VIAL SQ SCH (08:46)
[2019-05-09] MEDS: FUROSEMIDE 20 MG TAB PO SCH (08:46)
[2019-05-09] MEDS: FAMOTIDINE 20 MG TAB PO SCH (08:46)
[2019-05-09] MEDS: FERROUS SULFATE 325 MG TAB PO SCH (08:46)
[2019-05-09] MEDS: TIMOLOL 0.5% OPHTH DROPS 5 ML BTL BOTH EYES SCH (08:47)
[2019-05-09] MEDS: TAMSULOSIN 0.4 MG CAP.ER.24H PO SCH (08:47)
[2019-05-09] MEDS: POTASSIUM CHLORIDE ER 10 MEQ TAB.ER.PRT PO SCH (08:47)
[2019-05-09 12:02] LABS: Glucose,Whole Blood 158 mg/dL (75-99)
[2019-05-09] MEDS: VANCOMYCIN 1,750 MG in SODIUM CHLORIDE 0.9% 500 ML 500 ML IVPB SCH (12:05)
--- NOTE | 2019-05-09 13:42 | PN ---
PROGRESS NOTE DATE OF SERVICE: 05/09/2019 REASON FOR FOLLOWUP: Right big toe wet gangrene. INTERVAL HISTORY: The patient is currently afebrile. Patient has been breathing comfortably. The patient denies having any chest pain, shortness of breath or cough. No abdominal pain or any diarrhea. PHYSICAL EXAMINATION: Blood pressure 166/72 with a pulse of 47, temperature 98.9. He is 97% on room air. General description is an elderly male lying in bed in no distress. RESPIRATORY SYSTEM: Unlabored breathing, clear to auscultation anteriorly. HEART: S1, S2. Regular rate and rhythm. ABDOMEN: Soft, no tenderness. Right big toe amputation site looks clean. Noted right Bactrim 2 site looks clean. No significant swelling, redness or any drainage. LABS: BUN of 21, creatinine is 1.64. White count is normal. Vancomycin trough is 14.9 therapeutic. DIAGNOSTIC IMPRESSION AND PLAN: Patient with right big toe wet gangrene, status post amputation of the right big toe. Culture has been positive for Klebsiella, methicillin-resistant Staphylococcus aureus in this patient who also has methicillin-resistant Staphylococcus aureus bacteremia. Follow up blood culture has been negative. We will continue with vancomycin pharmacy to dose, total of 2 weeks from is negative blood cultures and close outpatient followup. Continue supportive care. MMODL / IJN: [id number] /
[2019-05-09 14:14] VITALS: BP 154/74; PULSE 45; RESP 17
--- NOTE | 2019-05-09 14:46 | P.DS ---
Providers Date of admission: 05/05/19 12:34 Expected date of discharge: 05/09/19 Attending physician: Edmond Crespo Consults: 05/05/19 12:39 Consult Physician Routine Consulting Provider: Denise Mcguire Consult Reason/Comments: osteomyelitis right foot Do you want consulting provider notified?: Yes 05/05/19 16:10 Consult Physician Routine Consulting Provider: Silvestre Borden Consult Reason/Comments: right big toe osteomyelitis for debridment and deep cultures Do you want consulting provider notified?: Yes Primary care physician: Edmond Crespo Hospital Course: Discharge diagnosis 1. Osteomyelitis and cellulitis of right lower extremity positive for MRSA. Right foot x-ray completed showing radiographic sequela of osteomyelitis of the third distal metatarsal head, second proximal phalanx, and distal tuft of the first distal phalanx with diffuse subcutaneous edema. Lactic acid 0.9. Patient did have elevated temperature 100.7. Venous Doppler negative for DVT. Status post right greater toe amputation per vascular surgery. Wound culture positive for MRSA. Patient will likely need IV antibiotics at discharge. Patient currently on vancomycin and Unasyn. Patient will be DC'd on IV vancomycin for 2 weeks per infectious disease antibiotics have been arranged per Dr. Camp. Patient woke go to office daily to receive IV antibiotics. Patient does have midline in place 2. Acute on chronic kidney disease stage III. Baseline creatinine around 1.51. Patient does have elevated creatinine 1.73 bun 31. Continue normal saline at 100. Creatinine improving to 1.64 and bun 21. Vasotec to be resumed 3. History of gangrenous cellulitis of the third toe on the right foot in September 2018 requiring amputation. 4. Anemia deficiency chronic kidney disease 5. Diabetes mellitus type 2. Glipizide to be resumed sliding scale coverage will be added. Hemoglobin A1c 6.8 6. History of Essential hypertension 7. History of coronary artery disease 8. History of prostate cancer 2012 status post radiation 9. Bradycardia. Patient's heart rate 40s to 50s. Mag potassium and TSH checked and within normal limits. Patient asymptomatic blood pressure 130s to 150s. Patient to follow-up with PCP for further management Hospital course This is an 89-year-old male patient who presented to ER with complaints of nonhealing right foot ulcer. Patient has past medical history of diabetes with recurring right foot diabetic wounds. Patient reports that over the past few days he's had increased swelling to right foot with redness. Patient denies any pain. Patient did have elevated temperature arrival 100.7. Lactic acid 0.9. Foot x-ray completed showing radiographic sequela of osteomyelitis of the third distal metatarsal head, second proximal phalanx and distal tuft of the first distal phalanx with diffuse subcutaneous edema. patient does have a past medical history of previous gangrenous cellulitis of the third toe on the right foot requiring amputation in September 2018. Patient does follow in wound care clinic. Additional medical history includes chronic kidney disease with baseline creatinine around 1.51. Patient does have slightly increased creatinine 1.73. Diabetes mellitus type 2, anemia, essential hypertension, colon cancer in 2004 status post radiation chemo and surgery, coronary artery diseas and prostate cancer in 2011. Venous Doppler will be ordered to rule out DVT. Wound and blood cultures ordered. Infectious disease consulted. Patient given vancomycin and Zosyn per ER. Patient started on normal saline at 100 for acute kidney injury. At this time patient is resting comfortably in bed. Patient denies any significant pain. Patient denies chest pain or shortness of breath. Patient denies nausea vomiting or diarrhea. Patient denies any urinary burning or frequency. On 05/06/2019 patient was seen and examined on the medical floor he is alert and oriented 3 in no apparent distress there is no fever or chills no headache or dizziness no chest pain no shortness of breath no cough no nausea or vomiting no abdominal pain no diarrhea no burning with urination no frequency or urgency no hematuria, wound culture is positive for presumptive MRSA blood culture was positive for Staphylococcus aureus currently patient is maintained on IV vancomycin On 05/07/2019 patient was seen and examined on the medical floor he is doing well he denies any pain in his lower extremity there is no fever or chills no headache or dizziness no chest pain no shortness of breath no cough no nausea or vomiting no abdominal pain no diarrhea and no urinary symptoms On 05/08/2019 patient is alert and oriented 3. Patient is status post right greater toe amputation. Culture positive for MRSA. Patient will likely need IV antibiotics pending discharge. [employer] worker consulted for possible rehab placement. Patient denies any pain to surgical site. Patient denies chest pain or shortness of breath. Patient denies nausea vomiting or diarrhea. Patient denies any urinary burning or frequency On 05/09/2019 patient is alert and oriented 3. Patient has been cleared for d ischarge from infectious disease. Patient will be DC'd on IV vancomycin in which he will receive through [facility] through infectious disease office. At this time patient denies chest pain or shortness of breath. Patient denies nausea vomiting or diarrhea. Patient denies any urinary burning or frequency. Antibiotics have been arranged per ID and case management. Midline in place. I performed an examination of the patient and discussed their management with the Nurse Practitioner. I have reviewed the Nurse Practitioner's notes and agree with the documented findings and plan of care Patient Condition at Discharge: Stable Plan - Discharge Summary Discharge Rx Participant: No New Discharge Prescriptions: Continue Furosemide [Lasix] 20 mg PO DAILY Ferrous Sulfate [Feosol] 325 mg PO DAILY Enalapril [Vasotec] 2.5 mg PO DAILY Potassium Chloride [Klor-Con 10] 10 meq PO DAILY glipiZIDE [Glucotrol] 5 mg PO AC-BID Timolol 0.5% Ophth Soln [Timoptic 0.5% Ophth Soln] 1 drop BOTH EYES BID Tamsulosin [Flomax] 0.4 mg PO BID Cholecalciferol (Vitamin D3) [Vitamin D3] 2,000 unit PO DAILY Discharge Medication List Enalapril [Vasotec] 2.5 mg PO DAILY 08/28/15 [History] Ferrous Sulfate [Feosol] 325 mg PO DAILY 08/28/15 [History] Furosemide [Lasix] 20 mg PO DAILY 08/28/15 [History] Potassium Chloride [Klor-Con 10] 10 meq PO DAILY 08/28/15 [History] Timolol 0.5% Ophth Soln [Timoptic 0.5% Ophth Soln] 1 drop BOTH EYES BID 12/13/17 [History] glipiZIDE [Glucotrol] 5 mg PO AC-BID 12/13/17 [History] Cholecalciferol (Vitamin D3) [Vitamin D3] 2,000 unit PO DAILY 09/16/18 [History] Tamsulosin [Flomax] 0.4 mg PO BID 09/16/18 [History] Follow up Appointment(s)/Referral(s): [facility],Infusion [NON-STAFF] - 05/10/19 9:15 am (Daily appointments until antibiotic is complete.) Edmond Crespo MD [Primary Care Provider] - 1-2 days Patient Instructions/Handouts: Osteomyelitis (DC), Toe Amputation (DC)
[2019-05-10] MEDS ORDERED: VANCOMYCIN 2,000 MG in SODIUM CHLORIDE 0.9% 500 ML 500 ML IVPB SCH (09:00)
--- NOTE | 2019-05-12 07:08 | CDI ---
Documentation Clarification Form Date: 05/12/19 From: Carisa Monique Phone: If you have a question about this query, please contact Mackenzie Carver, Arranging Funeral Director at [phone] between 8am and 5pm. Admit Date: 05/05/19 Discharge Date:05/09/19 Patient Name: Dylan Mcrae Visit Number: [id number] ATTENTION: The Clinical Documentation Specialists (CDI) and [facility] Coding Staff appreciate your assistance in clarifying documentation. Please respond to the clarification below the line at the bottom and electronically sign. The CDI & [facility] Coding staff will review the response and follow-up if needed. Please note: Queries are made part of the Legal Health Record. If you have any questions, please contact the author of this message via ITS. Dear Dr. Crespo MRSA bacteremia is documented in Dr. Mcguire's - 05/08 progress notes. Patient history/risk factors: diabetic right foot ulcer, right leg cellulitis, osteomyelitis of the right foot, gangrene Clinical Indicators: Positive blood culture WBC: 6.5 Left Shift: 78% Blood Culture: MRSA Consult: Dr. Mcguire documented that the patient has methicillin-resistant Staphylococcus aureus Treatment: Antibiotics: IV Vancomycin, IV Zosyn, IV Unasyn Bacteremia is considered a lab finding. Please clarify if that lab finding is clinical indicator of a more definitive medical diagnosis such as: Sepsis Infectious Process, please specify: Other, please specify Unable to determine Sepsis MTDD
== END 2019-05-09 15:53 | disposition home health service (06) | DRG 854 ==
LOC: EC 10:52 → 4SSUR 12:34
PROVIDERS: ADMIT Internal Medicine; ATTEND Internal Medicine
PROC: 0Y6M0Z9 Detachment at Right Foot, Partial 1st Ray, Open Approach (ICD-10-PCS; principal; 2019-05-06 09:00)
PROC: 05HD33Z Insertion of Infusion Device into Right Cephalic Vein, Percutaneous Approach (ICD-10-PCS; 2019-05-08 16:55)
DX: A41.02 Sepsis due to Methicillin resistant Staphylococcus aureus (principal); M86.9 Osteomyelitis, unspecified; E11.52 Type 2 diabetes mellitus with diabetic peripheral angiopathy with gangrene; L03.115 Cellulitis of right lower limb; R78.81 Bacteremia; N17.9 Acute kidney failure, unspecified; B95.62 Methicillin resistant Staphylococcus aureus infection as the cause of diseases classified elsewhere; B96.1 Klebsiella pneumoniae [K. pneumoniae] as the cause of diseases classified elsewhere; D63.1 Anemia in chronic kidney disease; L97.519 Non-pressure chronic ulcer of other part of right foot with unspecified severity; E11.69 Type 2 diabetes mellitus with other specified complication; E11.42 Type 2 diabetes mellitus with diabetic polyneuropathy; E11.621 Type 2 diabetes mellitus with foot ulcer; E11.628 Type 2 diabetes mellitus with other skin complications; N18.3 Chronic kidney disease, stage 3 (moderate); E11.22 Type 2 diabetes mellitus with diabetic chronic kidney disease; I12.9 Hypertensive chronic kidney disease with stage 1 through stage 4 chronic kidney disease, or unspecified chronic kidney disease; I25.10 Atherosclerotic heart disease of native coronary artery without angina pectoris; N40.0 Benign prostatic hyperplasia without lower urinary tract symptoms; H40.9 Unspecified glaucoma; R00.1 Bradycardia, unspecified; Z79.84 Long term (current) use of oral hypoglycemic drugs; Z79.899 Other long term (current) drug therapy; Z92.3 Personal history of irradiation; Z90.49 Acquired absence of other specified parts of digestive tract; Z89.421 Acquired absence of other right toe(s); Z86.010 Personal history of colon polyps; Z87.19 Personal history of other diseases of the digestive system; Z85.038 Personal history of other malignant neoplasm of large intestine; Z85.46 Personal history of malignant neoplasm of prostate; Z86.011 Personal history of benign neoplasm of the brain; Z92.21 Personal history of antineoplastic chemotherapy; Z87.440 Personal history of urinary (tract) infections; Z98.42 Cataract extraction status, left eye; Z98.41 Cataract extraction status, right eye; Z96.1 Presence of intraocular lens
CPT/HCPCS: 36410; 36415; 76937; 80053; 80202; 81001; 83036; 83605; 83735; 84443; 85025; 85610; 85730; 87040; 87070; 87075; 87077; 87186; 87205; 93005; 93970; 94760; 96365; 96368; 99284

== ENCOUNTER 2019-05-12 08:57 | Inpatient (IN) | payer MEDICARE ==
[2019-05-12] MEDS ORDERED: PIPERACILLIN-TAZOBACTAM 3.375 GM in SODIUM CHLORIDE 0.9% 100 ML IVPB STA (09:29)
[2019-05-12] MEDS ORDERED: VANCOMYCIN IV PER PHARMACY 1 EACH MISC MISCELLANE PRN (09:29)
--- NOTE | 2019-05-12 09:33 | ED ---
Extremity Problem HPI - General Source: patient, RN notes reviewed, old records reviewed Mode of arrival: wheelchair Limitations: no limitations <Lauren Davis - Last Filed: 05/12/19 11:38> <Swathi Romero - Last Filed: 05/17/19 14:50> - General Chief complaint: Extremity Problem,Nontraumatic Stated complaint: Infection-post op Time Seen by Provider: 05/12/19 09:11 - History of Present Illness Initial comments: Patient is a 89-year-old male with a history of diabetes presents emergency department today for evaluation with concern for worsening infection over the right foot and right lower extremity. Patient reports that he had his right first toe amputated and was recently discharged with the midline. He's been receiving IV vancomycin since his discharge. He states that yesterday after receiving his dose of antibiotic he started to notice some blistering and redness extending into the anterior lower leg. Patient reports that he's had no recorded fevers. Patient states that he has no significant pain and has history of neuropathy with diminished sensation. Patient reports that he has noted some worsening swelling of the lower extremities as well. (Lauren Davis) - Related Data Home Medications Medication Instructions Recorded Confirmed Enalapril [Vasotec] 2.5 mg PO DAILY 08/28/15 05/12/19 Ferrous Sulfate [Feosol] 325 mg PO DAILY 08/28/15 05/12/19 Furosemide [Lasix] 20 mg PO DAILY 08/28/15 05/12/19 Potassium Chloride [Klor-Con 10] 10 meq PO DAILY 08/28/15 05/12/19 Timolol 0.5% Ophth Soln [Timoptic 1 drop BOTH EYES BID 12/13/17 05/12/19 0.5% Ophth Soln] glipiZIDE [Glucotrol] 5 mg PO AC-BID 12/13/17 05/12/19 Cholecalciferol (Vitamin D3) 2,000 unit PO DAILY 09/16/18 05/12/19 [Vitamin D3] Tamsulosin [Flomax] 0.4 mg PO BID 09/16/18 05/12/19 Allergies Allergy/AdvReac Type Severity Reaction Status Date / Time No Known Allergies Allergy Verified 05/12/19 09:46 Review of Systems ROS Other: All systems not noted in ROS Statement are negative. <SusanLauren - Last Filed: 05/12/19 11:38> ROS Other: All systems not noted in ROS Statement are negative. <Swathi Romero Homar - Last Filed: 05/17/19 14:50> ROS Statement: Those systems with pertinent positive or pertinent negative responses have been documented in the HPI. Past Medical History Past Medical History: Coronary Artery Disease (CAD), Cancer, Chest Pain / Angina, Diabetes Mellitus, Eye Disorder, GI Bleed, Hypertension, Prostate Disorder, Renal Disease, Skin Disorder, Vascular Disorder, Vascular Disorder Additional Past Medical History / Comment(s): 2004 Colon cancer with surgery/chemo/radiation, 2011 prostate cancer with radiation, BPH, NIDDM type II, PVD, past cellulitis/wounds bilateral lower legs/feet/current R foot wounds, CKD stage III, anemia, bilateral glaucoma, lower GI bleed, gastric/colon polyps, UTIs. History of Any Multi-Drug Resistant Organisms: MRSA Date of last positivie culture/infection: 05/05/19 MDRO Source:: TOE,BLOOD Past Surgical History: Bowel Resection, Heart Catheterization Additional Past Surgical History / Comment(s): EGD, colonoscopies with polypectomy/bx, benign brain tumor removed at [facility], R hemicolectomy 2004, cardiac cath tx medically 2013, R foot 3rd toe amputation d/t wound/ wound vac, bilateral cataract removal with lens, LASER MAGDA EYES, Past Anesthesia/Blood Transfusion Reactions: No Reported Reaction Additional Past Anesthesia/Blood Transfusion Reaction / Comment(s): Pt received blood in past without known reaction. Past Psychological History: No Psychological Hx Reported Smoking Status: Never smoker Past Alcohol Use History: None Reported Past Drug Use History: None Reported - Past Family History Father Family Medical History: No Reported History Additional Family Medical History / Comment(s): Pt believes his father was healthy. He at age 93 yrs. Mother Family Medical History: No Reported History Additional Family Medical History / Comment(s): Pt doesn't know of mother's medical hx but she did live to be 95 yrs old. <SusanLauren - Last Filed: 05/12/19 11:38> General Exam Limitations: no limitations General appearance: alert Head exam: Present: atraumatic Eye exam: Present: normal appearance, PERRL, EOMI. Absent: scleral icterus, conjunctival injection, periorbital swelling ENT exam: Present: normal exam, mucous membranes moist Neck exam: Present: normal inspection. Absent: tenderness, meningismus, lymphadenopathy Respiratory exam: Present: normal lung sounds bilaterally. Absent: respiratory distress, wheezes, rales, rhonchi, stridor Cardiovascular Exam: Present: regular rate, normal rhythm, normal heart sounds. Absent: systolic murmur, diastolic murmur, rubs, gallop, clicks GI/Abdominal exam: Present: soft, normal bowel sounds. Absent: distended, tenderness, guarding, rebound, rigid Extremities exam: Present: full ROM, normal capillary refill. Absent: normal inspection, tenderness, pedal edema, joint swelling, calf tenderness Right Lower Leg exam: Present: full ROM, erythema (Patient has erythema extending up the anterior lower leg with blistering bulla over the anterior marques. Open wound from the bulla This was cultured.). Absent: normal inspection Ankle exam: Present: swelling. Absent: normal inspection Foot/Toe exam: Present: erythema (Patient has erythema, swelling, some evidence of wound dehiscence over the first great toe amputation site.). Absent: normal inspection, full ROM Gait: not tested/not observed Back exam: Present: normal inspection, full ROM Neurological exam: Present: alert, oriented X3, CN II-XII intact Psychiatric exam: Present: normal affect, normal mood Skin exam: Present: warm, dry, intact, normal color. Absent: rash <Lauren Davis - Last Filed: 05/12/19 11:38> - General Exam Comments Initial Comments: 89 yo male, Hard of hearing. (Lauren Davis) Course Vital Signs 05/12/19 05/12/19 05/12/19 09:03 11:30 12:58 Temperature 98.6 F Pulse Rate 46 L 49 L 45 L Respiratory 18 20 16 Rate Blood Pressure 159/72 129/60 162/75 O2 Sat by Pulse 100 100 98 Oximetry 05/12/19 14:38 Temperature 97.8 F Pulse Rate 52 L Respiratory 16 Rate Blood Pressure 170/70 O2 Sat by Pulse 100 Oximetry Medical Decision Making - Lab Data Result diagrams: 05/12/19 09:20 05/12/19 09:20 - Radiology Data Radiology results: report reviewed <Lauren Davis - Last Filed: 05/12/19 11:38> - Lab Data Result diagrams: 05/17/19 09:32 05/17/19 09:32 <Swathi Romero - Last Filed: 05/17/19 14:50> - Medical Decision Making This is an 89-year-old male who presents emergency Department today for concern for worsening infection over the right lower extremity. He had a first great toe amputation performed by Dr. Borden. Patient was discharged from the hospital on the midline with IV vancomycin. He is getting them out patiently. At this time patient's labs are reviewed with both of consciousness any skin change. X-ray of the foot completed today shows evidence of worsening osteomyelitis involving the first metatarsal. With extensive cellulitis and bulla formation on the lower extremity discussed the case with Dr. Hopson and Patient could be medically this time. Since he is on vancomycin this was continued as well as started on Zosyn. Patient is agreeable to admission at this time. (Lauren Davis) I was available for consultation in the emergency department. The history and physical exam were done by the midlevel provider. I was consulted for this patients care. I reviewed the case with the midlevel provider and based on their presentation of the patient, I agree with the assessment, medical decision making and plan of care as documented. I evaluated the patient myself. I discussed the case with Dr. Crespo who accepted admisson. Dr. Borden and Dr. Mcguire will be placed on consult. Chart was dictated using [employer] dictation software. Attempts were made to correct any dictation errors however some typographical errors may persist. (Swathi Romero) - Lab Data Lab Results 05/12/19 05/12/19 05/12/19 Range/Units 09:20 09:20 09:20 WBC 6.1 (3.8-10.6) k/uL RBC 4.27 L (4.30-5.90) m/uL Hgb 11.3 L (13.0-17.5) gm/dL Hct 35.7 L (39.0-53.0) % MCV 83.4 (80.0-100.0) fL MCH 26.4 (25.0-35.0) pg MCHC 31.6 (31.0-37.0) g/dL RDW 13.3 (11.5-15.5) % Plt Count 277 (150-450) k/uL Neutrophils % 74 % Lymphocytes % 14 % Monocytes % 7 % Eosinophils % 4 % Basophils % 0 % Neutrophils # 4.5 (1.3-7.7) k/uL Lymphocytes # 0.8 L (1.0-4.8) k/uL Monocytes # 0.4 (0-1.0) k/uL Eosinophils # 0.2 (0-0.7) k/uL Basophils # 0.0 (0-0.2) k/uL PT 12.0 (9.0-12.0) sec INR 1.2 H (<1.2) APTT 28.4 (22.0-30.0) sec Sodium 144 (137-145) mmol/L Potassium 4.1 (3.5-5.1) mmol/L Chloride 111 H (98-107) mmol/L Carbon Dioxide 24 (22-30) mmol/L Anion Gap 9 mmol/L BUN 23 H (9-20) mg/dL Creatinine 1.51 H (0.66-1.25) mg/dL Est GFR (CKD-EPI)AfAm 48 (>60 ml/min/1.73 sqM) Est GFR (CKD-EPI)NonAf 41 (>60 ml/min/1.73 sqM) Glucose 134 H (74-99) mg/dL Plasma Lactic Acid Jose (0.7-2.0) mmol/L Calcium 8.3 L (8.4-10.2) mg/dL Total Bilirubin 0.5 (0.2-1.3) mg/dL AST 30 (17-59) U/L ALT 26 (4-49) U/L Alkaline Phosphatase 99 (38-126) U/L Troponin I (0.000-0.034) ng/mL NT-Pro-B Natriuret Pep pg/mL Total Protein 6.1 L (6.3-8.2) g/dL Albumin 2.7 L (3.5-5.0) g/dL Random Vancomycin 19.1 ug/mL 05/12/19 05/12/19 05/12/19 Range/Units 09:20 09:20 09:20 WBC (3.8-10.6) k/uL RBC (4.30-5.90) m/uL Hgb (13.0-17.5) gm/dL Hct (39.0-53.0) % MCV (80.0-100.0) fL MCH (25.0-35.0) pg MCHC (31.0-37.0) g/dL RDW (11.5-15.5) % Plt Count (150-450) k/uL Neutrophils % % Lymphocytes % % Monocytes % % Eosinophils % % Basophils % % Neutrophils # (1.3-7.7) k/uL Lymphocytes # (1.0-4.8) k/uL Monocytes # (0-1.0) k/uL Eosinophils # (0-0.7) k/uL Basophils # (0-0.2) k/uL PT (9.0-12.0) sec INR (<1.2) APTT (22.0-30.0) sec Sodium (137-145) mmol/L Potassium (3.5-5.1) mmol/L Chloride (98-107) mmol/L Carbon Dioxide (22-30) mmol/L Anion Gap mmol/L BUN (9-20) mg/dL Creatinine (0.66-1.25) mg/dL Est GFR (CKD-EPI)AfAm (>60 ml/min/1.73 sqM) Est GFR (CKD-EPI)NonAf (>60 ml/min/1.73 sqM) Glucose (74-99) mg/dL Plasma Lactic Acid Jose 1.0 (0.7-2.0) mmol/L Calcium (8.4-10.2) mg/dL Total Bilirubin (0.2-1.3) mg/dL AST (17-59) U/L ALT (4-49) U/L Alkaline Phosphatase (38-126) U/L Troponin I <0.012 (0.000-0.034) ng/mL NT-Pro-B Natriuret Pep 798 pg/mL Total Protein (6.3-8.2) g/dL Albumin (3.5-5.0) g/dL Random Vancomycin ug/mL 05/12/19 09:54 EKG performed at 9:30 AM shows marked sinus bradycardia with first-degree AV blo ck. Minimal voltage criteria for LVH. Patient surgical rate is 44 bpm. Is 03/09/1943 milliseconds. She methodist is 84 ms. QT QTc is 472/43 ms. No evidence of ST elevation or T-wave inversions. (Lauren Davis) - Radiology Data Chest x-rays negative for any acute cardiopulmonary process. The findings concerning for osteomyelitis of the distal first metatarsal. Anterior vertebral amputation of the first digit. Other chronic changes of the second proximal phalanx and third metatarsal. Tib-fib x-ray shows diffuse soft tissue swelling at the ankle. No osseous abnormality visualized within the right tib-fib. X-ray of the right foot shows new findings concerning for osteomyelitis of the distal first metatarsal. Anterior vertebral and dictation of the first digit. Other chronic changes of second proximal phalanx and third metatarsal. (Lauren Davis) Disposition Is patient prescribed a controlled substance at d/c from ED?: No Time of Disposition: 11:42 <Lauren Davis - Last Filed: 05/12/19 11:38> <Swathi Romero - Last Filed: 05/17/19 14:50> Clinical Impression: Type 2 diabetes mellitus with foot ulcer and gangrene, Cellulitis of right lower extremity, Osteomyelitis of right foot Disposition: ADMITTED IP TO THIS [facility] Condition: Stable
[2019-05-12] MEDS ORDERED: VANCOMYCIN 2,000 MG in SODIUM CHLORIDE 0.9% 500 ML 500 ML IVPB STA (09:35)
[2019-05-12] MEDS: SODIUM CHLORIDE 0.9% 500 ML 500 ML IV SCH ×2 (09:49→11:45)
[2019-05-12] MEDS: SODIUM CHLORIDE 0.9% 1,000 ML IV SCH (09:51)
[2019-05-12 10:04] LABS: Basophils % (A) 0 %; Eosinophils # (A) 0.2 k/uL (0-0.7); Eosinophils % (A) 4 %; HCT 35.7 % (39.0-53.0); HGB 11.3 gm/dL (13.0-17.5); Lymphocytes # (A) 0.8 k/uL (1.0-4.8); Lymphocytes % (A) 14 %; MCH 26.4 pg (25.0-35.0); MCHC 31.6 g/dL (31.0-37.0); MCV 83.4 fL (80.0-100.0); Mean Platelet Volume 7.5; Monocytes # (A) 0.4 k/uL (0-1.0); Monocytes % (A) 7 %; Neutrophils # (A) 4.5 k/uL (1.3-7.7); Neutrophils % (A) 74 %; Platelet Count 277 k/uL (150-450); RBC 4.27 m/uL (4.30-5.90); RDW 13.3 % (11.5-15.5); WBC 6.1 k/uL (3.8-10.6)
[2019-05-12 10:13] LABS: INR 1.2 (<1.2); Partial Thromboplastin Time 28.4 sec (22.0-30.0)
[2019-05-12 10:20] LABS: Albumin 2.7 g/dL (3.5-5.0); Calcium 8.3 mg/dL (8.4-10.2); Potassium 4.1 mmol/L (3.5-5.1); Total Bilirubin 0.5 mg/dL (0.2-1.3); Total Protein 6.1 g/dL (6.3-8.2)
--- NOTE | 2019-05-12 10:24 | XR ---
EXAMINATION TYPE: XR chest 2V DATE OF EXAM: 05/12/2019 COMPARISON: 08/28/2015 INDICATION: Pain TECHNIQUE: Frontal and lateral views of the chest are obtained. FINDINGS: The heart size is normal. The pulmonary vasculature is normal. The lungs are clear. IMPRESSION: 1. No acute pulmonary process.
[2019-05-12 10:25] LABS: Vancomycin,Random 19.1 ug/mL
--- NOTE | 2019-05-12 10:25 | XR ---
EXAMINATION TYPE: XR tibia fibula RT DATE OF EXAM: 05/12/2019 COMPARISON: None HISTORY: Pain, infection TECHNIQUE: 2 view right tibia and fibula FINDINGS: No acute fractures are evident. Degenerative joint changes are present at the knee. Mild so ft tissue swelling is at the ankle diffusely. Ankle mortise appears intact. Vascular calcification is noted. Lateral view of the ankle is not submitted with these images. IMPRESSION: 1. Soft tissue swelling diffusely at the ankle. 2. No suspicious osseous abnormality within the visualized right tibia and fibula
--- NOTE | 2019-05-12 10:26 | XR ---
EXAMINATION TYPE: XR foot complete RT DATE OF EXAM: 05/12/2019 CLINICAL HISTORY: Right foot pain TECHNIQUE: Frontal, lateral, and oblique images of the right foot are obtained. COMPARISON: 05/05/2019 FINDINGS: There is been interval amputation of the first digit. The third digit was previously surgic ally absent on the exam of 04/27/2019. Similar lytic changes seen of the distal third metatarsal head in comparison to the prior exam however there is new lytic change of the first metatarsal head. The r emaining osseous structures demonstrate diffuse osseous demineralization. Osseous fragment and lytic change lateral to the proximal base of the second right phalanx is unchanged from the prior. Small pl kavin heel spur noted. IMPRESSION: New findings concerning for osteomyelitis of the distal first metatarsal. Intervertebral amputation o f the first digit. Other chronic changes of the second proximal phalanx and third metatarsal.
[2019-05-12] MEDS ORDERED: NALOXONE 0.4 MG/ML 1 ML VIAL IV PRN (11:43)
[2019-05-12] MEDS ORDERED: MORPHINE SULFATE 4 MG/ML SYRINGE IV PRN (11:43)
[2019-05-12] MEDS ORDERED: ACETAMINOPHEN TAB 325 MG TAB PO PRN (11:43)
[2019-05-12] MEDS ORDERED: ONDANSETRON 4 MG/2 ML VIAL IVP PRN (11:43)
[2019-05-12] MEDS ORDERED: KETOROLAC 30 MG/ML 1 ML VIAL IVP PRN (11:43)
[2019-05-12 13:35] LABS: Appearance,Urine Clear (Clear); Bilirubin,Urine Negative (Negative); Blood,Urine Trace (Negative); Color,Urine Light Yellow; Glucose,Urine (UA) Trace (Negative); Ketones,Urine Negative (Negative); Leukocyte Esterase,Urine Negative (Negative); Mucus,Urine Rare /hpf; Nitrite,Urine Negative (Negative); PH, Urine 5.5 (5.0-8.0); Protein,Urine Trace (Negative); RBC,Urine 3 /hpf (0-5); Specific Gravity,Urine 1.015 (1.001-1.035); Squamous Epithelial Cell,Urine <1 /hpf (0-4); Urobilinogen,Urine <2.0 mg/dL (<2.0); WBC,Urine 1 /hpf (0-5)
[2019-05-12] MEDS: VANCOMYCIN 2,000 MG in SODIUM CHLORIDE 0.9% 500 ML 500 ML IVPB SCH (13:39)
--- NOTE | 2019-05-12 13:41 | P.HPIM ---
History of Present Illness H&P Date: 05/12/19 This is an 89-year-old male patient with well-known to my services. Patient has a history of osteomyelitis which he was recently discharged after debridement on IV vancomycin. Over the past few days infection seems to be getting worse of the right foot and right lower extremity. Patient reports that he has been receiving his IV vancomycin but did start to notice some blistering and redness extending into the anterior leg. Patient underwent amputation of the right big toe on 05/08/[address] Borden. Foot x-ray completed showing new findings concerning for osteolysis of the distal first metatarsal intravertebral imitation of the first digit and chronic changes the second proximal phalanx and third metatarsal. Tibia and fibula x-ray completed showing soft tissue swelling diffusely at the ankle. No suspicious osseous abnormality within the visualized right tibia and fibula. Patient has been admitted for inpatient. Dr. Mcguire and Dr. Borden have been consulted. IV vancomycin until evaluated by ID. Lactic acid 1.0. Blood and wound cultures ordered. 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 Other hx: 2004 Colon cancer with surgery/chemo/radiation, 2011 prostate cancer with radiation, BPH, NIDDM type II, PVD, past cellulitis/wounds bilateral lower legs/feet/current R foot wounds, CKD stage III, anemia, bilateral glaucoma, lower GI bleed, gastric/colon polyps, UTIs. History of Any Multi-Drug Resistant Organisms: MRSA Date of last positivie culture/infection: 05/05/19 MDRO Source:: TOE,BLOOD Past Surgical History: Bowel Resection, Heart Catheterization Additional Past Surgical History / Comment(s): 05/06/19 R 1st toe amputation, R upper arm midline IV, EGD, colonoscopies with polypectomy/bx, benign brain tumor removed at [facility], R hemicolectomy 2004, cardiac cath tx medically 2014, R foot 3rd toe amputation d/t wound/ wound vac, bilateral cataract removal with lens, LASER MAGDA EYES, Past Anesthesia/Blood Transfusion Reactions: No Reported Reaction Additional Past Anesthesia/Blood Transfusion Reaction / Comment(s): Pt received blood in past without known reaction. Smoking Status: Never smoker - Past Family History Father Family Medical History: No Reported History Additional Family Medical History / Comment(s): Pt believes his father was healthy. He at age 93 yrs. Mother Family Medical History: No Reported History Additional Family Medical History / Comment(s): Pt doesn't know of mother's medical hx but she did live to be 95 yrs old. Medications and Allergies Home Medications Medication Instructions Recorded Confirmed Type Enalapril [Vasotec] 2.5 mg PO DAILY 08/28/15 05/12/19 History Ferrous Sulfate [Feosol] 325 mg PO DAILY 08/28/15 05/12/19 History Furosemide [Lasix] 20 mg PO DAILY 08/28/15 05/12/19 History Potassium Chloride [Klor-Con 10] 10 meq PO DAILY 08/28/15 05/12/19 History Timolol 0.5% Ophth Soln [Timoptic 1 drop BOTH EYES BID 12/13/17 05/12/19 History 0.5% Ophth Soln] glipiZIDE [Glucotrol] 5 mg PO AC-BID 12/13/17 05/12/19 History Cholecalciferol (Vitamin D3) 2,000 unit PO DAILY 09/16/18 05/12/19 History [Vitamin D3] Tamsulosin [Flomax] 0.4 mg PO BID 09/16/18 05/12/19 History Allergies Allergy/AdvReac Type Severity Reaction Status Date / Time No Known Allergies Allergy Verified 05/12/19 09:46 Physical Exam Vitals: Vital Signs Temp Pulse Resp BP Pulse Ox 05/12/19 12:58 45 L 16 162/75 98 05/12/19 11:30 49 L 20 129/60 100 05/12/19 09:03 98.6 F 46 L 18 159/72 100 Intake and Output 05/11/19 05/12/19 05/12/19 22:59 06:59 14:59 Other: Weight 108.862 kg Head normocephalic Neck supple Lungs clear to auscultation bilaterally no wheezing or crackles Heart regular rate and rhythm S1-S2, no rub or gallop Abdomen is soft nontender nondistended positive bowel sounds no hepatosplenomegaly Extremities +3 right lower extremity edema with blistering and oozing from incisional site Neuro alert and orientated to 3 Results CBC & Chem 7: 05/12/19 09:20 05/12/19 09:20 Labs: Abnormal Lab Results - Last 24 Hours (Table) 05/12/19 05/12/19 05/12/19 Range/Units 09:20 09:20 09:20 RBC 4.27 L (4.30-5.90) m/uL Hgb 11.3 L (13.0-17.5) gm/dL Hct 35.7 L (39.0-53.0) % Lymphocytes # 0.8 L (1.0-4.8) k/uL INR 1.2 H (<1.2) Chloride 111 H (98-107) mmol/L BUN 23 H (9-20) mg/dL Creatinine 1.51 H (0.66-1.25) mg/dL Glucose 134 H (74-99) mg/dL Calcium 8.3 L (8.4-10.2) mg/dL Total Protein 6.1 L (6.3-8.2) g/dL Albumin 2.7 L (3.5-5.0) g/dL Thrombosis Risk Factor Assmnt - Choose All That Apply Any of the Below Risk Factors Present?: Yes Each Factor Represents 1 point: Obesity (BMI >25), Sepsis (< 1month) Other Risk Factors: Yes Each Risk Factor Represents 2 Points: Malignancy Each Risk Factor Represents 3 Points: Age 75 years or older Other congenital or acquired thrombophilia - If yes, enter type in comment: No Thrombosis Risk Factor Assessment Total Risk Factor Score: 7 Thrombosis Risk Factor Assessment Level: High Risk Assessment and Plan Assessment: 1. Osteomyelitis and cellulitis right lower extremity. Blood culture recently positive for MRSA. Patient recently underwent amputation of right greater toe debridement. Patient has been on vancomycin. Infectious disease and vascular surgery Dr. Borden reconsulted. Patient resumed on Vanco. Blood and wound cultures ordered 2. Chronic kidney disease stage III. Baseline creatinine around 1.51 3. History of gangrenous cellulitis of the third toe on the right foot in September 2018 requiring amputation 4. Anemia deficiency of chronic kidney disease 5. Diabetes mellitus type 2 glipizide resume sliding scale coverage will be added. Globin A1c is 6.8 6. History of essential hypertension 7. History of coronary artery disease 8. History of prostate cancer in 2001 status post radiation DVT prophylaxis heparin. GI prophylaxis Pepcid Infectious disease and vascular surgery consulted Maintain on IV antibiotic Vanco Wound and blood cultures ordered Time with Patient: Greater than 30 (Greater than 60% of the total time spent in counseling and coordination of care. I performed an examination of the patient and discussed their management with the Nurse Practitioner. I have reviewed the Nurse Practitioner's notes and agree with the documented findings and plan of care)
[2019-05-12 16:41] LABS: Glucose,Whole Blood 147 mg/dL (75-99)
[2019-05-12] MEDS: glipiZIDE 5 MG TAB PO SCH (18:24)
[2019-05-12] MEDS: INSULIN ASPART (NovoLOG) 100 UNIT/ML VIAL SQ SCH ×2 (18:25→21:31)
[2019-05-12] MEDS: AMPICILLIN-SULBACTAM 3 GM in SODIUM CHLORIDE 0.9% 100 ML IVPB SCH (18:33)
--- NOTE | 2019-05-12 20:21 | P.CONS ---
History of Present Illness - Reason for Consult Consult date: 05/12/19 right leg cellulitis Requesting physician: Edmond Crespo - Chief Complaint right leg swelling and redness x 1 day - History of Present Illness Patient is 89-year-old -[place] male who was recently admitted at this facility and did have her right hand back to her right gangrene patient is status post amputation of his right big toe culture positive for multiple path ogen including MRSA and the patient also have MRSA bacteremia follow-up blood cultures are negative the patient did get a PICC line and was advised vancomycin pharmacy to dose for a total of 2 weeks patient was discharged home 3 days ago patient is now presenting back to the hospital with significant swelling of his lower extremity dehiscence of his right big toe amputated site incision along with some swelling and redness to the right lower leg patient mentioned abscess apparently started yesterday patient denies significant pain to the leg area however the leg swelling redness and blisters concerning to him that he while he presented to hospital on arrival to the ER the patient was afebrile his white count was normal patient did have x-rays of the foot that has been suspicious for osteomyelitis first metatarsal head x-rays of the leg did not show any bony changes patient has been admitted to hospital he was started on Zosyn and continue on vancomycin infectious disease was consulted for further recommendation about antibiotic therapy Review of Systems Positive point has been mentioned in HPI rest of the systems are negative Past Medical History Past Medical History: Coronary Artery Disease (CAD), Cancer, Chest Pain / Angina, Diabetes Mellitus, Eye Disorder, GI Bleed, Hypertension, Prostate Disorder, Renal Disease, Skin Disorder, Vascular Disorder, Vascular Disorder Additional Past Medical History / Comment(s): Pt recently admitted to [facility] on 05/05/19 with oseomylitis/cellulitis R lower extremity, 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 Other hx: 2004 Colon cancer with surgery/chemo/radiation, 2011 prostate cancer with radiation, BPH, NIDDM type II, PVD, past cellulitis/wounds bilateral lower legs/feet/current R foot wounds, CKD stage III, anemia, bilateral glaucoma, lower GI bleed, gastric/colon polyps, UTIs. History of Any Multi-Drug Resistant Organisms: MRSA Year Discovered:: 05/05/19 MDRO Source:: TOE,BLOOD Past Surgical History: Bowel Resection, Heart Catheterization Additional Past Surgical History / Comment(s): 05/06/19 R 1st toe amputation, R upper arm midline IV, EGD, colonoscopies with polypectomy/bx, benign brain tumor removed at [facility], R hemicolectomy 2004, cardiac cath tx medically 2014, R foot 3rd toe amputation d/t wound/ wound vac, bilateral cataract removal with lens, LASER MAGDA EYES, Past Anesthesia/Blood Transfusion Reactions: No Reported Reaction Additional Past Anesthesia/Blood Transfusion Reaction / Comm: Pt received blood in past without known reaction. Past Psychological History: No Psychological Hx Reported Additional Psychological History / Comment(s): Pt resides by himself. He is independent. He drives. He sometimes goes to the [employer] on [address] for meals. He uses a walker if walking a distance. He has home IV antibiotic infusions- [facility]. Retired from [employer]. No animals in the home. No recent travels Smoking Status: Never smoker Past Alcohol Use History: None Reported Past Drug Use History: None Reported - Past Family History Father Family Medical History: No Reported History Additional Family Medical History / Comment(s): Pt believes his father was healthy. He at age 93 yrs. Mother Family Medical History: No Reported History Additional Family Medical History / Comment(s): Pt doesn't know of mother's medical hx but she did live to be 95 yrs old. Medications and Allergies Home Medications Medication Instructions Recorded Confirmed Type Enalapril [Vasotec] 2.5 mg PO DAILY 08/28/15 05/12/19 History Ferrous Sulfate [Feosol] 325 mg PO DAILY 08/28/15 05/12/19 History Furosemide [Lasix] 20 mg PO DAILY 08/28/15 05/12/19 History Potassium Chloride [Klor-Con 10] 10 meq PO DAILY 08/28/15 05/12/19 History Timolol 0.5% Ophth Soln [Timoptic 1 drop BOTH EYES BID 12/13/17 05/12/19 History 0.5% Ophth Soln] glipiZIDE [Glucotrol] 5 mg PO AC-BID 12/13/17 05/12/19 History Cholecalciferol (Vitamin D3) 2,000 unit PO DAILY 09/16/18 05/12/19 History [Vitamin D3] Tamsulosin [Flomax] 0.4 mg PO BID 09/16/18 05/12/19 History Allergies Allergy/AdvReac Type Severity Reaction Status Date / Time No Known Allergies Allergy Verified 05/12/19 09:46 Physical Exam Vitals: Vital Signs Temp Pulse Pulse Resp BP BP Pulse Ox 05/12/19 15:00 97.8 F 51 L 16 180/82 92 L 05/12/19 14:38 97.8 F 52 L 16 170/70 100 05/12/19 12:58 45 L 16 162/75 98 05/12/19 11:30 49 L 20 129/60 100 05/12/19 09:03 98.6 F 46 L 18 159/72 100 Intake and Output 05/12/19 05/12/19 05/12/19 06:59 14:59 22:59 Other: Weight 108.862 kg GENERAL DESCRIPTION: Elderly male lying in bed, no distress. No tachypnea or accessory muscle of respiration use. HEENT: Shows Pallor , no scleral icterus. Oral mucous membrane is dry. NECK: Trachea central, no thyromegaly. LUNGS: Unlabored breathing. Clear to auscultation anteriorly. No wheeze or crackle. HEART: S1, S2, regular rate and rhythm. ABDOMEN: Soft, no tenderness , guarding or rigidity EXTREMITIES: Diffuse swelling of his right lower extremity with some blister formation and erythema the right big toe incision is gapping with some swelling and maceration. SKIN: No rash, no masses palpable. NEUROLOGICAL: The patient is awake, alert, oriented x3, mood and affect normal. Results CBC & Chem 7: 05/12/19 09:20 05/12/19 09:20 Labs: Abnormal Lab Results - Last 24 Hours (Table) 05/12/19 05/12/19 05/12/19 Range/Units : 09: 09:20 RBC 4.27 L (4.30-5.90) m/uL Hgb 11.3 L (13.0-17.5) gm/dL Hct 35.7 L (39.0-53.0) % Lymphocytes # 0.8 L (1.0-4.8) k/uL INR 1.2 H (<1.2) Chloride 111 H (98-107) mmol/L BUN 23 H (9-20) mg/dL Creatinine 1.51 H (0.66-1.25) mg/dL Glucose 134 H (74-99) mg/dL Calcium 8.3 L (8.4-10.2) mg/dL Total Protein 6.1 L (6.3-8.2) g/dL Albumin 2.7 L (3.5-5.0) g/dL Urine Protein (Negative) Urine Glucose (UA) (Negative) Urine Blood (Negative) Urine Mucus (None) /hpf 05/12/19 Range/Units 13:00 RBC (4.30-5.90) m/uL Hgb (13.0-17.5) gm/dL Hct (39.0-53.0) % Lymphocytes # (1.0-4.8) k/uL INR (<1.2) Chloride (98-107) mmol/L BUN (9-20) mg/dL Creatinine (0.66-1.25) mg/dL Glucose (74-99) mg/dL Calcium (8.4-10.2) mg/dL Total Protein (6.3-8.2) g/dL Albumin (3.5-5.0) g/dL Urine Protein Trace H (Negative) Urine Glucose (UA) Trace H (Negative) Urine Blood Trace H (Negative) Urine Mucus Rare H (None) /hpf Microbiology - Last 24 Hours (Table) 05/12/19 09:20 Wound Culture - Preliminary Foot - Right Assessment and Plan Assessment: patient with significant swelling along with redness of the right lower extr emity indicating cellulitis in this patient who did have dehiscence of his right big toe amputated site wound with recent history of her right big toe gangrene and MRSA bacteremia will need to cover both for gram-positive as well as gram- negative pathogen (1) Cellulitis of right lower extremity Current Visit: Yes Status: Acute Code(s): L03.115 - CELLULITIS OF RIGHT LOWER LIMB SNOMED Code(s): 291986183 (2) Osteomyelitis of right foot Current Visit: Yes Status: Acute Code(s): M86.9 - OSTEOMYELITIS, UNSPECIFIED SNOMED Code(s): 2923486974299533 Plan: 1-vancomycin pharmacy to dose her with a target trough of 15 while watching her kidney function and Vanco trough closely. 2-add Unasyn 3 g every 8 hours Await vascular surgery evaluation We will follow on clinical condition and cultures to further adjust medication if needed Thank you for this consultation we will follow the patient along with you Time with Patient: Greater than 30
[2019-05-12 20:29] LABS: Glucose,Whole Blood 291 mg/dL (75-99)
[2019-05-12] MEDS: TAMSULOSIN 0.4 MG CAP.ER.24H PO SCH (21:25)
[2019-05-12] MEDS: HEPARIN SODIUM,PORCINE 5,000 UNIT/ML 1 ML VIAL SQ SCH (21:25)
[2019-05-13] MEDS: AMPICILLIN-SULBACTAM 3 GM in SODIUM CHLORIDE 0.9% 100 ML IVPB SCH ×3 (00:17→16:44)
[2019-05-13] MEDS: TIMOLOL 0.5% OPHTH DROPS 5 ML BTL BOTH EYES SCH ×3 (00:18→20:38)
[2019-05-13] MEDS: SODIUM CHLORIDE 0.9% 1,000 ML IV SCH ×4 (00:18→16:44)
[2019-05-13 07:18] LABS: Glucose,Whole Blood 99 mg/dL (75-99)
[2019-05-13] MEDS: INSULIN ASPART (NovoLOG) 100 UNIT/ML VIAL SQ SCH ×4 (08:09→20:38)
[2019-05-13] MEDS: LISINOPRIL 5 MG TAB PO SCH (08:10)
[2019-05-13] MEDS: glipiZIDE 5 MG TAB PO SCH ×2 (08:10→16:45)
[2019-05-13] MEDS: PANTOPRAZOLE 40 MG/10 ML VIAL IV SCH (08:10)
[2019-05-13] MEDS: FERROUS SULFATE 325 MG TAB PO SCH (08:10)
[2019-05-13] MEDS: FAMOTIDINE 20 MG TAB PO SCH (08:10)
[2019-05-13] MEDS: CHOLECALCIFEROL 1,000 UNIT TAB PO SCH (08:10)
[2019-05-13] MEDS: TAMSULOSIN 0.4 MG CAP.ER.24H PO SCH ×2 (08:10→20:38)
[2019-05-13] MEDS: FUROSEMIDE 20 MG TAB PO SCH (08:10)
[2019-05-13] MEDS: POTASSIUM CHLORIDE ER 10 MEQ TAB.ER.PRT PO SCH (08:10)
[2019-05-13] MEDS: HEPARIN SODIUM,PORCINE 5,000 UNIT/ML 1 ML VIAL SQ SCH ×2 (08:10→20:37)
[2019-05-13 09:12] LABS: Basophils % (A) 0 %; Eosinophils # (A) 0.2 k/uL (0-0.7); Eosinophils % (A) 4 %; HCT 33.9 % (39.0-53.0); HGB 10.5 gm/dL (13.0-17.5); Hypochromasia Slight; Lymphocytes # (A) 0.9 k/uL (1.0-4.8); Lymphocytes % (A) 17 %; MCH 26.2 pg (25.0-35.0); MCV 84.7 fL (80.0-100.0); Mean Platelet Volume 7.5; Monocytes # (A) 0.4 k/uL (0-1.0); Monocytes % (A) 6 %; Neutrophils # (A) 3.8 k/uL (1.3-7.7); Neutrophils % (A) 70 %; Platelet Count 273 k/uL (150-450); RDW 13.5 % (11.5-15.5); WBC 5.5 k/uL (3.8-10.6)
[2019-05-13 09:22] LABS: Albumin 2.6 g/dL (3.5-5.0); Calcium 8.3 mg/dL (8.4-10.2); Potassium 4.7 mmol/L (3.5-5.1); Total Bilirubin 0.4 mg/dL (0.2-1.3)
--- NOTE | 2019-05-13 10:01 | CONS ---
DATE OF CONSULTATION: 05/13/2019 This is an 89-year-old, gentleman who is known to me from the past. The patient had a right big toe amputation done for wet gangrene about 2 weeks ago. The patient has swelling of the right lower extremity with some blister formation. The stump site there is some dehiscence noted with some fibrotic tissue at the base of the wound and also patient has some blister on the right lower extremity. MEDICAL HISTORY: History of diabetes and hypertension. PAST SURGERY HISTORY: Patient had a 3rd toe amputation done in the past and right big toe amputation done about 2 weeks. PHYSICAL EXAMINATION: Patient was seen in his room. NECK: Supple. Trachea central. CHEST: Clear. ABDOMEN: Soft. Femoral pulses are present. Right big toe stump there is no discharge or redness noted. There is some scab formation which was removed. Wound was cleaned with saline. PLAN: We will use Medihoney gel and leg elevation because of swelling and blister formation. The patient is on IV antibiotic. We will follow with you. If the patient goes home soon, then we will follow in the Wound Clinic at [facility]. We will use Medihoney gel daily. MMODL / IJN: [id number] / MTDD
[2019-05-13 11:45] LABS: Glucose,Whole Blood 160 mg/dL (75-99)
[2019-05-13] MEDS: VANCOMYCIN 2,000 MG in SODIUM CHLORIDE 0.9% 500 ML 500 ML IVPB SCH (12:39)
--- NOTE | 2019-05-13 15:07 | P.PN ---
Subjective Progress Note Date: 05/13/19 This is an 89-year-old male patient with well-known to my services. Patient has a history of osteomyelitis which he was recently discharged after debridement on IV vancomycin. Over the past few days infection seems to be getting worse of the right foot and right lower extremity. Patient reports that he has been receiving his IV vancomycin but did start to notice some blistering and redness extending into the anterior leg. Patient underwent amputation of the right big toe on 05/08/[address] Borden. Foot x-ray completed showing new findings concerning for osteolysis of the distal first metatarsal intravertebral imitation of the first digit and chronic changes the second proximal phalanx and third metatarsal. Tibia and fibula x-ray completed showing soft tissue swelling diffusely at the ankle. No suspicious osseous abnormality within the visualized right tibia and fibula. Patient has been admitted for inpatient. Dr. Mcguire and Dr. Borden have been consulted. IV vancomycin until evaluated by ID. Lactic acid 1.0. Blood and wound cultures ordered. On 05/13/2019 patient was seen and examined on the medical floor he is alert and oriented 3 in no apparent distress, there is no fever or chills no headache or dizziness no chest pain no shortness of breath no cough no nausea or vomiting no abdominal pain no diarrhea no burning with urination no frequency or urgency and no hematuria Objective - Vital Signs Vital signs: Vital Signs Temp 97.6 F 05/13/19 07:00 Pulse 50 L 05/13/19 07:00 Resp 16 05/13/19 07:00 BP 154/67 05/13/19 07:00 Pulse Ox 97 05/13/19 07:00 Intake & Output 05/12/19 05/13/19 05/13/19 18:59 06:59 18:59 Intake Total 300 1080 Output Total 600 Balance 300 480 Weight 108.862 kg Intake: Oral 300 1080 Output: Urine 600 Other: # Voids 0 # Bowel Movements 0 - Exam In general patient is alert and oriented 3 he denies any pain or discomfort at this time. Head normocephalic and atraumatic Neck supple no JVD no goiter no lymphadenopathy Lungs clear to auscultation bilaterally no wheezing or crackles Heart regular rate and rhythm S1-S2, no rub or gallop Abdomen is soft nontender nondistended positive bowel sounds no hepatosplenomegaly Extremities +3 right lower extremity edema with blistering and oozing from incisional site Neuro no gross focal neurological deficits - Labs CBC & Chem 7: 05/13/19 08:18 05/13/19 08:18 Labs: Abnormal Lab Results - Last 24 Hours (Table) 05/12/19 05/12/19 05/13/19 Range/Units 16:39 20:24 08:18 RBC (4.30-5.90) m/uL Hgb (13.0-17.5) gm/dL Hct (39.0-53.0) % Lymphocytes # (1.0-4.8) k/uL Chloride 115 H (98-107) mmol/L BUN 22 H (9-20) mg/dL Creatinine 1.53 H (0.66-1.25) mg/dL Glucose 103 H (74-99) mg/dL POC Glucose (mg/dL) 147 H 291 H (75-99) mg/dL Calcium 8.3 L (8.4-10.2) mg/dL Total Protein 6.0 L (6.3-8.2) g/dL Albumin 2.6 L (3.5-5.0) g/dL 05/13/19 05/13/19 Range/Units 08:18 11:43 RBC 4.00 L (4.30-5.90) m/uL Hgb 10.5 L (13.0-17.5) gm/dL Hct 33.9 L (39.0-53.0) % Lymphocytes # 0.9 L (1.0-4.8) k/uL Chloride (98-107) mmol/L BUN (9-20) mg/dL Creatinine (0.66-1.25) mg/dL Glucose (74-99) mg/dL POC Glucose (mg/dL) 160 H (75-99) mg/dL Calcium (8.4-10.2) mg/dL Total Protein (6.3-8.2) g/dL Albumin (3.5-5.0) g/dL Microbiology - Last 24 Hours (Table) 05/12/19 09:20 Blood Culture - Preliminary Blood No Growth after 24 hours 05/12/19 09:20 Gram Stain - Preliminary Foot - Right Wound Culture - Preliminary Gram Neg Bacilli Assessment and Plan Plan: 1. Osteomyelitis and cellulitis right lower extremity. Blood culture recently positive for MRSA. Patient recently underwent amputation of right greater toe debridement. Patient has been on vancomycin. Infectious disease and vascular surgery Dr. Borden reconsulted. Patient resumed on Vanco. Blood and wound cultures ordered. Continue current antibiotics at this time until further evaluation by infectious disease 2. Chronic kidney disease stage III. Baseline creatinine around 1.51 3. History of gangrenous cellulitis of the third toe on the right foot in September 2018 requiring amputation 4. Anemia deficiency of chronic kidney disease 5. Diabetes mellitus type 2 glipizide resume sliding scale coverage will be added. Globin A1c is 6.8 6. History of essential hypertension 7. History of coronary artery disease 8. History of prostate cancer in 2001 status post radiation DVT prophylaxis heparin. GI prophylaxis Pepcid Infectious disease and vascular surgery consulted Maintain on IV antibiotic Vanco Wound and blood cultures ordered
[2019-05-13 16:46] LABS: Glucose,Whole Blood 103 mg/dL (75-99)
[2019-05-13 20:07] LABS: Glucose,Whole Blood 107 mg/dL (75-99)
[2019-05-14] MEDS: AMPICILLIN-SULBACTAM 3 GM in SODIUM CHLORIDE 0.9% 100 ML IVPB SCH ×4 (00:37→23:47)
[2019-05-14] MEDS: SODIUM CHLORIDE 0.9% 1,000 ML IV SCH ×4 (00:38→23:47)
[2019-05-14 07:21] LABS: Glucose,Whole Blood 131 mg/dL (75-99)
[2019-05-14 07:51] LABS: Basophils % (A) 0 %; Eosinophils # (A) 0.3 k/uL (0-0.7); Eosinophils % (A) 4 %; HCT 32.5 % (39.0-53.0); Hypochromasia Slight; Lymphocytes # (A) 1.1 k/uL (1.0-4.8); Lymphocytes % (A) 19 %; MCH 26.1 pg (25.0-35.0); MCHC 30.8 g/dL (31.0-37.0); MCV 84.7 fL (80.0-100.0); Mean Platelet Volume 7.5; Monocytes # (A) 0.3 k/uL (0-1.0); Monocytes % (A) 6 %; Neutrophils % (A) 69 %; Platelet Count 272 k/uL (150-450); RBC 3.84 m/uL (4.30-5.90); RDW 13.3 % (11.5-15.5); WBC 5.8 k/uL (3.8-10.6)
[2019-05-14] MEDS: INSULIN ASPART (NovoLOG) 100 UNIT/ML VIAL SQ SCH ×4 (07:58→20:34)
[2019-05-14] MEDS: FERROUS SULFATE 325 MG TAB PO SCH (07:59)
[2019-05-14] MEDS: FAMOTIDINE 20 MG TAB PO SCH (07:59)
[2019-05-14] MEDS: CHOLECALCIFEROL 1,000 UNIT TAB PO SCH (07:59)
[2019-05-14] MEDS: HEPARIN SODIUM,PORCINE 5,000 UNIT/ML 1 ML VIAL SQ SCH ×2 (07:59→20:34)
[2019-05-14] MEDS: glipiZIDE 5 MG TAB PO SCH ×2 (07:59→17:23)
[2019-05-14] MEDS: LISINOPRIL 5 MG TAB PO SCH (07:59)
[2019-05-14] MEDS: POTASSIUM CHLORIDE ER 10 MEQ TAB.ER.PRT PO SCH (07:59)
[2019-05-14] MEDS: TAMSULOSIN 0.4 MG CAP.ER.24H PO SCH ×2 (08:00→20:34)
[2019-05-14] MEDS: FUROSEMIDE 20 MG TAB PO SCH (08:00)
[2019-05-14] MEDS: PANTOPRAZOLE 40 MG/10 ML VIAL IV SCH (08:00)
[2019-05-14 08:04] LABS: Albumin 2.5 g/dL (3.5-5.0); Potassium 4.6 mmol/L (3.5-5.1); Total Bilirubin 0.3 mg/dL (0.2-1.3); Total Protein 5.8 g/dL (6.3-8.2)
[2019-05-14] MEDS: TIMOLOL 0.5% OPHTH DROPS 5 ML BTL BOTH EYES SCH ×2 (08:06→20:34)
--- NOTE | 2019-05-14 09:18 | PN ---
PROGRESS NOTE DATE OF SERVICE: 05/13/2019. REASON FOR FOLLOWUP: Right lower extremity cellulitis with blister and a right big toe amputation site HISTORY OF INTERVAL ILLNESS: Patient is currently afebrile, has been breathing comfortably. The patient currently denies having any chest pain or shortness of breath or cough. No nausea, vomiting, no abdominal pain, no diarrhea. PHYSICAL EXAMINATION: Blood pressure 153/70 with a pulse of 50, temperature 98. He is 100% on room air. General description is an elderly male lying in bed in no distress. Respiratory system: Unlabored breathing, clear to auscultation anteriorly. Heart S1, S2. Regular rate and rhythm. Abdomen soft, nontender. Right leg swelling and redness slightly decreased. LABS: Hemoglobin is 12.5, white count 5.5, creatinine is 1.53. Wound culture with gram- negative bacilli. DIAGNOSTIC IMPRESSION AND PLAN: Patient with recent right big toe wet gangrene, status post amputation now admitted to the hospital with significant swelling of the leg and blister formation. The patient at this time to continue with vancomycin and Unasyn and monitor clinical course closely. Continue supportive care. MMODL / IJN: [id number] / MTDD
--- NOTE | 2019-05-14 09:47 | P.PN ---
Subjective Progress Note Date: 05/14/19 This is an 89-year-old male patient with well-known to my services. Patient has a history of osteomyelitis which he was recently discharged after debridement on IV vancomycin. Over the past few days infection seems to be getting worse of the right foot and right lower extremity. Patient reports that he has been receiving his IV vancomycin but did start to notice some blistering and redness extending into the anterior leg. Patient underwent amputation of the right big toe on 05/08/[address] Borden. Foot x-ray completed showing new findings concerning for osteolysis of the distal first metatarsal intravertebral imitation of the first digit and chronic changes the second proximal phalanx and third metatarsal. Tibia and fibula x-ray completed showing soft tissue swelling diffusely at the ankle. No suspicious osseous abnormality within the visualized right tibia and fibula. Patient has been admitted for inpatient. Dr. Mcguire and Dr. Borden have been consulted. IV vancomycin until evaluated by ID. Lactic acid 1.0. Blood and wound cultures ordered. On 05/13/2019 patient was seen and examined on the medical floor he is alert and oriented 3 in no apparent distress, there is no fever or chills no headache or dizziness no chest pain no shortness of breath no cough no nausea or vomiting no abdominal pain no diarrhea no burning with urination no frequency or urgency and no hematuria On 05/14/2019 patient was seen and examined on the medical floor he is alert and oriented 3, he denies any complaints at this time, right lower extremity still has an open wound at the site of big toe amputation, also there is multiple large blisters in the right pretibial area with surrounding erythema and swelling, otherwise patient denies any complaints there is no fever or chills no headache or dizziness no chest pain no shortness of breath no cough no nausea or vomiting no abdominal pain no diarrhea no burning with urination no frequency or urgency and no hematuria. Objective - Vital Signs Vital signs: Vital Signs Temp 97.2 F L 05/14/19 05:00 Pulse 48 L 05/14/19 05:00 Resp 18 05/14/19 05:00 BP 145/72 05/14/19 05:00 Pulse Ox 99 05/14/19 05:00 Intake & Output 05/13/19 05/14/19 05/14/19 17:59 06:59 18:59 Intake Total Output Total Balance Intake: Oral Output: Urine Other: # Voids # Bowel Movements - Exam In general patient is alert and oriented 3 he denies any pain or discomfort at this time. Head normocephalic and atraumatic Neck supple no JVD no goiter no lymphadenopathy Lungs clear to auscultation bilaterally no wheezing or crackles Heart regular rate and rhythm S1-S2, no rub or gallop Abdomen is soft nontender nondistended positive bowel sounds no hepatosplenomegaly Extremities +3 right lower extremity edema with blistering in the right pretibial area and oozing from incisional site, Neuro no gross focal neurological deficits - Labs CBC & Chem 7: 05/14/19 07:06 05/14/19 07:06 Labs: Abnormal Lab Results - Last 24 Hours (Table) 05/13/19 05/13/19 05/13/19 Range/Units 08:18 08:18 11:43 RBC 4.00 L (4.30-5.90) m/uL Hgb 10.5 L (13.0-17.5) gm/dL Hct 33.9 L (39.0-53.0) % MCHC (31.0-37.0) g/dL Lymphocytes # 0.9 L (1.0-4.8) k/uL Chloride 115 H (98-107) mmol/L BUN 22 H (9-20) mg/dL Creatinine 1.53 H (0.66-1.25) mg/dL Glucose 103 H (74-99) mg/dL POC Glucose (mg/dL) 160 H (75-99) mg/dL Calcium 8.3 L (8.4-10.2) mg/dL Total Protein 6.0 L (6.3-8.2) g/dL Albumin 2.6 L (3.5-5.0) g/dL 05/13/19 05/13/19 05/14/19 Range/Units 16:45 20:00 07:02 RBC (4.30-5.90) m/uL Hgb (13.0-17.5) gm/dL Hct (39.0-53.0) % MCHC (31.0-37.0) g/dL Lymphocytes # (1.0-4.8) k/uL Chloride (98-107) mmol/L BUN (9-20) mg/dL Creatinine (0.66-1.25) mg/dL Glucose (74-99) mg/dL POC Glucose (mg/dL) 103 H 107 H 131 H (75-99) mg/dL Calcium (8.4-10.2) mg/dL Total Protein (6.3-8.2) g/dL Albumin (3.5-5.0) g/dL 05/14/19 05/14/19 Range/Units 07:06 07:06 RBC 3.84 L (4.30-5.90) m/uL Hgb 10.0 L (13.0-17.5) gm/dL Hct 32.5 L (39.0-53.0) % MCHC 30.8 L (31.0-37.0) g/dL Lymphocytes # (1.0-4.8) k/uL Chloride 113 H (98-107) mmol/L BUN 21 H (9-20) mg/dL Creatinine 1.55 H (0.66-1.25) mg/dL Glucose 131 H (74-99) mg/dL POC Glucose (mg/dL) (75-99) mg/dL Calcium 8.0 L (8.4-10.2) mg/dL Total Protein 5.8 L (6.3-8.2) g/dL Albumin 2.5 L (3.5-5.0) g/dL Microbiology - Last 24 Hours (Table) 05/12/19 09:20 Blood Culture - Preliminary Blood No Growth after 24 hours 05/12/19 09:20 Gram Stain - Preliminary Foot - Right Wound Culture - Preliminary Gram Neg Bacilli Assessment and Plan Plan: 1. Osteomyelitis and cellulitis right lower extremity. Blood culture recently positive for MRSA. Patient recently underwent amputation of right greater toe debridement. Patient has been on vancomycin. Infectious disease and vascular surgery Dr. Borden reconsulted. Patient resumed on Vanco. Blood and wound cultures ordered. Continue current antibiotics at this time until further evaluation by infectious disease 2. Chronic kidney disease stage III. Baseline creatinine around 1.51 3. History of gangrenous cellulitis of the third toe on the right foot in September 2018 requiring amputation 4. Anemia deficiency of chronic kidney disease 5. Diabetes mellitus type 2 glipizide resume sliding scale coverage will be added. Globin A1c is 6.8 6. History of essential hypertension 7. History of coronary artery disease 8. History of prostate cancer in 2001 status post radiation DVT prophylaxis heparin. GI prophylaxis Pepcid Infectious disease and vascular surgery consulted Maintain on IV antibiotic Wound and blood cultures ordered
[2019-05-14 11:50] LABS: Glucose,Whole Blood 177 mg/dL (75-99)
[2019-05-14] MEDS: VANCOMYCIN 2,000 MG in SODIUM CHLORIDE 0.9% 500 ML 500 ML IVPB SCH (13:38)
[2019-05-14 16:52] LABS: Glucose,Whole Blood 157 mg/dL (75-99)
[2019-05-14 20:30] LABS: Glucose,Whole Blood 161 mg/dL (75-99)
[2019-05-15 07:08] LABS: Glucose,Whole Blood 122 mg/dL (75-99)
--- NOTE | 2019-05-15 07:37 | PN ---
PROGRESS NOTE DATE OF SERVICE: 05/14/2019 REASON FOR FOLLOWUP: Right lower extremity blister cellulitis and right big toe amputation site. INTERVAL HISTORY: The patient is currently afebrile, has been breathing comfortably. Denies having any chest pain or any cough. No nausea or vomiting. No abdominal pain. Pain to the right leg area. PHYSICAL EXAMINATION: Blood pressure 166/64 with a pulse of 41, temperature 98.1. He is 100% on room air. General description is an elderly male lying in bed in no distress. RESPIRATORY SYSTEM: Unlabored breathing, clear to auscultation anteriorly. HEART: S1, S2. Regular rate and rhythm. ABDOMEN: Soft. No tenderness. Right leg swelling persists, redness has improved. No open wound or drainage. LABS: Hemoglobin is 10, white count 5.8, creatinine 1.55. DIAGNOSTIC IMPRESSION AND PLAN: Patient with right lower extremity cellulitis. Culture from the blister showing Klebsiella pneumoniae and sensitive to Unasyn patient is on. To continue in addition to the vancomycin that he grew in the blood and from the right big toe and monitor clinical course closely. Continue supportive care. MMODL / IJN: [id number] /
[2019-05-15] MEDS: INSULIN ASPART (NovoLOG) 100 UNIT/ML VIAL SQ SCH ×4 (08:48→21:09)
[2019-05-15] MEDS: HEPARIN SODIUM,PORCINE 5,000 UNIT/ML 1 ML VIAL SQ SCH ×2 (08:49→21:08)
[2019-05-15] MEDS: FUROSEMIDE 20 MG TAB PO SCH (08:50)
[2019-05-15] MEDS: LISINOPRIL 5 MG TAB PO SCH (08:50)
[2019-05-15] MEDS: CHOLECALCIFEROL 1,000 UNIT TAB PO SCH ×2 (08:50→13:36)
[2019-05-15] MEDS: glipiZIDE 5 MG TAB PO SCH ×2 (08:50→16:47)
[2019-05-15] MEDS: FAMOTIDINE 20 MG TAB PO SCH (08:50)
[2019-05-15] MEDS: FERROUS SULFATE 325 MG TAB PO SCH (08:50)
[2019-05-15] MEDS: TIMOLOL 0.5% OPHTH DROPS 5 ML BTL BOTH EYES SCH ×2 (08:54→21:09)
[2019-05-15 10:29] LABS: Basophils % (A) 0 %; Eosinophils # (A) 0.2 k/uL (0-0.7); Eosinophils % (A) 4 %; HCT 35.5 % (39.0-53.0); Hypochromasia Slight; Lymphocytes # (A) 0.9 k/uL (1.0-4.8); Lymphocytes % (A) 16 %; MCH 26.4 pg (25.0-35.0); MCV 85.2 fL (80.0-100.0); Mean Platelet Volume 7.1; Monocytes # (A) 0.4 k/uL (0-1.0); Monocytes % (A) 7 %; Neutrophils # (A) 4.2 k/uL (1.3-7.7); Neutrophils % (A) 71 %; Platelet Count 250 k/uL (150-450); RBC 4.16 m/uL (4.30-5.90); RDW 13.6 % (11.5-15.5); WBC 5.8 k/uL (3.8-10.6)
[2019-05-15] MEDS: AMPICILLIN-SULBACTAM 3 GM in SODIUM CHLORIDE 0.9% 100 ML IVPB SCH ×2 (10:41→16:47)
[2019-05-15] MEDS: POTASSIUM CHLORIDE ER 10 MEQ TAB.ER.PRT PO SCH (10:42)
[2019-05-15] MEDS: TAMSULOSIN 0.4 MG CAP.ER.24H PO SCH ×2 (10:42→21:08)
[2019-05-15 10:44] LABS: Albumin 2.6 g/dL (3.5-5.0); Calcium 8.1 mg/dL (8.4-10.2); Potassium 4.4 mmol/L (3.5-5.1); Total Bilirubin 0.3 mg/dL (0.2-1.3)
[2019-05-15] MEDS: SODIUM CHLORIDE 0.9% 1,000 ML IV SCH ×2 (10:45→21:08)
[2019-05-15] MEDS: PANTOPRAZOLE 40 MG/10 ML VIAL IV SCH (10:46)
--- NOTE | 2019-05-15 11:24 | P.PN ---
Subjective Progress Note Date: 05/15/19 This is an 89-year-old male patient with well-known to my services. Patient has a history of osteomyelitis which he was recently discharged after debridement on IV vancomycin. Over the past few days infection seems to be getting worse of the right foot and right lower extremity. Patient reports that he has been receiving his IV vancomycin but did start to notice some blistering and redness extending into the anterior leg. Patient underwent amputation of the right big toe on 05/08/[address] Borden. Foot x-ray completed showing new findings concerning for osteolysis of the distal first metatarsal intravertebral imitation of the first digit and chronic changes the second proximal phalanx and third metatarsal. Tibia and fibula x-ray completed showing soft tissue swelling diffusely at the ankle. No suspicious osseous abnormality within the visualized right tibia and fibula. Patient has been admitted for inpatient. Dr. Mcguire and Dr. Borden have been consulted. IV vancomycin until evaluated by ID. Lactic acid 1.0. Blood and wound cultures ordered. On 05/13/2019 patient was seen and examined on the medical floor he is alert and oriented 3 in no apparent distress, there is no fever or chills no headache or dizziness no chest pain no shortness of breath no cough no nausea or vomiting no abdominal pain no diarrhea no burning with urination no frequency or urgency and no hematuria On 05/14/2019 patient was seen and examined on the medical floor he is alert and oriented 3, he denies any complaints at this time, right lower extremity still has an open wound at the site of big toe amputation, also there is multiple large blisters in the right pretibial area with surrounding erythema and swelling, otherwise patient denies any complaints there is no fever or chills no headache or dizziness no chest pain no shortness of breath no cough no nausea or vomiting no abdominal pain no diarrhea no burning with urination no frequency or urgency and no hematuria. On 05/15/2019 patient is alert and oriented 3 dressing to right foot is clean dry and intact. Patient remains on vancomycin and Unasyn per ID. Patient denies chest pain or shortness of breath. Patient denies nausea vomiting or diarrhea. Patient denies any urinary burning or frequency Objective - Vital Signs Vital signs: Vital Signs Temp 98.1 F 05/15/19 05:40 Pulse 47 L 05/15/19 05:40 Resp 16 05/15/19 05:40 BP 150/69 05/15/19 05:40 Pulse Ox 98 05/15/19 05:40 Intake & Output 05/14/19 05/15/19 05/15/19 18:59 06:59 18:59 Intake Total 1080 Output Total 500 1050 Balance 580 -1050 Intake: Oral 1080 Output: Urine 500 1050 Other: # Voids 3 2 - Exam In general patient is alert and oriented 3 he denies any pain or discomfort at this time. Head normocephalic and atraumatic Neck supple no JVD no goiter no lymphadenopathy Lungs clear to auscultation bilaterally no wheezing or crackles Heart regular rate and rhythm S1-S2, no rub or gallop Abdomen is soft nontender nondistended positive bowel sounds no hepatosplenomegaly Extremities +3 right lower extremity edema with blistering in the right pretibial area and oozing from incisional site, Neuro no gross focal neurological deficits - Labs CBC & Chem 7: 05/15/19 10:00 05/15/19 10:00 Labs: Abnormal Lab Results - Last 24 Hours (Table) 05/14/19 05/14/19 05/14/19 Range/Units 11:36 16:46 20:28 RBC (4.30-5.90) m/uL Hgb (13.0-17.5) gm/dL Hct (39.0-53.0) % Lymphocytes # (1.0-4.8) k/uL Chloride (98-107) mmol/L Carbon Dioxide (22-30) mmol/L BUN (9-20) mg/dL Creatinine (0.66-1.25) mg/dL Glucose (74-99) mg/dL POC Glucose (mg/dL) 177 H 157 H 161 H (75-99) mg/dL Calcium (8.4-10.2) mg/dL Total Protein (6.3-8.2) g/dL Albumin (3.5-5.0) g/dL 05/15/19 05/15/19 05/15/19 Range/Units 07:05 10:00 10:00 RBC 4.16 L (4.30-5.90) m/uL Hgb 11.0 L (13.0-17.5) gm/dL Hct 35.5 L (39.0-53.0) % Lymphocytes # 0.9 L (1.0-4.8) k/uL Chloride 113 H (98-107) mmol/L Carbon Dioxide 21 L (22-30) mmol/L BUN 21 H (9-20) mg/dL Creatinine 1.58 H (0.66-1.25) mg/dL Glucose 162 H (74-99) mg/dL POC Glucose (mg/dL) 122 H (75-99) mg/dL Calcium 8.1 L (8.4-10.2) mg/dL Total Protein 6.0 L (6.3-8.2) g/dL Albumin 2.6 L (3.5-5.0) g/dL Microbiology - Last 24 Hours (Table) 05/12/19 09:20 Gram Stain - Preliminary Foot - Right Wound Culture - Preliminary Klebsiella pneumoniae 05/12/19 09:20 Blood Culture - Preliminary Blood No Growth after 48 hours Assessment and Plan Assessment: 1. Osteomyelitis and cellulitis right lower extremity. Blood culture recently positive for MRSA. Patient recently underwent amputation of right greater toe debridement. Patient has been on vancomycin. Infectious disease and vascular surgery Dr. Borden reconsulted. Patient resumed on Vanco. Blood and wound cultures ordered. Culture currently learning Klebsiella pneumonia. Patient maintained on Unasyn and Vanco per ID 2. Chronic kidney disease stage III. Baseline creatinine around 1.51 3. History of gangrenous cellulitis of the third toe on the right foot in September 2018 requiring amputation 4. Anemia deficiency of chronic kidney disease 5. Diabetes mellitus type 2 glipizide resume sliding scale coverage will be added. A1c is 6.8 6. History of essential hypertension 7. History of coronary artery disease 8. History of prostate cancer in 2001 status post radiation DVT prophylaxis heparin. GI prophylaxis Pepcid Infectious disease and vascular surgery consulted Maintain on IV antibiotic Wound and blood cultures ordered I performed an examination of the patient and discussed their management with the Nurse Practitioner. I have reviewed the Nurse Practitioner's notes and agree with the documented findings and plan of care
[2019-05-15 11:31] LABS: Glucose,Whole Blood 135 mg/dL (75-99)
--- NOTE | 2019-05-15 12:31 | CDI ---
Documentation Clarification Form Date: 05/15/2019 11:55:40 AM From: Nya Neal RN CCDS Admit Date: 05/12/2019 12:37:00 PM Patient Name: Dylan Mcrae Visit Number: [id number] Discharge Date: ATTENTION: The Clinical Documentation Specialists (CDI) and [facility] Coding Staff appreciate your assistance in clarifying documentation. Please respond to the clarification below the line at the bottom and electronically sign. The CDI & [facility] Coding staff will review the response and follow-up if needed. Please note: Queries are made part of the Legal Health Record. If you have any questions, please contact the author of this message via ITS. Dr. Edmond Crespo The patient presented to the ED with concerns of worsening infection over the right foot and lower extremity. History/Risk Factors: 89-year-old male with amputation of right big toe 05/08/19, receiving Vancomycin IV outpatient noticed blistering and redness extending into the anterior leg. Medical history of DM2, MRSA of right great toe, Clinical Indicators: Lab findings: 3/6 Wbc 6.1, Chl 111, Bun 23, Cr 1.51, Calcium 8.3 Total protein 6.1, albumin 2.7, Radiology findings: 3/6 Xray Right Tib ia and fibula 2 view soft tissue swelling diffusely at the ankle 3/6 Xray Right Foot New findings concerning for osteomyelitis of the distal first metatarsal. Intervertebral amputation the first digit. Other chronic changes of the second proximal phalanx and third metatarsal. Vital Signs: 3/6 159/72 46 98.6 18 100% RA Treatment: 3/6 Vancomycin IVPB Q 24 Hr, Ampicillin Sodium / Sulbactam Sodium IVPB Q 8 Hr Please document any body system complications or specific manifestations related to the diabetes: Right Lower extremity Cellulitis Associated with Diabetes No association with Diabetes Other condition Unable to Determine (Last Revision: June 2017) Right lower extremity cellulitis associated with diabetes MTDD
--- NOTE | 2019-05-15 13:01 | CDI ---
Documentation Clarification Form Date: 05/15/2019 12:31:48 PM From: Nya Neal RN CCDS Admit Date: 05/12/2019 12:37:00 PM Patient Name: Dylan Mcrae Visit Number: [id number] Discharge Date: ATTENTION: The Clinical Documentation Specialists (CDI) and [facility] Coding Staff appreciate your assistance in clarifying documentation. Please respond to the clarification below the line at the bottom and electronically sign. The CDI & [facility] Coding staff will review the response and follow-up if needed. Please note: Queries are made part of the Legal Health Record. If you have any questions, please contact the author of this message via ITS. Dr. Edmond Crespo The patients principal diagnosis has not been clearly identified and requires clarification. History/Risk Factors: 89-year-old male presented to the ED with concerns of worsening infection over the right foot and lower extremity. The patient had an amputation of right big toe 05/08/19, receiving Vancomycin IV outpatient noticed blistering and redness extending into the anterior leg. Medical history of DM2, MRSA of right great toe, Clinical Indicators: 05/11 Wound culture Right Foot, method of collection Surgical Site, Klebsiella Pneumoniae Lab findings: 05/11 Wbc 6.1, Chl 111, Bun 23, Cr 1.51, Calcium 8.3 Total protein 6.1, albumin 2.7, Radiology findings: 05/11 Xray Right Tib ia and fibula 2 view soft tissue swelling diffusely at the ankle 05/11 Xray Right Foot New findings concerning for osteomyelitis of the distal first metatarsal. Intervertebral amputation the first digit. Other chronic changes of the second proximal phalanx and third metatarsal. Vital Signs: 05/11 159/72 46 98.6 18 100% RA H&P 05/11 Foot x-ray completed showing new findings concerning for osteomyelitis of the distal first metatarsal intravertebral imitation of the first digit and chronic changes the second proximal phalanx and third metatarsal. Vascular consult 05/12 The patient has swelling of the right lower extremity with some blister formation. The stump site there is some dehiscence noted with some fibrotic tissue at the base of the wound and also patient has some blister on the right lower extremity. Treatment: 05/11 Vancomycin IVPB Q 24 Hr, Ampicillin Sodium / Sulbactam Sodium IVPB Q 8 Hr In your professional opinion, can you please clarify which diagnosis, after study, accounted for the patients presenting symptoms and was the reason chiefly responsible for the admission? * Post-operative wound infection of the surgical site of the right Big Toe * Cellulitis of the Right lower extremity * Osteomyelitis of the Right distal first metatarsal intravertebral amputation of the first digit * Unable to determine * Other (Last Revision: June 2017) cellulitis of the right lower extremity MTDD
[2019-05-15] MEDS: VANCOMYCIN 2,000 MG in SODIUM CHLORIDE 0.9% 500 ML 500 ML IVPB SCH (13:30)
[2019-05-15 16:57] LABS: Glucose,Whole Blood 173 mg/dL (75-99)
[2019-05-15 20:46] LABS: Glucose,Whole Blood 191 mg/dL (75-99)
--- NOTE | 2019-05-15 21:07 | PN ---
PROGRESS NOTE Mr. Mcrae had a big toe amputation done a few weeks ago. Patient has been admitted with some history of a blister formation lower extremity and some wound dehiscence. Rest of the stitches are intact. There is no sign of redness or discharge noted. We have changed the dressing today. Base of the wound is clean and degranulating. PLAN: Continue with Medihoney gel and if the patient goes home soon, then I will follow in the wound clinic on the next Wednesday at [facility]. The patient will be continued with antibiotic by Infectious Disease. MMODL / IJN: [id number] /
[2019-05-16] MEDS: AMPICILLIN-SULBACTAM 3 GM in SODIUM CHLORIDE 0.9% 100 ML IVPB SCH ×4 (00:13→23:47)
[2019-05-16] MEDS: SODIUM CHLORIDE 0.9% 1,000 ML IV SCH ×4 (00:14→21:58)
[2019-05-16 07:09] LABS: Glucose,Whole Blood 117 mg/dL (75-99)
[2019-05-16] MEDS: INSULIN ASPART (NovoLOG) 100 UNIT/ML VIAL SQ SCH ×4 (07:34→21:42)
[2019-05-16] MEDS: glipiZIDE 5 MG TAB PO SCH ×2 (07:47→17:23)
[2019-05-16] MEDS: POTASSIUM CHLORIDE ER 10 MEQ TAB.ER.PRT PO SCH (07:48)
[2019-05-16] MEDS: FERROUS SULFATE 325 MG TAB PO SCH (07:48)
[2019-05-16] MEDS: FAMOTIDINE 20 MG TAB PO SCH (07:48)
[2019-05-16] MEDS: FUROSEMIDE 20 MG TAB PO SCH (07:48)
[2019-05-16] MEDS: PANTOPRAZOLE 40 MG/10 ML VIAL IV SCH (07:48)
[2019-05-16] MEDS: TAMSULOSIN 0.4 MG CAP.ER.24H PO SCH ×2 (07:48→21:50)
[2019-05-16] MEDS: HEPARIN SODIUM,PORCINE 5,000 UNIT/ML 1 ML VIAL SQ SCH ×2 (07:48→21:50)
[2019-05-16] MEDS: LISINOPRIL 5 MG TAB PO SCH (07:49)
[2019-05-16] MEDS: TIMOLOL 0.5% OPHTH DROPS 5 ML BTL BOTH EYES SCH ×2 (07:50→21:50)
[2019-05-16 11:54] LABS: Glucose,Whole Blood 125 mg/dL (75-99)
[2019-05-16] MEDS ORDERED: VANCOMYCIN TROUGH DUE 1 EACH MISC MISCELLANE ONE (12:00)
[2019-05-16] MEDS: VANCOMYCIN 2,000 MG in SODIUM CHLORIDE 0.9% 500 ML 500 ML IVPB SCH (12:51)
[2019-05-16 12:52] LABS: Basophils % (A) 1 %; Eosinophils # (A) 0.2 k/uL (0-0.7); Eosinophils % (A) 4 %; HGB 10.6 gm/dL (13.0-17.5); Hypochromasia Slight; Lymphocytes % (A) 17 %; MCH 26.5 pg (25.0-35.0); MCHC 31.2 g/dL (31.0-37.0); Mean Platelet Volume 7.5; Monocytes # (A) 0.4 k/uL (0-1.0); Monocytes % (A) 6 %; Neutrophils # (A) 4.4 k/uL (1.3-7.7); Neutrophils % (A) 72 %; Platelet Count 260 k/uL (150-450); RBC 4.01 m/uL (4.30-5.90); RDW 13.7 % (11.5-15.5); WBC 6.1 k/uL (3.8-10.6)
[2019-05-16 13:06] LABS: Albumin 2.6 g/dL (3.5-5.0); Calcium 8.3 mg/dL (8.4-10.2); Potassium 4.6 mmol/L (3.5-5.1); Total Bilirubin 0.4 mg/dL (0.2-1.3); Total Protein 5.9 g/dL (6.3-8.2)
--- NOTE | 2019-05-16 13:21 | P.PN ---
Subjective Progress Note Date: 05/16/19 This is an 89-year-old male patient with well-known to my services. Patient has a history of osteomyelitis which he was recently discharged after debridement on IV vancomycin. Over the past few days infection seems to be getting worse of the right foot and right lower extremity. Patient reports that he has been receiving his IV vancomycin but did start to notice some blistering and redness extending into the anterior leg. Patient underwent amputation of the right big toe on 05/08/[address] Borden. Foot x-ray completed showing new findings concerning for osteolysis of the distal first metatarsal intravertebral imitation of the first digit and chronic changes the second proximal phalanx and third metatarsal. Tibia and fibula x-ray completed showing soft tissue swelling diffusely at the ankle. No suspicious osseous abnormality within the visualized right tibia and fibula. Patient has been admitted for inpatient. Dr. Mcguire and Dr. Borden have been consulted. IV vancomycin until evaluated by ID. Lactic acid 1.0. Blood and wound cultures ordered. On 05/13/2019 patient was seen and examined on the medical floor he is alert and oriented 3 in no apparent distress, there is no fever or chills no headache or dizziness no chest pain no shortness of breath no cough no nausea or vomiting no abdominal pain no diarrhea no burning with urination no frequency or urgency and no hematuria On 05/14/2019 patient was seen and examined on the medical floor he is alert and oriented 3, he denies any complaints at this time, right lower extremity still has an open wound at the site of big toe amputation, also there is multiple large blisters in the right pretibial area with surrounding erythema and swelling, otherwise patient denies any complaints there is no fever or chills no headache or dizziness no chest pain no shortness of breath no cough no nausea or vomiting no abdominal pain no diarrhea no burning with urination no frequency or urgency and no hematuria. On 05/15/2019 patient is alert and oriented 3 dressing to right foot is clean dry and intact. Patient remains on vancomycin and Unasyn per ID. Patient denies chest pain or shortness of breath. Patient denies nausea vomiting or diarrhea. Patient denies any urinary burning or frequency On 05/16/2019 patient's alert and oriented 3. Dressing to right foot is clean dry and intact. Did discuss case with infectious disease recommending we keep patient on additional 24 hours. Patient remains on Unasyn and vancomycin. Patient denies chest pain. Patient denies shortness of breath. Patient denies nausea vomiting or diarrhea. Patient denies any urinary burning or frequency Objective - Vital Signs Vital signs: Vital Signs Temp 98.2 F 05/16/19 05:22 Pulse 49 L 05/16/19 05:22 Resp 16 05/16/19 08:00 BP 135/68 05/16/19 05:22 Pulse Ox 99 05/16/19 05:22 Intake & Output 05/15/19 05/16/19 05/16/19 18:59 06:59 18:59 Output Total 900 1300 Balance -900 -1300 Output: Urine 900 1300 Other: Voiding Method Urinal - Exam In general patient is alert and oriented 3 he denies any pain or discomfort at this time. Head normocephalic and atraumatic Neck supple no JVD no goiter no lymphadenopathy Lungs clear to auscultation bilaterally no wheezing or crackles Heart regular rate and rhythm S1-S2, no rub or gallop Abdomen is soft nontender nondistended positive bowel sounds no hepatosplenomegaly Extremities +3 right lower extremity edema with blistering in the right pretibial area and oozing from incisional site, Neuro no gross focal neurological deficits - Labs CBC & Chem 7: 05/16/19 12:13 05/16/19 12:13 Labs: Abnormal Lab Results - Last 24 Hours (Table) 05/15/19 05/15/19 05/16/19 Range/Units 16:50 20:45 07:08 RBC (4.30-5.90) m/uL Hgb (13.0-17.5) gm/dL Hct (39.0-53.0) % Chloride (98-107) mmol/L BUN (9-20) mg/dL Creatinine (0.66-1.25) mg/dL Glucose (74-99) mg/dL POC Glucose (mg/dL) 173 H 191 H 117 H (75-99) mg/dL Calcium (8.4-10.2) mg/dL Total Protein (6.3-8.2) g/dL Albumin (3.5-5.0) g/dL 05/16/19 05/16/19 05/16/19 Range/Units 11:53 12:13 12:13 RBC 4.01 L (4.30-5.90) m/uL Hgb 10.6 L (13.0-17.5) gm/dL Hct 34.0 L (39.0-53.0) % Chloride 111 H (98-107) mmol/L BUN 21 H (9-20) mg/dL Creatinine 1.68 H (0.66-1.25) mg/dL Glucose 105 H (74-99) mg/dL POC Glucose (mg/dL) 125 H (75-99) mg/dL Calcium 8.3 L (8.4-10.2) mg/dL Total Protein 5.9 L (6.3-8.2) g/dL Albumin 2.6 L (3.5-5.0) g/dL Microbiology - Last 24 Hours (Table) 05/12/19 09:20 Blood Culture - Preliminary Blood No Growth after 96 hours 05/12/19 09:20 Gram Stain - Final Foot - Right Wound Culture - Final Klebsiella pneumoniae Acinetobacter lwoffi grp Assessment and Plan Assessment: 1. Osteomyelitis and cellulitis right lower extremity. Blood culture recently positive for MRSA. Patient recently underwent amputation of right greater toe debridement. Patient has been on vancomycin. Infectious disease and vascular surgery Dr. Borden reconsulted. Patient resumed on Vanco. Blood and wound cultures ordered. Culture currently learning Klebsiella pneumonia. Patient maintained on Unasyn and Vanco per ID 2. Chronic kidney disease stage III. Baseline creatinine around 1.51 3. History of gangrenous cellulitis of the third toe on the right foot in September 2018 requiring amputation 4. Anemia deficiency of chronic kidney disease 5. Diabetes mellitus type 2 glipizide resume sliding scale coverage will be added. A1c is 6.8 6. History of essential hypertension 7. History of coronary artery disease 8. History of prostate cancer in 2001 status post radiation DVT prophylaxis heparin. GI prophylaxis Pepcid Infectious disease and vascular surgery consulted Maintain on IV antibiotic Wound and blood cultures ordered I performed an examination of the patient and discussed their management with the Nurse Practitioner. I have reviewed the Nurse Practitioner's notes and agree with the documented findings and plan of care
[2019-05-16 17:33] LABS: Glucose,Whole Blood 155 mg/dL (75-99)
[2019-05-16 20:41] LABS: Glucose,Whole Blood 129 mg/dL (75-99)
--- NOTE | 2019-05-17 00:58 | PN ---
PROGRESS NOTE DATE OF SERVICE: 05/16/2019 REASON FOR FOLLOWUP: Right leg wound cellulitis and right big toe amputated site wound dehiscence. INTERVAL HISTORY: The patient is currently afebrile, has been breathing comfortably. Denies having any chest pain or shortness of breath, cough, no nausea, no vomiting, or any worsening pain to the right leg. PHYSICAL EXAMINATION: Blood pressure 145/62 with a pulse of 44. Temperature 97.7. He is 100% on room air. General description is an elderly male up in the bed in no distress. Respiratory system: Unlabored breathing. Clear to auscultation anteriorly. Heart S1, S2. Regular rate and rhythm. ABDOMEN: Soft, no tenderness. Right leg swelling and redness is improved. No drainage. LABS: Wound cultures with Klebsiella and Acinetobacter. DIAGNOSTIC IMPRESSION AND PLAN: Patient with right big toe wet gangrene status post amputation. Culture positive for MRSA. The patient did have MRSA bacteremia. Subsequently admitted to the hospital with extensive swelling of the right leg and blister. Cellulitis and culture now showing Acinetobacter and Klebsiella. Patient covered with vancomycin and Unasyn. Plan on getting a PICC line to continue with IV vancomycin for at least 2 more weeks and IV Rocephin. Local care to continue per Surgery. Continue supportive care. MMODL / IJN: [id number] /
[2019-05-17] MEDS: SODIUM CHLORIDE 0.9% 1,000 ML IV SCH (04:20)
[2019-05-17 07:17] LABS: Glucose,Whole Blood 134 mg/dL (75-99)
[2019-05-17] MEDS: TAMSULOSIN 0.4 MG CAP.ER.24H PO SCH ×2 (07:53→22:16)
[2019-05-17] MEDS: INSULIN ASPART (NovoLOG) 100 UNIT/ML VIAL SQ SCH ×4 (07:53→22:16)
[2019-05-17] MEDS: FERROUS SULFATE 325 MG TAB PO SCH (07:53)
[2019-05-17] MEDS: LISINOPRIL 5 MG TAB PO SCH (07:53)
[2019-05-17] MEDS: CHOLECALCIFEROL 1,000 UNIT TAB PO SCH (07:53)
[2019-05-17] MEDS: FUROSEMIDE 20 MG TAB PO SCH (07:53)
[2019-05-17] MEDS: TIMOLOL 0.5% OPHTH DROPS 5 ML BTL BOTH EYES SCH ×2 (07:54→22:16)
[2019-05-17] MEDS: HEPARIN SODIUM,PORCINE 5,000 UNIT/ML 1 ML VIAL SQ SCH ×2 (07:54→22:16)
[2019-05-17] MEDS: POTASSIUM CHLORIDE ER 10 MEQ TAB.ER.PRT PO SCH (07:54)
[2019-05-17] MEDS: glipiZIDE 5 MG TAB PO SCH ×2 (07:54→16:49)
[2019-05-17] MEDS: PANTOPRAZOLE 40 MG TABLET PO SCH (07:54)
[2019-05-17] MEDS: AMPICILLIN-SULBACTAM 3 GM in SODIUM CHLORIDE 0.9% 100 ML IVPB SCH ×3 (07:57→23:07)
[2019-05-17 10:03] LABS: Basophils % (A) 0 %; Eosinophils # (A) 0.3 k/uL (0-0.7); Eosinophils % (A) 4 %; HCT 32.6 % (39.0-53.0); HGB 10.1 gm/dL (13.0-17.5); Hypochromasia Slight; Lymphocytes # (A) 0.9 k/uL (1.0-4.8); Lymphocytes % (A) 16 %; MCH 26.7 pg (25.0-35.0); MCV 86.2 fL (80.0-100.0); Mean Platelet Volume 7.6; Monocytes # (A) 0.3 k/uL (0-1.0); Monocytes % (A) 6 %; Neutrophils # (A) 4.2 k/uL (1.3-7.7); Neutrophils % (A) 72 %; Platelet Count 233 k/uL (150-450); RBC 3.79 m/uL (4.30-5.90); WBC 5.8 k/uL (3.8-10.6)
[2019-05-17 11:56] LABS: Glucose,Whole Blood 149 mg/dL (75-99)
[2019-05-17] MEDS: VANCOMYCIN 2,000 MG in SODIUM CHLORIDE 0.9% 500 ML 500 ML IVPB SCH (12:18)
[2019-05-17 12:40] LABS: Albumin 2.4 g/dL (3.5-5.0); Calcium 8.1 mg/dL (8.4-10.2); Potassium 4.5 mmol/L (3.5-5.1); Total Bilirubin 0.4 mg/dL (0.2-1.3); Total Protein 5.5 g/dL (6.3-8.2)
--- NOTE | 2019-05-17 12:49 | P.PN ---
Subjective Progress Note Date: 05/17/19 This is an 89-year-old male patient with well-known to my services. Patient has a history of osteomyelitis which he was recently discharged after debridement on IV vancomycin. Over the past few days infection seems to be getting worse of the right foot and right lower extremity. Patient reports that he has been receiving his IV vancomycin but did start to notice some blistering and redness extending into the anterior leg. Patient underwent amputation of the right big toe on 05/08/[address] Borden. Foot x-ray completed showing new findings concerning for osteolysis of the distal first metatarsal intravertebral imitation of the first digit and chronic changes the second proximal phalanx and third metatarsal. Tibia and fibula x-ray completed showing soft tissue swelling diffusely at the ankle. No suspicious osseous abnormality within the visualized right tibia and fibula. Patient has been admitted for inpatient. Dr. Mcguire and Dr. Borden have been consulted. IV vancomycin until evaluated by ID. Lactic acid 1.0. Blood and wound cultures ordered. On 05/13/2019 patient was seen and examined on the medical floor he is alert and oriented 3 in no apparent distress, there is no fever or chills no headache or dizziness no chest pain no shortness of breath no cough no nausea or vomiting no abdominal pain no diarrhea no burning with urination no frequency or urgency and no hematuria On 05/14/2019 patient was seen and examined on the medical floor he is alert and oriented 3, he denies any complaints at this time, right lower extremity still has an open wound at the site of big toe amputation, also there is multiple large blisters in the right pretibial area with surrounding erythema and swelling, otherwise patient denies any complaints there is no fever or chills no headache or dizziness no chest pain no shortness of breath no cough no nausea or vomiting no abdominal pain no diarrhea no burning with urination no frequency or urgency and no hematuria. On 05/15/2019 patient is alert and oriented 3 dressing to right foot is clean dry and intact. Patient remains on vancomycin and Unasyn per ID. Patient denies chest pain or shortness of breath. Patient denies nausea vomiting or diarrhea. Patient denies any urinary burning or frequency On 05/16/2019 patient's alert and oriented 3. Dressing to right foot is clean dry and intact. Did discuss case with infectious disease recommending we keep patient on additional 24 hours. Patient remains on Unasyn and vancomycin. Patient denies chest pain. Patient denies shortness of breath. Patient denies nausea vomiting or diarrhea. Patient denies any urinary burning or frequency On 05/17/2019 patient's alert and oriented 3. Did discuss case with infectious disease. Patient had midline removed and PICC line placed. Based on protocol and elevated GFR nephrology services have to clear patient for PICC line placement. Patient will be DC'd on Rocephin and vancomycin. Patient declining ECF placement antibiotics to be arranged through [facility]. At this time patient denies chest pain or shortness of breath. Patient denies nausea vomiting or diarrhea. Patient denies any urinary burning or frequency Objective - Vital Signs Vital signs: Vital Signs Temp 97.3 F L 05/17/19 05:00 Pulse 50 L 05/17/19 08:00 Resp 18 05/17/19 08:00 BP 151/74 05/17/19 05:00 Pulse Ox 99 05/17/19 05:00 Intake & Output 05/16/19 05/17/19 05/17/19 18:59 06:59 18:59 Intake Total 640 Output Total 600 200 Balance -600 640 -200 Intake: Oral 640 Output: Urine 600 200 Other: Voiding Method Urinal Urinal Urinal # Voids 3 1 - Exam In general patient is alert and oriented 3 he denies any pain or discomfort at this time. Head normocephalic and atraumatic Neck supple no JVD no goiter no lymphadenopathy Lungs clear to auscultation bilaterally no wheezing or crackles Heart regular rate and rhythm S1-S2, no rub or gallop Abdomen is soft nontender nondistended positive bowel sounds no hepatosplenomegaly Extremities +3 right lower extremity edema with blistering in the right pretibial area and oozing from incisional site, Neuro no gross focal neurological deficits - Labs CBC & Chem 7: 05/17/19 09:32 05/17/19 09:32 Labs: Abnormal Lab Results - Last 24 Hours (Table) 05/16/19 05/16/19 05/16/19 Range/Units 12:13 12:13 17:32 RBC 4.01 L (4.30-5.90) m/uL Hgb 10.6 L (13.0-17.5) gm/dL Hct 34.0 L (39.0-53.0) % Lymphocytes # (1.0-4.8) k/uL Chloride 111 H (98-107) mmol/L BUN 21 H (9-20) mg/dL Creatinine 1.68 H (0.66-1.25) mg/dL Glucose 105 H (74-99) mg/dL POC Glucose (mg/dL) 155 H (75-99) mg/dL Calcium 8.3 L (8.4-10.2) mg/dL Total Protein 5.9 L (6.3-8.2) g/dL Albumin 2.6 L (3.5-5.0) g/dL 05/16/19 05/17/19 05/17/19 Range/Units 20:28 07:09 09:32 RBC 3.79 L (4.30-5.90) m/uL Hgb 10.1 L (13.0-17.5) gm/dL Hct 32.6 L (39.0-53.0) % Lymphocytes # 0.9 L (1.0-4.8) k/uL Chloride (98-107) mmol/L BUN (9-20) mg/dL Creatinine (0.66-1.25) mg/dL Glucose (74-99) mg/dL POC Glucose (mg/dL) 129 H 134 H (75-99) mg/dL Calcium (8.4-10.2) mg/dL Total Protein (6.3-8.2) g/dL Albumin (3.5-5.0) g/dL 05/17/19 05/17/19 Range/Units 09:32 11:54 RBC (4.30-5.90) m/uL Hgb (13.0-17.5) gm/dL Hct (39.0-53.0) % Lymphocytes # (1.0-4.8) k/uL Chloride 110 H (98-107) mmol/L BUN 23 H (9-20) mg/dL Creatinine 1.50 H (0.66-1.25) mg/dL Glucose 169 H (74-99) mg/dL POC Glucose (mg/dL) 149 H (75-99) mg/dL Calcium 8.1 L (8.4-10.2) mg/dL Total Protein 5.5 L (6.3-8.2) g/dL Albumin 2.4 L (3.5-5.0) g/dL Microbiology - Last 24 Hours (Table) 05/12/19 09:20 Blood Culture - Preliminary Blood No Growth after 120 hours Assessment and Plan Assessment: 1. Osteomyelitis and cellulitis right lower extremity. Blood culture recently positive for MRSA. Patient recently underwent amputation of right greater toe debridement. Patient has been on vancomycin. Infectious disease and vascular surgery Dr. Borden reconsulted. Patient resumed on Vanco. Blood and wound cultures ordered. Culture currently learning Klebsiella pneumonia. Patient maintained on Unasyn and Vanco per ID. Per ID patient midline pulled the PICC line placed. Patient will be DC'd on Rocephin and vancomycin 2. Chronic kidney disease stage III. Baseline creatinine around 1.51 3. History of gangrenous cellulitis of the third toe on the right foot in September 2018 requiring amputation 4. Anemia deficiency of chronic kidney disease 5. Diabetes mellitus type 2 glipizide resume sliding scale coverage will be added. A1c is 6.8 6. History of essential hypertension 7. History of coronary artery disease 8. History of prostate cancer in 2001 status post radiation DVT prophylaxis heparin. GI prophylaxis Pepcid Infectious disease and vascular surgery consulted Maintain on IV antibiotic Wound and blood cultures ordered Patient gave PICC line placement per ID recommendation nephrology consulted per protocol I performed an examination of the patient and discussed their management with the Nurse Practitioner. I have reviewed the Nurse Practitioner's notes and agree with the documented findings and plan of care
[2019-05-17 16:52] LABS: Glucose,Whole Blood 176 mg/dL (75-99)
[2019-05-17 21:33] LABS: Glucose,Whole Blood 146 mg/dL (75-99)
--- NOTE | 2019-05-17 22:49 | PN ---
PROGRESS NOTE DATE OF SERVICE: 05/17/2019. REASON FOR FOLLOWUP: 1. Right great toe amputation site wound. 2. Right leg cellulitis. INTERVAL HISTORY: The patient is currently afebrile, has been breathing comfortably. Denies any chest pain or cough, abdominal pain or pain to the right leg area. PHYSICAL EXAMINATION: Blood pressure 142/62 with a pulse of 44, temperature 97.7. General description: He is 98% on room air. The patient is an elderly male lying in bed in no distress. Respiratory system: Unlabored breathing, clear to auscultation anteriorly. Heart S1, S2. Regular rate and rhythm. ABDOMEN: Soft, no tenderness. Right leg wound with no slough tissue. The redness has improved. No drainage. Right great toe amputated site wound dehiscence but no deep collection. LABS: Hemoglobin is 10.1, white count 5.8. BUN of 23, creatinine 1.50. DIAGNOSTIC IMPRESSION AND PLAN: Patient with right big toe wound status post amputation, admitted to the hospital with right lower extremity cellulitis with dehiscence of his right big toe wound. The patient is currently covered with Unasyn and vancomycin. Waiting for the PICC line placement. Continue the vancomycin and Rocephin will be added for 2 weeks in the outpatient setting. Local care with a dry Aquacel Silver dressing. Monitor clinical course closely. MMODL / IJN: [id number] /
[2019-05-18 07:25] LABS: Glucose,Whole Blood 119 mg/dL (75-99)
[2019-05-18] MEDS: POTASSIUM CHLORIDE ER 10 MEQ TAB.ER.PRT PO SCH (07:57)
[2019-05-18] MEDS: INSULIN ASPART (NovoLOG) 100 UNIT/ML VIAL SQ SCH ×2 (07:57→12:22)
[2019-05-18] MEDS: FUROSEMIDE 20 MG TAB PO SCH (08:00)
[2019-05-18] MEDS: CHOLECALCIFEROL 1,000 UNIT TAB PO SCH (08:00)
[2019-05-18 08:01] VITALS: PULSE 52
[2019-05-18] MEDS: LISINOPRIL 5 MG TAB PO SCH (08:01)
[2019-05-18] MEDS: TAMSULOSIN 0.4 MG CAP.ER.24H PO SCH (08:01)
[2019-05-18] MEDS: PANTOPRAZOLE 40 MG TABLET PO SCH (08:01)
[2019-05-18] MEDS: HEPARIN SODIUM,PORCINE 5,000 UNIT/ML 1 ML VIAL SQ SCH (08:01)
[2019-05-18] MEDS: glipiZIDE 5 MG TAB PO SCH (08:01)
[2019-05-18] MEDS: FERROUS SULFATE 325 MG TAB PO SCH (08:01)
[2019-05-18] MEDS: TIMOLOL 0.5% OPHTH DROPS 5 ML BTL BOTH EYES SCH (08:04)
[2019-05-18] MEDS: AMPICILLIN-SULBACTAM 3 GM in SODIUM CHLORIDE 0.9% 100 ML IVPB SCH (10:19)
[2019-05-18 11:12] LABS: Basophils % (A) 0 %; Eosinophils # (A) 0.3 k/uL (0-0.7); Eosinophils % (A) 5 %; HCT 34.8 % (39.0-53.0); HGB 10.8 gm/dL (13.0-17.5); Hypochromasia Slight; Lymphocytes % (A) 18 %; MCH 26.1 pg (25.0-35.0); MCHC 30.9 g/dL (31.0-37.0); MCV 84.4 fL (80.0-100.0); Mean Platelet Volume 7.5; Monocytes # (A) 0.3 k/uL (0-1.0); Monocytes % (A) 5 %; Neutrophils # (A) 3.9 k/uL (1.3-7.7); Neutrophils % (A) 70 %; Platelet Count 267 k/uL (150-450); RBC 4.13 m/uL (4.30-5.90); RDW 13.7 % (11.5-15.5); WBC 5.6 k/uL (3.8-10.6)
[2019-05-18 11:28] LABS: Albumin 2.6 g/dL (3.5-5.0); Calcium 8.2 mg/dL (8.4-10.2); Potassium 4.6 mmol/L (3.5-5.1); Total Bilirubin 0.4 mg/dL (0.2-1.3); Total Protein 5.9 g/dL (6.3-8.2)
[2019-05-18 12:08] LABS: Glucose,Whole Blood 109 mg/dL (75-99)
[2019-05-18] MEDS ORDERED: LIDOCAINE 1% INJ 10MG/ML (20 ML MDV) ONE (12:41)
[2019-05-18] MEDS ORDERED: LIDOCAINE 1% INJ 10MG/ML (20 ML MDV) SQ ONE (12:42)
--- NOTE | 2019-05-18 13:10 | IR ---
PICC LINE PLACEMENT: HISTORY: Infection requiring long-term antibiotic therapy PROCEDURE: Ultrasound and fluoroscopic guidance of PICC line placement. COMPLICATIONS: None ANESTHESIA: 1. 1% Lidocaine locally. FINDINGS/TECHNIQUE: The procedure was explained to the patient. The risks, complications, benefits and alternatives were discussed and any questions were answered. Informed consent was obtained. The patient was placed supine on the fluoroscopic table and prepped and draped in the usual sterile fas ion. Utilizing a 21 gauge needle and sonographic and fluoroscopic guidance, access in the vein was achieved and there is placement of a 0.018 guidewire. The vein is patent. A 4-F sheath was placed o melinda the guidewire. The guidewire and dilator were removed and a 4-F. PICC line was placed through th e sheath with the tip at the level of the SVC. The sheath was removed, the catheter was flushed and sutured into position. The patient was stable throughout the procedure and remained stable upon disc harge from the Department of Radiology. The vein puncture was patent under ultrasound. A koo scale image was obtained to document patency of the vein punctured. All elements of the maximal barrier technique were utilized. FLUOROSCOPY TIME: 1.5 minutes of fluoroscopy and one image submitted IMPRESSION: Successful PICC line placement under ultrasound and fluoroscopic guidance.
--- NOTE | 2019-05-18 13:24 | P.DS ---
Providers Date of admission: 05/12/19 12:37 Expected date of discharge: 05/18/19 Attending physician: Edmond Crespo Consults: 05/12/19 11:43 Consult Physician Stat Consulting Provider: Silvestre Borden Consult Reason/Comments: osteomyelitis, wound infection, cellulitis Do you want consulting provider notified?: Yes Consult Physician Stat Consulting Provider: Denise Mcguire Consult Reason/Comments: osteomyelitis, worsening cellulitis Do you want consulting provider notified?: Yes 05/17/19 11:11 Consult Physician Stat Consulting Provider: Rula Sinclair Consult Reason/Comments: GFR 36, pt requiring a PICC line. Need to know which arm to use. Do you want consulting provider notified?: Yes Primary care physician: Edmond Crespo Hospital Course: Discharge diagnosis 1. Osteomyelitis and cellulitis right lower extremity. Blood culture recently positive for MRSA. Patient recently underwent amputation of right greater toe debridement. Patient has been on vancomycin. Infectious disease and vascular surgery Dr. Borden reconsulted. Patient resumed on Vanco. Blood and wound cultures ordered. Culture currently learning Klebsiella pneumonia. Patient maintained on Unasyn and Vanco per ID. Per ID patient midline pulled the PICC line placed. Patient will be DC'd on Rocephin and vancomycin. Patient has PICC line in place plan for [facility] infusion. Case management everything is arranged. 2. Chronic kidney disease stage III. Baseline creatinine around 1.51 3. History of gangrenous cellulitis of the third toe on the right foot in September 2018 requiring amputation 4. Anemia deficiency of chronic kidney disease 5. Diabetes mellitus type 2 glipizide resume sliding scale coverage will be added. A1c is 6.8 6. History of essential hypertension 7. History of coronary artery disease 8. History of prostate cancer in 2001 status post radiation Hospital course This is an 89-year-old male patient with well-known to my services. Patient has a history of osteomyelitis which he was recently discharged after debridement on IV vancomycin. Over the past few days infection seems to be getting worse of the right foot and right lower extremity. Patient reports that he has been receiving his IV vancomycin but did start to notice some blistering and redness extending into the anterior leg. Patient underwent amputation of the right big toe on 05/08/[address] Borden. Foot x-ray completed showing new findings concerning for osteolysis of the distal first metatarsal intravertebral imitation of the first digit and chronic changes the second proximal phalanx and third metatarsal. Tibia and fibula x-ray completed showing soft tissue swelling diffusely at the ankle. No suspicious osseous abnormality within the visualized right tibia and fibula. Patient has been admitted for inpatient. Dr. Mcguire and Dr. Borden have been consulted. IV vancomycin until evaluated by ID. Lactic acid 1.0. Blood and wound cultures ordered. On 05/13/2019 patient was seen and examined on the medical floor he is alert and oriented 3 in no apparent distress, there is no fever or chills no headache or dizziness no chest pain no shortness of breath no cough no nausea or vomiting no abdominal pain no diarrhea no burning with urination no frequency or urgency and no hematuria On 05/14/2019 patient was seen and examined on the medical floor he is alert and oriented 3, he denies any complaints at this time, right lower extremity still has an open wound at the site of big toe amputation, also there is multiple large blisters in the right pretibial area with surrounding erythema and swelling, otherwise patient denies any complaints there is no fever or chills no headache or dizziness no chest pain no shortness of breath no cough no nausea or vomiting no abdominal pain no diarrhea no burning with urination no frequency or urgency and no hematuria. On 05/15/2019 patient is alert and oriented 3 dressing to right foot is clean dry and intact. Patient remains on vancomycin and Unasyn per ID. Patient denies chest pain or shortness of breath. Patient denies nausea vomiting or diarrhea. Patient denies any urinary burning or frequency On 05/16/2019 patient's alert and oriented 3. Dressing to right foot is clean dry and intact. Did discuss case with infectious disease recommending we keep patient on additional 24 hours. Patient remains on Unasyn and vancomycin. Patient denies chest pain. Patient denies shortness of breath. Patient denies nausea vomiting or diarrhea. Patient denies any urinary burning or frequency On 05/17/2019 patient's alert and oriented 3. Did discuss case with infectious disease. Patient had midline removed and PICC line placed. Based on protocol and elevated GFR nephrology services have to clear patient for PICC line placement. Patient will be DC'd on Rocephin and vancomycin. Patient declining ECF placement antibiotics to be arranged through [facility]. At this time patient denies chest pain or shortness of breath. Patient denies nausea vomiting or diarrhea. Patient denies any urinary burning or frequency On 05/18/2019 patient's alert and oriented 3. Patient PICC line placed today. Nephrology services have cleared patient for PICC line placement. Patient will be DC'd on Rocephin and vancomycin IV per ID recommendation. Per case management infusions have been arranged. Patient is eager to go home. Patient denies chest pain or shortness of breath. Patient denies nausea vomiting or diarrhea. Patient denies any urinary burning or frequency I performed an examination of the patient and discussed their management with the Nurse Practitioner. I have reviewed the Nurse Practitioner's notes and agree with the documented findings and plan of care Patient Condition at Discharge: Stable Plan - Discharge Summary Discharge Rx Participant: No New Discharge Prescriptions: New Ampicillin-Sulbactam [Unasyn] 3 gm IVPB Q8HR vial Vancomycin 2,000 mg IVPB Q24H vial Continue Furosemide [Lasix] 20 mg PO DAILY Ferrous Sulfate [Feosol] 325 mg PO DAILY Enalapril [Vasotec] 2.5 mg PO DAILY Potassium Chloride [Klor-Con 10] 10 meq PO DAILY glipiZIDE [Glucotrol] 5 mg PO AC-BID Timolol 0.5% Ophth Soln [Timoptic 0.5% Ophth Soln] 1 drop BOTH EYES BID Tamsulosin [Flomax] 0.4 mg PO BID Cholecalciferol (Vitamin D3) [Vitamin D3] 2,000 unit PO DAILY Discharge Medication List Enalapril [Vasotec] 2.5 mg PO DAILY 08/28/15 [History] Ferrous Sulfate [Feosol] 325 mg PO DAILY 08/28/15 [History] Furosemide [Lasix] 20 mg PO DAILY 08/28/15 [History] Potassium Chloride [Klor-Con 10] 10 meq PO DAILY 08/28/15 [History] Timolol 0.5% Ophth Soln [Timoptic 0.5% Ophth Soln] 1 drop BOTH EYES BID 12/13/17 [History] glipiZIDE [Glucotrol] 5 mg PO AC-BID 12/13/17 [History] Cholecalciferol (Vitamin D3) [Vitamin D3] 2,000 unit PO DAILY 09/16/18 [History] Tamsulosin [Flomax] 0.4 mg PO BID 09/16/18 [History] Ampicillin-Sulbactam [Unasyn] 3 gm IVPB Q8HR vial 05/18/19 [Rx] Vancomycin 2,000 mg IVPB Q24H vial 05/18/19 [Rx] Follow up Appointment(s)/Referral(s): Susie [facility], [NON-STAFF] - [facility],Infusion [NON-STAFF] - 05/19/19 9:00 am (Daily infusions) W[facility]aling,Center [NON-STAFF] - 05/22/19 Edmond Crespo MD [Primary Care Provider] - 1-2 days Patient Instructions/Handouts: MRSA (Methicillin-Resistant Staphylococcus A ureus) (DC), Cellulitis (DC), Osteomyelitis (DC), Type 2 Diabetes in Adults: New Diagnosis (DC) Activity/Diet/Wound Care/Special Instructions: Please come to Dr. Mcguire's office ([facility]) starting on 05/19/2019 at 9:00AM for IV antibiotic infusions daily. please include wound care instructions in DC tab Discharge Disposition: HOME WITH HOME HEALTH SERVICES
[2019-05-18] MEDS: VANCOMYCIN 2,000 MG in SODIUM CHLORIDE 0.9% 500 ML 500 ML IVPB SCH (13:43)
[2019-05-18 15:37] VITALS: BP 176/81; RESP 44; TEMP 98
--- NOTE | 2019-05-18 15:58 | PN ---
PROGRESS NOTE DATE OF SERVICE: 05/18/2019. REASON FOR FOLLOWUP: Right big toe amputation/wound dehiscence and right lower extremity cellulitis. INTERVAL HISTORY: The patient is currently afebrile. The patient has been breathing comfortably. Denies having any chest pain, shortness of breath or cough. No nausea, vomiting. Discharge was put on hold yesterday because of the PICC line placement. PHYSICAL EXAMINATION: His blood pressure is 145/66, pulse of 52. Temperature 97.7. He is 98% on room air. General description is an elderly male lying in bed in no distress. RESPIRATORY SYSTEM: Unlabored breathing. Clear to auscultation anteriorly. HEART: S1, S2. Regular rate and rhythm. ABDOMEN: Soft. No tenderness. LABS: Hemoglobin is 10.8, white count 5.6. Creatinine is 1.46. DIAGNOSTIC IMPRESSION AND PLAN: Patient with right big toe amputation site wound dehiscence with a previous history of methicillin-resistant Staphylococcus aeruginosa bacteremia and right leg wound. Culture positive for klebsiella. Antibiotic on discharge will be vancomycin, Pharmacy to dose, and Rocephin 2 grams daily for 2 to 3 weeks, depending on his clinical response. Local wound care with Aquacel Silver dressing. Continue supportive care. MMODL / IJN: [id number] /
--- NOTE | 2019-05-19 03:47 | CONS ---
CONSULTATION REASON FOR CONSULT: Renal failure, need for PICC line. HISTORY OF PRESENT ILLNESS: Patient is an 89-year-old male who was admitted to the hospital on 05/12/2019 with a history of redness and infection on his right foot and right lower extremity with blistering noted. He has been seen by vascular and ID and is maintained on antibiotics. He had right great toe amputation about a few weeks prior to this hospitalization. The patient is maintained on vancomycin and Rocephin. He will need long-term antibiotics for possible osteomyelitis. Serum creatinine is at 1.46 today. It was at 1.5 on initial admission and review of previous labs shows creatinine about 1.5-1.6 mg/dL all the way to 2018. PAST MEDICAL HISTORY: Diabetes, hypertension, coronary artery disease, chronic kidney disease stage 3, peripheral vascular disease, previous history of osteomyelitis, MRSA foot infection, history of colon cancer status post surgery, chemotherapy, radiation therapy; history of prostatic cancer status post radiation therapy, history of BPH, GI bleed, glaucoma, UTIs, multiple foot wounds. PAST SURGICAL HISTORY: Right first toe amputation, colonoscopies, polypectomy, hemicolectomy, cardiac cath, toe amputation, cataract surgery, laser surgery to both eyes. SOCIAL HISTORY: Negative for smoking, drug abuse or alcohol abuse. MEDICATIONS: Medications prior to admission included Vasotec, Lasix, iron, potassium, Glucotrol, vitamin D3, Flomax. ALLERGIES: None. REVIEW OF SYSTEMS: As per HPI. Other systems negative. PHYSICAL EXAMINATION: On examination, patient is comfortable, awake, not in any acute distress. Blood pressure 145/66, heart rate 52 per minute, he is afebrile. Examination of the heart S1, S2. Examination of the lungs, bilateral breath sounds are heard. Abdomen is soft, nontender. Examination of lower extremities shows right foot currently wrapped. Trace edema noted, left leg. [employer] exam grossly intact. LABS: Show sodium 142, potassium 4.6, chloride 111, CO2 is 27, BUN 21, creatinine 1.46. Vancomycin level was 19.7 trough, hemoglobin 10.8 g/dL. ASSESSMENT: 1. Chronic kidney disease. Renal function appears to be at baseline secondary to nephrosclerosis, diabetic nephropathy. 2. Osteomyelitis and cellulitis, right lower extremity, maintained on antibiotics. The patient will need vancomycin as outpatient as well. 3. Type 2 diabetes. 4. Hypertension. 5. History of prostate cancer. 6. History of colon cancer status post right hemicolectomy, chemotherapy, radiation therapy. PLAN: Okay to proceed with PICC line in the dominant arm as we would like to save the non dominant arm down the road for access as patient does have Stage 3 CKD. Thank you for this consultation. Patient should follow up as outpatient for CKD. MMODL / IJN: [id number] /
== END 2019-05-18 17:49 | disposition home health service (06) | DRG 565 ==
LOC: EC 08:57 → 6NMEDSUR 12:37
PROVIDERS: ADMIT Internal Medicine; ATTEND Internal Medicine
PROC: 02HV33Z Insertion of Infusion Device into Superior Vena Cava, Percutaneous Approach (ICD-10-PCS; principal; 2019-05-18 10:40)
DX: T87.43 Infection of amputation stump, right lower extremity (principal); E11.52 Type 2 diabetes mellitus with diabetic peripheral angiopathy with gangrene; L03.115 Cellulitis of right lower limb; M86.171 Other acute osteomyelitis, right ankle and foot; B96.1 Klebsiella pneumoniae [K. pneumoniae] as the cause of diseases classified elsewhere; E11.22 Type 2 diabetes mellitus with diabetic chronic kidney disease; E11.621 Type 2 diabetes mellitus with foot ulcer; Z85.038 Personal history of other malignant neoplasm of large intestine; Z85.46 Personal history of malignant neoplasm of prostate; Z92.3 Personal history of irradiation; N18.9 Chronic kidney disease, unspecified; D63.1 Anemia in chronic kidney disease; E11.69 Type 2 diabetes mellitus with other specified complication; Z86.14 Personal history of Methicillin resistant Staphylococcus aureus infection; I12.9 Hypertensive chronic kidney disease with stage 1 through stage 4 chronic kidney disease, or unspecified chronic kidney disease; I25.10 Atherosclerotic heart disease of native coronary artery without angina pectoris; L97.509 Non-pressure chronic ulcer of other part of unspecified foot with unspecified severity; N18.3 Chronic kidney disease, stage 3 (moderate); N40.0 Benign prostatic hyperplasia without lower urinary tract symptoms; T87.81 Dehiscence of amputation stump; Z79.2 Long term (current) use of antibiotics; E11.628 Type 2 diabetes mellitus with other skin complications; Z79.84 Long term (current) use of oral hypoglycemic drugs; Z79.899 Other long term (current) drug therapy; Z86.011 Personal history of benign neoplasm of the brain; Z86.010 Personal history of colon polyps; Z87.19 Personal history of other diseases of the digestive system; Z89.411 Acquired absence of right great toe; Z90.49 Acquired absence of other specified parts of digestive tract
CPT/HCPCS: 36415; 36573; 71046; 80053; 80202; 81001; 83605; 83880; 84484; 85025; 85610; 85730; 87040; 87070; 87077; 87186; 87205; 93005; 96365; 96367; 99285

== ENCOUNTER 2020-11-23 07:30 | Inpatient (IN) | payer MEDICARE ==
[2020-11-23 07:39] LABS: Glucose,Whole Blood 132 mg/dL (75-99)
[2020-11-23 08:07] LABS: Calcium 8.6 mg/dL (8.4-10.2); Potassium 3.7 mmol/L (3.5-5.1)
[2020-11-23 08:11] LABS: Anisocytosis Moderate; HCT 27.6 % (39.0-53.0); HGB 9.6 gm/dL (13.0-17.5); Hyperchromasia Slight; MCH 29.6 pg (25.0-35.0); MCHC 34.8 g/dL (31.0-37.0); Mean Platelet Volume 8.8; Microcytosis Slight; Platelet Count 308 k/uL (150-450); Poikilocytosis Moderate; RBC 3.25 m/uL (4.30-5.90); RDW 21.2 % (11.5-15.5); WBC 12.9 k/uL (3.8-10.6)
[2020-11-23] MEDS ORDERED: DEXTROSE 50% SYRINGE 50 ML IVP STA ×4 (08:25→14:24)
[2020-11-23 08:28] LABS: Glucose,Whole Blood 59 mg/dL (75-99)
--- NOTE | 2020-11-23 08:29 | ED ---
General Adult HPI - General Chief complaint: Recheck/Abnormal Lab/Rx Stated complaint: hypoglycemia Source: EMS Mode of arrival: EMS Limitations: no limitations - History of Present Illness Initial comments: Patient is an 82-year-old male with multiple medical conditions including diabetes, hypertension, colon cancer who presents to the emergency department for hypoglycemia. He was at bedside and helps provide history. States that she frequently takes the patient food throughout the week. She went over to his house on Wednesday night and found him on the ground in the bathroom. He is a diabetic and he assumed that it was a sugar issue. She reported that his sugar was low but as soon as they fed him he perked right up. He does take Glipizide. He is [id number]. States that his sugars are normally well controlled. The neighbor then attempted to go over to the patient's house this morning to check on him again. He realized that he was in bed with snoring respirations and was unable to be awakened. EMS was called and found his glucose to be in the 50s. I did give him an amp of dextrose. He becomes arousable and arrives able to answer questions appropriately. Denies any complaints at this time. Patient is notably jaundiced. Neighbor denies pr evious history of such. No recent nausea or vomiting. Patient denies any abdominal pain. No other alleviating, precipitating or modifying factors - Related Data Home Medications Medication Instructions Recorded Confirmed Enalapril [Vasotec] 2.5 mg PO DAILY 08/28/15 11/23/20 Furosemide [Lasix] 20 mg PO DAILY 08/28/15 11/23/20 Potassium Chloride [Klor-Con 10 ER] 10 meq PO DAILY 08/28/15 11/23/20 Timolol 0.5% Ophth Soln [Timoptic 1 drop BOTH EYES BID 12/13/17 11/23/20 0.5% Ophth Soln] glipiZIDE [Glucotrol] 5 mg PO AC-TID 12/13/17 11/23/20 Tamsulosin [Flomax] 0.4 mg PO BID 09/16/18 11/23/20 Allergies Allergy/AdvReac Type Severity Reaction Status Date / Time No Known Allergies Allergy Verified 11/23/20 09:40 Review of Systems ROS Statement: Those systems with pertinent positive or pertinent negative responses have been documented in the HPI. ROS Other: All systems not noted in ROS Statement are negative. 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 Other hx: 2004 Colon cancer with surgery/chemo/radiation, 2011 prostate cancer with radiation, BPH, NIDDM type II, PVD, past cellulitis/wounds bilateral lower legs/feet/current R foot wounds, CKD stage III, anemia, bilateral glaucoma, lower GI bleed, gastric/colon polyps, UTIs. History of Any Multi-Drug Resistant Organisms: MRSA Date of last positivie culture/infection: 05/05/19 MDRO Source:: TOE,BLOOD Past Surgical History: Bowel Resection, Heart Catheterization Additional Past Surgical History / Comment(s): 05/06/19 R 1st toe amputation, R upper arm midline IV, EGD, colonoscopies with polypectomy/bx, benign brain tumor removed at [facility], R hemicolectomy 2004, cardiac cath tx medically 2013, R foot 3rd toe amputation d/t wound/ wound vac, bilateral cataract removal with lens, LASER MAGDA EYES, Past Anesthesia/Blood Transfusion Reactions: No Reported Reaction Additional Past Anesthesia/Blood Transfusion Reaction / Comment(s): Pt received blood in past without known reaction. Past Psychological History: No Psychological Hx Reported Smoking Status: Former smoker Past Alcohol Use History: None Reported Past Drug Use History: None Reported - Past Family History Father Family Medical History: No Reported History Additional Family Medical History / Comment(s): Pt believes his father was healthy. He at age 93 yrs. Mother Family Medical History: No Reported History Additional Family Medical History / Comment(s): Pt doesn't know of mother's medical hx but she did live to be 95 yrs old. General Exam Limitations: no limitations Course Vital Signs 11/23/20 11/23/20 11/23/20 07:31 09:08 10:00 Temperature 97.6 F Pulse Rate 76 62 45 L Respiratory 18 18 12 Rate Blood Pressure 137/68 107/50 74/45 O2 Sat by Pulse 100 100 99 Oximetry 11/23/20 11/23/20 11/23/20 10:29 10:35 11:16 Temperature Pulse Rate 71 72 47 L Respiratory 14 16 16 Rate Blood Pressure 119/55 117/52 107/53 O2 Sat by Pulse 97 98 97 Oximetry 11/23/20 11/23/20 11/23/20 11:43 12:31 14:15 Temperature Pulse Rate 64 59 L 37 L Respiratory 16 18 12 Rate Blood Pressure 113/80 106/54 80/48 O2 Sat by Pulse 98 98 97 Oximetry 11/23/20 11/23/20 14:30 14:52 Temperature Pulse Rate 79 64 Respiratory 16 18 Rate Blood Pressure 112/58 O2 Sat by Pulse 100 99 Oximetry - Reevaluation(s) Reevaluation #1: 11/23/20 10:47 At 10:00 the patient had an episode of bradycardia and hypotension. He is moved into trauma bay 1. I did discuss CODE STATUS with the patient's family. Brothers at bedside requesting that the patient be a full code. I did go over diagnosis of metastatic cancer with multiple organ failure and patient's age. Discussed the prognosis of being extremely poor. Family continued to request full code EKG Findings - EKG Comments: EKG Findings:: EKG demonstrates sinus rhythm with first-degree block. Rate of 74. When necessary interval to 24. QRS 80. QTC of 459. No acute ST segment elevations or depressions. Baseline artifact Medical Decision Making - Medical Decision Making Upon arrival patient was placed into room 1. A thorough history and physical exam was performed. Patient is alert and oriented at this time. IV is established. Glucose is obtained and is 132. Vital signs are stable. Laboratory studies are reviewed and demonstrates multiple abnormalities. The patient has a sodium of 147. CO2 of 7. Creatinine 4.5. Elevated AST and ALTs. CK is 1046. Repeat glucose is 59 therefore the patient is given an additional amp of dextrose. Due to the transaminitis patient is sent over for a CT of the abdomen and pelvis. CT brain and cervical spine is also performed due to his syncopal episode from Wednesday with possible head trauma. CT head demonstrates no evidence of acute intracranial hemorrhage or midline shift. No mass effect. No acute fracture dislocation of the cervical spine. 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 Ill-defined soft tissue attenuation in the sathya hepatis. Low attenuating lesion in the left kidney. Thickening at the site of the prior Tarek anastomosis which could be due to recurrence of malignancy. Innumerable osseous sclerotic lesions concerning for metastatic disease. Chest x-ray demonstrates borderline heart size however no acute process. I did discuss this with the patient's family. CODE STATUS was addressed and they are persistent the patient remained full code. The patient does have an episode of bradycardia and hypotension. We did repeat a glucose at this time glucose was found to be 59. He is given additional amp of dextrose. Patient was switched from a D5 drip to D10 drip. Patient does have rebound of his blood pressure, mentation and heart rate. I spoke with Dr. Crespo who agreed to admit the patient. He is currently awaiting a bed on the floor - Lab Data Result diagrams: 11/23/20 07:47 11/23/20 07:46 Lab Results 11/23/20 11/23/20 11/23/20 Range/Units 07:34 07:46 07:47 WBC 12.9 H (3.8-10.6) k/uL RBC 3.25 L (4.30-5.90) m/uL Hgb 9.6 L (13.0-17.5) gm/dL Hct 27.6 L (39.0-53.0) % MCV 85.0 (80.0-100.0) fL MCH 29.6 (25.0-35.0) pg MCHC 34.8 (31.0-37.0) g/dL RDW 21.2 H (11.5-15.5) % Plt Count 308 (150-450) k/uL MPV 8.8 Neutrophils % Not Reportable Neutrophils % (Manual) 89 % Band Neuts % (Manual) 1 % Lymphocytes % Not Reportable Lymphocytes % (Manual) 3 % Monocytes % Not Reportable Monocytes % (Manual) 6 % Eosinophils % Not Reportable Basophils % Not Reportable Metamyelocytes % 1 % Myelocytes % 1 % Neutrophils # Not Reportable Neutrophils # (Manual) 11.60 H (1.3-7.7) k/uL Lymphocytes # Not Reportable Lymphocytes # (Manual) 0.39 L (1.0-4.8) k/uL Monocytes # Not Reportable Monocytes # (Manual) 0.77 (0-1.0) k/uL Eosinophils # Not Reportable Basophils # Not Reportable Metamyelocytes # (Man) 0.13 H (0) k/uL Myelocytes # (Manual) 0.13 H (0) k/uL Nucleated RBCs 0 (0-0) /100 WBC Manual Slide Review Performed Hyperchromasia Slight Poikilocytosis Moderate Anisocytosis Moderate Microcytosis Slight Target Cells Present PT (9.0-12.0) sec INR (<1.2) APTT (22.0-30.0) sec Sodium 147 H (137-145) mmol/L Potassium 3.7 (3.5-5.1) mmol/L Chloride 125 H (98-107) mmol/L Carbon Dioxide 7 L* (22-30) mmol/L Anion Gap 15 mmol/L BUN 80 H (9-20) mg/dL Creatinine 4.50 H (0.66-1.25) mg/dL Est GFR (CKD-EPI)AfAm 13 (>60 ml/min/1.73 sqM) Est GFR (CKD-EPI)NonAf 11 (>60 ml/min/1.73 sqM) Glucose 60 L (74-99) mg/dL POC Glucose (mg/dL) 132 H (75-99) mg/dL POC Glu Machine Set Up Technician ID Orlin Leon Plasma Lactic Acid Jose (0.7-2.0) mmol/L Calcium 8.6 (8.4-10.2) mg/dL Total Bilirubin 32.6 H* (0.2-1.3) mg/dL Conjugated Bilirubin 21.9 H (0.0-0.3) mg/dL Unconjugated Bilirubin 2.0 H (0.0-1.1) mg/dL Delta Bilirubin 8.7 H (0.0-0.2) mg/dL AST 153 H (17-59) U/L ALT 145 H (4-49) U/L Alkaline Phosphatase 842 H (38-126) U/L Creatine Kinase 1046 H* (55-170) U/L Troponin I (0.000-0.034) ng/mL C-Reactive Protein 4.1 H (<1.0) mg/dL NT-Pro-B Natriuret Pep pg/mL Total Protein 6.4 (6.3-8.2) g/dL Albumin 2.8 L (3.5-5.0) g/dL Coronavirus (PCR) (Not Detectd) 11/23/20 11/23/20 11/23/20 Range/Units 07:47 07:47 07:47 WBC (3.8-10.6) k/uL RBC (4.30-5.90) m/uL Hgb (13.0-17.5) gm/dL Hct (39.0-53.0) % MCV (80.0-100.0) fL MCH (25.0-35.0) pg MCHC (31.0-37.0) g/dL RDW (11.5-15.5) % Plt Count (150-450) k/uL MPV Neutrophils % Neutrophils % (Manual) % Band Neuts % (Manual) % Lymphocytes % Lymphocytes % (Manual) % Monocytes % Monocytes % (Manual) % Eosinophils % Basophils % Metamyelocytes % % Myelocytes % % Neutrophils # Neutrophils # (Manual) (1.3-7.7) k/uL Lymphocytes # Lymphocytes # (Manual) (1.0-4.8) k/uL Monocytes # Monocytes # (Manual) (0-1.0) k/uL Eosinophils # Basophils # Metamyelocytes # (Man) (0) k/uL Myelocytes # (Manual) (0) k/uL Nucleated RBCs (0-0) /100 WBC Manual Slide Review Hyperchromasia Poikilocytosis Anisocytosis Microcytosis Target Cells PT 13.8 H (9.0-12.0) sec INR 1.4 H (<1.2) APTT 29.5 (22.0-30.0) sec Sodium (137-145) mmol/L Potassium (3.5-5.1) mmol/L Chloride (98-107) mmol/L Carbon Dioxide (22-30) mmol/L Anion Gap mmol/L BUN (9-20) mg/dL Creatinine (0.66-1.25) mg/dL Est GFR (CKD-EPI)AfAm (>60 ml/min/1.73 sqM) Est GFR (CKD-EPI)NonAf (>60 ml/min/1.73 sqM) Glucose (74-99) mg/dL POC Glucose (mg/dL) (75-99) mg/dL POC Glu Machine Set Up Technician ID Plasma Lactic Acid Jose 1.0 (0.7-2.0) mmol/L Calcium (8.4-10.2) mg/dL Total Bilirubin (0.2-1.3) mg/dL Conjugated Bilirubin (0.0-0.3) mg/dL Unconjugated Bilirubin (0.0-1.1) mg/dL Delta Bilirubin (0.0-0.2) mg/dL AST (17-59) U/L ALT (4-49) U/L Alkaline Phosphatase (38-126) U/L Creatine Kinase (55-170) U/L Troponin I <0.012 (0.000-0.034) ng/mL C-Reactive Protein (<1.0) mg/dL NT-Pro-B Natriuret Pep pg/mL Total Protein (6.3-8.2) g/dL Albumin (3.5-5.0) g/dL Coronavirus (PCR) (Not Detectd) 11/23/20 11/23/20 11/23/20 Range/Units 07:48 08:22 09:12 WBC (3.8-10.6) k/uL RBC (4.30-5.90) m/uL Hgb (13.0-17.5) gm/dL Hct (39.0-53.0) % MCV (80.0-100.0) fL MCH (25.0-35.0) pg MCHC (31.0-37.0) g/dL RDW (11.5-15.5) % Plt Count (150-450) k/uL MPV Neutrophils % Neutrophils % (Manual) % Band Neuts % (Manual) % Lymphocytes % Lymphocytes % (Manual) % Monocytes % Monocytes % (Manual) % Eosinophils % Basophils % Metamyelocytes % % Myelocytes % % Neutrophils # Neutrophils # (Manual) (1.3-7.7) k/uL Lymphocytes # Lymphocytes # (Manual) (1.0-4.8) k/uL Monocytes # Monocytes # (Manual) (0-1.0) k/uL Eosinophils # Basophils # Metamyelocytes # (Man) (0) k/uL Myelocytes # (Manual) (0) k/uL Nucleated RBCs (0-0) /100 WBC Manual Slide Review Hyperchromasia Poikilocytosis Anisocytosis Microcytosis Target Cells PT (9.0-12.0) sec INR (<1.2) APTT (22.0-30.0) sec Sodium (137-145) mmol/L Potassium (3.5-5.1) mmol/L Chloride (98-107) mmol/L Carbon Dioxide (22-30) mmol/L Anion Gap mmol/L BUN (9-20) mg/dL Creatinine (0.66-1.25) mg/dL Est GFR (CKD-EPI)AfAm (>60 ml/min/1.73 sqM) Est GFR (CKD-EPI)NonAf (>60 ml/min/1.73 sqM) Glucose (74-99) mg/dL POC Glucose (mg/dL) 59 L 95 (75-99) mg/dL POC Glu Machine Set Up Technician ID Orlin Leon Matthew Plasma Lactic Acid Jose (0.7-2.0) mmol/L Calcium (8.4-10.2) mg/dL Total Bilirubin (0.2-1.3) mg/dL Conjugated Bilirubin (0.0-0.3) mg/dL Unconjugated Bilirubin (0.0-1.1) mg/dL Delta Bilirubin (0.0-0.2) mg/dL AST (17-59) U/L ALT (4-49) U/L Alkaline Phosphatase (38-126) U/L Creatine Kinase (55-170) U/L Troponin I (0.000-0.034) ng/mL C-Reactive Protein (<1.0) mg/dL NT-Pro-B Natriuret Pep 415 pg/mL Total Protein (6.3-8.2) g/dL Albumin (3.5-5.0) g/dL Coronavirus (PCR) (Not Detectd) 11/23/20 11/23/20 Range/Units 09:37 10:07 WBC (3.8-10.6) k/uL RBC (4.30-5.90) m/uL Hgb (13.0-17.5) gm/dL Hct (39.0-53.0) % MCV (80.0-100.0) fL MCH (25.0-35.0) pg MCHC (31.0-37.0) g/dL RDW (11.5-15.5) % Plt Count (150-450) k/uL MPV Neutrophils % Neutrophils % (Manual) % Band Neuts % (Manual) % Lymphocytes % Lymphocytes % (Manual) % Monocytes % Monocytes % (Manual) % Eosinophils % Basophils % Metamyelocytes % % Myelocytes % % Neutrophils # Neutrophils # (Manual) (1.3-7.7) k/uL Lymphocytes # Lymphocytes # (Manual) (1.0-4.8) k/uL Monocytes # Monocytes # (Manual) (0-1.0) k/uL Eosinophils # Basophils # Metamyelocytes # (Man) (0) k/uL Myelocytes # (Manual) (0) k/uL Nucleated RBCs (0-0) /100 WBC Manual Slide Review Hyperchromasia Poikilocytosis Anisocytosis Microcytosis Target Cells PT (9.0-12.0) sec INR (<1.2) APTT (22.0-30.0) sec Sodium (137-145) mmol/L Potassium (3.5-5.1) mmol/L Chloride (98-107) mmol/L Carbon Dioxide (22-30) mmol/L Anion Gap mmol/L BUN (9-20) mg/dL Creatinine (0.66-1.25) mg/dL Est GFR (CKD-EPI)AfAm (>60 ml/min/1.73 sqM) Est GFR (CKD-EPI)NonAf (>60 ml/min/1.73 sqM) Glucose (74-99) mg/dL POC Glucose (mg/dL) 68 L (75-99) mg/dL POC Glu Machine Set Up Technician ID Orlin Leon Plasma Lactic Acid Jose (0.7-2.0) mmol/L Calcium (8.4-10.2) mg/dL Total Bilirubin (0.2-1.3) mg/dL Conjugated Bilirubin (0.0-0.3) mg/dL Unconjugated Bilirubin (0.0-1.1) mg/dL Delta Bilirubin (0.0-0.2) mg/dL AST (17-59) U/L ALT (4-49) U/L Alkaline Phosphatase (38-126) U/L Creatine Kinase (55-170) U/L Troponin I (0.000-0.034) ng/mL C-Reactive Protein (<1.0) mg/dL NT-Pro-B Natriuret Pep pg/mL Total Protein (6.3-8.2) g/dL Albumin (3.5-5.0) g/dL Coronavirus (PCR) Not Detected (Not Detectd) Disposition Clinical Impression: Hypoglycemia, Metastatic cancer, NOE (acute kidney injury), Elevated bilirubin, Hypernatremia Disposition: ADMITTED IP TO THIS HOSP Condition: Serious Is patient prescribed a controlled substance at d/c from ED?: No Decision to Admit Reason: Admit from EC Decision Date: 11/23/20 Decision Time: 10:42
[2020-11-23] MEDS ORDERED: DEXTROSE 5%-0.9% NACL 1,000 ML IV SCH (08:30)
[2020-11-23 08:33] LABS: C Reactive Protein 4.1 mg/dL (<1.0)
[2020-11-23 08:34] LABS: INR 1.4 (<1.2); Prothrombin Time 13.8 sec (9.0-12.0)
[2020-11-23 08:35] LABS: Partial Thromboplastin Time 29.5 sec (22.0-30.0)
[2020-11-23 08:40] LABS: Total Bilirubin 32.6 mg/dL (0.2-1.3); Total Protein 6.4 g/dL (6.3-8.2)
[2020-11-23 08:41] LABS: Albumin 2.8 g/dL (3.5-5.0)
[2020-11-23 08:47] LABS: Bilirubin, Conjugated 21.9 mg/dL (0.0-0.3); Bilirubin, Delta 8.7 mg/dL (0.0-0.2)
[2020-11-23 09:02] LABS: Band Neutrophils % 1 %; Lymphocytes # (M) 0.39 k/uL (1.0-4.8); Metamyelocytes # (M) 0.13 k/uL (0); Metamyelocytes % 1 %; Monocytes # (M) 0.77 k/uL (0-1.0); Myelocytes # (M) 0.13 k/uL (0); Myelocytes % 1 %; Neutrophils % (M) 89 %; Nucleated Red Blood Cells 0 /100 WBC (0-0); Total Cells Counted 200
[2020-11-23 09:03] LABS: Target Cells Present
[2020-11-23] MEDS ORDERED: DEXTROSE 5%-0.45% NACL 1,000 ML IV ONE (09:11)
[2020-11-23 09:18] LABS: Amorphous Sediment,Urine Few /hpf; Appearance,Urine Cloudy (Clear); Bacteria,Urine Rare /hpf; Bilirubin,Urine 2+ (Negative); Blood,Urine Moderate (Negative); Color,Urine Dark Yellow; Glucose,Urine (UA) Negative (Negative); Ketones,Urine Negative (Negative); Leukocyte Esterase,Urine Negative (Negative); Mucus,Urine Rare /hpf; Nitrite,Urine Negative (Negative); Protein,Urine Trace (Negative); RBC,Urine 1 /hpf (0-5); Urobilinogen,Urine <2.0 mg/dL (<2.0); WBC,Urine 1 /hpf (0-5)
[2020-11-23 09:23] LABS: Glucose,Whole Blood 95 mg/dL (75-99)
--- NOTE | 2020-11-23 09:32 | CT ---
EXAMINATION TYPE: CT brain nataly wo con DATE OF EXAM: 11/23/2020 COMPARISON: 04/01/2010 HISTORY: Hypoglycemic, found on floor. Jaundice TECHNIQUE: CT scan of the head and cervical spine without contrast. CT DLP: 1464.3 mGycm Automated exposure control for dose reduction was used. FINDINGS: CT head: No evidence for acute intracranial hemorrhage, midline shift or mass effect. The koo-white matter di fferentiation is preserved. There is brain volume loss and mild patchy low-attenuation in the deep white matter and periventricul ar region suggesting chronic microvascular ischemic changes. Tiny scattered low attenuating foci in t he bilateral basal ganglia suggesting remote lacunar infarct. There is prominence of the ventricles and CSF spaces in keeping with brain volume loss. Right frontal craniotomy changes are new compared to 2011. No acute orbital, osseous or soft tissue a bnormality. Mild fat density lesion seen over the left frontal bone consistent with small lipoma. Paranasal sinuses and mastoid air cells are radiated. Atherosclerotic calcifications are seen in the intracranial internal carotid arteries. CT cervical spine: There is straightening of the cervical curvature. Alignment is seen at the craniocervical junction. V ertebral body heights are normal. Posterior elements are acutely intact. No facet joint displacement seen. Multilevel moderate to severe narrowing of the intervertebral spaces, ventral and dorsal bony spurs i ncluding disc osteophyte complexes with mild bony spinal canal stenosis narrowing and C5-6 and C6-7. Multilevel bilateral neural foraminal narrowing is also noted. Moderate to advanced endplate degenera tive changes are also appreciated on the study. No significant soft tissue abnormality. Included airways are patent. The parapharyngeal fat is symmet ankita. Included lung apices are clear. Atherosclerotic calcifications are seen in the bilateral common carotid arteries greater on the right . The arch of the aorta appears ectatic. IMPRESSION: 1. NO EVIDENCE OF ACUTE INTRACRANIAL HEMORRHAGE, MIDLINE SHIFT OR MASS EFFECT. 2. NO ACUTE FRACTURE OR DISLOCATION SEEN IN THE CERVICAL SPINE. 3. INTERVAL RIGHT FRONTAL CRANIOTOMY. 4. SEE BODY OF REPORT FOR INCIDENTAL'S REGARDING CT HEAD AND CT CERVICAL SPINE.
--- NOTE | 2020-11-23 09:56 | CT ---
EXAMINATION TYPE: CT abdomen pelvis wo con DATE OF EXAM: 11/23/2020 COMPARISON: None HISTORY: Hypoglycemic, found on floor TECHNIQUE: CT scan of the abdomen and pelvis performed without contrast CT DLP: 858.3 mGycm Automated exposure control for dose reduction was used. FINDINGS: Lack of intravenous contrast and streak artifact from motion limit evaluation. Mild bibasilar subsegmental atelectatic changes. Attenuation of the cardiac chambers suggests anemia. No cardiomegaly or pericardial effusion. Liver has a normal contour mild hepatomegaly. There is marked dilatation of the intrahepatic and the extrahepatic biliary tree. Ill-defined soft tissue attenuation in the lolis hepatis and prominent por ta hepatis lymph nodes are seen. Increased attenuation of the gallbladder lumen suggests sludge. The spleen, adrenal glands are within normal limit. There is a 1.6 x 1.6 x 1.8 cm low attenuating lesion along the right lateral aspect of the pancreatic head. The pancreatic head itself is heterogeneous in appearance and enlarged relative to the rest of the pancreas. Kidneys are slightly decreased in size. There is a low attenuating lesion the left kidney upper lobe measuring up to 2.2 cm enlarged dimension. No hydronephrosis seen. No shadowing calculi seen. Partial ly distended urinary bladder. Nondilated ureters. Prominent prostate size with postsurgical seeds or clips. No evidence for intestinal obstruction. Lack of oral contrast limits evaluation of the GI structures. Bowel anastomosis seen in the right abdomen. There is soft tissue thickening at the anastomosis (ser ies 201 image 44). No pneumoperitoneum or ascites. There is a fat-containing right inguinal hernia. There is a focal calcification within the right ingu inal hernia wall. Mesenteric retroperitoneal and pelvic lymph nodes are noted. Prominent lymph nodes are also noted in the bilateral inguinal regions. Aorta is nonaneurysmal though there is some ectasia in the lower thoracic aorta. Atherosclerotic calc ifications are scattered throughout the wall of the aorta and its distal branches. Inferior vena cava is flat in appearance likely reflecting volume status. Grade 1 anterior listhesis of L4-5 is seen. Spine is heterogeneous throughout. Innumerable small scle rotic lesions are seen in the spine and pelvic bones, the largest is seen in T10. No acute fracture o r dislocation. Multilevel endplate degenerative changes and facet joint arthropathy changes are evide nt. No significant soft tissue abnormality. IMPRESSION: 1. LACK OF IV OR ORAL CONTRAST LIMITS EVALUATION. FURTHER LIMITATION SECONDARY TO STREAK FROM MOTION. 2. MARKED DILATATION OF THE INTRA AND EXTRAHEPATIC BILIARY TREE SECONDARY TO WHAT APPEARS TO BE A PAR TIALLY CYSTIC PANCREATIC HEAD MASS, THE CYSTIC COMPONENT MEASURED UP TO 1.8 CM. EVALUATION IS LACKING DUE TO NO IV CONTRAST. 3. ILL-DEFINED SOFT TISSUE ATTENUATION IN THE LOLIS HEPATIS, AGAIN LACK OF IV CONTRAST LIMITED EVALUA TION, MALIGNANCY CANNOT BE EXCLUDED. 4. LOW ATTENUATING LESION THE LEFT KIDNEY UPPER POLE MEASURING UP TO 2.2 CM STATISTICALLY MORE LIKELY TO REPRESENT A CYST THOUGH A MASS CANNOT BE ENTIRELY EXCLUDED. 5. SOFT TISSUE THICKENING AT THE SITE OF PRIOR ENTERIC ANASTOMOSIS, CORRELATION WITH PRIOR HISTORY OF MALIGNANCY RECOMMENDED, RECURRENCE OF MALIGNANCY AT THE SITE OF ANASTOMOSIS CANNOT BE EXCLUDED IF TH ERE IS A HISTORY OF PRIOR GI CANCER. 6. INNUMERABLE OSSEOUS SCLEROTIC LESION CONCERNING FOR METASTASIS. 7. FINDINGS SUGGESTING ANEMIA AND LOW VOLUME STATUS CLINICAL CORRELATION RECOMMENDED. 8. GALLBLADDER SLUDGE. RECOMMENDATION: Abdomen pelvis MRI with and without contrast.
[2020-11-23 10:15] LABS: Glucose,Whole Blood 68 mg/dL (75-99)
[2020-11-23] MEDS ORDERED: SODIUM CHLORIDE 0.9% 1,000 ML IV ONE (10:18)
[2020-11-23] MEDS ORDERED: NOREPINEPHRINE 32 MG in SODIUM CHLORIDE 0.9% 218 ML IV SCH (10:30)
[2020-11-23] MEDS ORDERED: NALOXONE 0.4 MG/ML 1 ML VIAL IV PRN (10:43)
[2020-11-23 10:58] LABS: Glucose,Whole Blood 128 mg/dL (75-99)
[2020-11-23] MEDS ORDERED: DEXTROSE 10% IN WATER 1,000 ML IV ONE (11:00)
[2020-11-23 13:11] LABS: Glucose,Whole Blood 82 mg/dL (75-99)
--- NOTE | 2020-11-23 13:29 | XR ---
EXAMINATION TYPE: XR chest 1V portable DATE OF EXAM: 11/23/2020 Comparison: 05/12/2019 Clinical History: 89-year-old male altered mental status, unresponsive, confusion, hypoglycemia. Findings: Slightly low lung volumes with crowded vascular markings. Heart borderline in size. No davy consolid ation or pleural effusion. Right paratracheal soft tissue prominence corresponds to vascular ectasia when correlating with the CT cervical spine same day. Impression: Hypoventilatory changes. Borderline heart size. Otherwise, no definite acute process.
[2020-11-23 14:12] LABS: Glucose,Whole Blood 62 mg/dL (75-99)
[2020-11-23] MEDS: ATROPINE SULFATE 0.1 MG/ML 10ML SYRINGE IV STA ×2 (14:23→17:22)
--- NOTE | 2020-11-23 15:00 | P.HPIM ---
History of Present Illness H&P Date: 11/23/20 Dylan Mcrae, is an 89-year-old male who was brought in to [facility] via EMS after being found unconscious on the floor at his home by his neighbor, patient had evidence of hypoglycemia he was given multiple doses of IV glucose, and at this time he is alert and oriented. On presentation to emergency room vital examination revealed a temperature of 97.6 pulse 76 respiration 18 blood pressure 137/68 pulse ox 100% on room air Laboratory data revealed a white blood count of 12.9 hemoglobin 9.6 platelet count 308 sodium was 147 potassium 3.7 chloride 125 CO2 7 BUN 80 creatinine 4.5 glucose 60 total bilirubin 32.6 AST 153 ALT 145 alkaline phosphatase 482 creatinine kinase 1046 Computed tomography scan of the abdomen and pelvis without contrast was done in the emergency room and revealed dilated Tatian of the intra-and extra hepatic biliary tree secondary to a partially cystic pancreatic head mass, soft tissue thickening at the site of prior enteric anastomosis, and innumerable osteosclerotic lesions concerning for metastatic disease. 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 On review of systems, at this time patient is alert and oriented and answering questions appropriately, he is denying any symptoms at this time he states that he does not remember passing out or falling to the floor or being on the floor at home, he is denying any chest pain shortness of breath cough or abdominal pain GI bleeding or urinary symptoms. Past Medical History Past Medical History: Coronary Artery Disease (CAD), Cancer, Chest Pain / Angina, Diabetes Mellitus, Eye Disorder, GI Bleed, Hypertension, Prostate Disorder, Renal Disease, Skin Disorder, Vascular Disorder, Vascular Disorder Additional Past Medical History / Comment(s): Pt recently admitted to [facility] on 05/05/19 with oseomylitis/cellulitis R lower extremity, 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 Other hx: 2004 Colon cancer with surgery/chemo/radiation, 2011 prostate cancer with radiation, BPH, NIDDM type II, PVD, past cellulitis/wounds bilateral lower legs/feet/current R foot wounds, CKD stage III, anemia, bilateral glaucoma, lower GI bleed, gastric/colon polyps, UTIs. History of Any Multi-Drug Resistant Organisms: MRSA Date of last positivie culture/infection: 05/05/19 MDRO Source:: TOE,BLOOD Past Surgical History: Bowel Resection, Heart Catheterization Additional Past Surgical History / Comment(s): 05/06/19 R 1st toe amputation, R upper arm midline IV, EGD, colonoscopies with polypectomy/bx, benign brain tumor removed at [facility], R hemicolectomy 2004, cardiac cath tx medically 2013, R foot 3rd toe amputation d/t wound/ wound vac, bilateral cataract removal with lens, LASER MAGDA EYES, Past Anesthesia/Blood Transfusion Reactions: No Reported Reaction Additional Past Anesthesia/Blood Transfusion Reaction / Comment(s): Pt received blood in past without known reaction. Past Psychological History: No Psychological Hx Reported Smoking Status: Former smoker Past Alcohol Use History: None Reported Past Drug Use History: None Reported - Past Family History Father Family Medical History: No Reported History Additional Family Medical History / Comment(s): Pt believes his father was healthy. He at age 93 yrs. Mother Family Medical History: No Reported History Additional Family Medical History / Comment(s): Pt doesn't know of mother's medical hx but she did live to be 95 yrs old. Medications and Allergies Home Medications Medication Instructions Recorded Confirmed Type Enalapril [Vasotec] 2.5 mg PO DAILY 08/28/15 11/23/20 History Furosemide [Lasix] 20 mg PO DAILY 08/28/15 11/23/20 History Potassium Chloride [Klor-Con 10 ER] 10 meq PO DAILY 08/28/15 11/23/20 History Timolol 0.5% Ophth Soln [Timoptic 1 drop BOTH EYES BID 12/13/17 11/23/20 History 0.5% Ophth Soln] glipiZIDE [Glucotrol] 5 mg PO AC-TID 12/13/17 11/23/20 History Tamsulosin [Flomax] 0.4 mg PO BID 09/16/18 11/23/20 History Allergies Allergy/AdvReac Type Severity Reaction Status Date / Time No Known Allergies Allergy Verified 11/23/20 09:40 Physical Exam Vitals: Vital Signs Temp Pulse Resp BP Pulse Ox 09/18/21 14:30 79 16 100 11/23/20 14:15 37 L 12 80/48 97 11/23/20 12:31 59 L 18 106/54 98 11/23/20 11:43 64 16 113/80 98 11/23/20 11:16 47 L 16 107/53 97 11/23/20 10:35 72 16 117/52 98 11/23/20 10:29 71 14 119/55 97 11/23/20 10:00 45 L 12 74/45 99 11/23/20 09:08 62 18 107/50 100 11/23/20 07:31 97.6 F 76 18 137/68 100 Intake and Output 11/22/20 11/23/20 11/23/20 22:59 06:59 14:59 Other: Weight 97.522 kg In general patient is alert and oriented, in no distress HEENT head normocephalic and atraumatic, there is significant scleral icterus Neck is supple no JVD no goiter no lymphadenopathy no carotid bruit Chest examination is clear to auscultation no crackles no wheezing Cardiac exam reveals regular heart sounds S1 and S2 no gallops no murmurs Abdomen is soft with mild tenderness in the epigastric area no palpable masses no palpable organomegaly Extremity exam reveals no edema no cyanosis or clubbing Neurological examination reveals no gross focal deficits Results CBC & Chem 7: 11/23/20 07:47 11/23/20 07:46 Labs: Abnormal Lab Results - Last 24 Hours (Table) 11/23/20 11/23/20 11/23/20 Range/Units 07:34 07:46 07:47 WBC 12.9 H (3.8-10.6) k/uL RBC 3.25 L (4.30-5.90) m/uL Hgb 9.6 L (13.0-17.5) gm/dL Hct 27.6 L (39.0-53.0) % RDW 21.2 H (11.5-15.5) % Neutrophils # (Manual) 11.60 H (1.3-7.7) k/uL Lymphocytes # (Manual) 0.39 L (1.0-4.8) k/uL Metamyelocytes # (Man) 0.13 H (0) k/uL Myelocytes # (Manual) 0.13 H (0) k/uL PT (9.0-12.0) sec INR (<1.2) Sodium 147 H (137-145) mmol/L Chloride 125 H (98-107) mmol/L Carbon Dioxide 7 L* (22-30) mmol/L BUN 80 H (9-20) mg/dL Creatinine 4.50 H (0.66-1.25) mg/dL Glucose 60 L (74-99) mg/dL POC Glucose (mg/dL) 132 H (75-99) mg/dL Total Bilirubin 32.6 H* (0.2-1.3) mg/dL Conjugated Bilirubin 21.9 H (0.0-0.3) mg/dL Unconjugated Bilirubin 2.0 H (0.0-1.1) mg/dL Delta Bilirubin 8.7 H (0.0-0.2) mg/dL AST 153 H (17-59) U/L ALT 145 H (4-49) U/L Alkaline Phosphatase 842 H (38-126) U/L Creatine Kinase 1046 H* (55-170) U/L C-Reactive Protein 4.1 H (<1.0) mg/dL Albumin 2.8 L (3.5-5.0) g/dL Urine Protein (Negative) Urine Blood (Negative) Urine Bilirubin (Negative) Amorphous Sediment (None) /hpf Urine Bacteria (None) /hpf Urine Mucus (None) /hpf 11/23/20 11/23/20 11/23/20 Range/Units 07:47 08:22 10:07 WBC (3.8-10.6) k/uL RBC (4.30-5.90) m/uL Hgb (13.0-17.5) gm/dL Hct (39.0-53.0) % RDW (11.5-15.5) % Neutrophils # (Manual) (1.3-7.7) k/uL Lymphocytes # (Manual) (1.0-4.8) k/uL Metamyelocytes # (Man) (0) k/uL Myelocytes # (Manual) (0) k/uL PT 13.8 H (9.0-12.0) sec INR 1.4 H (<1.2) Sodium (137-145) mmol/L Chloride (98-107) mmol/L Carbon Dioxide (22-30) mmol/L BUN (9-20) mg/dL Creatinine (0.66-1.25) mg/dL Glucose (74-99) mg/dL POC Glucose (mg/dL) 59 L 68 L (75-99) mg/dL Total Bilirubin (0.2-1.3) mg/dL Conjugated Bilirubin (0.0-0.3) mg/dL Unconjugated Bilirubin (0.0-1.1) mg/dL Delta Bilirubin (0.0-0.2) mg/dL AST (17-59) U/L ALT (4-49) U/L Alkaline Phosphatase (38-126) U/L Creatine Kinase (55-170) U/L C-Reactive Protein (<1.0) mg/dL Albumin (3.5-5.0) g/dL Urine Protein (Negative) Urine Blood (Negative) Urine Bilirubin (Negative) Amorphous Sediment (None) /hpf Urine Bacteria (None) /hpf Urine Mucus (None) /hpf 11/23/20 11/23/20 11/23/20 Range/Units 10:56 14:10 Unknown WBC (3.8-10.6) k/uL RBC (4.30-5.90) m/uL Hgb (13.0-17.5) gm/dL Hct (39.0-53.0) % RDW (11.5-15.5) % Neutrophils # (Manual) (1.3-7.7) k/uL Lymphocytes # (Manual) (1.0-4.8) k/uL Metamyelocytes # (Man) (0) k/uL Myelocytes # (Manual) (0) k/uL PT (9.0-12.0) sec INR (<1.2) Sodium (137-145) mmol/L Chloride (98-107) mmol/L Carbon Dioxide (22-30) mmol/L BUN (9-20) mg/dL Creatinine (0.66-1.25) mg/dL Glucose (74-99) mg/dL POC Glucose (mg/dL) 128 H 62 L (75-99) mg/dL Total Bilirubin (0.2-1.3) mg/dL Conjugated Bilirubin (0.0-0.3) mg/dL Unconjugated Bilirubin (0.0-1.1) mg/dL Delta Bilirubin (0.0-0.2) mg/dL AST (17-59) U/L ALT (4-49) U/L Alkaline Phosphatase (38-126) U/L Creatine Kinase (55-170) U/L C-Reactive Protein (<1.0) mg/dL Albumin (3.5-5.0) g/dL Urine Protein Trace H (Negative) Urine Blood Moderate H (Negative) Urine Bilirubin 2+ H (Negative) Amorphous Sediment Few H (None) /hpf Urine Bacteria Rare H (None) /hpf Urine Mucus Rare H (None) /hpf Assessment and Plan Plan: Episodes of hypoglycemia Syncope with collapse at home likely related to hypoglycemia Rhabdomyolysis with elevated CPK Acute on chronic renal failure, acute component related to dehydration, hypotension and rhabdomyolysis Evidence of 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, likely related to history of colon cancer, and history of prostate cancer Underlying history of diabetes mellitus type 2 Underlying history of coronary artery disease Underlying history of hypertension Previous history of colon cancer patient underwent surgery chemotherapy and radiation therapy in 2004 Previous history of prostate cancer patient underwent radiation therapy in 2011 At this time patient is being stabilized in emergency room He is receiving IV fluid, amps of glucose as needed, he also received 1 dose of IV Solu-Medrol 60 mg Patient at this time is a full code, I am waiting for the arrival of his multiple family members to discuss CODE STATUS including no code comfort care and hospice care Prognosis is poor in view of multiple metastatic disease in the abdomen and in the bones, and evidence of kidney failure and liver failure Will follow closely
[2020-11-23 15:25] LABS: Glucose,Whole Blood 150 mg/dL (75-99)
--- NOTE | 2020-11-23 16:13 | P.CONS ---
History of Present Illness - Reason for Consult Consult date: 11/23/20 (Ttelemedicine due to covid) COncern of Malignancy Requesting physician: Swathi Romero - Chief Complaint Found Unconscious - History of Present Illness Mr. Mcrae is an 89 year old male patient who was found unconscious by a neighbor and transferred to [facility]. On Arrival it appears he is acidotic, increased renal function (appears to have baseline chronic kidney disease, unknown stage. Dr. Sinclair has been consulted). Patient was called on phone, he was able to answer questions appropriately although evidence of poor historian. On arrival CT abdomen and pelvis revealed concerning for cystic pancreatic head mass, slcerotic bone lesions. He has a known history of prostate cancer, last seen by our practice back in 2011. He has an extensive medical history. On trend of his last PSA, 2019 = 11, 09/2020 = 54. NA = 147, Cl = 125, Co2 = 7, BUN = 80, Creat = 4.5. Total Bilirubin on arrival 32.6, ALT = 145, AST = 153. We have been asked to evaluate secondary to the concern of a metastatic process. Patient is in the ER at this time. I was unable to get a good history to know if he has been following with any other oncologist in regards to his prostate c ancer history. To note the medical chart also mentions a history of colon cancer with resection in 2004. Review of Systems ROS unobtainable: due to mental status All systems: negative Past Medical History Past Medical History: Coronary Artery Disease (CAD), Cancer, Chest Pain / Angina, Diabetes Mellitus, Eye Disorder, GI Bleed, Hypertension, Prostate Disorder, Renal Disease, Skin Disorder, Vascular Disorder, Vascular Disorder Additional Past Medical History / Comment(s): Pt recently admitted to [facility] on 05/05/19 with oseomylitis/cellulitis R lower extremity, 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 Other hx: 2004 Colon cancer with surgery/chemo/radiation, 2011 prostate cancer with radiation, BPH, NIDDM type II, PVD, past cellulitis/wounds bilateral lower legs/feet/current R foot wounds, CKD stage III, anemia, bilateral glaucoma, lower GI bleed, gastric/colon polyps, UTIs. History of Any Multi-Drug Resistant Organisms: MRSA Year Discovered:: 05/05/19 MDRO Source:: TOE,BLOOD Past Surgical History: Bowel Resection, Heart Catheterization Additional Past Surgical History / Comment(s): 05/06/19 R 1st toe amputation, R upper arm midline IV, EGD, colonoscopies with polypectomy/bx, benign brain tumor removed at [facility], R hemicolectomy 2004, cardiac cath tx medically 2014, R foot 3rd toe amputation d/t wound/ wound vac, bilateral cataract removal with lens, LASER MAGDA EYES, Past Anesthesia/Blood Transfusion Reactions: No Reported Reaction Additional Past Anesthesia/Blood Transfusion Reaction / Comm: Pt received blood in past without known reaction. Past Psychological History: No Psychological Hx Reported Smoking Status: Former smoker Past Alcohol Use History: None Reported Past Drug Use History: None Reported - Past Family History Father Family Medical History: No Reported History Additional Family Medical History / Comment(s): Pt believes his father was healthy. He at age 93 yrs. Mother Family Medical History: No Reported History Additional Family Medical History / Comment(s): Pt doesn't know of mother's medical hx but she did live to be 95 yrs old. Medications and Allergies Home Medications Medication Instructions Recorded Confirmed Type Enalapril [Vasotec] 2.5 mg PO DAILY 08/28/15 11/23/20 History Furosemide [Lasix] 20 mg PO DAILY 08/28/15 11/23/20 History Potassium Chloride [Klor-Con 10 ER] 10 meq PO DAILY 08/28/15 11/23/20 History Timolol 0.5% Ophth Soln [Timoptic 1 drop BOTH EYES BID 12/13/17 11/23/20 History 0.5% Ophth Soln] glipiZIDE [Glucotrol] 5 mg PO AC-TID 12/13/17 11/23/20 History Tamsulosin [Flomax] 0.4 mg PO BID 09/16/18 11/23/20 History Allergies Allergy/AdvReac Type Severity Reaction Status Date / Time No Known Allergies Allergy Verified 11/23/20 09:40 Physical Exam Vitals: Vital Signs Temp Pulse Resp BP Pulse Ox 11/23/20 14:52 64 18 112/58 99 11/23/20 14:30 79 16 100 11/23/20 14:15 37 L 12 80/48 97 11/23/20 12:31 59 L 18 106/54 98 11/23/20 11:43 64 16 113/80 98 11/23/20 11:16 47 L 16 107/53 97 11/23/20 10:35 72 16 117/52 98 11/23/20 10:29 71 14 119/55 97 11/23/20 10:00 45 L 12 74/45 99 11/23/20 09:08 62 18 107/50 100 11/23/20 07:31 97.6 F 76 18 137/68 100 Intake and Output 11/23/20 11/23/20 11/23/20 06:59 14:59 22:59 Other: Weight 97.522 kg Telemedicine Visit, Vital signs reviewed. Jaundice per nursing. Results CBC & Chem 7: 11/23/20 07:47 11/23/20 07:46 Labs: Abnormal Lab Results - Last 24 Hours (Table) 11/23/20 11/23/20 11/23/20 Range/Units 07:34 07:46 07:47 WBC 12.9 H (3.8-10.6) k/uL RBC 3.25 L (4.30-5.90) m/uL Hgb 9.6 L (13.0-17.5) gm/dL Hct 27.6 L (39.0-53.0) % RDW 21.2 H (11.5-15.5) % Neutrophils # (Manual) 11.60 H (1.3-7.7) k/uL Lymphocytes # (Manual) 0.39 L (1.0-4.8) k/uL Metamyelocytes # (Man) 0.13 H (0) k/uL Myelocytes # (Manual) 0.13 H (0) k/uL PT (9.0-12.0) sec INR (<1.2) Sodium 147 H (137-145) mmol/L Chloride 125 H (98-107) mmol/L Carbon Dioxide 7 L* (22-30) mmol/L BUN 80 H (9-20) mg/dL Creatinine 4.50 H (0.66-1.25) mg/dL Glucose 60 L (74-99) mg/dL POC Glucose (mg/dL) 132 H (75-99) mg/dL Total Bilirubin 32.6 H* (0.2-1.3) mg/dL Conjugated Bilirubin 21.9 H (0.0-0.3) mg/dL Unconjugated Bilirubin 2.0 H (0.0-1.1) mg/dL Delta Bilirubin 8.7 H (0.0-0.2) mg/dL AST 153 H (17-59) U/L ALT 145 H (4-49) U/L Alkaline Phosphatase 842 H (38-126) U/L Creatine Kinase 1046 H* (55-170) U/L C-Reactive Protein 4.1 H (<1.0) mg/dL Albumin 2.8 L (3.5-5.0) g/dL Urine Protein (Negative) Urine Blood (Negative) Urine Bilirubin (Negative) Amorphous Sediment (None) /hpf Urine Bacteria (None) /hpf Urine Mucus (None) /hpf 11/23/20 11/23/20 11/23/20 Range/Units 07:47 08:22 10:07 WBC (3.8-10.6) k/uL RBC (4.30-5.90) m/uL Hgb (13.0-17.5) gm/dL Hct (39.0-53.0) % RDW (11.5-15.5) % Neutrophils # (Manual) (1.3-7.7) k/uL Lymphocytes # (Manual) (1.0-4.8) k/uL Metamyelocytes # (Man) (0) k/uL Myelocytes # (Manual) (0) k/uL PT 13.8 H (9.0-12.0) sec INR 1.4 H (<1.2) Sodium (137-145) mmol/L Chloride (98-107) mmol/L Carbon Dioxide (22-30) mmol/L BUN (9-20) mg/dL Creatinine (0.66-1.25) mg/dL Glucose (74-99) mg/dL POC Glucose (mg/dL) 59 L 68 L (75-99) mg/dL Total Bilirubin (0.2-1.3) mg/dL Conjugated Bilirubin (0.0-0.3) mg/dL Unconjugated Bilirubin (0.0-1.1) mg/dL Delta Bilirubin (0.0-0.2) mg/dL AST (17-59) U/L ALT (4-49) U/L Alkaline Phosphatase (38-126) U/L Creatine Kinase (55-170) U/L C-Reactive Protein (<1.0) mg/dL Albumin (3.5-5.0) g/dL Urine Protein (Negative) Urine Blood (Negative) Urine Bilirubin (Negative) Amorphous Sediment (None) /hpf Urine Bacteria (None) /hpf Urine Mucus (None) /hpf 11/23/20 11/23/20 11/23/20 Range/Units 10:56 14:10 15:24 WBC (3.8-10.6) k/uL RBC (4.30-5.90) m/uL Hgb (13.0-17.5) gm/dL Hct (39.0-53.0) % RDW (11.5-15.5) % Neutrophils # (Manual) (1.3-7.7) k/uL Lymphocytes # (Manual) (1.0-4.8) k/uL Metamyelocytes # (Man) (0) k/uL Myelocytes # (Manual) (0) k/uL PT (9.0-12.0) sec INR (<1.2) Sodium (137-145) mmol/L Chloride (98-107) mmol/L Carbon Dioxide (22-30) mmol/L BUN (9-20) mg/dL Creatinine (0.66-1.25) mg/dL Glucose (74-99) mg/dL POC Glucose (mg/dL) 128 H 62 L 150 H (75-99) mg/dL Total Bilirubin (0.2-1.3) mg/dL Conjugated Bilirubin (0.0-0.3) mg/dL Unconjugated Bilirubin (0.0-1.1) mg/dL Delta Bilirubin (0.0-0.2) mg/dL AST (17-59) U/L ALT (4-49) U/L Alkaline Phosphatase (38-126) U/L Creatine Kinase (55-170) U/L C-Reactive Protein (<1.0) mg/dL Albumin (3.5-5.0) g/dL Urine Protein (Negative) Urine Blood (Negative) Urine Bilirubin (Negative) Amorphous Sediment (None) /hpf Urine Bacteria (None) /hpf Urine Mucus (None) /hpf 11/23/20 Range/Units Unknown WBC (3.8-10.6) k/uL RBC (4.30-5.90) m/uL Hgb (13.0-17.5) gm/dL Hct (39.0-53.0) % RDW (11.5-15.5) % Neutrophils # (Manual) (1.3-7.7) k/uL Lymphocytes # (Manual) (1.0-4.8) k/uL Metamyelocytes # (Man) (0) k/uL Myelocytes # (Manual) (0) k/uL PT (9.0-12.0) sec INR (<1.2) Sodium (137-145) mmol/L Chloride (98-107) mmol/L Carbon Dioxide (22-30) mmol/L BUN (9-20) mg/dL Creatinine (0.66-1.25) mg/dL Glucose (74-99) mg/dL POC Glucose (mg/dL) (75-99) mg/dL Total Bilirubin (0.2-1.3) mg/dL Conjugated Bilirubin (0.0-0.3) mg/dL Unconjugated Bilirubin (0.0-1.1) mg/dL Delta Bilirubin (0.0-0.2) mg/dL AST (17-59) U/L ALT (4-49) U/L Alkaline Phosphatase (38-126) U/L Creatine Kinase (55-170) U/L C-Reactive Protein (<1.0) mg/dL Albumin (3.5-5.0) g/dL Urine Protein Trace H (Negative) Urine Blood Moderate H (Negative) Urine Bilirubin 2+ H (Negative) Amorphous Sediment Few H (None) /hpf Urine Bacteria Rare H (None) /hpf Urine Mucus Rare H (None) /hpf CT scan - abdomen: report reviewed CT scan - pelvis: report reviewed Assessment and Plan (1) Metabolic acidosis Current Visit: Yes Status: Acute Code(s): E87.2 - ACIDOSIS SNOMED Code(s): 78098569 (2) Prostate CA Current Visit: Yes Status: Acute Code(s): C61 - MALIGNANT NEOPLASM OF PROSTATE SNOMED Code(s): 716338061 (3) Pancreatic mass Current Visit: Yes Status: Acute Code(s): K86.89 - OTHER SPECIFIED DISEASES OF PANCREAS SNOMED Code(s): 490869150 (4) Bone lesion Current Visit: Yes Status: Acute Code(s): M89.9 - DISORDER OF BONE, UNSPECIFIED SNOMED Code(s): 607590123 (5) Kidney failure Current Visit: Yes Status: Acute Code(s): N19 - UNSPECIFIED KIDNEY FAILURE SNOMED Code(s): 37934332 (6) Chronic kidney disease, stage 3 Current Visit: Yes Status: Acute Code(s): N18.30 - CHRONIC KIDNEY DISEASE, STAGE 3 UNSPECIFIED SNOMED Code(s): 402978034 (7) Abnormal liver enzymes Current Visit: Yes Status: Acute Code(s): R74.8 - ABNORMAL LEVELS OF OTHER SERUM ENZYMES SNOMED Code(s): 910835829 (8) Hyperbilirubinemia Current Visit: Yes Status: Acute Code(s): E80.6 - OTHER DISORDERS OF BILIRUBIN METABOLISM SNOMED Code(s): 19874876 (9) NOE (acute kidney injury) Current Visit: Yes Status: Acute Code(s): N17.9 - ACUTE KIDNEY FAILURE, UNSPECIFIED SNOMED Code(s): 85319771 Plan: At this time we will need to obtain further medical history, I will attempt to discuss further with patient's permissive family members (sister Jaqui or Nephew). Acute situation would need to stabilize, CO2 = 7. Septic Work-up Stabilization of acute situation, then would need further imaging with bone scan. Repeat PSA and Ca19-9 has been ordered Possibly following with Urology, will attempt to obtain further oncologic history for appropriate recommendations can follow once stable. Additional work-up blood work ordered.
--- NOTE | 2020-11-23 16:45 | P.HPADDEND ---
H&P Addendum H&P Addendum Date: 11/23/20 Record of family meeting: I had a family meeting with the family of Mr. Dylan Mcrae, including his brother, his sister, and his nephew. On 11/23/2020 at 4:15 PM and lasting for 30 minutes Patient condition including jaundice, cystic pancreatic mass, biliary tree obstruction, history of colon cancer, history of prostate cancer, evidence of metastatic bone disease where discussed in detail. Different CODE STATUS and their meaning including full code, no code, and comfort care only and hospice care were discussed in details At this time family is agreeable to proceed with no code. They are still requesting complete medical care including oncology consult and nephrology consult They are agreeable not to proceed with chest pressure, cardioversion, intubation and mechanical ventilation, or chemical code, in case patient had a cardiac or pulmonary arrest. At this time CODE STATUS will be changed on the chart to NO CODE
[2020-11-23] MEDS ORDERED: DEXTROSE 5% IN WATER 1,000 ML with SODIUM BICARB (1 MEQ/ML) 100 ML IV SCH (17:30)
[2020-11-23 18:06] LABS: Glucose,Whole Blood 137 mg/dL (75-99)
[2020-11-23 19:06] LABS: Reticulocyte % 2.8 % (0.5-2.0)
[2020-11-23 19:33] LABS: INR 1.5 (<1.2); Partial Thromboplastin Time 32.8 sec (22.0-30.0)
[2020-11-23 20:51] LABS: Glucose,Whole Blood 211 mg/dL (75-99)
[2020-11-23 22:55] LABS: Glucose,Whole Blood 257 mg/dL (75-99)
[2020-11-24] MEDS ORDERED: SODIUM CHLORIDE 0.9% 1,000 ML with SODIUM BICARB (1 MEQ/ML) 100 ML IV SCH ×2
[2020-11-24 00:25] LABS: Folate, Serum 15.9 ng/mL
[2020-11-24 02:44] LABS: Glucose,Whole Blood 296 mg/dL (75-99)
[2020-11-24 04:56] LABS: Glucose,Whole Blood 273 mg/dL (75-99)
[2020-11-24 06:39] LABS: Albumin 2.2 g/dL (3.5-5.0); Calcium 8.1 mg/dL (8.4-10.2); Total Protein 5.4 g/dL (6.3-8.2)
[2020-11-24 06:47] LABS: Total Bilirubin 27.3 mg/dL (0.2-1.3)
[2020-11-24 07:05] LABS: Glucose,Whole Blood 236 mg/dL (75-99)
[2020-11-24 07:26] LABS: Anisocytosis Moderate; HCT 22.3 % (39.0-53.0); Hyperchromasia Slight; MCH 29.3 pg (25.0-35.0); MCHC 34.7 g/dL (31.0-37.0); MCV 84.4 fL (80.0-100.0); Mean Platelet Volume 10.1; Microcytosis Slight; Platelet Count 304 k/uL (150-450); Poikilocytosis Moderate; RBC 2.64 m/uL (4.30-5.90); RDW 21.4 % (11.5-15.5)
[2020-11-24 07:28] LABS: HGB 7.7 gm/dL (13.0-17.5)
[2020-11-24 08:34] LABS: Metamyelocytes % 1 %; Myelocytes % 1 %; Neutrophils % (M) 95 %; Nucleated Red Blood Cells 0 /100 WBC (0-0); Total Cells Counted 200
[2020-11-24 08:35] LABS: Target Cells Present
[2020-11-24 08:36] LABS: Rouleaux Present
[2020-11-24] MEDS: SODIUM CHLORIDE 0.45% 1,000 ML with SODIUM BICARB (1 MEQ/ML) 150 ML IV SCH ×4 (10:15→22:52)
--- NOTE | 2020-11-24 10:52 | P.PN ---
Subjective Progress Note Date: 11/24/20 Dylan Mcrae, is an 89-year-old male who was brought in to [facility] via EMS after being found unconscious on the floor at his home by his neighbor, patient had evidence of hypoglycemia he was given multiple doses of IV glucose, and at this time he is alert and oriented. On presentation to emergency room vital examination revealed a temperature of 97.6 pulse 76 respiration 18 blood pressure 137/68 pulse ox 100% on room air Laboratory data revealed a white blood count of 12.9 hemoglobin 9.6 platelet count 308 sodium was 147 potassium 3.7 chloride 125 CO2 7 BUN 80 creatinine 4.5 glucose 60 total bilirubin 32.6 AST 153 ALT 145 alkaline phosphatase 482 creatinine kinase 1046 Computed tomography scan of the abdomen and pelvis without contrast was done in the emergency room and revealed dilated Tatian of the intra-and extra hepatic biliary tree secondary to a partially cystic pancreatic head mass, soft tissue thickening at the site of prior enteric anastomosis, and innumerable os teosclerotic lesions concerning for metastatic disease. 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 On review of systems, at this time patient is alert and oriented and answering questions appropriately, he is denying any symptoms at this time he states that he does not remember passing out or falling to the floor or being on the floor at home, he is denying any chest pain shortness of breath cough or abdominal pain GI bleeding or urinary symptoms. On 11/24/2020 patient's alert and oriented resting comfortably in bed. Patient denies any symptoms at this time. Patient denies chest pain or shortness breath. Patient denies nausea vomiting or diarrhea. Patient denies any urinary burning or frequency. Total bilirubin remains high at 27.3. Bun 77 and creatinine 4.38. Oncology and nephrology services are following. Patient has been changed status. Objective - Vital Signs Vital signs: Vital Signs Temp 97.5 F L 11/24/20 07:54 Pulse 70 11/24/20 07:54 Resp 18 11/24/20 07:54 BP 129/56 11/24/20 07:54 Pulse Ox 98 11/24/20 07:54 Intake & Output 11/23/20 11/24/20 11/24/20 18:59 06:59 18:59 Weight 97.522 kg 102.5 kg Other: # Voids 1 1 # Bowel Movements 1 - Exam In general patient is alert and oriented, in no distress HEENT head normocephalic and atraumatic, there is significant scleral icterus Neck is supple no JVD no goiter no lymphadenopathy no carotid bruit Chest examination is clear to auscultation no crackles no wheezing Cardiac exam reveals regular heart sounds S1 and S2 no gallops no murmurs Abdomen is soft with mild tenderness in the epigastric area no palpable masses no palpable organomegaly Extremity exam reveals no edema no cyanosis or clubbing Neurological examination reveals no gross focal deficits - Labs CBC & Chem 7: 11/24/20 05:20 11/24/20 05:20 Labs: Abnormal Lab Results - Last 24 Hours (Table) 11/23/20 11/23/20 11/23/20 Range/Units 10:56 14:10 15:24 RBC (4.30-5.90) m/uL Hgb (13.0-17.5) gm/dL Hct (39.0-53.0) % RDW (11.5-15.5) % Neutrophils # (Manual) (1.3-7.7) k/uL Lymphocytes # (Manual) (1.0-4.8) k/uL Metamyelocytes # (Man) (0) k/uL Myelocytes # (Manual) (0) k/uL Retic Count (0.5-2.0) % PT (9.0-12.0) sec INR (<1.2) APTT (22.0-30.0) sec Sodium (137-145) mmol/L Chloride (98-107) mmol/L Carbon Dioxide (22-30) mmol/L BUN (9-20) mg/dL Creatinine (0.66-1.25) mg/dL Glucose (74-99) mg/dL POC Glucose (mg/dL) 128 H 62 L 150 H (75-99) mg/dL Calcium (8.4-10.2) mg/dL Phosphorus (2.5-4.5) mg/dL Total Bilirubin (0.2-1.3) mg/dL AST (17-59) U/L ALT (4-49) U/L Alkaline Phosphatase (38-126) U/L Lactate Dehydrogenase (313-618) U/L CK-MB (CK-2) (0.0-2.4) ng/mL Total Protein (6.3-8.2) g/dL Total Protein (PEP) (6.2-8.2) g/dL Albumin (3.5-5.0) g/dL CA 19-9 Antigen (0.0-34.9) U/mL Vitamin B12 (200.0-944.0) pg/mL Free Winder LC, Quant (0.33-1.94) mg/dL Free Lambda LC, Quant (0.57-2.63) mg/dL 11/23/20 11/23/20 11/23/20 Range/Units 18:02 18:23 18:23 RBC (4.30-5.90) m/uL Hgb (13.0-17.5) gm/dL Hct (39.0-53.0) % RDW (11.5-15.5) % Neutrophils # (Manual) (1.3-7.7) k/uL Lymphocytes # (Manual) (1.0-4.8) k/uL Metamyelocytes # (Man) (0) k/uL Myelocytes # (Manual) (0) k/uL Retic Count (0.5-2.0) % PT 15.0 H (9.0-12.0) sec INR 1.5 H (<1.2) APTT 32.8 H (22.0-30.0) sec Sodium 128 L (137-145) mmol/L Chloride 109 H (98-107) mmol/L Carbon Dioxide 7 L* (22-30) mmol/L BUN 69 H (9-20) mg/dL Creatinine 3.80 H (0.66-1.25) mg/dL Glucose (74-99) mg/dL POC Glucose (mg/dL) 137 H (75-99) mg/dL Calcium 7.1 L (8.4-10.2) mg/dL Phosphorus 5.3 H (2.5-4.5) mg/dL Total Bilirubin 27.4 H* (0.2-1.3) mg/dL AST 128 H (17-59) U/L ALT 122 H (4-49) U/L Alkaline Phosphatase 710 H (38-126) U/L Lactate Dehydrogenase 692 H (313-618) U/L CK-MB (CK-2) (0.0-2.4) ng/mL Total Protein 5.2 L (6.3-8.2) g/dL Total Protein (PEP) (6.2-8.2) g/dL Albumin 2.3 L (3.5-5.0) g/dL CA 19-9 Antigen (0.0-34.9) U/mL Vitamin B12 (200.0-944.0) pg/mL Free Winder LC, Quant (0.33-1.94) mg/dL Free Lambda LC, Quant (0.57-2.63) mg/dL 11/23/20 11/23/20 11/23/20 Range/Units 18:23 18:23 18:23 RBC (4.30-5.90) m/uL Hgb (13.0-17.5) gm/dL Hct (39.0-53.0) % RDW (11.5-15.5) % Neutrophils # (Manual) (1.3-7.7) k/uL Lymphocytes # (Manual) (1.0-4.8) k/uL Metamyelocytes # (Man) (0) k/uL Myelocytes # (Manual) (0) k/uL Retic Count 2.8 H (0.5-2.0) % PT (9.0-12.0) sec INR (<1.2) APTT (22.0-30.0) sec Sodium (137-145) mmol/L Chloride (98-107) mmol/L Carbon Dioxide (22-30) mmol/L BUN (9-20) mg/dL Creatinine (0.66-1.25) mg/dL Glucose (74-99) mg/dL POC Glucose (mg/dL) (75-99) mg/dL Calcium (8.4-10.2) mg/dL Phosphorus (2.5-4.5) mg/dL Total Bilirubin (0.2-1.3) mg/dL AST (17-59) U/L ALT (4-49) U/L Alkaline Phosphatase (38-126) U/L Lactate Dehydrogenase (313-618) U/L CK-MB (CK-2) 12.0 H (0.0-2.4) ng/mL Total Protein (6.3-8.2) g/dL Total Protein (PEP) (6.2-8.2) g/dL Albumin (3.5-5.0) g/dL CA 19-9 Antigen 576.3 H (0.0-34.9) U/mL Vitamin B12 (200.0-944.0) pg/mL Free Winder LC, Quant (0.33-1.94) mg/dL Free Lambda LC, Quant (0.57-2.63) mg/dL 11/23/20 11/23/20 11/23/20 Range/Units 18:23 18:23 20:49 RBC (4.30-5.90) m/uL Hgb (13.0-17.5) gm/dL Hct (39.0-53.0) % RDW (11.5-15.5) % Neutrophils # (Manual) (1.3-7.7) k/uL Lymphocytes # (Manual) (1.0-4.8) k/uL Metamyelocytes # (Man) (0) k/uL Myelocytes # (Manual) (0) k/uL Retic Count (0.5-2.0) % PT (9.0-12.0) sec INR (<1.2) APTT (22.0-30.0) sec Sodium (137-145) mmol/L Chloride (98-107) mmol/L Carbon Dioxide (22-30) mmol/L BUN (9-20) mg/dL Creatinine (0.66-1.25) mg/dL Glucose (74-99) mg/dL POC Glucose (mg/dL) 211 H (75-99) mg/dL Calcium (8.4-10.2) mg/dL Phosphorus (2.5-4.5) mg/dL Total Bilirubin (0.2-1.3) mg/dL AST (17-59) U/L ALT (4-49) U/L Alkaline Phosphatase (38-126) U/L Lactate Dehydrogenase (313-618) U/L CK-MB (CK-2) (0.0-2.4) ng/mL Total Protein (6.3-8.2) g/dL Total Protein (PEP) 4.9 L (6.2-8.2) g/dL Albumin (3.5-5.0) g/dL CA 19-9 Antigen (0.0-34.9) U/mL Vitamin B12 2267.0 H (200.0-944.0) pg/mL Free Winder LC, Quant 12.55 H (0.33-1.94) mg/dL Free Lambda LC, Quant 6.11 H (0.57-2.63) mg/dL 11/23/20 11/24/20 11/24/20 Range/Units 22:54 02:43 04:55 RBC (4.30-5.90) m/uL Hgb (13.0-17.5) gm/dL Hct (39.0-53.0) % RDW (11.5-15.5) % Neutrophils # (Manual) (1.3-7.7) k/uL Lymphocytes # (Manual) (1.0-4.8) k/uL Metamyelocytes # (Man) (0) k/uL Myelocytes # (Manual) (0) k/uL Retic Count (0.5-2.0) % PT (9.0-12.0) sec INR (<1.2) APTT (22.0-30.0) sec Sodium (137-145) mmol/L Chloride (98-107) mmol/L Carbon Dioxide (22-30) mmol/L BUN (9-20) mg/dL Creatinine (0.66-1.25) mg/dL Glucose (74-99) mg/dL POC Glucose (mg/dL) 257 H 296 H 273 H (75-99) mg/dL Calcium (8.4-10.2) mg/dL Phosphorus (2.5-4.5) mg/dL Total Bilirubin (0.2-1.3) mg/dL AST (17-59) U/L ALT (4-49) U/L Alkaline Phosphatase (38-126) U/L Lactate Dehydrogenase (313-618) U/L CK-MB (CK-2) (0.0-2.4) ng/mL Total Protein (6.3-8.2) g/dL Total Protein (PEP) (6.2-8.2) g/dL Albumin (3.5-5.0) g/dL CA 19-9 Antigen (0.0-34.9) U/mL Vitamin B12 (200.0-944.0) pg/mL Free Winder LC, Quant (0.33-1.94) mg/dL Free Lambda LC, Quant (0.57-2.63) mg/dL 11/24/20 11/24/20 11/24/20 Range/Units 05:20 05:20 07:03 RBC 2.64 L (4.30-5.90) m/uL Hgb 7.7 L D (13.0-17.5) gm/dL Hct 22.3 L (39.0-53.0) % RDW 21.4 H (11.5-15.5) % Neutrophils # (Manual) 9.50 H (1.3-7.7) k/uL Lymphocytes # (Manual) 0.30 L (1.0-4.8) k/uL Metamyelocytes # (Man) 0.10 H (0) k/uL Myelocytes # (Manual) 0.10 H (0) k/uL Retic Count (0.5-2.0) % PT (9.0-12.0) sec INR (<1.2) APTT (22.0-30.0) sec Sodium (137-145) mmol/L Chloride 122 H (98-107) mmol/L Carbon Dioxide 9 L* (22-30) mmol/L BUN 77 H (9-20) mg/dL Creatinine 4.38 H (0.66-1.25) mg/dL Glucose 233 H (74-99) mg/dL POC Glucose (mg/dL) 236 H (75-99) mg/dL Calcium 8.1 L (8.4-10.2) mg/dL Phosphorus (2.5-4.5) mg/dL Total Bilirubin 27.3 H* (0.2-1.3) mg/dL AST 129 H (17-59) U/L ALT 129 H (4-49) U/L Alkaline Phosphatase 744 H (38-126) U/L Lactate Dehydrogenase (313-618) U/L CK-MB (CK-2) (0.0-2.4) ng/mL Total Protein 5.4 L (6.3-8.2) g/dL Total Protein (PEP) (6.2-8.2) g/dL Albumin 2.2 L (3.5-5.0) g/dL CA 19-9 Antigen (0.0-34.9) U/mL Vitamin B12 (200.0-944.0) pg/mL Free Winder LC, Quant (0.33-1.94) mg/dL Free Lambda LC, Quant (0.57-2.63) mg/dL Assessment and Plan Plan: Episodes of hypoglycemia Syncope with collapse at home likely related to hypoglycemia Rhabdomyolysis with elevated CPK Acute on chronic renal failure, acute component related to dehydration, hypotension and rhabdomyolysis Evidence of 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, likely related to history of colon cancer, and history of prostate cancer Underlying history of diabetes mellitus type 2 Underlying history of coronary artery disease Underlying history of hypertension Previous history of colon cancer patient underwent surgery chemotherapy and radiation therapy in 2004 Previous history of prostate cancer patient underwent radiation therapy in 2011 Oncology and nephrology service is consulted CODE STATUS has been discussed with family and patient patient changed to no code Prognosis is poor in view of multiple metastatic disease in the abdomen and in the bones, and evidence of kidney failure and liver failure Will follow closely
--- NOTE | 2020-11-24 11:45 | CONS ---
CONSULTATION REASON FOR CONSULT: Renal failure. HISTORY OF PRESENT ILLNESS: The patient is an 89-year-old male who was admitted to the hospital as he was found unresponsive on the floor by his neighbor. He was found to be hypoglycemic. The labs in the hospital showed a blood glucose of 60 on initial admission. Serum creatinine was 4.5 with a previous creatinine of 1.9 on 09/25/2020. The patient is also severely acidotic with a CO2 of 7. His blood sugar was at 233. The anion gap was at 15. Patient's blood pressure has been on the lower side with systolic 119-106 mmHg but as low as 74/45 documented at least couple of times yesterday. The patient is currently maintained on IV fluids. He has not been voiding much. PAST MEDICAL HISTORY: Significant for coronary artery disease, angina, type 2 diabetes GI bleed, hypertension, BPH, history of recent right leg cellulitis, bradycardia, colon cancer status post surgery, chemotherapy and radiation therapy; history of prostatic cancer status post radiation therapy, glaucoma, history of GI bleed, history of UTIs. 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 SOCIAL HISTORY: Patient is a former smoker. No history of drug abuse or alcohol abuse. MEDICATIONS: Medications prior to admission included Vasotec, Lasix, Glucotrol, Flomax. ALLERGIES: None. REVIEW OF SYSTEMS: As per HPI. Other systems negative. EXAMINATION: Patient is comfortable, awake. He is not in any acute distress. Blood pressure is 129/56, heart rate 70 per minute. He is afebrile. Examination of the heart S1, S2. Examination of the lungs, bilateral breath sounds are heard. Abdomen is soft. Minimal tenderness. Examination lower extremities shows no significant edema. TRAVEL SERVICES PROFESSIONAL exam shows patient is not moving his lower extremities much. LAB: Show sodium 144, potassium 4.0, chloride 122, CO2 is 9, BUN 77, creatinine 4.38, hemoglobin 7.7. Total bilirubin 27.3, ALT, AST elevated at 129. The UA shows 2+ bilirubin, moderate blood and protein trace. Blood work also shows total bilirubin elevated at 27.3. ASSESSMENT: 1. Acute kidney injury, appears to be prerenal. Rule out obstructive uropathy. The patient's CT of the abdomen done yesterday does not show any evidence of hydronephrosis but there was some bladder distention noted. I will check a bladder scan to rule out urine retention and will maintain patient on IV fluids. Avoid hypotension. 2. Severe metabolic acidosis, mostly non gap associated with renal failure. No evidence of diarrhea. Will maintain patient on IV bicarb. Change composition to half-normal saline with 3 amps of bicarb as blood sugar has been running high. 3. Type 2 diabetes. 4. Severe hyperbilirubinemia with a CT scan of the abdomen showing soft tissue attenuation at the sathya hepatis and some thickening noted at prior enteric anastomosis with consideration for possible recurrence of malignancy. 5. Chronic kidney disease stage 3B with previous creatinine at 1.8-1.4 mg/dL. Etiology likely nephrosclerosis. UA shows trace protein. No hydronephrosis on CT scan. 6. History of prostatic cancer status post radiation therapy. 7. History of colon cancer status post surgery, radiation therapy and chemotherapy with possible recurrence now. PLAN: Change composition of IV bicarb. Check postvoid residual. Repeat labs in a.m. Avoid nephrotoxic agents. Avoid hypotension. Thank you for this consultation. Will continue to follow the patient with you during his hospitalization. MMODL / IJN: [id number] /
[2020-11-24 11:52] LABS: Glucose,Whole Blood 246 mg/dL (75-99)
[2020-11-24] MEDS ORDERED: ONDANSETRON 4 MG/2 ML VIAL ONE (13:09)
[2020-11-24] MEDS ORDERED: ONDANSETRON 4 MG/2 ML VIAL IVP PRN (13:23)
[2020-11-24 13:30] LABS: Glucose,Whole Blood 257 mg/dL (75-99)
[2020-11-24] MEDS: lisinopriL 5 MG TAB PO SCH (16:59)
[2020-11-24 17:07] LABS: Glucose,Whole Blood 281 mg/dL (75-99)
[2020-11-24 20:19] LABS: Glucose,Whole Blood 298 mg/dL (75-99)
[2020-11-24 20:24] LABS: % Iron Saturation 97.09 (15.00-50.00)
[2020-11-24] MEDS: TIMOLOL 0.5% OPHTH DROPS 5 ML BTL BOTH EYES SCH (21:11)
[2020-11-24] MEDS: TAMSULOSIN 0.4 MG CAP.ER.24H PO SCH (21:11)
[2020-11-24 21:17] LABS: Ferritin 1452.3 ng/mL (22.0-322.0)
[2020-11-25 04:57] LABS: Glucose,Whole Blood 261 mg/dL (75-99)
[2020-11-25 08:15] LABS: Albumin 2.3 g/dL (3.5-5.0); Calcium 7.8 mg/dL (8.4-10.2); Potassium 3.8 mmol/L (3.5-5.1); Total Protein 5.3 g/dL (6.3-8.2)
[2020-11-25 08:23] LABS: Anisocytosis Moderate; HCT 22.3 % (39.0-53.0); HGB 7.8 gm/dL (13.0-17.5); Hyperchromasia Slight; MCH 29.5 pg (25.0-35.0); MCHC 35.1 g/dL (31.0-37.0); MCV 84.2 fL (80.0-100.0); Mean Platelet Volume 8.3; Microcytosis Slight; Platelet Count 277 k/uL (150-450); Poikilocytosis Moderate; RBC 2.64 m/uL (4.30-5.90); RDW 21.7 % (11.5-15.5); WBC 8.4 k/uL (3.8-10.6)
[2020-11-25 08:28] LABS: Total Bilirubin 28.7 mg/dL (0.2-1.3)
[2020-11-25] MEDS: TAMSULOSIN 0.4 MG CAP.ER.24H PO SCH ×2 (09:48→20:42)
[2020-11-25] MEDS: TIMOLOL 0.5% OPHTH DROPS 5 ML BTL BOTH EYES SCH ×2 (09:49→20:42)
[2020-11-25 10:02] LABS: Lymphocytes # (M) 0.25 k/uL (1.0-4.8); Monocytes # (M) 0.42 k/uL (0-1.0); Neutrophils # (M) 7.73 k/uL (1.3-7.7); Neutrophils % (M) 92 %; Nucleated Red Blood Cells 0 /100 WBC (0-0); Total Cells Counted 100
[2020-11-25 10:03] LABS: Target Cells Present
[2020-11-25 10:04] LABS: Spherocytes Present
[2020-11-25] MEDS: lisinopriL 5 MG TAB PO SCH (10:07)
[2020-11-25] MEDS ORDERED: DEXTROSE 5% IN WATER 1,000 ML with SODIUM BICARB (1 MEQ/ML) 150 ML IV SCH (11:00)
[2020-11-25] MEDS: SODIUM CHLORIDE 0.45% 1,000 ML with SODIUM BICARB (1 MEQ/ML) 150 ML IV SCH ×2 (11:53)
[2020-11-25 12:00] LABS: Glucose,Whole Blood 255 mg/dL (75-99)
--- NOTE | 2020-11-25 14:25 | PN ---
PROGRESS NOTE Patient is seen for followup for acute kidney injury, metabolic acidosis, currently he is maintained on a bicarb drip. CO2 is improved with CO2 currently at 12 from 6 and 7 yesterday. Sodium is slightly higher today. The patient has been voiding in a diaper/brief. Urine output is not accurately charted. PHYSICAL EXAMINATION: On examination today, blood pressure 110/58, heart rate 66 per minute. He is afebrile. Examination of the heart S1, S2. Examination of lungs, decreased breath sounds at the bases. Abdomen is soft, nontender. Examination of lower extremities shows no significant edema. RIGHT OF WAY WORKER exam shows patient is answering questions appropriately. He moves his extremities. However his legs are much weaker. LAB: Show sodium 147, potassium 3.8, chloride 122, CO2 is 12, BUN 89, creatinine 4.59, bilirubin 28.7, hemoglobin 7.8 g/dL. ASSESSMENT: 1. Acute kidney injury, most likely component of obstructive uropathy along with underlying ATN. Urine output is not accurately charted. The CT scan did not show any evidence of hydronephrosis. Postvoid residual will be checked. Continue with IV fluids for now. So far, the serum creatinine has not changed much. 2. Severe metabolic acidosis associated with renal failure. No evidence of diarrhea, currently maintained on a bicarb drip. 3. Hypernatremia associated with current composition of the bicarb drip as well as decreased oral free water intake. I will change the IV fluids to D5W with 3 amps of bicarb. Encourage increased oral intake particularly free water. 4. History of colon cancer with changes in the abdomen suggestive of recurrence of malignancy. 5. Hyperbilirubinemia with soft tissue attenuation noted in the sathya hepatitis on CT scan suggestive of metastasis. PLAN: Change IV fluids to D5W with 3 amps of bicarb. Check post-void residual. Check accurate I's and O's if possible. Agree with plans for consideration of changing code status. MMODL / IJN: [id number] /
[2020-11-25 16:34] LABS: Glucose,Whole Blood 270 mg/dL (75-99)
--- NOTE | 2020-11-25 19:09 | P.PN ---
Subjective Progress Note Date: 11/25/20 Principal diagnosis: Multiple malignancies, biliary obstruction In f/u today pt states feeling better then on admit, denies SOB, nausea, pain. Objective - Vital Signs Vital signs: Vital Signs Temp 98.6 F 11/25/20 09:45 Pulse 61 11/25/20 09:45 Resp 18 11/25/20 09:45 BP 94/51 11/25/20 09:45 Pulse Ox 100 11/25/20 09:45 Intake & Output 11/24/20 11/25/20 11/25/20 18:59 06:59 18:59 Intake Total 240 120 360 Balance 240 120 360 Weight 102 kg Intake: Oral 240 120 360 Other: Voiding Method Diaper Diaper # Voids 1 4 1 # Bowel Movements 1 2 1 - Constitutional General appearance: Present: average body habitus, cooperative, no acute distress - EENT Eyes: Present: EOMI, scleral icterus ENT: Present: hearing grossly normal - Respiratory Respiratory: bilateral: rhonchi (expiratory) - Cardiovascular Heart sounds: normal: S1, S2 Abnormal Heart Sounds: Present: systolic murmur - Gastrointestinal General gastrointestinal: Present: normal bowel sounds - Musculoskeletal Musculoskeletal: Present: generalized weakness - Psychiatric Psychiatric: Present: A&O x's 3, appropriate affect - Labs CBC & Chem 7: 11/25/20 07:31 11/25/20 07:31 Labs: Abnormal Lab Results - Last 24 Hours (Table) 11/24/20 11/24/20 11/24/20 Range/Units 05:20 05:20 11:35 RBC (4.30-5.90) m/uL Hgb (13.0-17.5) gm/dL Hct (39.0-53.0) % RDW (11.5-15.5) % Neutrophils # (Manual) (1.3-7.7) k/uL Lymphocytes # (Manual) (1.0-4.8) k/uL Sodium (137-145) mmol/L Chloride (98-107) mmol/L Carbon Dioxide (22-30) mmol/L BUN (9-20) mg/dL Creatinine (0.66-1.25) mg/dL Glucose (74-99) mg/dL POC Glucose (mg/dL) 246 H (75-99) mg/dL Calcium (8.4-10.2) mg/dL TIBC 103 L (228-460) ug/dL % Saturation 97.09 H (15.00-50.00) Ferritin 1452.3 H (22.0-322.0) ng/mL Total Bilirubin (0.2-1.3) mg/dL AST (17-59) U/L ALT (4-49) U/L Alkaline Phosphatase (38-126) U/L Total Protein (6.3-8.2) g/dL Albumin (3.5-5.0) g/dL IgA 516.0 H (60.0-350.0) mg/dL 11/24/20 11/24/20 11/24/20 Range/Units 13:29 16:30 20:15 RBC (4.30-5.90) m/uL Hgb (13.0-17.5) gm/dL Hct (39.0-53.0) % RDW (11.5-15.5) % Neutrophils # (Manual) (1.3-7.7) k/uL Lymphocytes # (Manual) (1.0-4.8) k/uL Sodium (137-145) mmol/L Chloride (98-107) mmol/L Carbon Dioxide (22-30) mmol/L BUN (9-20) mg/dL Creatinine (0.66-1.25) mg/dL Glucose (74-99) mg/dL POC Glucose (mg/dL) 257 H 281 H 298 H (75-99) mg/dL Calcium (8.4-10.2) mg/dL TIBC (228-460) ug/dL % Saturation (15.00-50.00) Ferritin (22.0-322.0) ng/mL Total Bilirubin (0.2-1.3) mg/dL AST (17-59) U/L ALT (4-49) U/L Alkaline Phosphatase (38-126) U/L Total Protein (6.3-8.2) g/dL Albumin (3.5-5.0) g/dL IgA (60.0-350.0) mg/dL 11/25/20 11/25/20 11/25/20 Range/Units 04:55 07:31 07:31 RBC 2.64 L (4.30-5.90) m/uL Hgb 7.8 L (13.0-17.5) gm/dL Hct 22.3 L (39.0-53.0) % RDW 21.7 H (11.5-15.5) % Neutrophils # (Manual) 7.73 H (1.3-7.7) k/uL Lymphocytes # (Manual) 0.25 L (1.0-4.8) k/uL Sodium 147 H (137-145) mmol/L Chloride 122 H (98-107) mmol/L Carbon Dioxide 12 L (22-30) mmol/L BUN 89 H (9-20) mg/dL Creatinine 4.59 H (0.66-1.25) mg/dL Glucose 223 H (74-99) mg/dL POC Glucose (mg/dL) 261 H (75-99) mg/dL Calcium 7.8 L (8.4-10.2) mg/dL TIBC (228-460) ug/dL % Saturation (15.00-50.00) Ferritin (22.0-322.0) ng/mL Total Bilirubin 28.7 H* (0.2-1.3) mg/dL AST 203 H (17-59) U/L ALT 169 H (4-49) U/L Alkaline Phosphatase 936 H (38-126) U/L Total Protein 5.3 L (6.3-8.2) g/dL Albumin 2.3 L (3.5-5.0) g/dL IgA (60.0-350.0) mg/dL Microbiology - Last 24 Hours (Table) 11/23/20 18:23 Blood Culture - Preliminary Blood No Growth after 24 hours Assessment and Plan (1) Obstructive jaundice Narrative/Plan: GI consult Current Visit: Yes Status: Acute Priority: High Code(s): K83.1 - OB STRUCTION OF BILE DUCT SNOMED Code(s): 48252083 (2) Elevated bilirubin Narrative/Plan: Conjugated bilirubin elevated, post hepatic obstruction suspected. GI consulted Current Visit: Yes Status: Acute Priority: High Code(s): R17 - UNSPECIFIED JAUNDICE SNOMED Code(s): 65234281 (3) Pancreatic mass Narrative/Plan: Pending GI evaluation and if any procedures planned, not sure if may be able to obtain tissue that could be used for a diagnosis. Ca 19.9 is 576, high but, if pancreatitis could be elevated Current Visit: Yes Status: Acute Priority: High Code(s): K86.89 - OTHER SPECIFIED DISEASES OF PANCREAS SNOMED Code(s): 816811807 (4) Prostate CA Narrative/Plan: Hx of, no current treatment, pending PSA Current Visit: Yes Status: Chronic Priority: Medium Code(s): C61 - MALIGNANT NEOPLASM OF PROSTATE SNOMED Code(s): 311666063 (5) Anemia Narrative/Plan: Multifactorial including CKD and chronic inflammation from malignancy. Iron studies and ferritin significantly elevated. No iron. Transfuse to keep Hgb 7 or higher. Current Visit: Yes Status: Chronic Priority: Medium Code(s): D64.9 - ANEMIA, UNSPECIFIED SNOMED Code(s): 490259277
--- NOTE | 2020-11-25 19:25 | P.PN ---
Subjective Progress Note Date: 11/25/20 Dylan Mcrae, is an 89-year-old male who was brought in to [facility] via EMS after being found unconscious on the floor at his home by his neighbor, patient had evidence of hypoglycemia he was given multiple doses of IV glucose, and at this time he is alert and oriented. On presentation to emergency room vital examination revealed a temperature of 97.6 pulse 76 respiration 18 blood pressure 137/68 pulse ox 100% on room air Laboratory data revealed a white blood count of 12.9 hemoglobin 9.6 platelet count 308 sodium was 147 potassium 3.7 chloride 125 CO2 7 BUN 80 creatinine 4.5 glucose 60 total bilirubin 32.6 AST 153 ALT 145 alkaline phosphatase 482 creatinine kinase 1046 Computed tomography scan of the abdomen and pelvis without contrast was done in the emergency room and revealed dilated Tatian of the intra-and extra hepatic biliary tree secondary to a partially cystic pancreatic head mass, soft tissue thickening at the site of prior enteric anastomosis, and innumerable os teosclerotic lesions concerning for metastatic disease. 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 On review of systems, at this time patient is alert and oriented and answering questions appropriately, he is denying any symptoms at this time he states that he does not remember passing out or falling to the floor or being on the floor at home, he is denying any chest pain shortness of breath cough or abdominal pain GI bleeding or urinary symptoms. On 11/24/2020 patient's alert and oriented resting comfortably in bed. Patient denies any symptoms at this time. Patient denies chest pain or shortness breath. Patient denies nausea vomiting or diarrhea. Patient denies any urinary burning or frequency. Total bilirubin remains high at 27.3. Bun 77 and creatinine 4.38. Oncology and nephrology services are following. Patient has been changed status. On 11/25/2020 patient was seen and examined on the telemetry floor he is alert and oriented 3 in no apparent distress, he is able to eat and drink without difficulty, he still has significant jaundice and significant abnormality on his labs with elevated bilirubin and elevated liver enzymes, at this time we are awaiting further recommendation from gastroenterology and oncology, continue wit h IV fluid, hypoglycemia resolved, will switch fluid to normal saline with bicarb, avoid IV glucose, will continue to monitor Objective - Vital Signs Vital signs: Vital Signs Temp 98.6 F 11/25/20 09:45 Pulse 61 11/25/20 09:45 Resp 18 11/25/20 09:45 BP 94/51 11/25/20 09:45 Pulse Ox 100 11/25/20 09:45 Intake & Output 11/24/20 11/25/20 11/25/20 18:59 06:59 18:59 Intake Total 240 120 360 Balance 240 120 360 Weight 102 kg Intake: Oral 240 120 360 Other: Voiding Method Diaper # Voids 1 4 1 # Bowel Movements 1 2 1 - Exam In general patient is alert and oriented, in no distress HEENT head normocephalic and atraumatic, there is significant scleral icterus Neck is supple no JVD no goiter no lymphadenopathy no carotid bruit Chest examination is clear to auscultation no crackles no wheezing Cardiac exam reveals regular heart sounds S1 and S2 no gallops no murmurs Abdomen is soft with mild tenderness in the epigastric area no palpable masses no palpable organomegaly Extremity exam reveals no edema no cyanosis or clubbing Neurological examination reveals no gross focal deficits - Labs CBC & Chem 7: 11/25/20 07:31 11/25/20 07:31 Labs: Abnormal Lab Results - Last 24 Hours (Table) 11/24/20 11/24/20 11/24/20 Range/Units 05:20 05:20 11:35 RBC (4.30-5.90) m/uL Hgb (13.0-17.5) gm/dL Hct (39.0-53.0) % RDW (11.5-15.5) % Neutrophils # (Manual) (1.3-7.7) k/uL Lymphocytes # (Manual) (1.0-4.8) k/uL Sodium (137-145) mmol/L Chloride (98-107) mmol/L Carbon Dioxide (22-30) mmol/L BUN (9-20) mg/dL Creatinine (0.66-1.25) mg/dL Glucose (74-99) mg/dL POC Glucose (mg/dL) 246 H (75-99) mg/dL Calcium (8.4-10.2) mg/dL TIBC 103 L (228-460) ug/dL % Saturation 97.09 H (15.00-50.00) Ferritin 1452.3 H (22.0-322.0) ng/mL Total Bilirubin (0.2-1.3) mg/dL AST (17-59) U/L ALT (4-49) U/L Alkaline Phosphatase (38-126) U/L Total Protein (6.3-8.2) g/dL Albumin (3.5-5.0) g/dL IgA 516.0 H (60.0-350.0) mg/dL 11/24/20 11/24/20 11/24/20 Range/Units 13:29 16:30 20:15 RBC (4.30-5.90) m/uL Hgb (13.0-17.5) gm/dL Hct (39.0-53.0) % RDW (11.5-15.5) % Neutrophils # (Manual) (1.3-7.7) k/uL Lymphocytes # (Manual) (1.0-4.8) k/uL Sodium (137-145) mmol/L Chloride (98-107) mmol/L Carbon Dioxide (22-30) mmol/L BUN (9-20) mg/dL Creatinine (0.66-1.25) mg/dL Glucose (74-99) mg/dL POC Glucose (mg/dL) 257 H 281 H 298 H (75-99) mg/dL Calcium (8.4-10.2) mg/dL TIBC (228-460) ug/dL % Saturation (15.00-50.00) Ferritin (22.0-322.0) ng/mL Total Bilirubin (0.2-1.3) mg/dL AST (17-59) U/L ALT (4-49) U/L Alkaline Phosphatase (38-126) U/L Total Protein (6.3-8.2) g/dL Albumin (3.5-5.0) g/dL IgA (60.0-350.0) mg/dL 11/25/20 11/25/20 11/25/20 Range/Units 04:55 07:31 07:31 RBC 2.64 L (4.30-5.90) m/uL Hgb 7.8 L (13.0-17.5) gm/dL Hct 22.3 L (39.0-53.0) % RDW 21.7 H (11.5-15.5) % Neutrophils # (Manual) 7.73 H (1.3-7.7) k/uL Lymphocytes # (Manual) 0.25 L (1.0-4.8) k/uL Sodium 147 H (137-145) mmol/L Chloride 122 H (98-107) mmol/L Carbon Dioxide 12 L (22-30) mmol/L BUN 89 H (9-20) mg/dL Creatinine 4.59 H (0.66-1.25) mg/dL Glucose 223 H (74-99) mg/dL POC Glucose (mg/dL) 261 H (75-99) mg/dL Calcium 7.8 L (8.4-10.2) mg/dL TIBC (228-460) ug/dL % Saturation (15.00-50.00) Ferritin (22.0-322.0) ng/mL Total Bilirubin 28.7 H* (0.2-1.3) mg/dL AST 203 H (17-59) U/L ALT 169 H (4-49) U/L Alkaline Phosphatase 936 H (38-126) U/L Total Protein 5.3 L (6.3-8.2) g/dL Albumin 2.3 L (3.5-5.0) g/dL IgA (60.0-350.0) mg/dL Microbiology - Last 24 Hours (Table) 11/23/20 18:23 Blood Culture - Preliminary Blood No Growth after 24 hours Assessment and Plan Plan: Episodes of hypoglycemia Syncope with collapse at home likely related to hypoglycemia Rhabdomyolysis with elevated CPK Acute on chronic renal failure, acute component related to dehydration, hypotension and rhabdomyolysis Evidence of 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, likely related to history of colon cancer, and history of prostate cancer Underlying history of diabetes mellitus type 2 Underlying history of coronary artery disease Underlying history of hypertension Previous history of colon cancer patient underwent surgery chemotherapy and radiation therapy in 2004 Previous history of prostate cancer patient underwent radiation therapy in 2011 Oncology and nephrology service is consulted CODE STATUS has been discussed with family and patient patient changed to no code Prognosis is poor in view of multiple metastatic disease in the abdomen and in the bones, and evidence of kidney failure and liver failure Will follow closely
[2020-11-25] MEDS: SODIUM CHLORIDE 0.9% 1,000 ML with SODIUM BICARB (1 MEQ/ML) 100 ML IV SCH ×2 (20:42)
[2020-11-25 20:43] LABS: Glucose,Whole Blood 270 mg/dL (75-99)
[2020-11-26] MEDS: SODIUM CHLORIDE 0.9% 1,000 ML with SODIUM BICARB (1 MEQ/ML) 100 ML IV SCH ×2 (06:00)
[2020-11-26 06:06] LABS: Glucose,Whole Blood 201 mg/dL (75-99)
[2020-11-26 08:54] LABS: Albumin 2.2 g/dL (3.5-5.0); Calcium 7.9 mg/dL (8.4-10.2); Potassium 3.5 mmol/L (3.5-5.1)
[2020-11-26 09:05] LABS: Anisocytosis Moderate; HCT 21.9 % (39.0-53.0); HGB 7.8 gm/dL (13.0-17.5); Hyperchromasia Slight; MCH 30.1 pg (25.0-35.0); MCHC 35.7 g/dL (31.0-37.0); MCV 84.3 fL (80.0-100.0); Mean Platelet Volume 9.4; Microcytosis Slight; Platelet Count 286 k/uL (150-450); Poikilocytosis Moderate; RDW 21.5 % (11.5-15.5); WBC 8.9 k/uL (3.8-10.6)
[2020-11-26 09:11] LABS: Total Protein 5.3 g/dL (6.3-8.2)
[2020-11-26 09:13] LABS: Total Bilirubin 30.1 mg/dL (0.2-1.3)
[2020-11-26] MEDS: ENOXAPARIN 30 MG/0.3 ML SYRINGE SQ SCH (10:04)
[2020-11-26] MEDS: TAMSULOSIN 0.4 MG CAP.ER.24H PO SCH ×2 (10:04→21:04)
[2020-11-26] MEDS: TIMOLOL 0.5% OPHTH DROPS 5 ML BTL BOTH EYES SCH ×2 (10:05→21:04)
[2020-11-26 11:05] LABS: Potassium 3.7 mmol/L (3.5-5.1)
[2020-11-26 11:06] LABS: Albumin 2.3 g/dL (3.5-5.0); Calcium 7.1 mg/dL (8.4-10.2); Magnesium 1.7 mg/dL (1.6-2.3); Phosphorus 5.3 mg/dL (2.5-4.5); Total Protein 5.2 g/dL (6.3-8.2)
[2020-11-26 11:07] LABS: Total Bilirubin 27.4 mg/dL (0.2-1.3)
[2020-11-26 11:09] LABS: Albumin 2.75 g/dL (3.80-4.90); Free Kappa Lt Chain Qnt, Serum 12.55 mg/dL (0.33-1.94)
[2020-11-26 11:10] LABS: Gamma Globulin 0.71 g/dL (0.70-1.50); Protein, Total 4.9 g/dL (6.2-8.2)
[2020-11-26 11:21] LABS: Band Neutrophils % 1 %; Eosinophils # (M) 0.09 k/uL (0-0.7); Lymphocytes # (M) 0.53 k/uL (1.0-4.8); Metamyelocytes # (M) 0.18 k/uL (0); Metamyelocytes % 2 %; Monocytes # (M) 0.53 k/uL (0-1.0); Myelocytes # (M) 0.09 k/uL (0); Myelocytes % 1 %; Neutrophils % (M) 86 %; Nucleated Red Blood Cells 0 /100 WBC (0-0); Total Cells Counted 200
[2020-11-26 11:22] LABS: Target Cells Present
[2020-11-26 11:46] LABS: Glucose,Whole Blood 195 mg/dL (75-99)
[2020-11-26] MEDS: SODIUM CHLORIDE 0.45% 1,000 ML with SODIUM BICARB (1 MEQ/ML) 50 ML IV SCH ×2 (12:06)
--- NOTE | 2020-11-26 12:47 | PN ---
PROGRESS NOTE Patient is seen for followup for acute kidney injury with metabolic acidosis. He currently has hypernatremia. He probably has underlying metastatic colon cancer with significant hyperbilirubinemia. Patient's serum creatinine now it is at 4.6 mg/dL. He has been voiding in a brief. His CT of the abdomen does not show any evidence of hydronephrosis. On examination today, patient is lying in bed. He is comfortable. Denies any significant complaints. Blood pressure was 100/52, heart rate 56 per minute. He is afebrile. EXAMINATION OF THE HEART: S1 and S2. EXAMINATION OF LUNGS: Bilateral breath sounds are heard. ABDOMEN: Soft, nontender. LOWER EXTREMITIES: Examination of lower extremities shows no significant edema. PASSENGER RELATIONS REPRESENTATIVE EXAM: Patient answers simple questions. His legs are much weaker than his upper extremities. Labs show sodium 149, potassium 3.5, chloride 120, CO2 17, BUN 91, creatinine 4.69. Total bilirubin 30.1, hemoglobin 7.8 g/dL. ASSESSMENT: 1. Acute kidney injury, most likely obstructive in nature, although CT scan does not show hydronephrosis. There is probably an element of acute tubular necrosis as well. Currently nonoliguric. Renal function has not improved. Patient has been maintained on IV fluids. He is not a candidate for renal replacement therapy if his renal function continues to worsen. Post-void residual has not been done yet. I will reorder it today. Discussed with nursing staff. We will place a Kapoor catheter if he has a large amount of urine in his bladder. 2. Severe metabolic acidosis associated with renal failure, status post bicarb drip, somewhat improved. 3. Hypernatremia associated with increased sodium load with current bicarb drip. It was switched to D5W yesterday, but it appears that the IV fluids were switched back to sodium bicarb with saline, which will definitely increase the sodium load further. Therefore the fluids will be discontinued and patient will be started on oral sodium bicarb, and I will add one amp of D5W in half-normal saline. I will repeat another sodium in about 4 to 5 hours. If his sodium is rising, patient will need D5W and we will have to control the blood sugars with a higher dose of insulin. 4. History of colon cancer, history of prostate cancer with CT of the abdomen suggestive of recurrence with lesion noted in the sathya hepatis. 5. Severe hyperbilirubinemia associated with abnormal findings in the sathya hepatis on CT scan suggestive of metastasis, being followed by Oncology. PLAN: Decrease sodium load and change IV fluids. Repeat sodium this evening. If sodium is rising, patient will need to switch to D5W. Check bladder scan and insert Kapoor if the patient has urine retention. Patient is not a candidate for renal replacement therapy if his renal function continues to worsen. MMODL / IJN: [id number] /
--- NOTE | 2020-11-26 12:53 | P.PN ---
Subjective Progress Note Date: 11/26/20 Principal diagnosis: Multiple malignancies, biliary obstruction In f/u today pt is stable, no new c/o, he is very coherent considering his bilirubin is 30.9. Denies nausea, difficulty in breathing or pain, very weak. Objective - Vital Signs Vital signs: Vital Signs Temp 97.5 F L 11/26/20 11:45 Pulse 55 L 11/26/20 11:45 Resp 16 11/26/20 11:45 BP 108/49 11/26/20 11:45 Pulse Ox 100 11/26/20 11:45 Intake & Output 11/25/20 11/26/20 11/26/20 18:59 06:59 18:59 Intake Total 832 120 240 Balance 832 120 240 Weight 100.5 kg Intake: Oral 832 120 240 Other: Voiding Method Diaper Diaper Diaper # Voids 2 1 # Bowel Movements 1 1 1 - Constitutional General appearance: Present: average body habitus, cooperative, no acute distress - EENT Eyes: Present: scleral icterus ENT: Present: hearing grossly normal - Respiratory Respiratory: bilateral: CTA - Cardiovascular Rhythm: regular Heart sounds: normal: S1, S2 Abnormal Heart Sounds: Present: systolic murmur - Gastrointestinal General gastrointestinal: Present: normal bowel sounds, soft - Genitourinary Genitourinary Comment(s): tea colored urine in lion - Musculoskeletal Musculoskeletal: Present: generalized weakness - Psychiatric Psychiatric: Present: A&O x's 3, appropriate affect - Labs CBC & Chem 7: 11/26/20 07:42 11/26/20 07:42 Labs: Abnormal Lab Results - Last 24 Hours (Table) 11/23/20 11/23/20 11/23/20 Range/Units 18:23 18:23 18:23 RBC (4.30-5.90) m/uL Hgb (13.0-17.5) gm/dL Hct (39.0-53.0) % RDW (11.5-15.5) % Lymphocytes # (Manual) (1.0-4.8) k/uL Metamyelocytes # (Man) (0) k/uL Myelocytes # (Manual) (0) k/uL Sodium 128 L (137-145) mmol/L Chloride 109 H (98-107) mmol/L Carbon Dioxide 7 L* (22-30) mmol/L BUN 69 H (9-20) mg/dL Creatinine 3.80 H (0.66-1.25) mg/dL Glucose (74-99) mg/dL POC Glucose (mg/dL) (75-99) mg/dL Calcium 7.1 L (8.4-10.2) mg/dL Phosphorus 5.3 H (2.5-4.5) mg/dL Total Bilirubin 27.4 H* (0.2-1.3) mg/dL AST 128 H (17-59) U/L ALT 122 H (4-49) U/L Alkaline Phosphatase 710 H (38-126) U/L Lactate Dehydrogenase 692 H (313-618) U/L Total Protein 5.2 L (6.3-8.2) g/dL Total Protein (PEP) (6.2-8.2) g/dL Albumin 2.3 L (3.5-5.0) g/dL Albumin (PEP) (3.80-4.90) g/dL Beta Globulins (0.60-1.30) g/dL CA 19-9 Antigen 576.3 H (0.0-34.9) U/mL Total PSA 103.9 H (<=4.0) ng/mL Free [place] LC, Quant (0.33-1.94) mg/dL Free Lambda LC, Quant (0.57-2.63) mg/dL 11/23/20 11/25/20 11/25/20 Range/Units 18:23 16:32 20:41 RBC (4.30-5.90) m/uL Hgb (13.0-17.5) gm/dL Hct (39.0-53.0) % RDW (11.5-15.5) % Lymphocytes # (Manual) (1.0-4.8) k/uL Metamyelocytes # (Man) (0) k/uL Myelocytes # (Manual) (0) k/uL Sodium (137-145) mmol/L Chloride (98-107) mmol/L Carbon Dioxide (22-30) mmol/L BUN (9-20) mg/dL Creatinine (0.66-1.25) mg/dL Glucose (74-99) mg/dL POC Glucose (mg/dL) 270 H 270 H (75-99) mg/dL Calcium (8.4-10.2) mg/dL Phosphorus (2.5-4.5) mg/dL Total Bilirubin (0.2-1.3) mg/dL AST (17-59) U/L ALT (4-49) U/L Alkaline Phosphatase (38-126) U/L Lactate Dehydrogenase (313-618) U/L Total Protein (6.3-8.2) g/dL Total Protein (PEP) 4.9 L (6.2-8.2) g/dL Albumin (3.5-5.0) g/dL Albumin (PEP) 2.75 L (3.80-4.90) g/dL Beta Globulins 0.55 L (0.60-1.30) g/dL CA 19-9 Antigen (0.0-34.9) U/mL Total PSA (<=4.0) ng/mL Free [place] LC, Quant 12.55 H (0.33-1.94) mg/dL Free Lambda LC, Quant 6.11 H (0.57-2.63) mg/dL 11/26/20 11/26/20 11/26/20 Range/Units 06:00 07:42 07:42 RBC 2.60 L (4.30-5.90) m/uL Hgb 7.8 L (13.0-17.5) gm/dL Hct 21.9 L (39.0-53.0) % RDW 21.5 H (11.5-15.5) % Lymphocytes # (Manual) 0.53 L (1.0-4.8) k/uL Metamyelocytes # (Man) 0.18 H (0) k/uL Myelocytes # (Manual) 0.09 H (0) k/uL Sodium 149 H (137-145) mmol/L Chloride 120 H (98-107) mmol/L Carbon Dioxide 17 L (22-30) mmol/L BUN 91 H (9-20) mg/dL Creatinine 4.69 H (0.66-1.25) mg/dL Glucose 169 H (74-99) mg/dL POC Glucose (mg/dL) 201 H (75-99) mg/dL Calcium 7.9 L (8.4-10.2) mg/dL Phosphorus (2.5-4.5) mg/dL Total Bilirubin 30.1 H* (0.2-1.3) mg/dL AST 256 H (17-59) U/L ALT 218 H (4-49) U/L Alkaline Phosphatase 1089 H (38-126) U/L Lactate Dehydrogenase (313-618) U/L Total Protein 5.3 L (6.3-8.2) g/dL Total Protein (PEP) (6.2-8.2) g/dL Albumin 2.2 L (3.5-5.0) g/dL Albumin (PEP) (3.80-4.90) g/dL Beta Globulins (0.60-1.30) g/dL CA 19-9 Antigen (0.0-34.9) U/mL Total PSA (<=4.0) ng/mL Free [place] LC, Quant (0.33-1.94) mg/dL Free Lambda LC, Quant (0.57-2.63) mg/dL 11/26/20 Range/Units 11:44 RBC (4.30-5.90) m/uL Hgb (13.0-17.5) gm/dL Hct (39.0-53.0) % RDW (11.5-15.5) % Lymphocytes # (Manual) (1.0-4.8) k/uL Metamyelocytes # (Man) (0) k/uL Myelocytes # (Manual) (0) k/uL Sodium (137-145) mmol/L Chloride (98-107) mmol/L Carbon Dioxide (22-30) mmol/L BUN (9-20) mg/dL Creatinine (0.66-1.25) mg/dL Glucose (74-99) mg/dL POC Glucose (mg/dL) 195 H (75-99) mg/dL Calcium (8.4-10.2) mg/dL Phosphorus (2.5-4.5) mg/dL Total Bilirubin (0.2-1.3) mg/dL AST (17-59) U/L ALT (4-49) U/L Alkaline Phosphatase (38-126) U/L Lactate Dehydrogenase (313-618) U/L Total Protein (6.3-8.2) g/dL Total Protein (PEP) (6.2-8.2) g/dL Albumin (3.5-5.0) g/dL Albumin (PEP) (3.80-4.90) g/dL Beta Globulins (0.60-1.30) g/dL CA 19-9 Antigen (0.0-34.9) U/mL Total PSA (<=4.0) ng/mL Free [place] LC, Quant (0.33-1.94) mg/dL Free Lambda LC, Quant (0.57-2.63) mg/dL Microbiology - Last 24 Hours (Table) 11/23/20 18:23 Blood Culture - Preliminary Blood No Growth after 48 hours Assessment and Plan (1) Obstructive jaundice Narrative/Plan: GI consult, pending recommendations Current Visit: Yes Status: Acute Priority: High Code(s): K83.1 - OBSTRUCTION OF BILE DUCT SNOMED Code(s): 12621727 (2) Elevated bilirubin Narrative/Plan: Conjugated bilirubin elevated, post hepatic obstruction suspected. GI consulted. Bilirubin cont to increase, 30.9 today Current Visit: Yes Status: Acute Priority: High Code(s): R17 - UNSPECIFIED JAUNDICE SNOMED Code(s): 51918707 (3) Pancreatic mass Narrative/Plan: Pending GI evaluation and if any procedures planned for relieving obstructive jaundice not sure if may be able to obtain any tissue that could be used for a diagnosis. Ca 19.9 is 576, high but, if pancreatitis could be elevated to this level as well. If unable to evaluate here, may need to be sent to [facility] for procedure and biopsy Current Visit: Yes Status: Acute Priority: High Code(s): K86.89 - OTHER SPECIFIED DISEASES OF PANCREAS SNOMED Code(s): 621526092 (4) Prostate CA Narrative/Plan: Hx of, no current treatment, radiation in past. PSA is 103. ADT would be 1st line therapy. Pending plans for treatment of obstructive jaundice-bicalutamide is liver metabolized. Current Visit: Yes Status: Chronic Priority: Medium Code(s): C61 - MALIGNANT NEOPLASM OF PROSTATE SNOMED Code(s): 845641912 (5) Anemia Narrative/Plan: Multifactorial including CKD and chronic inflammation from malignancy. Iron studies and ferritin significantly elevated. No iron. Transfuse to keep Hgb 7 or higher. Hgb stable today at 7.8 Current Visit: Yes Status: Chronic Priority: Medium Code(s): D64.9 - ANEMIA, UNSPECIFIED SNOMED Code(s): 619312666
--- NOTE | 2020-11-26 14:01 | P.CONS ---
History of Present Illness - Reason for Consult Consult date: 11/26/20 biliary obstruction Requesting physician: Angelina Bains - Chief Complaint hypoglycemia - History of Present Illness A pleasant 89-year-old -[place] male who presented to the emergency department on Wednesday with hypoglycemia. Patient is somewhat of a poor histor vinny. Apparently the patient's neighbor went to his house on Wednesday evening and he did not answer the door and she became concerned, she found him on the bathroom floor. She found him and he felt better. She went to check on him Wednesday morning and she was unable to wake him. She called EMS and his glucose was in the 50s. He is a past medical history including diabetes mellitus, hypertension, colon cancer, prostate cancer, chronic kidney disease and coronary artery disease. Patient has a history of a bowel resection in 2004 from his colon cancer. On admission his labs were WBC 12.9 hemoglobin 9.6 hematocrit 27 platelet count 308,000 INR 1.5 sodium 128 potassium 3.7 carbon dioxide 7 BUN 69 creatinine 3.8 a total bilirubin of 27.4 conjugated bilirubin 21.9 unconjugated bilirubin 2.0 AST 128 AST 122 alkaline phosphatase 710 creatinine kinase 1046, CA 19 9 576. Patient had a CT of the abdomen and pelvis that showed marked dilation of the intra-and extrahepatic biliary tree secondary to what appears to be partially cystic pancreatic head mass, the cystic component measured up to 1 .8 cm. Evaluation is lacking due to no IV contrast. Ill-defined soft tissue attenuation in the sathya hepatis, again lack of IV contrast limited evaluation, malignancy cannot be excluded. Low attenuating lesion left kidney upper pole measuring up to 2.2 cm statistically more likely to represent a cyst though a mass cannot be excluded soft tissue thickening at the site of prior enteric anastomosis correlation with prior history of malignancy recommended, recurrence of malignancy at the site of anastomosis could not be excluded if there is history of prior GI cancer. Innumerable osseous sclerotic lesion concerning for metastasis. Findings suggesting anemia and low volume status clinical co rrelation recommended. Gallbladder sludge. The above findings gastroenterology was consulted. The patient states he started noticing yellowing in his eyes and her care in about 1 week ago. He denies any abdominal pain, states he does have some mild nausea but no vomiting. No previous history of gallbladder disease or liver disease. No history of pancreatitis. He's been afebrile. Repeat labs today WBC 8.9 hemoglobin 7.8 hematocrit 21.9 platelet count 286,000 total bilirubin 30.1 AST to 56 AL T2 18 alkaline phosphatase 1089. Iron studies ordered consistent with iron deficiency anemia. Review of Systems REVIEW OF SYSTEMS: CARDIOPULMONARY: No chest pain or shortness of breath. Gastrointestinal: No abdominal pain. No nausea or vomiting. No hematemesis, coffee-ground emesis. No rectal bleeding, or melena. GENITOURINARY: No dysuria or hematuria. MUSCULOSKELETAL: Reports normal range of motion., Joint pain. SKIN: No rashes. Jaundice. ENDOCRINE: No chills, fevers. No excessive weight gain or loss. No polydipsia or polyuria. Patient was hypoglycemic and pound on the floor. PSYCHIATRIC: Unremarkable. NEUROLOGY: No change in mental status. Denies dizziness, headache. ENT: Vision unremarkable. CONSTITUTIONAL: No recent weight loss. No fever, chills, night sweats. 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 Other hx: 2004 Colon cancer with surgery/ch emo/radiation, 2011 prostate cancer with radiation, BPH, NIDDM type II, PVD, past cellulitis/wounds bilateral lower legs/feet/current R foot wounds, CKD stage III, anemia, bilateral glaucoma, lower GI bleed, gastric/colon polyps, UTIs. History of Any Multi-Drug Resistant Organisms: MRSA Year Discovered:: 05/05/19 MDRO Source:: TOE,BLOOD Past Surgical History: Bowel Resection, Heart Catheterization Additional Past Surgical History / Comment(s): 05/06/19 R 1st toe amputation, R upper arm midline IV, EGD, colonoscopies with polypectomy/bx, benign brain tumor removed at [facility], R hemicolectomy 2004, cardiac cath tx medically 2013, R foot 3rd toe amputation d/t wound/ wound vac, bilateral cataract removal with lens, LASER MAGDA EYES, Past Anesthesia/Blood Transfusion Reactions: No Reported Reaction Additional Past Anesthesia/Blood Transfusion Reaction / Comm: Pt received blood in past without known reaction. Past Psychological History: No Psychological Hx Reported Smoking Status: Former smoker Past Alcohol Use History: None Reported Past Drug Use History: None Reported - Past Family History Father Family Medical History: No Reported History Additional Family Medical History / Comment(s): Pt believes his father was healthy. He at age 93 yrs. Mother Family Medical History: No Reported History Additional Family Medical History / Comment(s): Pt doesn't know of mother's medical hx but she did live to be 95 yrs old. Medications and Allergies Home Medications Medication Instructions Recorded Confirmed Type Enalapril [Vasotec] 2.5 mg PO DAILY 08/28/15 11/23/20 History Furosemide [Lasix] 20 mg PO DAILY 08/28/15 11/23/20 History Potassium Chloride [Klor-Con 10 ER] 10 meq PO DAILY 08/28/15 11/23/20 History Timolol 0.5% Ophth Soln [Timoptic 1 drop BOTH EYES BID 12/13/17 11/23/20 History 0.5% Ophth Soln] glipiZIDE [Glucotrol] 5 mg PO AC-TID 12/13/17 11/23/20 History Tamsulosin [Flomax] 0.4 mg PO BID 09/16/18 11/23/20 History Allergies Allergy/AdvReac Type Severity Reaction Status Date / Time No Known Allergies Allergy Verified 11/23/20 09:40 Physical Exam Vitals: Vital Signs Temp Pulse Resp BP Pulse Ox 11/26/20 10:00 97.9 F 56 L 18 100/52 100 11/26/20 03:58 98.3 F 68 18 116/54 100 11/26/20 00:00 98.6 F 65 17 98/58 99 11/25/20 20:00 99 F 63 18 131/54 100 11/25/20 15:53 60 16 104/51 99 11/25/20 11:50 98.8 F 66 18 110/58 98 Intake and Output 11/25/20 11/26/20 11/26/20 22:59 06:59 14:59 Intake Total 356 240 Balance 356 240 Intake: Oral 356 240 Other: Voiding Method Diaper Diaper # Voids 3 1 # Bowel Movements 1 1 1 Weight 100.5 kg General appearance: The patient is alert, oriented, appears in no acute distress. HET: Head is normocephalic and atraumatic. Conjunctiva pink. Sclera deeply icteric. Neck: Supple without lymphadenopathy. Trachea midline. Heart: S1 S2. Regular rate and rhythm. Lungs: Clear to auscultation. Abdomen: Soft, nontender, nondistended with bowel sounds. No guarding or rigidity. Skin: No rashes. Jaundice. Extremities: Normal skin color and turgor. No pedal edema. Neurological: No focal deficits. Alert and oriented 3.. Results CBC & Chem 7: 11/26/20 07:42 11/26/20 07:42 Labs: Abnormal Lab Results - Last 24 Hours (Table) 11/23/20 11/23/20 11/25/20 Range/Units 18:23 18:23 11:44 RBC (4.30-5.90) m/uL Hgb (13.0-17.5) gm/dL Hct (39.0-53.0) % RDW (11.5-15.5) % Sodium (137-145) mmol/L Chloride (98-107) mmol/L Carbon Dioxide (22-30) mmol/L BUN (9-20) mg/dL Creatinine (0.66-1.25) mg/dL Glucose (74-99) mg/dL POC Glucose (mg/dL) 255 H (75-99) mg/dL Calcium (8.4-10.2) mg/dL Total Bilirubin (0.2-1.3) mg/dL AST (17-59) U/L ALT (4-49) U/L Alkaline Phosphatase (38-126) U/L Total Protein (6.3-8.2) g/dL Albumin (3.5-5.0) g/dL Albumin (PEP) 2.75 L (3.80-4.90) g/dL Beta Globulins 0.55 L (0.60-1.30) g/dL Total PSA 103.9 H (<=4.0) ng/mL 11/25/20 11/25/20 11/26/20 Range/Units 16:32 20:41 06:00 RBC (4.30-5.90) m/uL Hgb (13.0-17.5) gm/dL Hct (39.0-53.0) % RDW (11.5-15.5) % Sodium (137-145) mmol/L Chloride (98-107) mmol/L Carbon Dioxide (22-30) mmol/L BUN (9-20) mg/dL Creatinine (0.66-1.25) mg/dL Glucose (74-99) mg/dL POC Glucose (mg/dL) 270 H 270 H 201 H (75-99) mg/dL Calcium (8.4-10.2) mg/dL Total Bilirubin (0.2-1.3) mg/dL AST (17-59) U/L ALT (4-49) U/L Alkaline Phosphatase (38-126) U/L Total Protein (6.3-8.2) g/dL Albumin (3.5-5.0) g/dL Albumin (PEP) (3.80-4.90) g/dL Beta Globulins (0.60-1.30) g/dL Total PSA (<=4.0) ng/mL 11/26/20 11/26/20 Range/Units 07:42 07:42 RBC 2.60 L (4.30-5.90) m/uL Hgb 7.8 L (13.0-17.5) gm/dL Hct 21.9 L (39.0-53.0) % RDW 21.5 H (11.5-15.5) % Sodium 149 H (137-145) mmol/L Chloride 120 H (98-107) mmol/L Carbon Dioxide 17 L (22-30) mmol/L BUN 91 H (9-20) mg/dL Creatinine 4.69 H (0.66-1.25) mg/dL Glucose 169 H (74-99) mg/dL POC Glucose (mg/dL) (75-99) mg/dL Calcium 7.9 L (8.4-10.2) mg/dL Total Bilirubin 30.1 H* (0.2-1.3) mg/dL AST 256 H (17-59) U/L ALT 218 H (4-49) U/L Alkaline Phosphatase 1089 H (38-126) U/L Total Protein 5.3 L (6.3-8.2) g/dL Albumin 2.2 L (3.5-5.0) g/dL Albumin (PEP) (3.80-4.90) g/dL Beta Globulins (0.60-1.30) g/dL Total PSA (<=4.0) ng/mL Microbiology - Last 24 Hours (Table) 11/23/20 18:23 Blood Culture - Preliminary Blood No Growth after 48 hours Comments: CT of the abdomen and pelvis that showed marked dilation of the intra-and extrahepatic biliary tree secondary to what appears to be partially cystic pancreatic head mass, the cystic component measured up to 1.8 cm. Evaluation is lacking due to no IV contrast. Ill-defined soft tissue attenuation in the sathya hepatis, again lack of IV contrast limited evaluation, malignancy cannot be excluded. Low attenuating lesion left kidney upper pole measuring up to 2.2 cm statistically more likely to represent a cyst though a mass cannot be excluded soft tissue thickening at the site of prior enteric anastomosis correlation with prior history of malignancy recommended, recurrence of malignancy at the site of anastomosis could not be excluded if there is history of prior GI cancer. Innumerable osseous sclerotic lesion concerning for metastasis. Findings suggesting anemia and low volume status clinical correlation recommended. Gallbladder sludge. Assessment and Plan (1) Obstructive jaundice Narrative/Plan: [id number] -[place] male with multiple comorbidities with a history of colon cancer and prostate cancer who presented to the emergency department with episodes of hypoglycemia was found on the floor at his home. On admission he was noted to be jaundice and admitting labs showed elevated bilirubin, LFTs, and therefore he underwent a CT of the abdomen and pelvis that shows intra-and extrahepatic biliary obstruction with increasing headache mass. He did have a positive CA-19-9 576.3. Oncology is following patient closely and asked gastroenterology to evaluate patient for further obstructive jaundice. Patient denies any previous history of liver disease, denies any history of pancreatitis or pancreatic cancer. Total bilirubin trending up today 30.1 LFTs continued to trend up, AST 256, a LT 218, alkaline phosphatase 1089. Recommendation is transfer to tertiary center such as [facility] for further evaluation with an ERCP and endoscopic ultrasound with possible biopsy. Current Visit: Yes Status: Acute Priority: High Code(s): K83.1 - OBSTRUCTION OF BILE DUCT SNOMED Code(s): 21764215 (2) Chronic kidney disease, stage 3 Current Visit: Yes Status: Acute Code(s): N18.30 - CHRONIC KIDNEY DISEASE, STAGE 3 UNSPECIFIED SNOMED Code(s): 779151342 (3) Hyperbilirubinemia Current Visit: Yes Status: Acute Code(s): E80.6 - OTHER DISORDERS OF BILIRUBIN METABOLISM SNOMED Code(s): 99601155 (4) Kidney failure Current Visit: Yes Status: Acute Code(s): N19 - UNSPECIFIED KIDNEY FAILURE SNOMED Code(s): 88689146 (5) Pancreatic mass Current Visit: Yes Status: Acute Priority: High Code(s): K86.89 - OTHER SPECIFIED DISEASES OF PANCREAS SNOMED Code(s): 655457967 (6) Anemia Current Visit: Yes Status: Chronic Priority: Medium Code(s): D64.9 - ANEMIA, UNSPECIFIED SNOMED Code(s): 503799845 Plan: 1. Continue symptomatic and supportive care 2. Diet as tolerated 3. Appreciate recommendations from oncology 4. Continue medical management 5. Gallbladder ultrasound ordered 7. Daily CBC, CMP 8. Repeat INR in A.M. 9. Recommend transfer to tertiary center such as [facility] for ERCP with endoscopic ultrasound with possible biopsy Thank you for this consultation, we will continue to follow. Dr. Brittany Martinez I agree with the dictator's note, documented as a scribe by Tootie Mcintosh.
--- NOTE | 2020-11-26 16:18 | US ---
EXAMINATION TYPE: US gallbladder DATE OF EXAM: 11/26/2020 COMPARISON: CLINICAL HISTORY: hyperbilirubinemia, transaminitis. Poor historian EXAM MEASUREMENTS: Liver Length: 20.0 cm Gallbladder Wall: 0.5 cm CHD: 1.3 cm Right Kidney: 11.0 x 5.2 x 5.6 cm Pancreas: Limited visualization, appears echogenic Liver: Appears enlarged in size. Heterogenous. Intrahepatic biliary dilatation. Gallbladder: Possibly full of sludge with echogenic foci, no clear GB lumen seen. Wall could be leslie cified. Fluid surrounding GB. Unable to take LLD images. Evidence for sonographic Valentin's sign: neg CBD: Obscured by overlying bowel gas CHD: dilated Right Kidney: No hydronephrosis or masses seen IMPRESSION: 1. Sludge-filled gallbladder which appears distended. Fluid is adjacent, correlate for acute cholecys titis. 2. Biliary dilatation. Some prominence without enlargement of the pancreatic duct is present. Additio nal workup for pancreatic head abnormality is recommended. Contrast CT with pancreas protocol is kierra mmended. Neoplasm is not excluded. 3. Hepatomegaly with intrahepatic biliary dilatation
[2020-11-26 16:37] LABS: Glucose,Whole Blood 184 mg/dL (75-99)
[2020-11-26 17:17] LABS: Calcium 7.9 mg/dL (8.4-10.2); Potassium 3.6 mmol/L (3.5-5.1)
--- NOTE | 2020-11-26 19:46 | P.PN ---
Subjective Progress Note Date: 11/26/20 Dylan Mcrae, is an 89-year-old male who was brought in to [facility] via EMS after being found unconscious on the floor at his home by his neighbor, patient had evidence of hypoglycemia he was given multiple doses of IV glucose, and at this time he is alert and oriented. On presentation to emergency room vital examination revealed a temperature of 97.6 pulse 76 respiration 18 blood pressure 137/68 pulse ox 100% on room air Laboratory data revealed a white blood count of 12.9 hemoglobin 9.6 platelet count 308 sodium was 147 potassium 3.7 chloride 125 CO2 7 BUN 80 creatinine 4.5 glucose 60 total bilirubin 32.6 AST 153 ALT 145 alkaline phosphatase 482 creatinine kinase 1046 Computed tomography scan of the abdomen and pelvis without contrast was done in the emergency room and revealed dilated Tatian of the intra-and extra hepatic biliary tree secondary to a partially cystic pancreatic head mass, soft tissue thickening at the site of prior enteric anastomosis, and innumerable os teosclerotic lesions concerning for metastatic disease. Past medical history is significant for history of [id number] diabetes mellitus type 2, history of colon cancer, history of prostate cancer, history of coronary artery disease, history of gastrointestinal bleeding, history of chronic kidney disease stage III, history of MRSA infection in the right great toe status post amputation, history of peripheral vascular disease. On review of systems, at this time patient is alert and oriented and answering questions appropriately, he is denying any symptoms at this time he states that he does not remember passing out or falling to the floor or being on the floor at home, he is denying any chest pain shortness of breath cough or abdominal pain GI bleeding or urinary symptoms. On 11/24/2020 patient's alert and oriented resting comfortably in bed. Patient denies any symptoms at this time. Patient denies chest pain or shortness breath. Patient denies nausea vomiting or diarrhea. Patient denies any urinary burning or frequency. Total bilirubin remains high at 27.3. Bun 77 and creatinine 4.38. Oncology and nephrology services are following. Patient has been changed status. On 11/25/2020 patient was seen and examined on the telemetry floor he is alert and oriented 3 in no apparent distress, he is able to eat and drink without difficulty, he still has significant jaundice and significant abnormality on his labs with elevated bilirubin and elevated liver enzymes, at this time we are awaiting further recommendation from gastroenterology and oncology, continue wit h IV fluid, hypoglycemia resolved, will switch fluid to normal saline with bicarb, avoid IV glucose, will continue to monitor On 11/26/2020 patient was seen and examined on the medical floor he is alert and oriented 3 in no apparent distress there is no fever or chills no headache or dizziness no chest pain no shortness of breath no cough no nausea or vomiting no abdominal pain no diarrhea and no urinary symptoms patient still has significant jaundice otherwise he denies any complaints. Patient was evaluated today by gastroenterology, recommendation is to transfer patient to [facility] for ERCP. Objective - Vital Signs Vital signs: Vital Signs Temp 98.3 F 11/26/20 03:58 Pulse 68 11/26/20 03:58 Resp 18 11/26/20 03:58 BP 116/54 11/26/20 03:58 Pulse Ox 100 11/26/20 03:58 Intake & Output 11/25/20 11/26/20 11/26/20 18:59 06:59 18:59 Intake Total 832 120 240 Balance 832 120 240 Weight 100.5 kg Intake: Oral 832 120 240 Other: Voiding Method Diaper Diaper # Voids 2 1 # Bowel Movements 1 1 - Exam In general patient is alert and oriented, in no distress HEENT head normocephalic and atraumatic, there is significant scleral icterus Neck is supple no JVD no goiter no lymphadenopathy no carotid bruit Chest examination is clear to auscultation no crackles no wheezing Cardiac exam reveals regular heart sounds S1 and S2 no gallops no murmurs Abdomen is soft with mild tenderness in the epigastric area no palpable masses no palpable organomegaly Extremity exam reveals no edema no cyanosis or clubbing Neurological examination reveals no gross focal deficits - Labs CBC & Chem 7: 11/26/20 07:42 11/26/20 16:31 Labs: Abnormal Lab Results - Last 24 Hours (Table) 11/23/20 11/23/20 11/25/20 Range/Units 18:23 18:23 07:31 RBC (4.30-5.90) m/uL Hgb (13.0-17.5) gm/dL Hct (39.0-53.0) % RDW (11.5-15.5) % Neutrophils # (Manual) 7.73 H (1.3-7.7) k/uL Lymphocytes # (Manual) 0.25 L (1.0-4.8) k/uL POC Glucose (mg/dL) (75-99) mg/dL Albumin (PEP) 2.75 L (3.80-4.90) g/dL Beta Globulins 0.55 L (0.60-1.30) g/dL Total PSA 103.9 H (<=4.0) ng/mL 11/25/20 11/25/20 11/25/20 Range/Units 11:44 16:32 20:41 RBC (4.30-5.90) m/uL Hgb (13.0-17.5) gm/dL Hct (39.0-53.0) % RDW (11.5-15.5) % Neutrophils # (Manual) (1.3-7.7) k/uL Lymphocytes # (Manual) (1.0-4.8) k/uL POC Glucose (mg/dL) 255 H 270 H 270 H (75-99) mg/dL Albumin (PEP) (3.80-4.90) g/dL Beta Globulins (0.60-1.30) g/dL Total PSA (<=4.0) ng/mL 11/26/20 11/26/20 Range/Units 06:00 07:42 RBC 2.60 L (4.30-5.90) m/uL Hgb 7.8 L (13.0-17.5) gm/dL Hct 21.9 L (39.0-53.0) % RDW 21.5 H (11.5-15.5) % Neutrophils # (Manual) (1.3-7.7) k/uL Lymphocytes # (Manual) (1.0-4.8) k/uL POC Glucose (mg/dL) 201 H (75-99) mg/dL Albumin (PEP) (3.80-4.90) g/dL Beta Globulins (0.60-1.30) g/dL Total PSA (<=4.0) ng/mL Microbiology - Last 24 Hours (Table) 11/23/20 18:23 Blood Culture - Preliminary Blood No Growth after 48 hours Assessment and Plan Plan: Episodes of hypoglycemia Syncope with collapse at home likely related to hypoglycemia Rhabdomyolysis with elevated CPK Acute on chronic renal failure, acute component related to dehydration, hypotension and rhabdomyolysis Evidence of 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, likely related to history of colon cancer, and history of prostate cancer Underlying history of diabetes mellitus type 2 Underlying history of coronary artery disease Underlying history of hypertension Previous history of colon cancer patient underwent surgery chemotherapy and radiation therapy in 2004 Previous history of prostate cancer patient underwent radiation therapy in 2011 Oncology and nephrology service is consulted CODE STATUS has been discussed with family and patient patient changed to no code Prognosis is poor in view of multiple metastatic disease in the abdomen and in the bones, and evidence of kidney failure and liver failure Will follow closely
[2020-11-26 21:04] LABS: Glucose,Whole Blood 236 mg/dL (75-99)
[2020-11-26] MEDS: SODIUM BICARBONATE TAB 650 MG TAB PO SCH (21:04)
[2020-11-27] MEDS: SODIUM CHLORIDE 0.45% 1,000 ML with SODIUM BICARB (1 MEQ/ML) 50 ML IV SCH ×4 (00:24→14:02)
[2020-11-27 06:01] LABS: Glucose,Whole Blood 195 mg/dL (75-99)
[2020-11-27 07:38] LABS: Albumin 2.1 g/dL (3.5-5.0); Potassium 3.5 mmol/L (3.5-5.1)
[2020-11-27 07:45] LABS: Anisocytosis Moderate; Basophils % (A) 0 %; Eosinophils % (A) 1 %; HCT 21.5 % (39.0-53.0); HGB 7.5 gm/dL (13.0-17.5); Hyperchromasia Slight; Lymphocytes # (A) 0.8 k/uL (1.0-4.8); Lymphocytes % (A) 9 %; MCH 30.5 pg (25.0-35.0); MCHC 35.1 g/dL (31.0-37.0); MCV 86.8 fL (80.0-100.0); Mean Platelet Volume 9.1; Monocytes # (A) 0.5 k/uL (0-1.0); Monocytes % (A) 6 %; Neutrophils # (A) 7.2 k/uL (1.3-7.7); Neutrophils % (A) 82 %; Platelet Count 253 k/uL (150-450); Poikilocytosis Moderate; RBC 2.48 m/uL (4.30-5.90); RDW 21.9 % (11.5-15.5); WBC 8.7 k/uL (3.8-10.6)
[2020-11-27 07:52] LABS: INR 1.5 (<1.2); Prothrombin Time 15.3 sec (9.0-12.0)
[2020-11-27 07:59] LABS: Total Bilirubin 29.8 mg/dL (0.2-1.3)
[2020-11-27] MEDS: TAMSULOSIN 0.4 MG CAP.ER.24H PO SCH ×2 (08:33→20:26)
[2020-11-27] MEDS: SODIUM BICARBONATE TAB 650 MG TAB PO SCH ×2 (08:33→20:26)
[2020-11-27] MEDS: ENOXAPARIN 30 MG/0.3 ML SYRINGE SQ SCH (08:33)
[2020-11-27] MEDS: TIMOLOL 0.5% OPHTH DROPS 5 ML BTL BOTH EYES SCH ×2 (09:07→20:26)
[2020-11-27] MEDS: DEXTROSE 5% IN WATER 1,000 ML with SODIUM BICARB (1 MEQ/ML) 50 ML IV SCH (10:57)
[2020-11-27 11:43] LABS: Glucose,Whole Blood 205 mg/dL (75-99)
--- NOTE | 2020-11-27 14:36 | PN ---
PROGRESS NOTE Patient is seen for followup for acute kidney injury on top of chronic kidney disease, metabolic acidosis and hypernatremia. This morning patient is awake. He is comfortable. He states he is feeling better. Denies any significant complaints. His renal function has not improved. Serum creatinine is staying about the same. There was no evidence of retention. Post-void residual was only 80 mL. Patient's IV fluids were changed yesterday to 0.45 with 1 amp of bicarb and he was started on oral sodium bicarb. Sodium had initially improved to 146, but this morning it is back up to 149. PHYSICAL EXAMINATION: On examination today, blood pressure 112/64, heart rate 68 per minute. He is afebrile. EXAMINATION OF THE HEART: S1 and S2. EXAMINATION OF LUNGS: Bilateral breath sounds are heard. ABDOMEN: Soft, nontender. LOWER EXTREMITIES: Examination of lower extremities shows no evidence of edema. DATA PROCESSING SYSTEMS PROJECT PLANNER EXAM: Grossly intact. LABS: Sodium 149, potassium 3.5, chloride 120. CO2 is 15, BUN 100, serum creatinine 4.73, hemoglobin 7.5 g/dL, bilirubin 29.8. ASSESSMENT: 1. Acute kidney injury, acute tubular necrosis. No evidence of obstruction. Currently nonoliguric. Renal function fairly stable. Serum creatinine staying around 4, although slowly edging up. Today it is at 4.7. Post-void residual was not elevated. No evidence of hydronephrosis on CT scan. Patient's bilirubin is significantly elevated at 29.8, which can itself cause some degree of acute tubular necrosis as well. The patient is not a candidate for renal replacement therapy, given his underlying diagnosis of malignancy with metastasis. 2. Hypernatremia associated with free water deficit and hypotonic fluids; currently sodium back up to 149. I will change the fluids to D5W. Patient's blood sugars will be elevated. However, he will need higher coverage with insulin. 3. Metabolic acidosis associated with renal failure, started on oral sodium bicarb yesterday, maintained on bicarb drip. 4. Hypokalemia. Will replace. 5. History of prostate cancer and colon cancer with attenuation noted in the sathya hepatitis causing obstructive jaundice, highly suspicious for malignancy. PLAN: Change IV fluids to D5W with 1 amp of bicarb. Continue with the sodium bicarb orally and control blood sugars with increased dose of insulin if the blood sugar is elevated. Hopefully we can get him off of the bicarb drip by tomorrow. ELEAZAR / COLLINS: [id number] /
--- NOTE | 2020-11-27 15:10 | P.PN ---
Subjective Progress Note Date: 11/27/20 Principal diagnosis: Hyperbilirubinemia Pleasant 89-year-old -[place] male who presented to the emergency department on Wednesday with hypoglycemia. Patient has a history of colon and prostate cancer and is currently being followed by oncology. On presentation he was noted to be jaundiced, labs were consistent with hyperbilirubinemia with elevated LFTs. Had a CT of the abdomen and pelvis that showed marked dilation of the intra-and extrahepatic biliary tree secondary to what appears to be partially cystic pancreatic mass. Recommendations from gastroenterology R transferred to [facility] for further evaluation with ERCP and endoscopic ultrasound. Patient is awaiting a bed at this time. He denies any abdominal pain, nausea, or vomiting. He has been afebrile. Repeat labs show total bilirubin 29.8 AST 207 and T205 alkaline phosphatase 1015. Patient underwent gallbladder ultrasound showed sludge filled gallbladder which appears distended. Fluid is adjacent, correlate for acute cholecystitis. Biliary dilation. Some prominence without enlargement of the pancreatic duct is present. Additional workup for pancreatic head abnormality is recommended. Contrast CT with pancreas protocol is recommended neoplasm not excluded. Hepatomegaly with intrahepatic biliary dilation Objective - Vital Signs Vital signs: Vital Signs Temp 97.9 F 11/27/20 10:58 Pulse 68 11/27/20 10:58 Resp 16 11/27/20 10:58 BP 112/64 11/27/20 10:58 Pulse Ox 100 11/27/20 10:58 Intake & Output 11/26/20 11/27/20 11/27/20 18:59 06:59 18:59 Intake Total 420 700 240 Output Total 750 200 Balance -330 500 240 Weight 103.5 kg Intake: Intake, IV Titration 500 Amount Sodium Chloride 0.9% 1, 500 000 ml @ 100 mls/hr IV . Q11H CLAUDIA with Sodium Bicarb (1 Meq/ml) 100 ml Rx#:[id number] Oral 420 200 240 Output: Urine 750 200 Other: Voiding Method Diaper Diaper Diaper # Voids 1 # Bowel Movements 1 1 - Exam General appearance: The patient is alert, oriented, appears in no acute distress. HET: Head is normocephalic and atraumatic. Conjunctiva pink. Sclera deeply icteric. Neck: Supple without lymphadenopathy. Abdomen: Soft, nontender, nondistended with bowel sounds. No guarding or rigidity. Extremities: Normal skin color and turgor. No pedal edema Skin: No rashes, jaundice. Neurological: No focal deficits. Alert and oriented 3. - Labs CBC & Chem 7: 11/27/20 06:40 11/27/20 06:40 Labs: Abnormal Lab Results - Last 24 Hours (Table) 11/26/20 11/26/20 11/26/20 Range/Units 16:31 16:36 21:02 RBC (4.30-5.90) m/uL Hgb (13.0-17.5) gm/dL Hct (39.0-53.0) % RDW (11.5-15.5) % Lymphocytes # (1.0-4.8) k/uL PT (9.0-12.0) sec INR (<1.2) Sodium 146 H (137-145) mmol/L Chloride 121 H (98-107) mmol/L Carbon Dioxide 15 L (22-30) mmol/L BUN 97 H (9-20) mg/dL Creatinine 4.56 H (0.66-1.25) mg/dL Glucose 169 H (74-99) mg/dL POC Glucose (mg/dL) 184 H 236 H (75-99) mg/dL Calcium 7.9 L (8.4-10.2) mg/dL Total Bilirubin (0.2-1.3) mg/dL AST (17-59) U/L ALT (4-49) U/L Alkaline Phosphatase (38-126) U/L Total Protein (6.3-8.2) g/dL Albumin (3.5-5.0) g/dL 11/27/20 11/27/20 11/27/20 Range/Units 05:49 06:40 06:40 RBC 2.48 L (4.30-5.90) m/uL Hgb 7.5 L (13.0-17.5) gm/dL Hct 21.5 L (39.0-53.0) % RDW 21.9 H (11.5-15.5) % Lymphocytes # 0.8 L (1.0-4.8) k/uL PT (9.0-12.0) sec INR (<1.2) Sodium 149 H (137-145) mmol/L Chloride 120 H (98-107) mmol/L Carbon Dioxide 15 L (22-30) mmol/L BUN 100 H (9-20) mg/dL Creatinine 4.73 H (0.66-1.25) mg/dL Glucose 165 H (74-99) mg/dL POC Glucose (mg/dL) 195 H (75-99) mg/dL Calcium 8.0 L (8.4-10.2) mg/dL Total Bilirubin 29.8 H* (0.2-1.3) mg/dL AST 207 H (17-59) U/L ALT 205 H (4-49) U/L Alkaline Phosphatase 1015 H (38-126) U/L Total Protein 5.0 L (6.3-8.2) g/dL Albumin 2.1 L (3.5-5.0) g/dL 11/27/20 11/27/20 Range/Units 06:40 11:41 RBC (4.30-5.90) m/uL Hgb (13.0-17.5) gm/dL Hct (39.0-53.0) % RDW (11.5-15.5) % Lymphocytes # (1.0-4.8) k/uL PT 15.3 H (9.0-12.0) sec INR 1.5 H (<1.2) Sodium (137-145) mmol/L Chloride (98-107) mmol/L Carbon Dioxide (22-30) mmol/L BUN (9-20) mg/dL Creatinine (0.66-1.25) mg/dL Glucose (74-99) mg/dL POC Glucose (mg/dL) 205 H (75-99) mg/dL Calcium (8.4-10.2) mg/dL Total Bilirubin (0.2-1.3) mg/dL AST (17-59) U/L ALT (4-49) U/L Alkaline Phosphatase (38-126) U/L Total Protein (6.3-8.2) g/dL Albumin (3.5-5.0) g/dL Microbiology - Last 24 Hours (Table) 11/23/20 18:23 Blood Culture - Preliminary Blood No Growth after 72 hours Assessment and Plan (1) Obstructive jaundice Narrative/Plan: [id number] -[place] male with multiple comorbidities with a history of colon cancer and prostate cancer who presented to the emergency department with episodes of hypoglycemia was found on the floor at his home. On admission he was noted to be jaundice and admitting labs showed elevated bilirubin, LFTs, and therefore he underwent a CT of the abdomen and pelvis that shows intra-and extrahepatic biliary obstruction with increasing headache mass. He did have a positive CA-19-9 576.3. Oncology is following patient closely and asked gastroenterology to evaluate patient for further obstructive jaundice. Patient denies any previous history of liver disease, denies any history of pancreatitis or pancreatic cancer. Total bilirubin trending up today 30.1 LFTs continued to trend up, AST 256, a LT 218, alkaline phosphatase 1089. Recommendation is transfer to tertiary center such as [facility] for further evaluation with an ERCP and endoscopic ultrasound with possible biopsy. Patient is awaiting a bed at [facility] for further evaluation with ERCP and EUS. Current Visit: Yes Status: Acute Priority: High Code(s): K83.1 - OBSTRUCTION OF BILE DUCT SNOMED Code(s): 15007291 (2) Chronic kidney disease, stage 3 Current Visit: Yes Status: Acute Code(s): N18.30 - CHRONIC KIDNEY DISEASE, STAGE 3 UNSPECIFIED SNOMED Code(s): 517906910 (3) Hyperbilirubinemia Current Visit: Yes Status: Acute Code(s): E80.6 - OTHER DISORDERS OF BILIRUBIN METABOLISM SNOMED Code(s): 90723210 (4) Kidney failure Current Visit: Yes Status: Acute Code(s): N19 - UNSPECIFIED KIDNEY FAILURE SNOMED Code(s): 24225791 (5) Pancreatic mass Current Visit: Yes Status: Acute Priority: High Code(s): K86.89 - OTHER SPECIFIED DISEASES OF PANCREAS SNOMED Code(s): 679127559 (6) Anemia Current Visit: Yes Status: Chronic Priority: Medium Code(s): D64.9 - ANEMIA, UNSPECIFIED SNOMED Code(s): 427367622 Plan: 1. Continue symptomatic and supportive care 2. Diet as tolerated 3. Appreciate recommendations from oncology 4. Continue medical management 5. Gallbladder ultrasound ordered and reviewed 7. Daily CBC, CMP 8. Recommend transfer to tertiary center such as [facility] for ERCP with endoscopic ultrasound with possible biopsy. Patient awaiting a bed. Thank you for this consultation, we will continue to follow. Dr. Brittany Martinez I agree with the dictator's note, documented as a scribe by Tootie Mcintosh.
[2020-11-27 16:34] LABS: Glucose,Whole Blood 273 mg/dL (75-99)
[2020-11-27 19:39] LABS: Glucose,Whole Blood 280 mg/dL (75-99)
[2020-11-27] MEDS: INSULIN ASPART (NovoLOG) 100 UNIT/ML VIAL SQ SCH (20:26)
[2020-11-28] MEDS: DEXTROSE 5% IN WATER 1,000 ML with SODIUM BICARB (1 MEQ/ML) 50 ML IV SCH ×2 (00:22→10:32)
[2020-11-28 06:00] LABS: Glucose,Whole Blood 226 mg/dL (75-99)
[2020-11-28] MEDS: INSULIN ASPART (NovoLOG) 100 UNIT/ML VIAL SQ SCH ×4 (06:35→20:38)
[2020-11-28 07:39] LABS: Anisocytosis Moderate; Basophils % (A) 0 %; Eosinophils # (A) 0.1 k/uL (0-0.7); Eosinophils % (A) 1 %; HCT 20.4 % (39.0-53.0); HGB 7.3 gm/dL (13.0-17.5); Hyperchromasia Slight; Lymphocytes # (A) 0.9 k/uL (1.0-4.8); Lymphocytes % (A) 11 %; MCH 31.3 pg (25.0-35.0); MCHC 36.1 g/dL (31.0-37.0); MCV 86.6 fL (80.0-100.0); Mean Platelet Volume 9.4; Microcytosis Slight; Monocytes # (A) 0.4 k/uL (0-1.0); Monocytes % (A) 5 %; Neutrophils # (A) 6.3 k/uL (1.3-7.7); Neutrophils % (A) 80 %; Platelet Count 244 k/uL (150-450); Poikilocytosis Moderate; RBC 2.35 m/uL (4.30-5.90); WBC 7.8 k/uL (3.8-10.6)
[2020-11-28] MEDS: ENOXAPARIN 30 MG/0.3 ML SYRINGE SQ SCH (08:32)
[2020-11-28] MEDS: TAMSULOSIN 0.4 MG CAP.ER.24H PO SCH ×2 (08:32→20:38)
[2020-11-28] MEDS: SODIUM BICARBONATE TAB 650 MG TAB PO SCH ×2 (08:32→20:38)
[2020-11-28] MEDS: TIMOLOL 0.5% OPHTH DROPS 5 ML BTL BOTH EYES SCH ×2 (08:32→20:39)
--- NOTE | 2020-11-28 08:51 | P.PN ---
Subjective Progress Note Date: 11/27/20 Principal diagnosis: Multiple malignancies, biliary obstruction In f/u today pt is stable, denies nausea, wants to be set up to eat, no difficulty in breathing or pain, very weak. Objective - Vital Signs Vital signs: Vital Signs Temp 98 F 11/28/20 07:41 Pulse 71 11/28/20 07:41 Resp 16 11/28/20 07:41 BP 136/68 11/28/20 07:41 Pulse Ox 99 11/28/20 07:41 Intake & Output 11/27/20 11/28/20 11/28/20 18:59 06:59 18:59 Intake Total 660 180 Balance 660 180 Weight 103 kg Intake: Oral 660 180 Other: Voiding Method Diaper External Catheter External Catheter # Voids 1 2 # Bowel Movements 1 2 1 - Constitutional General appearance: Present: average body habitus, cooperative, no acute distress - EENT Eyes: Present: EOMI, scleral icterus ENT: Present: hearing grossly normal - Respiratory Details: resp even and unlabored - Musculoskeletal Musculoskeletal: Present: generalized weakness - Psychiatric Psychiatric: Present: A&O x's 3, appropriate affect - Labs CBC & Chem 7: 11/28/20 06:44 11/27/20 06:40 Labs: Abnormal Lab Results - Last 24 Hours (Table) 11/27/20 11/27/20 11/27/20 Range/Units 11:41 16:32 19:30 RBC (4.30-5.90) m/uL Hgb (13.0-17.5) gm/dL Hct (39.0-53.0) % RDW (11.5-15.5) % Lymphocytes # (1.0-4.8) k/uL POC Glucose (mg/dL) 205 H 273 H 280 H (75-99) mg/dL 11/28/20 11/28/20 Range/Units 05:57 06:44 RBC 2.35 L (4.30-5.90) m/uL Hgb 7.3 L (13.0-17.5) gm/dL Hct 20.4 L (39.0-53.0) % RDW 22.0 H (11.5-15.5) % Lymphocytes # 0.9 L (1.0-4.8) k/uL POC Glucose (mg/dL) 226 H (75-99) mg/dL Microbiology - Last 24 Hours (Table) 11/23/20 18:23 Blood Culture - Preliminary Blood No Growth after 96 hours Assessment and Plan (1) Obstructive jaundice Narrative/Plan: Bilirubin stable, seen by GI Current Visit: Yes Status: Acute Priority: High Code(s): K83.1 - OBSTRUCTION OF BILE DUCT SNOMED Code(s): 84928367 (2) Elevated bilirubin Narrative/Plan: Conjugated bilirubin elevated, post hepatic obstruction suspected. GI has seen pt. Current Visit: Yes Status: Acute Priority: High Code(s): R17 - UNSPECIFIED JAUNDICE SNOMED Code(s): 63511699 (3) Pancreatic mass Narrative/Plan: GI recommending transfer for ERCP, EUS and biopsy. Ca 19.9 is 576, high but, if pancreatitis could be elevated to this level as well. Current Visit: Yes Status: Acute Priority: High Code(s): K86.89 - OTHER SPECIFIED DISEASES OF PANCREAS SNOMED Code(s): 760922043 (4) Prostate CA Narrative/Plan: Hx of, no current treatment, radiation in past. PSA is 103. ADT would be 1st line therapy. Pending plans for treatment of obstructive jaundice-bicalutamide is liver metabolized. Current Visit: Yes Status: Chronic Priority: Medium Code(s): C61 - MALIGNANT NEOPLASM OF PROSTATE SNOMED Code(s): 946766246 (5) Anemia Narrative/Plan: Multifactorial including CKD and chronic inflammation from malignancy. Iron studies and ferritin significantly elevated. No iron. Transfuse to keep Hgb 7 or higher. Hgb stable today at 7.5 Current Visit: Yes Status: Chronic Priority: Medium Code(s): D64.9 - ANEMIA, UNSPECIFIED SNOMED Code(s): 525162104
[2020-11-28 09:53] LABS: Albumin 2.1 g/dL (3.5-5.0); Calcium 7.9 mg/dL (8.4-10.2); Potassium 3.4 mmol/L (3.5-5.1)
[2020-11-28 10:06] LABS: Total Bilirubin 30.2 mg/dL (0.2-1.3)
[2020-11-28 10:59] VITALS: BMI 29.9
[2020-11-28 11:14] LABS: Glucose,Whole Blood 172 mg/dL (75-99)
--- NOTE | 2020-11-28 12:08 | PN ---
PROGRESS NOTE Patient is seen for followup for acute kidney injury and hypernatremia. His renal function remains impaired with slowly increasing creatinine, currently at 4.8. There is no evidence of obstructive uropathy. It is probably ATN. Patient is not a candidate for renal replacement therapy, given his underlying history of malignancy and metastatic disease. Patient has been voiding. Urine output is not accurately charted. We have about 950 mL documented for 24 hours as of yesterday. PHYSICAL EXAMINATION: On examination today, patient is comfortable. Blood pressure 133/68, heart rate 67 per minute. He is afebrile. EXAMINATION OF THE HEART: S1 and S2. EXAMINATION OF LUNGS: Decreased breath sounds at the bases. ABDOMEN: Soft, nontender. LOWER EXTREMITIES: Examination of lower extremities shows no significant edema. LABS: Sodium 146, potassium 3.4, chloride 117. CO2 is 18, BUN 99, serum creatinine 4.8. Bilirubin is 30.2. ASSESSMENT: 1. Acute kidney injury, acute tubular necrosis, nonoliguric with fairly stable renal function, serum creatinine staying at about 4.5 to 4.8 mg/dL. Previous creatinine around 1.5 to 2 mg/dL as of September 2020 and February of 2020. No indication for urgent renal replacement therapy, and at this time I do not believe patient is an ideal candidate for long-term renal replacement therapy, given his underlying metastatic disease. 2. Hypernatremia, currently improved with hypotonic fluids. 3. Metabolic acidosis associated with renal failure, currently improved. Patient is maintained on oral sodium bicarb and 50 mEq in D5W for IV bicarb drip as well. 4. Hypokalemia. We will replace. It is mostly associated with bicarb drip and decreased oral intake. 5. Obstructive jaundice with pancreatic mass; awaiting transfer to [facility] for further workup, evaluation and possible intervention. 6. History of prostatic cancer and history of colon cancer. PLAN: Replace potassium. Continue current fluids. No indication for urgent need for renal replacement therapy at this time. The patient is not an ideal candidate for long-term renal replacement therapy if his renal function continues to deteriorate. At this time there is no evidence of obstruction noted on the CT scan and patient's postvoid residual has not been elevated. MMODL / IJN: [id number] /
--- NOTE | 2020-11-28 13:20 | P.PN ---
Subjective Progress Note Date: 11/27/20 Dylan Mcrae, is an 89-year-old male who was brought in to [facility] via EMS after being found unconscious on the floor at his home by his neighbor, patient had evidence of hypoglycemia he was given multiple doses of IV glucose, and at this time he is alert and oriented. On presentation to emergency room vital examination revealed a temperature of 97.6 pulse 76 respiration 18 blood pressure 137/68 pulse ox 100% on room air Laboratory data revealed a white blood count of 12.9 hemoglobin 9.6 platelet count 308 sodium was 147 potassium 3.7 chloride 125 CO2 7 BUN 80 creatinine 4.5 glucose 60 total bilirubin 32.6 AST 153 ALT 145 alkaline phosphatase 482 creatinine kinase 1046 Computed tomography scan of the abdomen and pelvis without contrast was done in the emergency room and revealed dilated Tatian of the intra-and extra hepatic biliary tree secondary to a partially cystic pancreatic head mass, soft tissue thickening at the site of prior enteric anastomosis, and innumerable os teosclerotic lesions concerning for metastatic disease. 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 On review of systems, at this time patient is alert and oriented and answering questions appropriately, he is denying any symptoms at this time he states that he does not remember passing out or falling to the floor or being on the floor at home, he is denying any chest pain shortness of breath cough or abdominal pain GI bleeding or urinary symptoms. On 11/24/2020 patient's alert and oriented resting comfortably in bed. Patient denies any symptoms at this time. Patient denies chest pain or shortness breath. Patient denies nausea vomiting or diarrhea. Patient denies any urinary burning or frequency. Total bilirubin remains high at 27.3. Bun 77 and creatinine 4.38. Oncology and nephrology services are following. Patient has been changed status. On 11/25/2020 patient was seen and examined on the telemetry floor he is alert and oriented 3 in no apparent distress, he is able to eat and drink without difficulty, he still has significant jaundice and significant abnormality on his labs with elevated bilirubin and elevated liver enzymes, at this time we are awaiting further recommendation from gastroenterology and oncology, continue wit h IV fluid, hypoglycemia resolved, will switch fluid to normal saline with bicarb, avoid IV glucose, will continue to monitor On 11/26/2020 patient was seen and examined on the medical floor he is alert and oriented 3 in no apparent distress there is no fever or chills no headache or dizziness no chest pain no shortness of breath no cough no nausea or vomiting no abdominal pain no diarrhea and no urinary symptoms patient still has significant jaundice otherwise he denies any complaints. Patient was evaluated today by gastroenterology, recommendation is to transfer patient to [facility] for ERCP. On 11/27/2020 patient was seen and examined on the medical floor he is alert and oriented 3 in no apparent distress there is no fever or chills no headache or dizziness no chest pain no shortness of breath no cough no nausea or vomiting no abdominal pain no diarrhea and no urinary symptoms patient still has significant jaundice otherwise he denies any complaints. Patient was evaluated today by gastroenterology, recommendation is to transfer patient to [facility] for ERCP. transfer procedure in place. We are awaiting for a bed at [facility] Objective - Vital Signs Vital signs: Vital Signs Temp 97.9 F 11/27/20 10:58 Pulse 68 11/27/20 10:58 Resp 16 11/27/20 10:58 BP 112/64 11/27/20 10:58 Pulse Ox 100 11/27/20 10:58 Intake & Output 11/26/20 11/27/20 11/27/20 18:59 06:59 18:59 Intake Total 420 700 240 Output Total 750 200 Balance -330 500 240 Weight 103.5 kg Intake: Intake, IV Titration 500 Amount Sodium Chloride 0.9% 1, 500 000 ml @ 100 mls/hr IV . Q11H CLAUDIA with Sodium Bicarb (1 Meq/ml) 100 ml Rx#:[id number] Oral 420 200 240 Output: Urine 750 200 Other: Voiding Method Diaper Diaper Diaper # Voids 1 # Bowel Movements 1 1 - Exam In general patient is alert and oriented, in no distress HEENT head normocephalic and atraumatic, there is significant scleral icterus Neck is supple no JVD no goiter no lymphadenopathy no carotid bruit Chest examination is clear to auscultation no crackles no wheezing Cardiac exam reveals regular heart sounds S1 and S2 no gallops no murmurs Abdomen is soft with mild tenderness in the epigastric area no palpable masses no palpable organomegaly Extremity exam reveals no edema no cyanosis or clubbing Neurological examination reveals no gross focal deficits - Labs CBC & Chem 7: 11/28/20 06:44 11/28/20 06:44 Labs: Abnormal Lab Results - Last 24 Hours (Table) 11/26/20 11/26/20 11/26/20 Range/Units 16:31 16:36 21:02 RBC (4.30-5.90) m/uL Hgb (13.0-17.5) gm/dL Hct (39.0-53.0) % RDW (11.5-15.5) % Lymphocytes # (1.0-4.8) k/uL PT (9.0-12.0) sec INR (<1.2) Sodium 146 H (137-145) mmol/L Chloride 121 H (98-107) mmol/L Carbon Dioxide 15 L (22-30) mmol/L BUN 97 H (9-20) mg/dL Creatinine 4.56 H (0.66-1.25) mg/dL Glucose 169 H (74-99) mg/dL POC Glucose (mg/dL) 184 H 236 H (75-99) mg/dL Calcium 7.9 L (8.4-10.2) mg/dL Total Bilirubin (0.2-1.3) mg/dL AST (17-59) U/L ALT (4-49) U/L Alkaline Phosphatase (38-126) U/L Total Protein (6.3-8.2) g/dL Albumin (3.5-5.0) g/dL 11/27/20 11/27/20 11/27/20 Range/Units 05:49 06:40 06:40 RBC 2.48 L (4.30-5.90) m/uL Hgb 7.5 L (13.0-17.5) gm/dL Hct 21.5 L (39.0-53.0) % RDW 21.9 H (11.5-15.5) % Lymphocytes # 0.8 L (1.0-4.8) k/uL PT (9.0-12.0) sec INR (<1.2) Sodium 149 H (137-145) mmol/L Chloride 120 H (98-107) mmol/L Carbon Dioxide 15 L (22-30) mmol/L BUN 100 H (9-20) mg/dL Creatinine 4.73 H (0.66-1.25) mg/dL Glucose 165 H (74-99) mg/dL POC Glucose (mg/dL) 195 H (75-99) mg/dL Calcium 8.0 L (8.4-10.2) mg/dL Total Bilirubin 29.8 H* (0.2-1.3) mg/dL AST 207 H (17-59) U/L ALT 205 H (4-49) U/L Alkaline Phosphatase 1015 H (38-126) U/L Total Protein 5.0 L (6.3-8.2) g/dL Albumin 2.1 L (3.5-5.0) g/dL 11/27/20 11/27/20 Range/Units 06:40 11:41 RBC (4.30-5.90) m/uL Hgb (13.0-17.5) gm/dL Hct (39.0-53.0) % RDW (11.5-15.5) % Lymphocytes # (1.0-4.8) k/uL PT 15.3 H (9.0-12.0) sec INR 1.5 H (<1.2) Sodium (137-145) mmol/L Chloride (98-107) mmol/L Carbon Dioxide (22-30) mmol/L BUN (9-20) mg/dL Creatinine (0.66-1.25) mg/dL Glucose (74-99) mg/dL POC Glucose (mg/dL) 205 H (75-99) mg/dL Calcium (8.4-10.2) mg/dL Total Bilirubin (0.2-1.3) mg/dL AST (17-59) U/L ALT (4-49) U/L Alkaline Phosphatase (38-126) U/L Total Protein (6.3-8.2) g/dL Albumin (3.5-5.0) g/dL Microbiology - Last 24 Hours (Table) 11/23/20 18:23 Blood Culture - Preliminary Blood No Growth after 72 hours Assessment and Plan Plan: Episodes of hypoglycemia Syncope with collapse at home likely related to hypoglycemia Rhabdomyolysis with elevated CPK Acute on chronic renal failure, acute component related to dehydration, hypotension and rhabdomyolysis Evidence of 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, likely related to history of colon cancer, and history of prostate cancer Underlying history of diabetes mellitus type 2 Underlying history of coronary artery disease Underlying history of hypertension Previous history of colon cancer patient underwent surgery chemotherapy and radiation therapy in 2004 Previous history of prostate cancer patient underwent radiation therapy in 2011 Oncology and nephrology service is consulted CODE STATUS has been discussed with family and patient patient changed to no code Prognosis is poor in view of multiple metastatic disease in the abdomen and in the bones, and evidence of kidney failure and liver failure Will follow closely
--- NOTE | 2020-11-28 13:50 | P.PN ---
Subjective Progress Note Date: 11/28/20 Dylan Mcrae, is an 89-year-old male who was brought in to [facility] via EMS after being found unconscious on the floor at his home by his neighbor, patient had evidence of hypoglycemia he was given multiple doses of IV glucose, and at this time he is alert and oriented. On presentation to emergency room vital examination revealed a temperature of 97.6 pulse 76 respiration 18 blood pressure 137/68 pulse ox 100% on room air Laboratory data revealed a white blood count of 12.9 hemoglobin 9.6 platelet count 308 sodium was 147 potassium 3.7 chloride 125 CO2 7 BUN 80 creatinine 4.5 glucose 60 total bilirubin 32.6 AST 153 ALT 145 alkaline phosphatase 482 creatinine kinase 1046 Computed tomography scan of the abdomen and pelvis without contrast was done in the emergency room and revealed dilated Tatian of the intra-and extra hepatic biliary tree secondary to a partially cystic pancreatic head mass, soft tissue thickening at the site of prior enteric anastomosis, and innumerable os teosclerotic lesions concerning for metastatic disease. 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 On review of systems, at this time patient is alert and oriented and answering questions appropriately, he is denying any symptoms at this time he states that he does not remember passing out or falling to the floor or being on the floor at home, he is denying any chest pain shortness of breath cough or abdominal pain GI bleeding or urinary symptoms. On 11/24/2020 patient's alert and oriented resting comfortably in bed. Patient denies any symptoms at this time. Patient denies chest pain or shortness breath. Patient denies nausea vomiting or diarrhea. Patient denies any urinary burning or frequency. Total bilirubin remains high at 27.3. Bun 77 and creatinine 4.38. Oncology and nephrology services are following. Patient has been changed status. On 11/25/2020 patient was seen and examined on the telemetry floor he is alert and oriented 3 in no apparent distress, he is able to eat and drink without difficulty, he still has significant jaundice and significant abnormality on his labs with elevated bilirubin and elevated liver enzymes, at this time we are awaiting further recommendation from gastroenterology and oncology, continue wit h IV fluid, hypoglycemia resolved, will switch fluid to normal saline with bicarb, avoid IV glucose, will continue to monitor On 11/26/2020 patient was seen and examined on the medical floor he is alert and oriented 3 in no apparent distress there is no fever or chills no headache or dizziness no chest pain no shortness of breath no cough no nausea or vomiting no abdominal pain no diarrhea and no urinary symptoms patient still has significant jaundice otherwise he denies any complaints. Patient was evaluated today by gastroenterology, recommendation is to transfer patient to [facility] for ERCP. On 11/27/2020 patient was seen and examined on the medical floor he is alert and oriented 3 in no apparent distress there is no fever or chills no headache or dizziness no chest pain no shortness of breath no cough no nausea or vomiting no abdominal pain no diarrhea and no urinary symptoms patient still has significant jaundice otherwise he denies any complaints. Patient was evaluated today by gastroenterology, recommendation is to transfer patient to [facility] for ERCP. transfer procedure in place. We are awaiting for a bed at [facility] On 11/28/2020 patient was seen and examined on the telemetry floor he is alert and oriented 3 in no apparent distress there is no fever or chills no headache or dizziness no chest pain no shortness of breath no cough no nausea or vomiting no abdominal pain no diarrhea and no urinary symptoms patient still has sig nificant jaundice generalized weakness otherwise he denies any complaints. At this time we are still awaiting possible transfer to [facility] when the room is available for possible ERCP and common bile duct stent placement Objective - Vital Signs Vital signs: Vital Signs Temp 98 F 11/28/20 10:19 Pulse 67 11/28/20 10:19 Resp 16 11/28/20 10:19 BP 133/68 11/28/20 10:19 Pulse Ox 98 11/28/20 10:19 Intake & Output 11/27/20 11/28/20 11/28/20 18:59 06:59 18:59 Intake Total 660 360 Balance 660 360 Weight 103 kg 103 kg Intake: Oral 660 360 Other: Voiding Method Diaper External Catheter External Catheter # Voids 1 2 1 # Bowel Movements 1 2 1 - Exam In general patient is alert and oriented, in no distress HEENT head normocephalic and atraumatic, there is significant scleral icterus Neck is supple no JVD no goiter no lymphadenopathy no carotid bruit Chest examination is clear to auscultation no crackles no wheezing Cardiac exam reveals regular heart sounds S1 and S2 no gallops no murmurs Abdomen is soft with mild tenderness in the epigastric area no palpable masses no palpable organomegaly Extremity exam reveals no edema no cyanosis or clubbing Neurological examination reveals no gross focal deficits - Labs CBC & Chem 7: 11/28/20 06:44 11/28/20 06:44 Labs: Abnormal Lab Results - Last 24 Hours (Table) 11/27/20 11/27/20 11/28/20 Range/Units 16:32 19:30 05:57 RBC (4.30-5.90) m/uL Hgb (13.0-17.5) gm/dL Hct (39.0-53.0) % RDW (11.5-15.5) % Lymphocytes # (1.0-4.8) k/uL Sodium (137-145) mmol/L Potassium (3.5-5.1) mmol/L Chloride (98-107) mmol/L Carbon Dioxide (22-30) mmol/L BUN (9-20) mg/dL Creatinine (0.66-1.25) mg/dL Glucose (74-99) mg/dL POC Glucose (mg/dL) 273 H 280 H 226 H (75-99) mg/dL Calcium (8.4-10.2) mg/dL Total Bilirubin (0.2-1.3) mg/dL AST (17-59) U/L ALT (4-49) U/L Alkaline Phosphatase (38-126) U/L Total Protein (6.3-8.2) g/dL Albumin (3.5-5.0) g/dL 11/28/20 11/28/20 11/28/20 Range/Units 06:44 06:44 11:13 RBC 2.35 L (4.30-5.90) m/uL Hgb 7.3 L (13.0-17.5) gm/dL Hct 20.4 L (39.0-53.0) % RDW 22.0 H (11.5-15.5) % Lymphocytes # 0.9 L (1.0-4.8) k/uL Sodium 146 H (137-145) mmol/L Potassium 3.4 L (3.5-5.1) mmol/L Chloride 117 H (98-107) mmol/L Carbon Dioxide 18 L (22-30) mmol/L BUN 99 H (9-20) mg/dL Creatinine 4.83 H (0.66-1.25) mg/dL Glucose 159 H (74-99) mg/dL POC Glucose (mg/dL) 172 H (75-99) mg/dL Calcium 7.9 L (8.4-10.2) mg/dL Total Bilirubin 30.2 H* (0.2-1.3) mg/dL AST 164 H (17-59) U/L ALT 186 H (4-49) U/L Alkaline Phosphatase 1098 H (38-126) U/L Total Protein 5.0 L (6.3-8.2) g/dL Albumin 2.1 L (3.5-5.0) g/dL Microbiology - Last 24 Hours (Table) 11/23/20 18:23 Blood Culture - Preliminary Blood No Growth after 96 hours Assessment and Plan Plan: Episodes of hypoglycemia Syncope with collapse at home likely related to hypoglycemia Rhabdomyolysis with elevated CPK Acute on chronic renal failure, acute component related to dehydration, hypotension and rhabdomyolysis Evidence of 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, likely related to history of colon cancer, and history of prostate cancer Underlying history of diabetes mellitus type 2 Underlying history of coronary artery disease Underlying history of hypertension Previous history of colon cancer patient underwent surgery chemotherapy and radiation therapy in 2004 Previous history of prostate cancer patient underwent radiation therapy in 2011 Oncology and nephrology service is consulted CODE STATUS has been discussed with family and patient patient changed to no code Prognosis is poor in view of multiple metastatic disease in the abdomen and in the bones, and evidence of kidney failure and liver failure Will follow closely
--- NOTE | 2020-11-28 14:21 | P.PN ---
Subjective Progress Note Date: 11/28/20 Principal diagnosis: Hyperbilirubinemia Pleasant 89-year-old -[place] male who presented to the emergency department on Wednesday with hypoglycemia. Patient has a history of colon and prostate cancer and is currently being followed by oncology. On presentation he was noted to be jaundiced, labs were consistent with hyperbilirubinemia with elevated LFTs. Had a CT of the abdomen and pelvis that showed marked dilation of the intra-and extrahepatic biliary tree secondary to what appears to be partially cystic pancreatic mass. Recommendations from gastroenterology is to transfer to [facility] for further evaluation with ERCP and endoscopic ultrasound. Patient underwent gallbladder ultrasound showed sludge filled gallbladder which appears distended. Fluid is adjacent, correlate for acute cholecystitis. Biliary dilation. Some prominence without enlargement of the pancreatic duct is present. Additional workup for pancreatic head abnormality is recommended. Contrast CT with pancreas protocol is recommended neoplasm not excluded. Hepatomegaly with intrahepatic biliary dilation. 11/28/2020 patient seen and examined lying in bed. He denies any abdominal pain, nausea, or vomiting. He is tolerating his diet. He is awaiting a bed at [facility] for ERCP with EUS and biopsy. Total bilirubin 3.2 AST 164 ALT 186 alk phos 1098 Objective - Vital Signs Vital signs: Vital Signs Temp 98 F 11/28/20 07:41 Pulse 71 11/28/20 07:41 Resp 16 11/28/20 07:41 BP 136/68 11/28/20 07:41 Pulse Ox 99 11/28/20 07:41 Intake & Output 11/27/20 11/28/20 11/28/20 18:59 06:59 18:59 Intake Total 660 180 Balance 660 180 Weight 103 kg Intake: Oral 660 180 Other: Voiding Method Diaper External Catheter External Catheter # Voids 1 2 # Bowel Movements 1 2 1 - Exam General appearance: The patient is alert, oriented, appears in no acute distress. HET: Head is normocephalic and atraumatic. Conjunctiva pink. Sclera deeply icteric. Neck: Supple without lymphadenopathy. Abdomen: Soft, nontender, nondistended with bowel sounds. No guarding or rigidity. Extremities: Normal skin color and turgor. No pedal edema Skin: No rashes, jaundice. Neurological: No focal deficits. Alert and oriented 3. - Labs CBC & Chem 7: 11/28/20 06:44 11/28/20 06:44 Labs: Abnormal Lab Results - Last 24 Hours (Table) 11/27/20 11/27/20 11/27/20 Range/Units 11:41 16:32 19:30 RBC (4.30-5.90) m/uL Hgb (13.0-17.5) gm/dL Hct (39.0-53.0) % RDW (11.5-15.5) % Lymphocytes # (1.0-4.8) k/uL POC Glucose (mg/dL) 205 H 273 H 280 H (75-99) mg/dL 11/28/20 11/28/20 Range/Units 05:57 06:44 RBC 2.35 L (4.30-5.90) m/uL Hgb 7.3 L (13.0-17.5) gm/dL Hct 20.4 L (39.0-53.0) % RDW 22.0 H (11.5-15.5) % Lymphocytes # 0.9 L (1.0-4.8) k/uL POC Glucose (mg/dL) 226 H (75-99) mg/dL Microbiology - Last 24 Hours (Table) 11/23/20 18:23 Blood Culture - Preliminary Blood No Growth after 96 hours Assessment and Plan (1) Obstructive jaundice Narrative/Plan: [id number] -[place] male with multiple comorbidities with a history of colon cancer and prostate cancer who presented to the emergency department with episodes of hypoglycemia was found on the floor at his home. On admission he was noted to be jaundice and admitting labs showed elevated bilirubin, LFTs, and therefore he underwent a CT of the abdomen and pelvis that shows intra-and extrahepatic biliary obstruction with increasing headache mass. He did have a positive CA-[id number] 576.3. Oncology is following patient closely and asked gastroenterology to evaluate patient for further obstructive jaundice. Patient denies any previous history of liver disease, denies any history of pancreatitis or pancreatic cancer. Total bilirubin trending up today 30.1 LFTs continued to trend up, AST 256, a LT 218, alkaline phosphatase 1089. Recommendation is transfer to tertiary center such as [facility] for further evaluation with an ERCP and endoscopic ultrasound with possible biopsy. Patient is awaiting a bed at [facility] for further evaluation with E J[employer]NEY DRIVER and EUS. Current Visit: Yes Status: Acute Priority: High Code(s): K83.1 - OBSTRUCTION OF BILE DUCT SNOMED Code(s): 36333366 (2) Chronic kidney disease, stage 3 Current Visit: Yes Status: Acute Code(s): N18.30 - CHRONIC KIDNEY DISEASE, STAGE 3 UNSPECIFIED SNOMED Code(s): 286706493 (3) Hyperbilirubinemia Current Visit: Yes Status: Acute Code(s): E80.6 - OTHER DISORDERS OF BILIRUBIN METABOLISM SNOMED Code(s): 26183437 (4) Kidney failure Current Visit: Yes Status: Acute Code(s): N19 - UNSPECIFIED KIDNEY FAILURE SNOMED Code(s): 29932818 (5) Pancreatic mass Current Visit: Yes Status: Acute Priority: High Code(s): K86.89 - OTHER SPECIFIED DISEASES OF PANCREAS SNOMED Code(s): 385569383 (6) Anemia Narrative/Plan: Patient has normochromic normocytic anemia. Patient has chronic anemia, likely anemia of chronic disease. No signs or symptoms of GI bleed. Current Visit: Yes Status: Chronic Priority: Medium Code(s): D64.9 - ANEMIA, UNSPECIFIED SNOMED Code(s): 906135743 Plan: 1. Continue symptomatic and supportive care 2. Diet as tolerated 3. Appreciate recommendations from oncology 4. Continue medical management 5. Gallbladder ultrasound ordered and reviewed 7. Daily CBC, CMP 8. Recommend transfer to tertiary center such as [facility] for ERCP with endoscopic ultrasound with possible biopsy. Patient awaiting a bed. Thank you for this consultation, we will continue to follow. Dr. Brittany Martinez I agree with the dictator's note, documented as a scribe by Tootie Mcintosh.
[2020-11-28 16:37] LABS: Glucose,Whole Blood 174 mg/dL (75-99)
[2020-11-28 20:19] LABS: Glucose,Whole Blood 200 mg/dL (75-99)
[2020-11-29 06:20] LABS: Glucose,Whole Blood 194 mg/dL (75-99)
[2020-11-29] MEDS: DEXTROSE 5% IN WATER 1,000 ML with SODIUM BICARB (1 MEQ/ML) 50 ML IV SCH (07:02)
[2020-11-29] MEDS: INSULIN ASPART (NovoLOG) 100 UNIT/ML VIAL SQ SCH ×4 (07:05→20:25)
[2020-11-29] MEDS: SODIUM BICARBONATE TAB 650 MG TAB PO SCH ×2 (07:58→20:25)
[2020-11-29] MEDS: TAMSULOSIN 0.4 MG CAP.ER.24H PO SCH ×2 (07:58→20:25)
[2020-11-29] MEDS: ENOXAPARIN 30 MG/0.3 ML SYRINGE SQ SCH (07:58)
[2020-11-29] MEDS: TIMOLOL 0.5% OPHTH DROPS 5 ML BTL BOTH EYES SCH ×2 (07:58→20:26)
[2020-11-29 08:14] LABS: Anisocytosis Moderate; Basophils # (A) 0.1 k/uL (0-0.2); Basophils % (A) 1 %; Eosinophils # (A) 0.1 k/uL (0-0.7); Eosinophils % (A) 1 %; HCT 21.3 % (39.0-53.0); HGB 7.4 gm/dL (13.0-17.5); Hyperchromasia Slight; Lymphocytes # (A) 0.9 k/uL (1.0-4.8); Lymphocytes % (A) 12 %; MCH 30.4 pg (25.0-35.0); MCHC 34.6 g/dL (31.0-37.0); MCV 87.9 fL (80.0-100.0); Mean Platelet Volume 8.8; Monocytes # (A) 0.3 k/uL (0-1.0); Monocytes % (A) 4 %; Neutrophils # (A) 6.1 k/uL (1.3-7.7); Neutrophils % (A) 80 %; Platelet Count 248 k/uL (150-450); Poikilocytosis Moderate; RBC 2.43 m/uL (4.30-5.90); RDW 22.1 % (11.5-15.5); WBC 7.6 k/uL (3.8-10.6)
[2020-11-29 08:23] LABS: Potassium 3.6 mmol/L (3.5-5.1)
--- NOTE | 2020-11-29 09:22 | P.PN ---
Subjective Progress Note Date: 11/29/20 Dylan Mcrae, is an 89-year-old male who was brought in to [facility] via EMS after being found unconscious on the floor at his home by his neighbor, patient had evidence of hypoglycemia he was given multiple doses of IV glucose, and at this time he is alert and oriented. On presentation to emergency room vital examination revealed a temperature of 97.6 pulse 76 respiration 18 blood pressure 137/68 pulse ox 100% on room air Laboratory data revealed a white blood count of 12.9 hemoglobin 9.6 platelet count 308 sodium was 147 potassium 3.7 chloride 125 CO2 7 BUN 80 creatinine 4.5 glucose 60 total bilirubin 32.6 AST 153 ALT 145 alkaline phosphatase 482 creatinine kinase 1046 Computed tomography scan of the abdomen and pelvis without contrast was done in the emergency room and revealed dilated Tatian of the intra-and extra hepatic biliary tree secondary to a partially cystic pancreatic head mass, soft tissue thickening at the site of prior enteric anastomosis, and innumerable os teosclerotic lesions concerning for metastatic disease. 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 On review of systems, at this time patient is alert and oriented and answering questions appropriately, he is denying any symptoms at this time he states that he does not remember passing out or falling to the floor or being on the floor at home, he is denying any chest pain shortness of breath cough or abdominal pain GI bleeding or urinary symptoms. On 11/24/2020 patient's alert and oriented resting comfortably in bed. Patient denies any symptoms at this time. Patient denies chest pain or shortness breath. Patient denies nausea vomiting or diarrhea. Patient denies any urinary burning or frequency. Total bilirubin remains high at 27.3. Bun 77 and creatinine 4.38. Oncology and nephrology services are following. Patient has been changed status. On 11/25/2020 patient was seen and examined on the telemetry floor he is alert and oriented 3 in no apparent distress, he is able to eat and drink without difficulty, he still has significant jaundice and significant abnormality on his labs with elevated bilirubin and elevated liver enzymes, at this time we are awaiting further recommendation from gastroenterology and oncology, continue wit h IV fluid, hypoglycemia resolved, will switch fluid to normal saline with bicarb, avoid IV glucose, will continue to monitor On 11/26/2020 patient was seen and examined on the medical floor he is alert and oriented 3 in no apparent distress there is no fever or chills no headache or dizziness no chest pain no shortness of breath no cough no nausea or vomiting no abdominal pain no diarrhea and no urinary symptoms patient still has significant jaundice otherwise he denies any complaints. Patient was evaluated today by gastroenterology, recommendation is to transfer patient to [facility] for ERCP. On 11/27/2020 patient was seen and examined on the medical floor he is alert and oriented 3 in no apparent distress there is no fever or chills no headache or dizziness no chest pain no shortness of breath no cough no nausea or vomiting no abdominal pain no diarrhea and no urinary symptoms patient still has significant jaundice otherwise he denies any complaints. Patient was evaluated today by gastroenterology, recommendation is to transfer patient to [facility] for ERCP. transfer procedure in place. We are awaiting for a bed at [facility] On 11/28/2020 patient was seen and examined on the telemetry floor he is alert and oriented 3 in no apparent distress there is no fever or chills no headache or dizziness no chest pain no shortness of breath no cough no nausea or vomiting no abdominal pain no diarrhea and no urinary symptoms patient still has sig nificant jaundice generalized weakness otherwise he denies any complaints. At this time we are still awaiting possible transfer to [facility] when the room is available for possible ERCP and common bile duct stent placement 11/29/2020 patient is alert and oriented 3 currently working with physical therapy. Discussed case with case management awaiting bed availability at [facility]. At this time patient denies chest pain or shortness of breath. Patient denies nausea vomiting or diarrhea. Patient denies any urinary burning or frequency Objective - Vital Signs Vital signs: Vital Signs Temp 98 F 11/29/20 07:17 Pulse 58 L 11/29/20 07:18 Resp 16 11/29/20 07:18 BP 124/68 11/29/20 07:17 Pulse Ox 98 11/29/20 07:17 Intake & Output 09/23/21 09/24/21 09/24/21 18:59 06:59 18:59 Intake Total 540 240 Balance 540 240 Weight 103 kg 106 kg Intake: Oral 540 240 Other: Voiding Method External Catheter Diaper Diaper # Voids 1 2 # Bowel Movements 1 1 - Exam In general patient is alert and oriented, in no distress HEENT head normocephalic and atraumatic, there is significant scleral icterus Neck is supple no JVD no goiter no lymphadenopathy no carotid bruit Chest examination is clear to auscultation no crackles no wheezing Cardiac exam reveals regular heart sounds S1 and S2 no gallops no murmurs Abdomen is soft with mild tenderness in the epigastric area no palpable masses no palpable organomegaly Extremity exam reveals no edema no cyanosis or clubbing Neurological examination reveals no gross focal deficits - Labs CBC & Chem 7: 11/29/20 07:42 11/29/20 07:42 Labs: Abnormal Lab Results - Last 24 Hours (Table) 11/28/20 11/28/20 11/28/20 Range/Units 06:44 11:13 16:34 RBC (4.30-5.90) m/uL Hgb (13.0-17.5) gm/dL Hct (39.0-53.0) % RDW (11.5-15.5) % Lymphocytes # (1.0-4.8) k/uL Sodium 146 H (137-145) mmol/L Potassium 3.4 L (3.5-5.1) mmol/L Chloride 117 H (98-107) mmol/L Carbon Dioxide 18 L (22-30) mmol/L BUN 99 H (9-20) mg/dL Creatinine 4.83 H (0.66-1.25) mg/dL Glucose 159 H (74-99) mg/dL POC Glucose (mg/dL) 172 H 174 H (75-99) mg/dL Calcium 7.9 L (8.4-10.2) mg/dL Total Bilirubin 30.2 H* (0.2-1.3) mg/dL AST 164 H (17-59) U/L ALT 186 H (4-49) U/L Alkaline Phosphatase 1098 H (38-126) U/L Total Protein 5.0 L (6.3-8.2) g/dL Albumin 2.1 L (3.5-5.0) g/dL 11/28/20 11/29/20 11/29/20 Range/Units 20:18 06:18 07:42 RBC 2.43 L (4.30-5.90) m/uL Hgb 7.4 L (13.0-17.5) gm/dL Hct 21.3 L (39.0-53.0) % RDW 22.1 H (11.5-15.5) % Lymphocytes # 0.9 L (1.0-4.8) k/uL Sodium (137-145) mmol/L Potassium (3.5-5.1) mmol/L Chloride (98-107) mmol/L Carbon Dioxide (22-30) mmol/L BUN (9-20) mg/dL Creatinine (0.66-1.25) mg/dL Glucose (74-99) mg/dL POC Glucose (mg/dL) 200 H 194 H (75-99) mg/dL Calcium (8.4-10.2) mg/dL Total Bilirubin (0.2-1.3) mg/dL AST (17-59) U/L ALT (4-49) U/L Alkaline Phosphatase (38-126) U/L Total Protein (6.3-8.2) g/dL Albumin (3.5-5.0) g/dL 11/29/20 Range/Units 07:42 RBC (4.30-5.90) m/uL Hgb (13.0-17.5) gm/dL Hct (39.0-53.0) % RDW (11.5-15.5) % Lymphocytes # (1.0-4.8) k/uL Sodium (137-145) mmol/L Potassium (3.5-5.1) mmol/L Chloride 116 H (98-107) mmol/L Carbon Dioxide 17 L (22-30) mmol/L BUN 99 H (9-20) mg/dL Creatinine 4.33 H (0.66-1.25) mg/dL Glucose 182 H (74-99) mg/dL POC Glucose (mg/dL) (75-99) mg/dL Calcium 8.0 L (8.4-10.2) mg/dL Total Bilirubin (0.2-1.3) mg/dL AST (17-59) U/L ALT (4-49) U/L Alkaline Phosphatase (38-126) U/L Total Protein (6.3-8.2) g/dL Albumin (3.5-5.0) g/dL Microbiology - Last 24 Hours (Table) 11/23/20 18:23 Blood Culture - Preliminary Blood No Growth after 120 hours Assessment and Plan Plan: Episodes of hypoglycemia Syncope with collapse at home likely related to hypoglycemia Rhabdomyolysis with elevated CPK Acute on chronic renal failure, acute component related to dehydration, hypotens ion and rhabdomyolysis Evidence of 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, likely related to h istory of colon cancer, and history of prostate cancer Underlying history of diabetes mellitus type 2 Underlying history of coronary artery disease Underlying history of hypertension Previous history of colon cancer patient underwent surgery chemotherapy and radiation therapy in 2004 Previous history of prostate cancer patient underwent radiation therapy in 2011 Oncology and nephrology service is consulted CODE STATUS has been discussed with family and patient patient changed to no code Prognosis is poor in view of multiple metastatic disease in the abdomen and in the bones, and evidence of kidney failure and liver failure Will follow closely Awaiting bed availability at [facility]
[2020-11-29] MEDS: SODIUM CHLORIDE 0.45% 1,000 ML IV SCH (10:15)
--- NOTE | 2020-11-29 11:11 | P.PN ---
Subjective Progress Note Date: 11/29/20 Principal diagnosis: Hyperbilirubinemia Pleasant 89-year-old -Mong[place] male who presented to the emergency department on Wednesday with hypoglycemia. Patient has a history of colon and prostate cancer and is currently being followed by oncology. On presentation he was noted to be jaundiced, labs were consistent with hyperbilirubinemia with elevated LFTs. Had a CT of the abdomen and pelvis that showed marked dilation of the intra-and extrahepatic biliary tree secondary to what appears to be partially cystic pancreatic mass. Recommendations from gastroenterology is to transfer to [facility] for further evaluation with ERCP and endoscopic ultrasound. Patient underwent gallbladder ultrasound showed sludge filled gallbladder which appears distended. Fluid is adjacent, correlate for acute cholecystitis. Biliary dilation. Some prominence without enlargement of the pancreatic duct is present. Additional workup for pancreatic head abnormality is recommended. Contrast CT with pancreas protocol is recommended neoplasm not excluded. Hepatomegaly with intrahepatic biliary dilation. 11/28/2020 patient seen and examined lying in bed. He denies any abdominal pain, nausea, or vomiting. He is tolerating his diet. He is awaiting a bed at [facility] for ERCP with EUS and biopsy. Total bilirubin 3.2 AST 164 ALT 186 alk phos 1098 11/29/2020 patient seen and examined. No acute changes through the night. He is still waiting for transfer to [facility], when a bed is available. He continues to deny any abdominal pain, nausea, or vomiting. Tolerating his diet. Bowel movements have been normal. LFTs have been consistently elevated. Objective - Vital Signs Vital signs: Vital Signs Temp 98 F 11/29/20 09:54 Pulse 57 L 11/29/20 09:54 Resp 16 11/29/20 09:54 BP 122/71 11/29/20 09:54 Pulse Ox 98 11/29/20 09:54 Intake & Output 11/28/20 11/29/20 11/29/20 18:59 06:59 18:59 Intake Total 540 240 Balance 540 240 Weight 103 kg 106 kg Intake: Oral 540 240 Other: Voiding Method External Catheter Diaper Diaper # Voids 1 2 # Bowel Movements 1 1 - Exam General appearance: The patient is alert, oriented, appears in no acute distress. HET: Head is normocephalic and atraumatic. Conjunctiva pink. Sclera deeply icteric. Neck: Supple without lymphadenopathy. Abdomen: Soft, nontender, nondistended with bowel sounds. No guarding or rigidity. Extremities: Normal skin color and turgor. No pedal edema Skin: No rashes, jaundice. Neurological: No focal deficits. Alert and oriented 3. - Labs CBC & Chem 7: 11/29/20 07:42 11/29/20 07:42 Labs: Abnormal Lab Results - Last 24 Hours (Table) 11/28/20 11/28/20 11/28/20 Range/Units 11:13 16:34 20:18 RBC (4.30-5.90) m/uL Hgb (13.0-17.5) gm/dL Hct (39.0-53.0) % RDW (11.5-15.5) % Lymphocytes # (1.0-4.8) k/uL Chloride (98-107) mmol/L Carbon Dioxide (22-30) mmol/L BUN (9-20) mg/dL Creatinine (0.66-1.25) mg/dL Glucose (74-99) mg/dL POC Glucose (mg/dL) 172 H 174 H 200 H (75-99) mg/dL Calcium (8.4-10.2) mg/dL 11/29/20 11/29/20 11/29/20 Range/Units 06:18 07:42 07:42 RBC 2.43 L (4.30-5.90) m/uL Hgb 7.4 L (13.0-17.5) gm/dL Hct 21.3 L (39.0-53.0) % RDW 22.1 H (11.5-15.5) % Lymphocytes # 0.9 L (1.0-4.8) k/uL Chloride 116 H (98-107) mmol/L Carbon Dioxide 17 L (22-30) mmol/L BUN 99 H (9-20) mg/dL Creatinine 4.33 H (0.66-1.25) mg/dL Glucose 182 H (74-99) mg/dL POC Glucose (mg/dL) 194 H (75-99) mg/dL Calcium 8.0 L (8.4-10.2) mg/dL Microbiology - Last 24 Hours (Table) 11/23/20 18:23 Blood Culture - Preliminary Blood No Growth after 120 hours Assessment and Plan (1) Obstructive jaundice Narrative/Plan: [id number] -[place]ong[place] male with multiple comorbidities with a history of colon cancer and prostate cancer who presented to the emergency department with episodes of hypoglycemia was found on the floor at his home. On admission he was noted to be jaundice and admitting labs showed elevated bilirubin, LFTs, and therefore he underwent a CT of the abdomen and pelvis that shows intra-and extrahepatic biliary obstruction with increasing headache mass. He did have a positive CA-19-9 576.3. Oncology is following patient closely and asked gastroenterology to evaluate patient for further obstructive jaundice. Patient denies any previous history of liver disease, denies any history of pancreatitis or pancreatic cancer. Total bilirubin trending up today 30.1 LFTs continued to trend up, AST 256, a LT 218, alkaline phosphatase 1089. Recommendation is transfer to tertiary center such as [facility] for further evaluation with an ERCP and endoscopic ultrasound with possible biopsy. Patient is awaiting a bed at [facility] for further evaluation with ERCP and EUS. Current Visit: Yes Status: Acute Priority: High Code(s): K83.1 - OBSTRUCTION OF BILE DUCT SNOMED Code(s): 06709352 (2) Chronic kidney disease, stage 3 Current Visit: Yes Status: Acute Code(s): N18.30 - CHRONIC KIDNEY DISEASE, STAGE 3 UNSPECIFIED SNOMED Code(s): 450919026 (3) Hyperbilirubinemia Current Visit: Yes Status: Acute Code(s): E80.6 - OTHER DISORDERS OF BILIRUBIN METABOLISM SNOMED Code(s): 71884635 (4) Kidney failure Current Visit: Yes Status: Acute Code(s): N19 - UNSPECIFIED KIDNEY FAILURE SNOMED Code(s): 53059935 (5) Pancreatic mass Current Visit: Yes Status: Acute Priority: High Code(s): K86.89 - OTHER SPECIFIED DISEASES OF PANCREAS SNOMED Code(s): 067210401 (6) Anemia Narrative/Plan: Patient has normochromic normocytic anemia. Patient has chronic anemia, likely anemia of chronic disease. No signs or symptoms of GI bleed. Current Visit: Yes Status: Chronic Priority: Medium Code(s): D64.9 - ANEMIA, UNSPECIFIED SNOMED Code(s): 662182909 Plan: 1. Continue symptomatic and supportive care 2. Diet as tolerated 3. Appreciate recommendations from oncology 4. Continue medical management 5. Gallbladder ultrasound ordered and reviewed 7. Daily CBC, CMP 8. Recommend transfer to tertiary center such as [facility] for ERCP with endoscopic ultrasound with possible biopsy. Patient awaiting a bed. Thank you for allowing us to participate in the care of the patient, the GI service will sign off, gastroenterology will not be available at the hospital this weekend and throat next week, if further evaluation by gastroenterology is required the patient will need transfer as per the primary team's discretion. Dr. Brittany Martinez I agree with the dictator's note, documented as a scribe by Tootie Mcintosh.
[2020-11-29 11:22] LABS: Glucose,Whole Blood 199 mg/dL (75-99)
--- NOTE | 2020-11-29 13:20 | P.PN ---
Subjective Progress Note Date: 11/29/20 Principal diagnosis: Obstructive Jaundice, Metabolic acidosis, renal failure. He is awaiting a bed at [facility] for ERCP with EUS and biopsy. Total bilirubin remains >30 He continues to deny any abdominal pain, nausea, or vomiting. Tolerating his diet. Hemoglobin 7.4 Objective - Vital Signs Vital signs: Vital Signs Temp 98 F 11/29/20 09:54 Pulse 57 L 11/29/20 11:54 Resp 16 11/29/20 11:54 BP 122/71 11/29/20 09:54 Pulse Ox 98 11/29/20 09:54 Intake & Output 11/28/20 11/29/20 11/29/20 18:59 06:59 18:59 Intake Total 540 240 Balance 540 240 Weight 103 kg 106 kg Intake: Oral 540 240 Other: Voiding Method External Catheter Diaper Diaper # Voids 1 2 # Bowel Movements 1 1 - Exam - Constitutional -Jaundice General appearance: Present: average body habitus, cooperative, no acute distress - EENT Eyes: Present: EOMI, scleral icterus ENT: Present: hearing grossly normal - Respiratory Details: resp even and unlabored Abdomen distended, Soft BLE Edema - Musculoskeletal Musculoskeletal: Present: generalized weakness - Psychiatric Psychiatric: Present: A&O x's 3, appropriate affect - Labs CBC & Chem 7: 11/29/20 07:42 11/29/20 07:42 Labs: Abnormal Lab Results - Last 24 Hours (Table) 11/28/20 11/28/20 11/29/20 Range/Units 16:34 20:18 06:18 RBC (4.30-5.90) m/uL Hgb (13.0-17.5) gm/dL Hct (39.0-53.0) % RDW (11.5-15.5) % Lymphocytes # (1.0-4.8) k/uL Chloride (98-107) mmol/L Carbon Dioxide (22-30) mmol/L BUN (9-20) mg/dL Creatinine (0.66-1.25) mg/dL Glucose (74-99) mg/dL POC Glucose (mg/dL) 174 H 200 H 194 H (75-99) mg/dL Calcium (8.4-10.2) mg/dL 11/29/20 11/29/20 11/29/20 Range/Units 07:42 07:42 11:21 RBC 2.43 L (4.30-5.90) m/uL Hgb 7.4 L (13.0-17.5) gm/dL Hct 21.3 L (39.0-53.0) % RDW 22.1 H (11.5-15.5) % Lymphocytes # 0.9 L (1.0-4.8) k/uL Chloride 116 H (98-107) mmol/L Carbon Dioxide 17 L (22-30) mmol/L BUN 99 H (9-20) mg/dL Creatinine 4.33 H (0.66-1.25) mg/dL Glucose 182 H (74-99) mg/dL POC Glucose (mg/dL) 199 H (75-99) mg/dL Calcium 8.0 L (8.4-10.2) mg/dL Microbiology - Last 24 Hours (Table) 11/23/20 18:23 Blood Culture - Preliminary Blood No Growth after 120 hours Assessment and Plan (1) Metabolic acidosis Current Visit: Yes Status: Acute Code(s): E87.2 - ACIDOSIS SNOMED Code(s): 67988887 (2) Prostate CA Current Visit: Yes Status: Chronic Priority: Medium Code(s): C61 - MALIGNANT NEOPLASM OF PROSTATE SNOMED Code(s): 970781641 (3) Pancreatic mass Current Visit: Yes Status: Acute Priority: High Code(s): K86.89 - OTHER SPECIFIED DISEASES OF PANCREAS SNOMED Code(s): 851481875 (4) Bone lesion Current Visit: Yes Status: Acute Code(s): M89.9 - DISORDER OF BONE, UNSPECIFIED SNOMED Code(s): 948020085 (5) Kidney failure Current Visit: Yes Status: Acute Code(s): N19 - UNSPECIFIED KIDNEY FAILURE SNOMED Code(s): 49564420 (6) Chronic kidney disease, stage 3 Current Visit: Yes Status: Acute Code(s): N18.30 - CHRONIC KIDNEY DISEASE, STAGE 3 UNSPECIFIED SNOMED Code(s): 526637486 (7) Abnormal liver enzymes Current Visit: Yes Status: Acute Code(s): R74.8 - ABNORMAL LEVELS OF OTHER SERUM ENZYMES SNOMED Code(s): 432138103 (8) Hyperbilirubinemia Current Visit: Yes Status: Acute Code(s): E80.6 - OTHER DISORDERS OF B ILIRUBIN METABOLISM SNOMED Code(s): 66184435 (9) NOE (acute kidney injury) Current Visit: Yes Status: Acute Code(s): N17.9 - ACUTE KIDNEY FAILURE, UNSPECIFIED SNOMED Code(s): 17784847 Plan: Assessment and Plan (1) Obstructive jaundice Narrative/Plan: Current Visit: Yes Status: Acute Priority: High Code(s): K83.1 - OBSTRUCTION OF BILE DUCT SNOMED Code(s): 68188577 (2) Elevated bilirubin Narrative/Plan: Conjugated bilirubin elevated, post hepatic obstruction suspected. GI has seen pt. - Total remains around 30 Current Visit: Yes Status: Acute Priority: High Code(s): R17 - UNSPECIFIED JAUNDICE SNOMED Code(s): 13760685 (3) Pancreatic mass Narrative/Plan: - Plan is transfer to [facility] - Tertiary for EUS/ERCP with Bx GI recommending transfer for ERCP, EUS and biopsy. Ca 19.9 is 576, although maybe nonspecific given picture also consistant with pancreatitis which could elevate this level as well. Current Visit: Yes Status: Acute Priority: High Code(s): K86.89 - OTHER SPECIFIED DISEASES OF PANCREAS SNOMED Code(s): 303682945 (4) Prostate CA Narrative/Plan: Hx of, no current treatment, radiation in past. PSA is 103. ADT would be 1st line therapy. Pending plans for treatment of obstructive jaundice-bicalutamide is liver metabolized. Current Visit: Yes Status: Chronic Priority: Medium Code(s): C61 - MALIGN ANT NEOPLASM OF PROSTATE SNOMED Code(s): 669598754 (5) Anemia Narrative/Plan: Multifactorial including CKD and chronic inflammation from malignancy. Iron studies and ferritin significantly elevated. No iron needed. - Transfuse to keep Hgb 7 or higher. - Hgb stable today at 7.4 Current Visit: Yes Status: Chronic Priority: Medium Code(s): D64.9 - ANEMIA, UNSPECIFIED SNOMED Code(s): 652831126 PLAN: - Await Transfer to [facility] EUS and BX once bed available
--- NOTE | 2020-11-29 16:46 | PN ---
PROGRESS NOTE Patient is seen for followup for acute kidney injury, hypernatremia and metabolic acidosis. Patient has underlying history of colon cancer and prostate cancer and was admitted to the hospital with weakness. He was found to be in acute renal failure with a serum creatinine at 4.5 mg/dL from baseline creatinine of about 1.7 to 2.0 previously. He was also found to be deeply jaundiced and with a bilirubin of 30. CT scan showed sathya hepatitis mass and the plan is to transfer the patient to a tertiary care center for further workup and procedures for ERCP with EUS and biopsy. In the meantime, there is no evidence of obstructive uropathy. Patient has been voiding. His postvoid residuals are not elevated. He has been maintained on IV fluids. Serum creatinine has remained fairly stable, staying at about 4.5 to 4.8 mg/dL. PHYSICAL EXAMINATION: On examination today, patient is comfortable. He is awake, not in any acute distress. Blood pressure this morning 122/71, heart rate 57 per minute. He is afebrile. EXAMINATION OF THE HEART: S1 and S2. EXAMINATION OF LUNGS: Bilateral breath sounds are heard. Decreased breath sounds at the bases. ABDOMEN: Soft, nontender. LOWER EXTREMITIES: Examination of lower extremities shows no significant edema. TIE HACKER EXAM: Grossly intact. LAB: Hemoglobin 7.4, sodium 145, potassium 3.6, chloride 116, CO2 17, BUN 99, creatinine 4.3. ASSESSMENT: 1. Acute kidney injury, most likely acute tubular necrosis, currently nonoliguric and stable with some improvement in serum creatinine from yesterday. There is no evidence of obstructive uropathy and UA showed trace protein, moderate blood on initial admission. Patient's kappa and lambda chains have also been elevated. He is being followed by Hematology/Oncology. The significant hyperbilirubinemia is also definitely contributing to the ATN. 2. Metabolic acidosis, non-gap, secondary to renal failure, status post bicarb drip, currently maintained on oral sodium bicarb and improved. 3. Hypernatremia associated with free water deficit, currently improved. 4. Prominence in the sathya hepatitis with obstructive jaundice with history of colon cancer and prostate cancer. Awaiting transfer [facility] for ERCP and EUS and biopsy. 5. Anemia. Add Aranesp and check iron profile. The iron saturation was not low. It was 97 on 11/24. PLAN: Add Aranesp. Continue half-normal saline and continue oral sodium bicarb. No need for renal replacement therapy at this time, and patient is not an ideal candidate for long- term renal replacement therapy, given his underlying history of malignancy and metastasis. MMODL / IJN: [id number] /
[2020-11-29 16:48] LABS: Glucose,Whole Blood 149 mg/dL (75-99)
[2020-11-29] MEDS ORDERED: DARBEPOETIN ALFA 60 MCG/0.3 ML SYRINGE SQ SCH (17:00)
[2020-11-29 20:16] LABS: Glucose,Whole Blood 216 mg/dL (75-99)
[2020-11-30] MEDS: SODIUM CHLORIDE 0.45% 1,000 ML IV SCH (05:55)
[2020-11-30 06:06] LABS: Glucose,Whole Blood 140 mg/dL (75-99)
[2020-11-30] MEDS: INSULIN ASPART (NovoLOG) 100 UNIT/ML VIAL SQ SCH ×2 (06:30→11:44)
[2020-11-30 09:00] LABS: Anisocytosis Moderate; Basophils % (A) 0 %; Eosinophils % (A) 0 %; HCT 21.5 % (39.0-53.0); HGB 7.4 gm/dL (13.0-17.5); Lymphocytes # (A) 0.9 k/uL (1.0-4.8); Lymphocytes % (A) 11 %; MCH 30.7 pg (25.0-35.0); MCHC 34.5 g/dL (31.0-37.0); MCV 88.9 fL (80.0-100.0); Mean Platelet Volume 9.3; Monocytes # (A) 0.3 k/uL (0-1.0); Monocytes % (A) 3 %; Neutrophils # (A) 7.5 k/uL (1.3-7.7); Neutrophils % (A) 84 %; Platelet Count 247 k/uL (150-450); Poikilocytosis Moderate; RBC 2.42 m/uL (4.30-5.90); RDW 21.9 % (11.5-15.5)
[2020-11-30 09:24] LABS: Calcium 7.8 mg/dL (8.4-10.2); Potassium 3.8 mmol/L (3.5-5.1)
[2020-11-30] MEDS: TAMSULOSIN 0.4 MG CAP.ER.24H PO SCH (09:25)
[2020-11-30] MEDS: SODIUM BICARBONATE TAB 650 MG TAB PO SCH (09:25)
[2020-11-30] MEDS: ENOXAPARIN 30 MG/0.3 ML SYRINGE SQ SCH (09:25)
[2020-11-30] MEDS: TIMOLOL 0.5% OPHTH DROPS 5 ML BTL BOTH EYES SCH (09:25)
[2020-11-30 09:34] LABS: Total Bilirubin 31.2 mg/dL (0.2-1.3)
[2020-11-30 09:35] LABS: Total Protein 5.3 g/dL (6.3-8.2)
[2020-11-30 09:36] LABS: Albumin 2.2 g/dL (3.5-5.0)
--- NOTE | 2020-11-30 10:41 | P.PN ---
Subjective Progress Note Date: 11/30/20 Principal diagnosis: This is a 89-year-old male seen in consultation for acute kidney injury, chronic kidney disease. He has history of CA colon, see of the prostate. He is now diagnosed to have a pancreatic head mass and possible [place]) mass with a bilirubin of 31. He is awake and alert and denies any fever chills cough shortness of breath has poor appetite no nausea vomiting no diarrhea no abdominal pain. His creatinine is stable since admission was 4.5 on 11/23/2020 and currently is 4.3. Urine output is not listed Additionally he has a non-gap acidosis with bicarb of 18 and anion gap of 12 from acute kidney injury Objective - Vital Signs Vital signs: Vital Signs Temp 98.3 F 11/30/20 09:20 Pulse 53 L 11/30/20 09:20 Resp 18 11/30/20 09:20 BP 103/51 11/30/20 09:20 Pulse Ox 100 11/30/20 09:20 Intake & Output 11/29/20 11/30/20 11/30/20 18:59 06:59 18:59 Intake Total 560 180 Balance 560 180 Weight 103.5 kg Intake: Oral 560 180 Other: Voiding Method Diaper Diaper Diaper # Voids 2 1 # Bowel Movements 2 Examination is awake alert oriented comfortable. HEENT exam no JVP neck is supple no facial asymmetry He is deeply jaundiced Heart sounds unremarkable for any murmur rub gallop Lungs clear to auscultation good air entry bilaterally. Abdomen abdomen soft nontender. Extremity exam was trace edema Neurologically awake alert oriented. - Labs CBC & Chem 7: 11/30/20 07:46 11/30/20 07:46 Labs: Abnormal Lab Results - Last 24 Hours (Table) 11/29/20 11/29/20 11/29/20 Range/Units 11:21 16:42 20:15 RBC (4.30-5.90) m/uL Hgb (13.0-17.5) gm/dL Hct (39.0-53.0) % RDW (11.5-15.5) % Lymphocytes # (1.0-4.8) k/uL Chloride (98-107) mmol/L Carbon Dioxide (22-30) mmol/L BUN (9-20) mg/dL Creatinine (0.66-1.25) mg/dL Glucose (74-99) mg/dL POC Glucose (mg/dL) 199 H 149 H 216 H (75-99) mg/dL Calcium (8.4-10.2) mg/dL Total Bilirubin (0.2-1.3) mg/dL AST (17-59) U/L ALT (4-49) U/L Alkaline Phosphatase (38-126) U/L Total Protein (6.3-8.2) g/dL Albumin (3.5-5.0) g/dL 11/30/20 11/30/20 11/30/20 Range/Units 06:04 07:46 07:46 RBC 2.42 L (4.30-5.90) m/uL Hgb 7.4 L (13.0-17.5) gm/dL Hct 21.5 L (39.0-53.0) % RDW 21.9 H (11.5-15.5) % Lymphocytes # 0.9 L (1.0-4.8) k/uL Chloride 113 H (98-107) mmol/L Carbon Dioxide 18 L (22-30) mmol/L BUN 97 H (9-20) mg/dL Creatinine 4.38 H (0.66-1.25) mg/dL Glucose 154 H (74-99) mg/dL POC Glucose (mg/dL) 140 H (75-99) mg/dL Calcium 7.8 L (8.4-10.2) mg/dL Total Bilirubin 31.2 H* (0.2-1.3) mg/dL AST 156 H (17-59) U/L ALT 165 H (4-49) U/L Alkaline Phosphatase 1205 H (38-126) U/L Total Protein 5.3 L (6.3-8.2) g/dL Albumin 2.2 L (3.5-5.0) g/dL Microbiology - Last 24 Hours (Table) 11/23/20 18:23 Blood Culture - Final Blood No Growth after 144 hours Assessment and Plan Assessment: Impression 1. Acute kidney injury from volume depletion, stable creatinine no change. 2. Chronic kidney disease, stage III, etiology is nephrosclerosis. Baseline creatinine about 2 as of February 2020 and September 2020. 3. Metabolic acidosis secondary to acute kidney injury. 4. Hyponatremia resolved 5. History of CA colon, CO prostate, now liver mass and pancreatic mass with anastomotic site also possibly has a mass. 6. 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 Patient is being possibly transfer to tertiary care center
--- NOTE | 2020-11-30 10:49 | P.CRDCN ---
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 Patient initially presented to the hospital on November 23 with hypoglycemia. Patient was found to have obstructive jaundice with pancreatic head mass and is followed by oncology as well as GI. Plan was for patient be transferred [facility] figure CP with EUS and biopsy and this has been in place since 11/26, patient still waiting for bed at [facility]. Consult has been admitted for cardiology regarding bradycardia. Patient is noted to have bradycardia overnight with heart rate in the 48 to 50s. A blood work done today reveals hemoglobin of 7.4, BUN is 97 and creatinine 4.38. Liver function tests are elevated with total bilirubin 31.2, AST 156, ALT 165, alkaline phosphatase 12.5. Blood pressure 96/52 and currently stable. Patient is not on beta ryley. Patient denies having any chest pain, shortness of breath, dizziness or lightheadedness. Review Of Systems: At the time of my evaluation Constitutional: No fever, no chills. No weakness, fatigue or lethargy. EENT: No headache. No dizziness. Lungs: No shortness of breath, cough, no sputum production. No wheezing. Cardiovascular: No chest pain, no lower extremity edema. No palpitations. No paroxysmal nocturnal dyspnea. No orthopnea. No lightheadedness or dizziness. No syncopal episodes. Abdominal: Denies abdominal pain. No nausea, vomiting. No diarrhea. No constipation. No bloody or tarry stools.. No loss of appetite. Genitourinary: No dysuria.. No urinary retention. Musculoskeletal: No myalgias. No muscle weakness, no gait dysfunction, no frequent falls. No back pain. No neck pain. Integumentary: No wounds, no lesions. No rash or pruritus. No unusual bruising . Neurologic: No aphasia. No facial droop. No change in mentation. Physical examination: Gen: This is an 89-year-old black male, resting in bed appears to be comfortable and in no acute distress VS: Afebrile, heart rate in the 50s, blood pressure 103/51, pulse ox 100% on room air. HEENT: Head is atraumatic, normocephalic. Pupils equal, round. Sclerae is icteric. NECK: Supple. No JVD. No lymphadenopathy. No thyromegaly. LUNGS: Clear to auscultation. No wheezes or rhonchi. No intercostal ret ractions. HEART: Regular rate and rhythm. No murmur. ABDOMEN: Soft. Bowel sounds are present. No masses. No tenderness. EXTREMITIES: No pedal edema. No calf tenderness. NEUROLOGICAL: Patient is awake, alert and oriented x3. Cranial nerves 2 through 12 are grossly intact. Assessment: Bradycardia Obstructive jaundice with pancreatic head mass Acute kidney injury Plan: Continue cardiac monitoring. Heart rate is currently stable and patient is asymptomatic. If bradycardia continues, may consider discontinuing timolol drops Further recommendations to follow based upon clinical course Continue plan for transferred [facility]. Thank you kindly for this consultation. Nurse practitioner note has been reviewed, I agree with documented findings and plan of care. Patient was seen and examined. Past Medical History Past Medical History: Coronary Artery Disease (CAD), Cancer, Chest Pain / Angina, Diabetes Mellitus, Eye Disorder, GI Bleed, Hypertension, Prostate Disorder, Renal Disease, Skin Disorder, Vascular Disorder, Vascular Disorder Additional Past Medical History / Comment(s): Pt recently admitted to [facility] on 05/05/19 with oseomylitis/cellulitis R lower extremity, 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 Other hx: 2004 Colon cancer with surgery/chemo/radiation, 2011 prostate cancer with radiation, BPH, NIDDM type II, PVD, past cellulitis/wounds bilateral lower legs/feet/current R foot wounds, CKD stage III, anemia, bilateral glaucoma, lower GI bleed, gastric/colon polyps, UTIs. History of Any Multi-Drug Resistant Organisms: MRSA Date of last positivie culture/infection: 05/05/19 MDRO Source:: TOE,BLOOD Past Surgical History: Bowel Resection, Heart Catheterization Additional Past Surgical History / Comment(s): 05/06/19 R 1st toe amputation, R upper arm midline IV, EGD, colonoscopies with polypectomy/bx, benign brain tumor removed at [facility], R hemicolectomy 2004, cardiac cath tx medically 2013, R foot 3rd toe amputation d/t wound/ wound vac, bilateral cataract removal with lens, LASER MAGDA EYES, Past Anesthesia/Blood Transfusion Reactions: No Reported Reaction Additional Past Anesthesia/Blood Transfusion Reaction / Comment(s): Pt received blood in past without known reaction. Past Psychological History: No Psychological Hx Reported Smoking Status: Former smoker Past Alcohol Use History: None Reported Past Drug Use History: None Reported - Past Family History Father Family Medical History: No Reported History Additional Family Medical History / Comment(s): Pt believes his father was healthy. He at age 93 yrs. Mother Family Medical History: No Reported History Additional Family Medical History / Comment(s): Pt doesn't know of mother's m edical hx but she did live to be 95 yrs old. Medications and Allergies Home Medications Medication Instructions Recorded Confirmed Type Enalapril [Vasotec] 2.5 mg PO DAILY 08/28/15 11/23/20 History Furosemide [Lasix] 20 mg PO DAILY 08/28/15 11/23/20 History Potassium Chloride [Klor-Con 10 ER] 10 meq PO DAILY 08/28/15 11/23/20 History Timolol 0.5% Ophth Soln [Timoptic 1 drop BOTH EYES BID 12/13/17 11/23/20 History 0.5% Ophth Soln] glipiZIDE [Glucotrol] 5 mg PO AC-TID 12/13/17 11/23/20 History Tamsulosin [Flomax] 0.4 mg PO BID 09/16/18 11/23/20 History Allergies Allergy/AdvReac Type Severity Reaction Status Date / Time No Known Allergies Allergy Verified 11/23/20 09:40 Physical Exam Vitals: Vital Signs Temp Pulse Resp BP Pulse Ox 11/30/20 09:20 98.3 F 53 L 18 103/51 100 11/30/20 03:27 97.9 F 54 L 18 101/50 100 11/30/20 02:00 54 L 18 11/29/20 23:25 98.0 F 51 L 17 96/52 99 11/29/20 20:00 98.5 F 58 L 16 112/55 99 11/29/20 13:56 98 F 58 L 16 119/76 95 11/29/20 11:54 57 L 16 Intake and Output 11/29/20 11/30/20 11/30/20 22:59 06:59 14:59 Intake Total 120 180 Balance 120 180 Intake: Oral 120 180 Other: Voiding Method Diaper Diaper # Voids 1 2 1 # Bowel Movements 1 2 Weight 103.5 kg Results 11/30/20 07:46 11/30/20 07:46 Cardiac Enzymes 11/30/20 Range/Units 07:46 AST 156 H (17-59) U/L CBC 11/30/20 Range/Units 07:46 WBC 9.0 (3.8-10.6) k/uL RBC 2.42 L (4.30-5.90) m/uL Hgb 7.4 L (13.0-17.5) gm/dL Hct 21.5 L (39.0-53.0) % Plt Count 247 (150-450) k/uL Comprehensive Metabolic Panel 11/30/20 Range/Units 07:46 Sodium 143 (137-145) mmol/L Potassium 3.8 (3.5-5.1) mmol/L Chloride 113 H (98-107) mmol/L Carbon Dioxide 18 L (22-30) mmol/L BUN 97 H (9-20) mg/dL Creatinine 4.38 H (0.66-1.25) mg/dL Glucose 154 H (74-99) mg/dL Calcium 7.8 L (8.4-10.2) mg/dL AST 156 H (17-59) U/L ALT 165 H (4-49) U/L Alkaline Phosphatase 1205 H (38-126) U/L Total Protein 5.3 L (6.3-8.2) g/dL Albumin 2.2 L (3.5-5.0) g/dL Current Medications Generic Name Dose Route Start Last Admin Trade Name Freq PRN Reason Stop Dose Admin Darbepoetin Justin 60 mcg 11/29/20 17:00 11/29/20 17:15 Darbepoetin Justin 60 Mcg/0.3 Ml Syringe SQ 60 mcg Q7D CLAUDIA Administration Enoxaparin Sodium 30 mg 11/26/20 09:00 11/30/20 09:25 Enoxaparin 30 Mg/0.3 Ml Syringe SQ 30 mg DAILY CLAUDIA Administration Sodium Chloride 1,000 mls @ 70 mls/hr 11/29/20 10:15 11/30/20 05:55 Saline 0.45% IV Not Given .[id number] CLAUDIA Insulin Aspart 0 unit 11/27/20 21:00 11/30/20 06:30 Insulin Aspart (Novolog) 100 Unit/Ml Vial SQ 1 unit ACHS CLAUDIA Administration Protocol Naloxone HCl 0.2 mg 11/23/20 10:43 Naloxone 0.4 Mg/Ml 1 Ml Vial IV Q2M PRN Opioid Reversal Ondansetron HCl 4 mg 11/24/20 13:23 11/24/20 13:33 Ondansetron 4 Mg/2 Ml Vial IVP 4 mg Q6HR PRN Administration Nausea And Vomiting Sodium Bicarbonate 650 mg 11/26/20 21:00 11/30/20 09:25 Sodium Bicarbonate Tab 650 Mg Tab PO 650 mg BID CLAUDIA Administration Tamsulosin HCl 0.4 mg 11/24/20 21:00 11/30/20 09:25 Tamsulosin 0.4 Mg Cap.Er.24h PO 0.4 mg BID CLAUDIA Administration Timolol Maleate 1 drops 11/24/20 21:00 11/30/20 09:25 Timolol 0.5% Ophth Drops 5 Ml Btl BOTH EYES 1 drops BID CLAUDIA Administration Intake and Output 11/29/20 11/30/20 11/30/20 22:59 06:59 14:59 Intake Total 120 180 Balance 120 180 Intake: Oral 120 180 Other: Voiding Method Diaper Diaper # Voids 1 2 1 # Bowel Movements 1 2 Weight 103.5 kg 11/30/20 07:46 11/30/20 07:46
[2020-11-30 11:44] LABS: Glucose,Whole Blood 205 mg/dL (75-99)
--- NOTE | 2020-11-30 11:44 | P.PN ---
Subjective Progress Note Date: 11/30/20 Dylan Mcrae, is an 89-year-old male who was brought in to [facility] via EMS after being found unconscious on the floor at his home by his neighbor, patient had evidence of hypoglycemia he was given multiple doses of IV glucose, and at this time he is alert and oriented. On presentation to emergency room vital examination revealed a temperature of 97.6 pulse 76 respiration 18 blood pressure 137/68 pulse ox 100% on room air Laboratory data revealed a white blood count of 12.9 hemoglobin 9.6 platelet count 308 sodium was 147 potassium 3.7 chloride 125 CO2 7 BUN 80 creatinine 4.5 glucose 60 total bilirubin 32.6 AST 153 ALT 145 alkaline phosphatase 482 creatinine kinase 1046 Computed tomography scan of the abdomen and pelvis without contrast was done in the emergency room and revealed dilated Tatian of the intra-and extra hepatic biliary tree secondary to a partially cystic pancreatic head mass, soft tissue thickening at the site of prior enteric anastomosis, and innumerable os teosclerotic lesions concerning for metastatic disease. Past medical history is significant for history of [id number] diabetes mellitus type 2, history of colon cancer, history of prostate cancer, history of coronary artery disease, history of gastrointestinal bleeding, history of chronic kidney disease stage III, history of MRSA infection in the right great toe status post amputation, history of peripheral vascular disease. On review of systems, at this time patient is alert and oriented and answering questions appropriately, he is denying any symptoms at this time he states that he does not remember passing out or falling to the floor or being on the floor at home, he is denying any chest pain shortness of breath cough or abdominal pain GI bleeding or urinary symptoms. On 11/24/2020 patient's alert and oriented resting comfortably in bed. Patient denies any symptoms at this time. Patient denies chest pain or shortness breath. Patient denies nausea vomiting or diarrhea. Patient denies any urinary burning or frequency. Total bilirubin remains high at 27.3. Bun 77 and creatinine 4.38. Oncology and nephrology services are following. Patient has been changed status. On 11/25/2020 patient was seen and examined on the telemetry floor he is alert and oriented 3 in no apparent distress, he is able to eat and drink without difficulty, he still has significant jaundice and significant abnormality on his labs with elevated bilirubin and elevated liver enzymes, at this time we are awaiting further recommendation from gastroenterology and oncology, continue wit h IV fluid, hypoglycemia resolved, will switch fluid to normal saline with bicarb, avoid IV glucose, will continue to monitor On 11/26/2020 patient was seen and examined on the medical floor he is alert and oriented 3 in no apparent distress there is no fever or chills no headache or dizziness no chest pain no shortness of breath no cough no nausea or vomiting no abdominal pain no diarrhea and no urinary symptoms patient still has significant jaundice otherwise he denies any complaints. Patient was evaluated today by gastroenterology, recommendation is to transfer patient to [facility] for ERCP. On 11/27/2020 patient was seen and examined on the medical floor he is alert and oriented 3 in no apparent distress there is no fever or chills no headache or dizziness no chest pain no shortness of breath no cough no nausea or vomiting no abdominal pain no diarrhea and no urinary symptoms patient still has significant jaundice otherwise he denies any complaints. Patient was evaluated today by gastroenterology, recommendation is to transfer patient to [facility] for ERCP. transfer procedure in place. We are awaiting for a bed at [facility] On 11/28/2020 patient was seen and examined on the telemetry floor he is alert and oriented 3 in no apparent distress there is no fever or chills no headache or dizziness no chest pain no shortness of breath no cough no nausea or vomiting no abdominal pain no diarrhea and no urinary symptoms patient still has sig nificant jaundice generalized weakness otherwise he denies any complaints. At this time we are still awaiting possible transfer to [facility] when the room is available for possible ERCP and common bile duct stent placement 11/29/2020 patient is alert and oriented 3 currently working with physical therapy. Discussed case with case management awaiting bed availability at [facility]. At this time patient denies chest pain or shortness of breath. Patient denies nausea vomiting or diarrhea. Patient denies any urinary burning or frequency On 11/30/2020 patient's alert and oriented 3. Patient maintained on IV fluids per nephrology services. Patient transitioned to oral bicarb. Awaiting transfer to [facility] but currently unavailable. At this time patient denies chest pain or shortness breath. Patient denies nausea vomiting or diarrhea. Patient denies any urinary burning or frequency Objective - Vital Signs Vital signs: Vital Signs Temp 98.3 F 11/30/20 09:20 Pulse 53 L 11/30/20 09:20 Resp 18 11/30/20 09:20 BP 103/51 11/30/20 09:20 Pulse Ox 100 11/30/20 09:20 Intake & Output 11/29/20 11/30/20 11/30/20 18:59 06:59 18:59 Intake Total 560 180 Balance 560 180 Weight 103.5 kg Intake: Oral 560 180 Other: Voiding Method Diaper Diaper Diaper # Voids 2 1 # Bowel Movements 2 - Exam In general patient is alert and oriented, in no distress HEENT head normocephalic and atraumatic, there is significant scleral icterus Neck is supple no JVD no goiter no lymphadenopathy no carotid bruit Chest examination is clear to auscultation no crackles no wheezing Cardiac exam reveals regular heart sounds S1 and S2 no gallops no murmurs Abdomen is soft with mild tenderness in the epigastric area no palpable masses no palpable organomegaly Extremity exam reveals no edema no cyanosis or clubbing Neurological examination reveals no gross focal deficits - Labs CBC & Chem 7: 11/30/20 07:46 11/30/20 07:46 Labs: Abnormal Lab Results - Last 24 Hours (Table) 11/29/20 11/29/20 11/30/20 Range/Units 16:42 20:15 06:04 RBC (4.30-5.90) m/uL Hgb (13.0-17.5) gm/dL Hct (39.0-53.0) % RDW (11.5-15.5) % Lymphocytes # (1.0-4.8) k/uL Chloride (98-107) mmol/L Carbon Dioxide (22-30) mmol/L BUN (9-20) mg/dL Creatinine (0.66-1.25) mg/dL Glucose (74-99) mg/dL POC Glucose (mg/dL) 149 H 216 H 140 H (75-99) mg/dL Calcium (8.4-10.2) mg/dL Total Bilirubin (0.2-1.3) mg/dL AST (17-59) U/L ALT (4-49) U/L Alkaline Phosphatase (38-126) U/L Total Protein (6.3-8.2) g/dL Albumin (3.5-5.0) g/dL 11/30/20 11/30/20 Range/Units 07:46 07:46 RBC 2.42 L (4.30-5.90) m/uL Hgb 7.4 L (13.0-17.5) gm/dL Hct 21.5 L (39.0-53.0) % RDW 21.9 H (11.5-15.5) % Lymphocytes # 0.9 L (1.0-4.8) k/uL Chloride 113 H (98-107) mmol/L Carbon Dioxide 18 L (22-30) mmol/L BUN 97 H (9-20) mg/dL Creatinine 4.38 H (0.66-1.25) mg/dL Glucose 154 H (74-99) mg/dL POC Glucose (mg/dL) (75-99) mg/dL Calcium 7.8 L (8.4-10.2) mg/dL Total Bilirubin 31.2 H* (0.2-1.3) mg/dL AST 156 H (17-59) U/L ALT 165 H (4-49) U/L Alkaline Phosphatase 1205 H (38-126) U/L Total Protein 5.3 L (6.3-8.2) g/dL Albumin 2.2 L (3.5-5.0) g/dL Microbiology - Last 24 Hours (Table) 11/23/20 18:23 Blood Culture - Final Blood No Growth after 144 hours Assessment and Plan Plan: Episodes of hypoglycemia Syncope with collapse at home likely related to hypoglycemia Rhabdomyolysis with elevated CPK Acute on chronic renal failure, acute component related to dehydration, hypotension and rhabdomyolysis Evidence of 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, likely related to histo ry of colon cancer, and history of prostate cancer Underlying history of diabetes mellitus type 2 Underlying history of coronary artery disease Underlying history of hypertension Previous history of colon cancer patient underwent surgery chemotherapy and radiation therapy in 2004 Previous history of prostate cancer patient underwent radiation therapy in 2011 Oncology and nephrology service is consulted CODE STATUS has been discussed with family and patient patient changed to no code Prognosis is poor in view of multiple metastatic disease in the abdomen and in the bones, and evidence of kidney failure and liver failure Will follow closely Awaiting bed availability at [facility]
[2020-11-30 11:54] VITALS: BP 122/67; PULSE 81; RESP 16; TEMP 98.5
== END 2020-11-30 16:41 | disposition short-term general hospital (02) | DRG 637 ==
LOC: EC 07:30 → 3SCARD 10:43
PROVIDERS: ADMIT Internal Medicine; ATTEND Internal Medicine
DX: E11.649 Type 2 diabetes mellitus with hypoglycemia without coma (principal); K83.1 Obstruction of bile duct; C79.89 Secondary malignant neoplasm of other specified sites; E87.1 Hypo-osmolality and hyponatremia; E87.2 Acidosis; M62.82 Rhabdomyolysis; E87.0 Hyperosmolality and hypernatremia; D63.8 Anemia in other chronic diseases classified elsewhere; E11.22 Type 2 diabetes mellitus with diabetic chronic kidney disease; E11.51 Type 2 diabetes mellitus with diabetic peripheral angiopathy without gangrene; E86.0 Dehydration; E87.6 Hypokalemia; I12.9 Hypertensive chronic kidney disease with stage 1 through stage 4 chronic kidney disease, or unspecified chronic kidney disease; I25.10 Atherosclerotic heart disease of native coronary artery without angina pectoris; N17.0 Acute kidney failure with tubular necrosis; K72.90 Hepatic failure, unspecified without coma; K82.8 Other specified diseases of gallbladder; Z20.822 Contact with and (suspected) exposure to COVID-19; K86.9 Disease of pancreas, unspecified; M89.9 Disorder of bone, unspecified; N13.9 Obstructive and reflux uropathy, unspecified; N18.32 Chronic kidney disease, stage 3b; N32.89 Other specified disorders of bladder; N40.0 Benign prostatic hyperplasia without lower urinary tract symptoms; Z79.84 Long term (current) use of oral hypoglycemic drugs; Z79.899 Other long term (current) drug therapy; Z85.038 Personal history of other malignant neoplasm of large intestine; Z85.46 Personal history of malignant neoplasm of prostate; Z86.011 Personal history of benign neoplasm of the brain; Z86.14 Personal history of Methicillin resistant Staphylococcus aureus infection; Z87.440 Personal history of urinary (tract) infections; Z87.19 Personal history of other diseases of the digestive system; Z87.891 Personal history of nicotine dependence; Z89.411 Acquired absence of right great toe; Z90.49 Acquired absence of other specified parts of digestive tract; Z92.21 Personal history of antineoplastic chemotherapy; Z92.3 Personal history of irradiation
CPT/HCPCS: 36415; 70450; 71045; 72125; 74176; 76705; 80048; 80053; 81001; 82248; 82550; 82553; 82607; 82728; 82746; 82784; 83540; 83550; 83605; 83615; 83735; 83880; 83883; 83921; 84100; 84153; 84165; 84484; 84550; 85025; 85045; 85610; 85730; 86140; 86301; 86334; 87040; 87635; 93005; 96361; 96374; 96376; 99285